=== PATIENT | male | born 1960 | race Caucasian/White ===

== ENCOUNTER → 2020-05-23 14:32 | Outpatient (POV) | payer OTHER, SELFPAY ==
[2020-05-23 14:55] VITALS: BP 132/88; PULSE 74; RESP 18; TEMP 36.8; O2SAT 98; BMI 29.8
--- NOTE | 2020-05-23 16:01 | HMH.PMCON ---
Assessment and Plan (1) Low back pain Status: Chronic Category: Medical Code(s): M54.5 - Low back pain (2) Lumbar radiculopathy Status: Chronic Category: Medical Code(s): M54.16 - Radiculopathy, lumbar region (3) Bilateral shoulder pain Status: Chronic Category: Medical Code(s): M25.511 - Pain in right shoulder; M25.512 - Pain in left shoulder (4) Cervical radiculopathy Status: Chronic Category: Medical Code(s): M54.12 - Radiculopathy, cervical region - Assessment and plan all Dx Assessment and Plan for all problems:: Patient has been the patient's pain is worse to his low back at this time. We will schedule him for an MRI of his lumbar spine. We will also start the patient on gabapentin 100 mg 1 tablet p.o. at bedtime We will see if this gives him any relief to his extremity pain as well as his shoulder pain. We will discuss his MRI at his next visit and determine further plan of care. He is in agreement. He has been instructed to contact clinic if he has any concerns before his next appointment. The patient and I specifically discussed risk factors for COVID19. These risks include, but are not limited to age greater than 60, heart or lung disease, diabetes, immunosuppression, and travel. We also discussed NSAIDs may worsen COVID19 infection or symptoms. Patient should not use NSAIDs to treat COVID19 signs or symptoms. Patient was also informed that any type of corticosteroid of any form (oral or injection) will decrease the patient's immune system response and may increase the likelihood of COVID19 infection [address] symptoms[address]. Wright has reviewed this note and agrees with this plan of care. This note was dictated using voice recognition software and make contain errors or omissions. HPI - Data of Consult Patient: new to practice Consult date: 05/23/20 Requesting Physician: Hillary Vallejo APRN Primary Care Provider: Luis Felipe Virgen MD Family Provider: Patient is a pleasant 59-year-old old white male who presents today for consultation for chronic low back pain. Patient says that he has had this pain for many years. 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 He says that he was in quarantine for 14 days and noticed that his pain improved when he was not doing prolonged standing and walking on concrete. Patient says much of his pain is in his low back and hips worsening on the left side to the left lateral thigh and lower leg area. He also has bilateral shoulder and hand pain. He has had difficulty with gripping in his hands with numbness and tingling as well. He says his pain is worse at night when he is laying down to the point he is unable to tolerate sleeping. Patient does have a history of gastric ulcers and is currently taking diclofenac, along with ibuprofen and Aleve. Patient says that he has noticed some GI upset recently due to his medications. He described his pain a 7 out of 10 today. Patient was referred to a neurosurgeon in the past who did not feel this patient was an appropriate surgical candidate. He has tried physical therapy for greater than 6 weeks. He continues with a home stretching program. He does have a history of GI upset along with gastric ulcers in the past. He has, however, been taking anti-inflammatories. He has tried ice and heat therapies and has not gotten any relief. - Consult Narrative History of present illness: Mr. Miles is a 59 year old male CC: Hillary Vallejo APRN [facility] History I have reviewed the patient's past medical history: Yes Medical History: Reports:: Deep Vein Thrombosis Denies:: Cancer, Diabetes Mellitus Type 1, Diabetes Mellitus Type 2, MRSA *Have you ever received a pneumonia vaccine?: Yes *Have you received a flu vaccine this season?: Yes Other Medical History: Reports: Arthritis Other Surgeries: Yes: Cholecystectomy, Hernia Repair Amputation: No Fractures: No - *Social History Smoking Status: Curr
== END ==
PROVIDERS: PCP Family Medicine; Referring Provider Nurse Practitioner; Visit Provider Clinical Nurse Specialist Family Health
DX: M54.5 Low back pain (principal); M54.16 Radiculopathy, lumbar region; M25.511 Pain in right shoulder; M54.12 Radiculopathy, cervical region
CPT/HCPCS: 99202

== ENCOUNTER → 2020-05-30 13:16 | Outpatient (CLI) | payer OTHER, SELFPAY ==
--- NOTE | 2020-05-30 13:20 | MR_ITS ---
PROCEDURE: MR LUMBAR SPINE WO CON CLINICAL INDICATION: BACK PAIN LBP XYRS. UNABLE TO STAND UP STRAIGHT. LT LEG PAIN ,NUMBNESS, AND TINGLING. RT HIP PAIN TO MID THIGH. NO PRIOR. COMPARISON: No exams were available for comparison TECHNIQUE: Standard multiplanar multiecho sequences are performed without contrast. 3-D MIP and myelographic images are also rendered and reviewed FINDINGS: The spinal cord ends at the L2 level. There is multilevel lumbar spondylosis. T2-11 T12: Degenerative disc disease with endplate irregularity. T12-L1: Mild degenerative disc disease with endplate irregularity. L1-L2: Degenerative disc disease with endplate irregularity and type 2 endplate changes anteriorly. L2-L3: The disc space is well preserved. There is some minimal endplate osteophytes. L3-L4: Minimal concentric bulging disc. Mild facet and ligamentum hypertrophy with mild left foraminal narrowing. L4-5: Degenerative disc disease with mild bulging disc along with mild facet and ligamentum hypertrophy with mild bilateral foraminal narrowing. L5-S1: Degenerative disc disease with mild bulging disc with facet and ligamentum hypertrophy. No extruded herniated disc or canal stenosis. There are bilateral renal cysts IMPRESSION: Multilevel lumbar spondylosis with bulging disc and facet and ligamentum hypertrophy. Please see above for detailed description at each level. No canal stenosis or extruded herniated disc. Dictated by: Gabo Vargas MD 06/01/2020 11:02 Gabo Vargas MD in [place] 06/01/2020 11:02
== END ==
PROVIDERS: PCP Family Medicine; Visit Provider Clinical Nurse Specialist Family Health
DX: M54.5 Low back pain (principal)
CPT/HCPCS: 72148; 76376

== ENCOUNTER → 2020-06-06 11:31 | Outpatient (POV) | payer OTHER, SELFPAY ==
[2020-06-06 11:30] VITALS: BP 129/87; PULSE 100; RESP 20; TEMP 36.4; O2SAT 98; BMI 30.6
--- NOTE | 2020-06-06 12:04 | HMH.PAINSOAP ---
[facility] Pain Management SOAP Note Subjective:: Patient is a 59-year-old white male who presents today for follow-up. Patient has been treated for chronic low back pain with lumbar radiculopathy symptoms as well as bilateral hand pain. At the patient's last visit, he was started on gabapentin for his chronic low back pain and leg pain. He also complained of shoulder and hand pain. Today he is complaining more of low back pain with radiation into his hips and legs with occasional numbness and tingling. He is also having hand pain with stiffness. He does not complain of any shoulder pain today. Patient does rate his pain a 7 out of 10. He does report some reluctance on undergoing injective therapy. He says gabapentin did not give him any relief. 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 Patient says that he does get some relief when he is sitting, however, his pain is worse when he is standing and walking. He has tried physical therapy along with a continued home stretching program. Review of Systems General: No recent weight changes, no fever, no sleep disturbances Respiratory: No cough, no shortness of air, no recurring pulmonary infections Cardiovascular/peripheral vascular: No chest pain, no palpitations, no edema, no shortness of breath Gastrointestinal: No new onset incontinence, normal bowel movements reported Genitourinary: No new onset incontinence Musculoskeletal: Low back pain with radiation into bilateral hips and legs with occasional numbness and tingling, bilateral hand pain with stiffness Psychiatric: Normal mood/affect Neurological: [Denies weakness in extremities], [denies balance issues] Objective:: Physical exam General: Alert and oriented x3, no acute distress, pleasant and cooperative, [on room air] Lungs: Respirations even and unlabored, symmetrical chest expansion Eyes: PERRL Musculoskeletal: Flexion and extension of lumbar spine somewhat guarded secondary to pain, deep tendon reflexes normal, strength in upper and lower extremities [5/5], [abnormal gait noted] Neurological: Speech clear, supervisor fusing room equal, no gross sensory deficit Assessment:: Degenerative disc disease lumbar spine with lumbar radiculopathy symptoms, bilateral hand pain Plan:: We will schedule the patient for a lumbar epidural steroid injection at L4-L5. We did review his MRI today. Patient did not get any relief with gabapentin. We will stop his gabapentin and give him a low-dose of tramadol 50 mg 1 tablet p.o. 2 times daily until he is able to get his injection. This will give him some relief in the meantime so that he is able to work. We will plan to see him back in the clinic after his injection to reassess his symptoms. He is not on any anticoagulation therapy. He is unable to take anti-inflammatories due to history of GI ulcers. Risks and benefits of the procedure have been explained to the patient. Patient would like to proceed with the procedure. Patient has been instructed to contact clinic if he does she has any concerns before the next appointment. The patient and I specifically discussed risk factors for COVID19. These risks include, but are not limited to age greater than 60, heart or lung disease, diabetes, immunosuppression, and travel. We also discussed NSAIDs may worsen COVID19 infection or symptoms. Patient should not use NSAIDs to treat COVID19 signs or symptoms. Patient was also informed that any type of corticosteroid of any form (oral or injection) will decrease the patient's immune system response and may increase the likelihood of COVID19 [address] Wright has reviewed this note and agrees with this plan of care. This note was dictated using voice recognition software and make contain errors or omissions. [facility] History I have reviewed the patient's past medical history: Yes Medical History: Reports:: Deep Vein Thrombosis Denies:: Cancer, Diabetes Mellitus
== END ==
PROVIDERS: PCP Nurse Practitioner; Visit Provider Clinical Nurse Specialist Family Health
DX: M51.16 Intervertebral disc disorders with radiculopathy, lumbar region (principal); M79.642 Pain in left hand; M79.641 Pain in right hand
CPT/HCPCS: 99212

== ENCOUNTER → 2020-06-28 08:50 | Day surgery (SDC) | payer OTHER, SELFPAY ==
[2020-06-28 09:12] VITALS: BP 150/93; PULSE 53; RESP 20; TEMP 36.6; O2SAT 97; BMI 31.1
--- NOTE | 2020-06-28 10:02 | P.CONS_ITS ---
[facility] Pain Management SOAP Note Subjective:: Patient is a pleasant 59-year-old white male who initially presented today for a lumbar epidural steroid injection. He says that most of his pain is multijoint pain primarily in his knees and shoulders. He occasionally has low back pain and leg pain however he does not think he needs an injection today for his low back pain as most of his pain is in his knees and shoulders. Objective:: Alert and oriented x3 no acute distress. Patient does have an antalgic gait. Motor strength of lower extremities is 5/5. There is no gross sensory deficit. Assessment:: Bilateral shoulder pain with degenerative osteoarthritis. Bilateral knee pain with degenerative osteoarthritis. Low back pain with occasional lumbar radicular symptoms. Plan:: Patient's primary complaint is pain in both shoulders and knees. He has been on anti-inflammatories without much relief. Also he has GI distress from these anti-inflammatories. He is also been on tramadol which has not helped. We will make a referral to the [facility] [place] to evaluate and make any recommendations. We will also see him back after this evaluation for possible injections into his knees and shoulders. We will also order him a compounding cream to see if this may help some of his pain symptoms. [facility] History Medical History: Reports:: Deep Vein Thrombosis Denies:: Cancer, Diabetes Mellitus Type 1, Diabetes Mellitus Type 2, MRSA, Seizures *Have you ever received a pneumonia vaccine?: No *Have you received a flu vaccine this season?: No Other Medical History: Reports: Arthritis. Denies: Blood Transfusion Reaction Laterality Cases: Left: Other Other Surgeries: Yes: Cholecystectomy, Hernia Repair Amputation: No Fractures: Yes (left leg fracture) - *Social History Smoking Status: Current every day smoker Tobacco Type: cigarettes # Packs/Day (cigarettes): 1 Alcohol Intake: never *Occupational Status:: disabled Housing: house Household Members: spouse *Travel in the last 8 weeks: None Family Hx:: Unable to obtain
== END ==
PROVIDERS: PCP Nurse Practitioner; Visit Provider Anesthesiology
DX: M19.012 Primary osteoarthritis, left shoulder (principal); M19.011 Primary osteoarthritis, right shoulder; M17.0 Bilateral primary osteoarthritis of knee; M54.16 Radiculopathy, lumbar region
CPT/HCPCS: 99212; G0463

== ENCOUNTER → 2020-07-18 14:37 | Outpatient (POV) | payer OTHER, SELFPAY ==
[2020-07-18 14:57] VITALS: BP 122/88; PULSE 79; RESP 18; TEMP 36.7; O2SAT 99; BMI 31.1
--- NOTE | 2020-07-18 15:10 | HMH.PAINSOAP ---
[facility] Pain Management SOAP Note Subjective:: Patient is a pleasant 59-year-old white male who presents today for follow-up. Patient is being treated for arthritis pain. He also has bilateral knee pain. He has had steroid injections in his knees several years ago and has done well with this. Patient is unable to take normal anti-inflammatories due to a history of bleeding ulcers back in 2003 we discussed Duexis. Patient I also discussed Pennsaid. Patient states that tramadol is beneficial for him. Patient's Thang reviewed and appropriate. He rates his pain today an 8 out of 10. Patient would like to have repeat steroid injections in his knees. Patient is also got an appointment with the arthritis Center in [place]. ROS General: no recent weight change, no fever, no sleep disturbances Respiratory: no cough, no shortness of air, no recurring pulmonary infections Cardiovascular/Peripheral Vascular: No chest pain, No palpitations, no edema, no shortness of breath. Gastrointestinal: no new onset incontinence, normal bowel movements reported Genitourinary: no new onset incontinence Musculoskeletal: Joint pain Psychiatric: normal mood/ affect Neurological: [denies new onset weakness in extremities], [denies new onset balance issues] Objective:: Physical Exam General: Alert and oriented x3, no acute distress, pleasant and cooperative, Lungs: Resps E/U, Symmetrical chest expansion, Eyes: PERRL Musculoskeletal: Flexion and extension of lumbar spine somewhat guarded secondary to pain, deep tendon reflexes normal, strength in upper and lower extremities [5/5], [abnormal gait noted] decreased range of motion bilateral knees Neurological: speech clear, xray tech equal, no gross sensory deficits Assessment:: Degenerative disc disease lumbar spine lumbar radiculopathy, arthritis, osteoarthritis bilateral knees, pain bilateral knees Plan:: We will see the patient back for bilateral intra-articular knee injections. We discussed Pennsaid and the use of an anti-inflammatory gel. We will also increase his tramadol to 2 tabs p.o. 3 times daily Until he is seen by the arthritis Center. He has been instructed to call the office if he has any issues prior to his next appointment. Dr. Wright has reviewed this note and agrees with this plan of care. This note was dictated using voice recognition software and may contain errors or omissions [facility] History I have reviewed the patient's past medical history: Yes Medical History: Reports:: Deep Vein Thrombosis Denies:: Cancer, Diabetes Mellitus Type 1, Diabetes Mellitus Type 2, MRSA, Seizures *Have you ever received a pneumonia vaccine?: Yes *Have you received a flu vaccine this season?: Yes Other Medical History: Reports: Arthritis. Denies: Blood Transfusion Reaction Laterality Cases: Left: Other Other Surgeries: Yes: Cholecystectomy, Hernia Repair Amputation: No Fractures: Yes (left leg fracture) - *Social History Smoking Status: Current every day smoker Tobacco Type: cigarettes # Packs/Day (cigarettes): 1 Alcohol Intake: never *Occupational Status:: other Housing: house Household Members: spouse *Travel in the last 8 weeks: None Family Hx:: Unable to obtain
== END ==
PROVIDERS: PCP Nurse Practitioner; Visit Provider Clinical Nurse Specialist Family Health
DX: M51.16 Intervertebral disc disorders with radiculopathy, lumbar region (principal); M17.0 Bilateral primary osteoarthritis of knee
CPT/HCPCS: 99212; G0463

== ENCOUNTER 2020-07-26 11:40 | Day surgery (SDC) | payer OTHER, SELFPAY ==
[2020-07-26 11:49] VITALS: BP 144/92; PULSE 88; RESP 18; TEMP 36.4; O2SAT 98; BMI 31.1
[2020-07-26 12:22] VITALS: BP 122/74; PULSE 85
[2020-07-26 12:23] VITALS: BP 121/71; PULSE 85; RESP 18; O2SAT 99
[2020-07-26 12:33] VITALS: BP 142/93; PULSE 86; RESP 18; O2SAT 98
--- NOTE | 2020-07-26 12:34 | P.PCN_ITS ---
- Procedure Date: 07/26/20 Time: 12:34 Anesthesiologist:: Ashok Wright MD Complications:: None Pre-procedure Diagnosis:: Bilateral knee pain with degenerative osteoarthritis Post-procedure Diagnosis:: Same Indications for Procedure:: Patient is a pleasant 59-year-old white male who we are treating for bilateral knee pain with degenerative osteoarthritis. He is done well with previous s teroid injections in both knees. He has increasing bilateral knee pain. We will do bilateral intra-articular steroid injections today to help with his pain symptoms. Procedure Details:: Bilateral knee injections Informed consent was obtained risk and benefits of the procedure was explained to the patient. Patient was taken the procedure room. Both knees were prepped using ChloraPrep. A 25-gauge needle was used first laterally then medially to inject 10 mL bupivacaine 0.25% and Depo-Medrol 40 mg into each knees. We did use a total of 80 mg Depo-Medrol for both knees. Patient tolerated the procedure well with no complications. Plan and Disposition:: We will follow-up with this patient 2 weeks. Will reevaluate symptoms at that time.
== END 2020-07-26 12:34 | disposition home or self-care (01) ==
LOC: SC.PAINP 11:47
PROVIDERS: PCP Nurse Practitioner; Visit Provider Anesthesiology
DX: M17.0 Bilateral primary osteoarthritis of knee (principal); K21.9 Gastro-esophageal reflux disease without esophagitis; N40.0 Benign prostatic hyperplasia without lower urinary tract symptoms; Z72.0 Tobacco use; Z82.49 Family history of ischemic heart disease and other diseases of the circulatory system; Z87.442 Personal history of urinary calculi
CPT/HCPCS: 20610; J1030

== ENCOUNTER → 2020-08-22 14:45 | Outpatient (POV) | payer OTHER, SELFPAY ==
[2020-08-22 15:45] VITALS: BP 142/71; PULSE 72; RESP 18; O2SAT 98; BMI 29.4
--- NOTE | 2020-08-22 16:13 | HMH.PAINSOAP ---
[facility] Pain Management SOAP Note Subjective:: Patient is a 59-year-old white male who presents today for follow-up after bilateral knee injections. He has been treated for bilateral knee pain with degenerative osteoarthritis. Patient says he did not get any relief with his injections. He says that he actually had a reaction to the medication. Patient says that he developed a hot flushed sensation with shaking and jitteriness. He says he then blacked out. He reported to his primary care provider who informed he was likely due to reaction to the steroids. He says he will not undergo any further injective therapy. He does rate his pain a 9 out of 10. He is managed with tramadol 50 mg 2 tablets p.o. 3 times daily. He denies any side effects to the medication. He does need a refill on his medications today. His Thang and drug screens have been appropriate. Review of Systems General: No recent weight changes, no fever, no sleep disturbances Respiratory: No cough, no shortness of air, no recurring pulmonary infections Cardiovascular/peripheral vascular: No chest pain, no palpitations, no edema, no shortness of breath Gastrointestinal: No new onset incontinence, normal bowel movements reported Genitourinary: No new onset incontinence Musculoskeletal: Bilateral knee pain and chronic low back pain Psychiatric: Normal mood/affect Neurological: [Denies weakness in extremities], [denies balance issues] Objective:: Physical exam General: Alert and oriented x3, no acute distress, pleasant and cooperative, [on room air] Lungs: Respirations even and unlabored, symmetrical chest expansion Eyes: PERRL Musculoskeletal: Flexion and extension of lumbar spine somewhat guarded secondary to pain, deep tendon reflexes normal, strength in upper and lower extremities [5/5], slightly antalgic gait noted Neurological: Speech clear, ticker installer equal, no gross sensory deficit Assessment:: Degenerative osteoarthritis bilateral knees, low back pain Plan:: Patient feels he had a reaction to the steroids. We we will refill his tramadol 50 mg 2 tablets p.o. 3 times daily. We will give him 3 months of medication. We will plan to see him back in the clinic in 3 months to reevaluate his symptoms. He has been instructed to contact clinic if he has any concerns before his next appointment. Risks and benefits of the medication have been explained in detail to the patient. The patient has been advised to consult with his/her primary care provider and pharmacist regarding drug-drug interaction of medications currently prescribed. The patient and I specifically discussed risk factors for COVID19. These risks include, but are not limited to age greater than 60, heart or lung disease, diabetes, immunosuppression, and travel. We also discussed NSAIDs may worsen COVID19 infection or symptoms. Patient should not use NSAIDs to treat COVID19 signs or symptoms. Patient was also informed that any type of corticosteroid of any form (oral or injection) will decrease the patient's immune system response and may increase the likelihood of COVID19 [address] symptoms[address] Wright has reviewed this note and agrees with this plan of care. This note was dictated using voice recognition software and make contain errors or omissions. [facility] History I have reviewed the patient's past medical history: Yes Medical History: Reports:: Deep Vein Thrombosis Denies:: Cancer, Diabetes Mellitus Type 1, Diabetes Mellitus Type 2, MRSA, Seizures *Have you ever received a pneumonia vaccine?: Yes *Have you received a flu vaccine this season?: Yes Other Medical History: Reports: Arthritis. Denies: Blood Transfusion Reaction Laterality Cases: Left: Other Other Surgeries: Yes: Cholecystectomy, Hernia Repair Amputation: No Fractures: Yes (left leg fracture) - *Social History Smoking Status: Current every day smoker Tobacco Type: cigarettes # Packs/Day (cigarettes): 1 Alcohol Intake: never *Occup
== END ==
PROVIDERS: PCP Nurse Practitioner; Visit Provider Clinical Nurse Specialist Family Health
DX: M17.0 Bilateral primary osteoarthritis of knee (principal); M54.5 Low back pain
CPT/HCPCS: 99212; G0463

== ENCOUNTER → 2020-11-21 13:01 | Outpatient (POV) | payer OTHER, SELFPAY ==
[2020-11-21 13:15] VITALS: BP 138/68; PULSE 72; RESP 18; O2SAT 97; BMI 30.5
--- NOTE | 2020-11-21 15:47 | P.CONS_ITS ---
[facility] Pain Management SOAP Note Subjective:: Patient is a 59-year-old white male who presents today for follow-up and for medication refills. He has been treated for chronic bilateral knee pain. He also has chronic pain in his shoulders and hands. He rates his pain a 5 out of 10 today. He has managed with tramadol 50 mg 2 tablets p.o. 3 times daily. He denies any side effects to the medication. He is having a flareup of pain in his hands and shoulders at this time. Patient says he has had injections in the past which caused him to have a reaction. He would like to try oral steroids for a week to see if this gives him relief of his pain in his knees and hands. Review of Systems General: No recent weight changes, no fever, no sleep disturbances Respiratory: No cough, no shortness of air, no recurring pulmonary infections Cardiovascular/peripheral vascular: No chest pain, no palpitations, no edema, no shortness of breath Gastrointestinal: No new onset incontinence, normal bowel movements reported Genitourinary: No new onset incontinence Musculoskeletal: Bilateral shoulder pain, bilateral knee pain, bilateral hand pain Psychiatric: Normal mood/affect Neurological: Weakness in bilateral hands, [denies balance issues] Objective:: Physical exam General: Alert and oriented x3, no acute distress, pleasant and cooperative, [on room air] Lungs: Respirations even and unlabored, symmetrical chest expansion Eyes: PERRL Musculoskeletal: Met of bilateral hands and lower extremities somewhat guarded secondary to pain, deep tendon reflexes normal, strength in upper and lower extremities [4/5], [abnormal gait noted] Neurological: Speech clear, finish remover equal, no gross sensory deficit Assessment:: Bilateral knee pain, bilateral hand pain, bilateral shoulder pain Plan:: We will refill the patient's tramadol 50 mg 2 tablets p.o. 3 times daily. We will also give him 5 days of prednisone 20 mg 1 tablet p.o. twice daily. We will plan to see the patient back in 3 months to reevaluate his symptoms. Risks and benefits of the medication have been explained in detail to the patient. The patient has been advised to consult with his/her primary care provider and pharmacist regarding drug-drug interaction of medications currently prescribed. Patient has been prescribed a controlled substance after being counseled on the medication, medication safety, and possible side effects. ARIA report has been obtained and reviewed prior to prescription and found to be appropriate. Opioid contract was reviewed and signed by the patient, and that they have agreed to all of the terms set forth by our compliance program. [facility] History I have reviewed the patient's past medical history: Yes Medical History: Reports:: Deep Vein Thrombosis Denies:: Cancer, Diabetes Mellitus Type 1, Diabetes Mellitus Type 2, MRSA, Seizures *Have you ever received a pneumonia vaccine?: No *Have you received a flu vaccine this season?: No Other Medical History: Reports: Arthritis. Denies: Blood Transfusion Reaction Laterality Cases: Left: Other Other Surgeries: Yes: Cholecystectomy, Hernia Repair Amputation: No Fractures: Yes (left leg fracture) - *Social History Smoking Status: Current every day smoker Tobacco Type: cigarettes # Packs/Day (cigarettes): 1 Alcohol Intake: never *Occupational Status:: employed Housing: house Household Members: spouse *Travel in the last 8 weeks: None Family Hx:: Unable to obtain
== END ==
PROVIDERS: Visit Provider Clinical Nurse Specialist Family Health
DX: M25.561 Pain in right knee (principal); M25.562 Pain in left knee; M79.642 Pain in left hand; M79.641 Pain in right hand; M25.512 Pain in left shoulder; M25.511 Pain in right shoulder
CPT/HCPCS: 99212; G0463

== ENCOUNTER → 2021-03-10 10:50 | Outpatient (POV) | payer OTHER, SELFPAY ==
[2021-03-10 11:00] VITALS: BP 129/76; PULSE 83; RESP 18; O2SAT 97; BMI 28.2
--- NOTE | 2021-03-10 11:18 | HMH.PAINSOAP ---
[facility] Pain Management SOAP Note Subjective:: Patient is a 60-year-old white male who presents today for follow-up and for medication refills. He has been treated for progressively worsening pain in his bilateral knees, hands, legs and bilateral shoulders. Patient reports to have severe joint pain. He has been managed with tramadol 50 mg 2 tablets p.o. 3 times daily in the clinic. He did get prednisone at his last visit with no significant relief. He has tried to take anti-inflammatories with minimal relief. He continues to have severe pain. Patient does currently work and has difficulty performing his job due to the pain. His pain is a 4 out of 10 with sitting, however, with any movement his pain does worsen. He is also reporting sexual difficulties with his due to the pain, as well. Review of Systems General: No recent weight changes, no fever, no sleep disturbances Respiratory: No cough, no shortness of air, no recurring pulmonary infections Cardiovascular/peripheral vascular: No chest pain, no palpitations, no edema, no shortness of breath Gastrointestinal: No new onset incontinence, normal bowel movements reported Genitourinary: No new onset incontinence Musculoskeletal: Joint pain, knee pain, hand pain bilaterally, leg pain Psychiatric: [Normal mood/affect] Neurological: [Denies weakness in extremities], [denies balance issues] Objective:: Physical exam General: Alert and oriented x3, no acute distress, pleasant and cooperative, [on room air] Lungs: Respirations even and unlabored, symmetrical chest expansion Eyes: PERRL Musculoskeletal: Palpation of bilateral knees, legs, bilateral shoulders somewhat guarded secondary to pain, strength in upper and lower extremities [5/5], [antalgic gait noted] Neurological: Speech clear, [paid search manager equal], no gross sensory deficit Assessment:: Bilateral knee pain, bilateral hand pain, bilateral leg pain, chronic shoulder pain Plan:: Patient will start [place] 5 mg 1 tablet p.o. 3 times daily. He has been taking tramadol 50 mg 2 tablets p.o. 3 times daily with no significant relief. He has tried prednisone and anti-inflammatories. We will give him a month of the medication to see if this relieves his pain. The patient's Aria #[id number] has been reviewed and is appropriate. Drug screen is appropriate. Morphine equivalent is 0. We will see the patient back in the clinic for reevaluation of symptoms in 1 month. Risks and benefits of the medication have been explained in detail to the patient. The patient has been advised to consult with his/her primary care provider and pharmacist regarding drug-drug interaction of medications currently prescribed. Patient has been prescribed a controlled substance after being counseled on the medication, medication safety, and possible side effects. ARIA report has been obtained and reviewed prior to prescription and found to be appropriate. Opioid contract was reviewed and signed by the patient, and that they have agreed to all of the terms set forth by our compliance program. Patient has been instructed to contact the clinic with any concerns before the next appointment. Dr. Wright has reviewed this note and agrees with this plan of care. This note was dictated using voice recognition software and make contain errors or omissions. [facility] History I have reviewed the patient's past medical history: Yes Medical History: Reports:: Deep Vein Thrombosis Denies:: Cancer, Diabetes Mellitus Type 1, Diabetes Mellitus Type 2, MRSA, Seizures *Have you ever received a pneumonia vaccine?: No *Have you received a flu vaccine this season?: No Other Medical History: Reports: Arthritis. Denies: Blood Transfusion Reaction Laterality Cases: Left: Other Other Surgeries: Yes: Cholecystectomy, Hernia Repair Amputation: No Fractures: Yes (left leg fracture) - *Social History Smoking Status: Current every day smoker Tobacco Type: cigarettes # Packs/Day (cigarette
== END ==
PROVIDERS: Visit Provider Clinical Nurse Specialist Family Health
DX: M25.562 Pain in left knee (principal); M25.561 Pain in right knee; M25.519 Pain in unspecified shoulder; M25.542 Pain in joints of left hand; M25.541 Pain in joints of right hand; M79.605 Pain in left leg; M79.604 Pain in right leg; G89.29 Other chronic pain
CPT/HCPCS: 99212; G0463

== ENCOUNTER → 2021-04-07 11:14 | Outpatient (POV) | payer OTHER, SELFPAY ==
[2021-04-07 11:27] VITALS: BP 145/80; PULSE 92; RESP 18; O2SAT 98; BMI 29.0
--- NOTE | 2021-04-07 11:59 | HMH.PAINSOAP ---
[facility] Pain Management SOAP Note Subjective:: Patient is a 60-year-old white male who presents today for medication refills. Patient is being treated for chronic joint pain of bilateral knees, hands, legs and shoulders. He is managed with Piru 5 mg 1 tablet p.o. twice daily. Medication is working for the patient but seems to be wearing off mid day. He is supplementing in between Piru with ibuprofen. He does rate his pain a 4 out of 10 today. Patient says this is helping with his pain in the morning and at bedtime. Midday is when his pain is at its worst due to working and due to medication wearing off. He denies any side effects to the medication. Patient's Aria #[id number] has been reviewed and is appropriate. Morphine equivalent is 10. Drug screens have been appropriate. Review of Systems General: No recent weight changes, no fever, no sleep disturbances Respiratory: No cough, no shortness of air, no recurring pulmonary infections Cardiovascular/peripheral vascular: No chest pain, no palpitations, no edema, no shortness of breath Gastrointestinal: No new onset incontinence, normal bowel movements reported Genitourinary: No new onset incontinence Musculoskeletal: Bilateral shoulder, knee, hand, leg pain Psychiatric: [Normal mood/affect] Neurological: [Denies weakness in extremities], [denies balance issues] Objective:: Physical exam General: Alert and oriented x3, no acute distress, pleasant and cooperative Lungs: Respirations even and unlabored, symmetrical chest expansion Eyes: PERRL Musculoskeletal: Flexion and extension of joints?bilateral shoulders, arms, legs, knees, hands somewhat guarded secondary to pain, [antalgic gait noted] Neurological: Speech clear, no gross sensory deficit Assessment:: Bilateral knee pain, bilateral hand pain, bilateral leg pain, chronic shoulder pain Plan:: We will continue the patient on Piru and increase to 5 mg 1 tablet p.o. 3 times daily. We will give the patient a month medication and see him back in the clinic in 1 month for reevaluation symptoms. Risks and benefits of the medication have been explained in detail to the patient. The patient does understand the risk of dependence on the medication when given over a prolonged period. Patient has been advised of risks of oversedation with the prescribed medication. Narcan has been offered to the paitent in the event of oversedation. Patient has been advised that a family member should also be educated regarding administration of Narcan. The patient has been advised to consult with his/her primary care provider and pharmacist regarding drug-drug interaction of medications currently prescribed. Patient has been prescribed a controlled substance after being counseled on the medication, medication safety, and possible side effects. ARIA report has been obtained and reviewed prior to prescription and found to be appropriate. Opioid contract was reviewed and signed by the patient, and that they have agreed to all of the terms set forth by our compliance program. Patient has been instructed to contact the clinic with any concerns before the next appointment. Dr. Wright has reviewed this note and agrees with this plan of care. This note was dictated using voice recognition software and make contain errors or omissions. [facility] History I have reviewed the patient's past medical history: Yes Medical History: Reports:: Deep Vein Thrombosis Denies:: Cancer, Diabetes Mellitus Type 1, Diabetes Mellitus Type 2, MRSA, Seizures *Have you ever received a pneumonia vaccine?: No *Have you received a flu vaccine this season?: No Other Medical History: Reports: Arthritis. Denies: Blood Transfusion Reaction Laterality Cases: Left: Other Other Surgeries: Yes: Cholecystectomy, Hernia Repair Amputation: No Fractures: Yes (left leg fracture) - *Social History Smoking Status: Current every day smoker Tobacco Type: cigarettes # Packs
[2021-04-07 13:09] LABS: Amphetamine/Metha Screen,Urine Negative ng/ml (<1000)
[2021-04-07 13:10] LABS: Barbiturates Screen,Urine Negative ng/ml (<200); Benzodiazepines Screen,Urine Negative ng/ml (<200)
[2021-04-07 13:11] LABS: Cannabinoid Screen,Urine Negative ng/ml (<50)
[2021-04-07 13:12] LABS: Cocaine Screen,Urine Negative ng/ml (<300); Methadone Screen,Urine Negative ng/ml (<300)
[2021-04-07 13:13] LABS: Opiate Screen,Urine Negative ng/ml (<300); Phencyclidine Screen,Urine Negative ng/ml (<25)
== END ==
PROVIDERS: Visit Provider Clinical Nurse Specialist Family Health
DX: M25.561 Pain in right knee (principal); M25.562 Pain in left knee; M79.605 Pain in left leg; M79.604 Pain in right leg; M79.642 Pain in left hand; M79.641 Pain in right hand; M25.519 Pain in unspecified shoulder
CPT/HCPCS: 80305; 99212; G0463

== ENCOUNTER → 2021-05-06 10:32 | Outpatient (POV) | payer OTHER, SELFPAY ==
--- NOTE | 2021-05-06 10:57 | HMH.PAINSOAP ---
[facility] Pain Management SOAP Note Subjective:: Patient is a 60-year-old white male who presents today for medication refills. We do manage the patient for chronic pain in his bilateral knees, hands, legs and shoulders. He does continue to work daily. He is on [place] 5 mg 1 tablet p.o. 3 times daily which is giving him significant relief. He is inquiring about CBD oil today but says he will not take the medication if he will compromise his current medication regimen prescribed by us. He is asking for medication to take in between oral opiates. He is asking for ibuprofen for a type of anti-inflammatory that may be beneficial. Patient's Aria #[id number] has been reviewed and is appropriate. Drug screens are appropriate. Morphine equivalent 15. He denies any side effects to the medication. He rates his pain 4 out of 10. Review of Systems General: No recent weight changes, no fever, no sleep disturbances Respiratory: No cough, no shortness of air, no recurring pulmonary infections Cardiovascular/peripheral vascular: No chest pain, no palpitations, no edema, no shortness of breath Gastrointestinal: No new onset incontinence, normal bowel movements reported Genitourinary: No new onset incontinence Musculoskeletal: Bilateral knee pain, bilateral shoulder pain, bilateral hand pain, bilateral leg pain Psychiatric: [Normal mood/affect] Neurological: [Denies weakness in extremities], [denies balance issues] Objective:: Physical exam General: Alert and oriented x3, no acute distress, pleasant and cooperative Lungs: Respirations even and unlabored, symmetrical chest expansion Eyes: PERRL Musculoskeletal: Flexion and extension of lumbar [spine] somewhat guarded secondary to pain, [antalgic gait noted] Neurological: Speech clear, no gross sensory deficit Assessment:: Chronic pain to bilateral shoulders bilateral hands bilateral knees bilateral legs Plan:: We will continue patient on [place] 5 mg 1 tablet p.o. 3 times daily. We will also start the patient on ibuprofen 800 mg 1 tablet p.o. 3 times daily as needed breakthrough pain. We will also order the patient Pepcid 20 mg 1 tablet p.o. 3 times daily as needed with ibuprofen to help with GI upset. We will plan to follow-up with the patient in 1 month for refills on medications and further evaluation of symptoms. Risks and benefits of the medication have been explained in detail to the patient. The patient does understand the risk of dependence on the medication when given over a prolonged period. Patient has been advised of risks of oversedation with the prescribed medication. Narcan has been offered to the paitent in the event of oversedation. Patient has been advised that a family member should also be educated regarding administration of Narcan. The patient has been advised to consult with his/her primary care provider and pharmacist regarding drug-drug interaction of medications currently prescribed. Patient has been prescribed a controlled substance after being counseled on the medication, medication safety, and possible side effects. ARIA report has been obtained and reviewed prior to prescription and found to be appropriate. Opioid contract was reviewed and signed by the patient, and that they have agreed to all of the terms set forth by our compliance program. Patient has been instructed to contact the clinic with any concerns before the next appointment. Dr. Wright has reviewed this note and agrees with this plan of care. This note was dictated using voice recognition software and make contain errors or omissions. [facility] History I have reviewed the patient's past medical history: Yes Medical History: Reports:: Deep Vein Thrombosis Denies:: Cancer, Diabetes Mellitus Type 1, Diabetes Mellitus Type 2, MRSA, Seizures *Have you ever received a pneumonia vaccine?: No *Have you received a flu vaccine this season?: No Other Medical History: Reports: Arthritis. Denies: Blood Tra
[2021-05-06 11:06] VITALS: BP 124/78; PULSE 76; RESP 18; O2SAT 97; BMI 31.8
== END ==
PROVIDERS: Visit Provider Clinical Nurse Specialist Family Health
DX: M25.511 Pain in right shoulder (principal); M25.512 Pain in left shoulder; M25.561 Pain in right knee; M25.562 Pain in left knee; M79.642 Pain in left hand; M79.641 Pain in right hand; M79.605 Pain in left leg; M79.604 Pain in right leg
CPT/HCPCS: 99212; G0463

== ENCOUNTER → 2021-06-05 10:36 | Outpatient (POV) | payer OTHER, SELFPAY ==
[2021-06-05 11:33] VITALS: BP 134/70; PULSE 97; RESP 18; O2SAT 98; BMI 30.5
--- NOTE | 2021-06-05 12:38 | HMH.PAINSOAP ---
[facility] Pain Management SOAP Note Subjective:: Patient is a 60-year-old white male who presents today for follow-up and medication refills. Patient says that his pain has decreased significantly since taking [place] 3 times daily and ibuprofen together. His pain is 4 out of 10 today. He does have pain in his joints as well as his bilateral shoulders and knees/hands. Patient says his life has changed for the better since starting the medication regimen he is currently on. He denies any side effects of the medication. [facility] #[id number] has been reviewed and is appropriate. Morphine equivalent is 15. He also takes Pepcid with his ibuprofen. Review of Systems General: No recent weight changes, no fever, no sleep disturbances Respiratory: No cough, no shortness of air, no recurring pulmonary infections Cardiovascular/peripheral vascular: No chest pain, no palpitations, no edema, no shortness of breath Gastrointestinal: No new onset incontinence, normal bowel movements reported Genitourinary: No new onset incontinence Musculoskeletal: Bilateral shoulder pain, bilateral hand knee pain Psychiatric: [Normal mood/affect] Neurological: [Denies weakness in extremities], [denies balance issues] Objective:: Physical exam General: Alert and oriented x3, no acute distress, pleasant and cooperative Lungs: Respirations even and unlabored, symmetrical chest expansion Eyes: PERRL Musculoskeletal: Flexion and extension of lumbar [spine] somewhat guarded secondary to pain, [antalgic gait noted] Neurological: Speech clear, no gross sensory deficit Assessment:: bilateral knee pain, bilateral shoulder pain, bilateral hand pain, osteoarthritis Plan:: We will continue patient's [place] 5 mg 1 tablet p.o. 3 times daily, ibuprofen 800 mg 1 tablet p.o. 3 times daily and Pepcid 20 mg 1 tablet p.o. 3 times daily to be taken with his ibuprofen. He does feel that the medication is working well for him and enabling him to work with less pain. We will see him back in 1 month for medication refills. Risks and benefits of the medication have been explained in detail to the patient. The patient does understand the risk of dependence on the medication when given over a prolonged period. Patient has been advised of risks of oversedation with the prescribed medication. Narcan has been offered to the paitent in the event of oversedation. Patient has been advised that a family member should also be educated regarding administration of Narcan. The patient has been advised to consult with his/her primary care provider and pharmacist regarding drug-drug interaction of medications currently prescribed. Patient has been prescribed a controlled substance after being counseled on the medication, medication safety, and possible side effects. ARIA report has been obtained and reviewed prior to prescription and found to be appropriate. Opioid contract was reviewed and signed by the patient, and that they have agreed to all of the terms set forth by our compliance program. Patient has been instructed to contact the clinic with any concerns before the next appointment. Dr. Wright has reviewed this note and agrees with this plan of care. This note was dictated using voice recognition software and make contain errors or omissions. [facility] History I have reviewed the patient's past medical history: Yes Medical History: Reports:: Deep Vein Thrombosis Denies:: Cancer, Diabetes Mellitus Type 1, Diabetes Mellitus Type 2, MRSA, Seizures *Have you ever received a pneumonia vaccine?: No *Have you received a flu vaccine this season?: No Other Medical History: Reports: Arthritis. Denies: Blood Transfusion Reaction Laterality Cases: Left: Other Other Surgeries: Yes: Cholecystectomy, Hernia Repair Amputation: No Fractures: Yes (left leg fracture) - *Social History Smoking Status: Current every day smoker Tobacco Type: cigarettes # Packs/Day (cigarettes): 1 Alcohol Intak
== END ==
PROVIDERS: Visit Provider Clinical Nurse Specialist Family Health
DX: M25.561 Pain in right knee (principal); M25.562 Pain in left knee; M25.511 Pain in right shoulder; M25.512 Pain in left shoulder; M79.642 Pain in left hand; M79.641 Pain in right hand; M19.90 Unspecified osteoarthritis, unspecified site
CPT/HCPCS: 99212; G0463

== ENCOUNTER → 2021-07-08 13:18 | Outpatient (POV) | payer OTHER, SELFPAY ==
[2021-07-08 13:56] VITALS: BP 151/86; PULSE 89; RESP 18; O2SAT 95; BMI 30.5
--- NOTE | 2021-07-08 14:35 | HMH.PAINSOAP ---
[facility] Pain Management SOAP Note Subjective:: Patient is a 60-year-old white male who presents today for medication refills. Patient does continue to work and does have joint pain throughout his body. He has bilateral shoulder, knees, and hands pain. He is managed with [place] 5 mg 1 tablet p.o. 3 times daily which does give him significant relief. He is much more functional and able to do his job without flareups. He also takes ibuprofen as needed for pain as well. Today, the patient does rate his pain a 3 out of 10. [facility] #[id number] has been reviewed and is appropriate. Drug screen is appropriate. Morphine equivalent is 15. Review of Systems General: No recent weight changes, no fever, no sleep disturbances Respiratory: No cough, no shortness of air, no recurring pulmonary infections Cardiovascular/peripheral vascular: No chest pain, no palpitations, no edema, no shortness of breath Gastrointestinal: No new onset incontinence, normal bowel movements reported Genitourinary: No new onset incontinence Musculoskeletal: Knee pain, bilateral shoulder pain, bilateral hand pain Psychiatric: [Normal mood/affect] Neurological: [Denies weakness in extremities], [denies balance issues] Objective:: Physical exam General: Alert and oriented x3, no acute distress, pleasant and cooperative Lungs: Respirations even and unlabored, symmetrical chest expansion Eyes: PERRL Musculoskeletal: Flexion and extension of cervical and lumbar [spine] somewhat guarded secondary to pain, [antalgic gait noted] Neurological: Speech clear, no gross sensory deficit Assessment:: Chronic knee, shoulder, hand pain, joint pain Plan:: Patient will continue [place] 5 mg 1 tablet p.o. 3 times daily along with ibuprofen 800 mg 1 tablet p.o. 3 times daily and Pepcid 20 mg 1 tablet p.o. 3 times daily as needed with ibuprofen. Patient will get a month medication will be seen back in the clinic in 1 month. Risks and benefits of the medication have been explained in detail to the patient. The patient does understand the risk of dependence on the medication when given over a prolonged period. Patient has been advised of risks of oversedation with the prescribed medication. Narcan has been offered to the paitent in the event of oversedation. Patient has been advised that a family member should also be educated regarding administration of Narcan. The patient has been advised to consult with his/her primary care provider and pharmacist regarding drug-drug interaction of medications currently prescribed. Patient has been prescribed a controlled substance after being counseled on the medication, medication safety, and possible side effects. ARIA report has been obtained and reviewed prior to prescription and found to be appropriate. Opioid contract was reviewed and signed by the patient, and that they have agreed to all of the terms set forth by our compliance program. Patient has been instructed to contact the clinic with any concerns before the next appointment. Dr. Wright has reviewed this note and agrees with this plan of care. This note was dictated using voice recognition software and make contain errors or omissions. [facility] History I have reviewed the patient's past medical history: Yes Medical History: Reports:: Deep Vein Thrombosis Denies:: Cancer, Diabetes Mellitus Type 1, Diabetes Mellitus Type 2, MRSA, Seizures *Have you ever received a pneumonia vaccine?: No *Have you received a flu vaccine this season?: No Other Medical History: Reports: Arthritis. Denies: Blood Transfusion Reaction Laterality Cases: Left: Other Other Surgeries: Yes: Cholecystectomy, Hernia Repair Amputation: No Fractures: Yes (left leg fracture) - *Social History Smoking Status: Current every day smoker Tobacco Type: cigarettes # Packs/Day (cigarettes): 1 Alcohol Intake: never *Occupational Status:: employed Housing: house Household Members: spouse *Travel in the
[2021-07-08 23:13] LABS: Amphetamine/Metha Screen,Urine Negative ng/ml (<1000)
[2021-07-08 23:14] LABS: Barbiturates Screen,Urine Negative ng/ml (<200)
[2021-07-08 23:15] LABS: Benzodiazepines Screen,Urine Negative ng/ml (<200)
[2021-07-08 23:16] LABS: Cannabinoid Screen,Urine Negative ng/ml (<50); Cocaine Screen,Urine Negative ng/ml (<300)
[2021-07-08 23:17] LABS: Methadone Screen,Urine Negative ng/ml (<300)
[2021-07-08 23:18] LABS: Opiate Screen,Urine Positive ng/ml (<300); Phencyclidine Screen,Urine Negative ng/ml (<25)
[2021-07-22 19:08] LABS: Codeine Negative (Cutoff=100); Hydrocodone Positive (.); Hydromorphone Positive (.); Morphine Negative (Cutoff=100); Opiates Positive (.)
== END ==
PROVIDERS: Visit Provider Clinical Nurse Specialist Family Health
DX: M25.569 Pain in unspecified knee (principal); M25.519 Pain in unspecified shoulder; M79.643 Pain in unspecified hand; M25.50 Pain in unspecified joint; G89.29 Other chronic pain; Z79.891 Long term (current) use of opiate analgesic
CPT/HCPCS: 80305; 80361; 80365; 99212; G0463; G0480

== ENCOUNTER → 2021-08-07 13:20 | Outpatient (POV) | payer OTHER, SELFPAY ==
[2021-08-07 13:32] VITALS: BP 149/84; PULSE 99; RESP 18; O2SAT 96; BMI 30.5
--- NOTE | 2021-08-07 13:47 | P.CONS_ITS ---
[facility] Pain Management SOAP Note Subjective:: This patient is a very pleasant 60-year-old white male who presents today for follow-up and medication refills. He is currently being treated for bilateral knee, shoulder, hand, and joint pain. He is currently prescribed [place] 5 mg 3 times daily for his pain symptoms. States that the [place] in addition to ibuprofen 800 mg 3 times daily and Pepcid 20 mg 3 times daily as needed in conjunction with the ibuprofen is helping manage his overall pain symptoms. He states that last week his pain had worsened but denies any inciting factors. He rates his pain today as a 4 out of 10. He is requesting refills on his medications today. ROS General: No recent weight changes, no fever, no sleep disturbances Respiratory: No cough, no shortness of air, no recurring pulmonary infections Cardiovascular/peripheral vascular: No chest pain, no palpitations, no edema, no shortness of breath Gastrointestinal: No new onset incontinence, normal bowel movements reported Genitourinary: No new onset incontinence Musculoskeletal: Bilateral knee, shoulder, hand pain Psychiatric: [Normal mood/affect] Neurological: [Denies weakness in extremities], [denies balance issues] Objective:: General: Alert and oriented x3, no acute distress, pleasant and cooperative Lungs: Resps E/U, symmetric chest expansion Eyes: PERRL Musculoskeletal: limited flexion and extension of the lumbar spine secondary to pain. Deep tendon reflexes were normal in bilateral lower extremities. Motor exam was grossly intact in the bilateral lower extremities, antalgic gait noted. 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 3 times daily #90 for 1 month supply as well as ibuprofen 800 mg 3 times daily and Pepcid 20 mg 1 tab 3 times daily to take along with ibuprofen. We will follow-up with this patient in 1 month for reassessment of his chronic pain symptoms and medication refills. [facility] #[id number] and prior drug screens were reviewed and appropriate. [facility] History Medical History: Reports:: Deep Vein Thrombosis Denies:: Cancer, Diabetes Mellitus Type 1, Diabetes Mellitus Type 2, MRSA, Seizures *Have you ever received a pneumonia vaccine?: No *Have you received a flu vaccine this season?: No Other Medical History: Reports: Arthritis. Denies: Blood Transfusion Reaction Laterality Cases: Left: Other Other Surgeries: Yes: Cholecystectomy, Hernia Repair Amputation: No Fractures: Yes (left leg fracture) - *Social History Smoking Status: Current every day smoker Tobacco Type: cigarettes # Packs/Day (cigarettes): 1 Alcohol Intake: never *Occupational Status:: employed Housing: house Household Members: spouse *Travel in the last 8 weeks: None Family Hx:: Unable to obtain
== END ==
PROVIDERS: Visit Provider Anesthesiology Pain Medicine
DX: M25.561 Pain in right knee (principal); M25.562 Pain in left knee; M25.119 Fistula, unspecified shoulder; M79.643 Pain in unspecified hand; M25.50 Pain in unspecified joint; G89.29 Other chronic pain
CPT/HCPCS: 99212; G0463

== ENCOUNTER → 2021-09-04 13:05 | Outpatient (POV) | payer OTHER, SELFPAY ==
[2021-09-04 13:54] VITALS: BP 145/79; PULSE 98; RESP 20; TEMP 37; O2SAT 98; BMI 30.5
--- NOTE | 2021-09-04 15:19 | HMH.PAINSOAP ---
[facility] Pain Management SOAP Note Subjective:: Patient is a pleasant 60-year-old male who is here for medication refill and follow-up. Patient is currently being treated for chronic bilateral knee, shoulder, hand pain, joint pain. Patient is being managed with [place] 5 mg 3 times a day, ibuprofen 800 mg 3 times a day, and Pepcid 20 mg 3 times a day. Patient denies any side effects from the medications. Patient denies any changes to the location and type of pain. Patient states that this is adequately helping manage his pain. Rates pain as 2 out of 10. [facility] number [id number] General: No recent weight changes, no fever, no sleep disturbances Respiratory: No cough, no shortness of air, no recurring pulmonary infections Cardiovascular/peripheral vascular: No chest pain, no palpitations, no edema, no shortness of breath Gastrointestinal: No new onset incontinence, normal bowel movements reported Genitourinary: No new onset incontinence Musculoskeletal: Shoulder pain, knee pain, hand and joint pains Psychiatric: [Normal mood/affect] Neurological: [Denies weakness in extremities], [denies balance issues] Objective:: General: Alert and oriented x3, no acute distress, pleasant and cooperative, [on room air] Lungs: Respirations even and unlabored, symmetrical chest expansion Eyes: PERRL Musculoskeletal: Limited range of motion of knee, shoulder, hand secondary to pain Neurological: Speech clear, no gross sensory deficit Assessment:: Chronic bilateral knee, shoulder, hand, joint pain Plan:: We will continue the patient's [place] 5 mg 3 times a day and Pepcid 20 mg 3 times a day. I will also change the patient's ibuprofen 800 mg 3 times a day to diclofenac 75 mg 3 times a day. We will provide the patient with 1 month of refills. We would like to see the patient back in 1 month for follow-up and reevaluation of chronic pain syndrome. Patient has been advised of risks of oversedation with the prescribed medication. Narcan has been offered to the paitent in the event of oversedation. Patient has been advised that a family member should also be educated regarding administration of Narcan. Patient has been instructed to contact the clinic with any concerns before the next appointment. Dr. Wright has reviewed this note and agrees with this plan of care. This note was dictated using voice recognition software and make contain errors or omissions. [facility] History Medical History: Reports:: Deep Vein Thrombosis Denies:: Cancer, Diabetes Mellitus Type 1, Diabetes Mellitus Type 2, MRSA, Seizures *Have you ever received a pneumonia vaccine?: No *Have you received a flu vaccine this season?: No Other Medical History: Reports: Arthritis. Denies: Blood Transfusion Reaction Laterality Cases: Left: Other Other Surgeries: Yes: Cholecystectomy, Hernia Repair Amputation: No Fractures: Yes (left leg fracture) - *Social History Smoking Status: Current every day smoker Tobacco Type: cigarettes # Packs/Day (cigarettes): 1 Alcohol Intake: never *Occupational Status:: employed Housing: house Household Members: spouse *Travel in the last 8 weeks: None Family Hx:: Unable to obtain
== END ==
PROVIDERS: Visit Provider Student in an Organized Health Care Education/Training Program
DX: M25.562 Pain in left knee (principal); M25.561 Pain in right knee; M25.519 Pain in unspecified shoulder; M25.549 Pain in joints of unspecified hand; G89.29 Other chronic pain
CPT/HCPCS: 99212; G0463

== ENCOUNTER → 2021-10-02 12:47 | Outpatient (POV) | payer OTHER, SELFPAY ==
[2021-10-02 13:18] VITALS: BP 120/76; PULSE 104; RESP 18; TEMP 36.5; O2SAT 97; BMI 30.5
--- NOTE | 2021-10-02 14:20 | P.CONS_ITS ---
[facility] Pain Management SOAP Note Subjective:: Patient is a pleasant 60-year-old male who is here for medication refill and follow-up. Patient is currently being treated for chronic bilateral knee, shoulder, hand, joint pain. Patient is being managed with [place] 5 mg 3 times a day, diclofenac 75 mg three times a day, and Pepcid 20 mg 3 times a day. Patient states that the diclofenac is hurting his stomach. Wants to go back to ibuprofen. Patient denies any changes to the location and type of pain. Patient states that this is adequately helping manage their pain. Rates pain as 5 out of 10 on. [facility] number [id number] with an active morphine equivalent 15. Drug screens have been reviewed and appropriate. Review of Systems: General: No recent weight changes, no fever, no sleep disturbances Respiratory: No cough, no shortness of air, no recurring pulmonary infections Cardiovascular/peripheral vascular: No chest pain, no palpitations, no edema, no shortness of breath Gastrointestinal: No new onset incontinence, normal bowel movements reported Genitourinary: No new onset incontinence Musculoskeletal: Shoulder pain, knee pain, hand, and joint pains Psychiatric: [Normal mood/affect] Neurological: [Denies weakness in extremities], [denies balance issues] Objective:: Physical Exam: General: Alert and oriented x3, no acute distress, pleasant and cooperative, [on room air] Lungs: Respirations even and unlabored, symmetrical chest expansion Eyes: PERRL Musculoskeletal: Limited range of motion of knee, shoulder, hand secondary to pain Neurological: Speech clear, no gross sensory deficit Assessment:: Chronic bilateral knee, shoulder, hand, joint pain Plan:: We will continue the patient's [place] 5 mg 3 times a day and Pepcid 20 mg 3 times a day. I will change the patient back to ibuprofen 800 mg 3 times a day. We will provide the patient with 1 month of refills. We would like to see the patient back in 1 month for follow-up and reevaluation of chronic pain syndrome. Patient has been advised of risks of oversedation with the prescribed medication. Narcan has been offered to the patient in the event of oversedation. Patient has been advised that a family member should also be educated regarding administration of Narcan. Patient has been instructed to contact the clinic with any concerns before the next appointment. Dr. Wright has reviewed this note and agrees with this plan of care. This note was dictated using voice recognition software and make contain errors or omissions. [facility] History Medical History: Reports:: Deep Vein Thrombosis Denies:: Cancer, Diabetes Mellitus Type 1, Diabetes Mellitus Type 2, MRSA, Seizures *Have you ever received a pneumonia vaccine?: No *Have you received a flu vaccine this season?: No Other Medical History: Reports: Arthritis. Denies: Blood Transfusion Reaction Laterality Cases: Left: Other Other Surgeries: Yes: Cholecystectomy, Hernia Repair Amputation: No Fractures: Yes (left leg fracture) - *Social History Smoking Status: Current every day smoker Tobacco Type: cigarettes # Packs/Day (cigarettes): 1 Alcohol Intake: never *Occupational Status:: employed Housing: house Household Members: spouse *Travel in the last 8 weeks: None Family Hx:: Unable to obtain
== END ==
PROVIDERS: Visit Provider Student in an Organized Health Care Education/Training Program
DX: M25.561 Pain in right knee (principal); M25.562 Pain in left knee; G89.29 Other chronic pain; M79.643 Pain in unspecified hand; M25.50 Pain in unspecified joint
CPT/HCPCS: 99212; G0463

== ENCOUNTER → 2021-10-02 13:28 | Outpatient (CLI) | payer OTHER, SELFPAY ==
[2021-10-02 17:37] LABS: Amphetamine/Metha Screen,Urine Negative ng/ml (<1000)
[2021-10-02 17:38] LABS: Barbiturates Screen,Urine Negative ng/ml (<200)
[2021-10-02 17:39] LABS: Benzodiazepines Screen,Urine Negative ng/ml (<200); Cannabinoid Screen,Urine Negative ng/ml (<50)
[2021-10-02 17:40] LABS: Cocaine Screen,Urine Negative ng/ml (<300); Methadone Screen,Urine Negative ng/ml (<300)
[2021-10-02 17:41] LABS: Opiate Screen,Urine Positive ng/ml (<300)
[2021-10-02 17:42] LABS: Phencyclidine Screen,Urine Negative ng/ml (<25)
[2021-10-21 10:20] LABS: Codeine Negative (Cutoff=100); Hydrocodone Positive (.); Hydromorphone Positive (.); Morphine Negative (Cutoff=100); Opiates Positive (.)
== END ==
PROVIDERS: Visit Provider Student in an Organized Health Care Education/Training Program
DX: Z79.891 Long term (current) use of opiate analgesic (principal)
CPT/HCPCS: 80305; 80361; 80365; G0480

== ENCOUNTER → 2021-10-30 12:47 | Outpatient (POV) | payer OTHER, SELFPAY ==
[2021-10-30 13:06] VITALS: BP 120/79; PULSE 67; RESP 18; TEMP 36.8; O2SAT 98; BMI 28.5
--- NOTE | 2021-10-30 13:29 | HMH.PAINSOAP ---
[facility] Pain Management SOAP Note Subjective:: Patient is a pleasant 60-year-old male who is here for medication refill and follow-up. Patient is currently being treated for bilateral knee, shoulder, hand, joint pain. Patient is being managed with [place] 5 mg 3 times a day ibuprofen 800 mg 3 times a day and Pepcid 20 mg 3 times a day. Patient states that he was having significant constipation with the ibuprofen. He stopped taking this medication and his symptoms resolved. Additionally, patient has a new onset atrial fibrillation. He is currently on Eliquis and metoprolol. Since he is only now taking just the Douglas. Patient wants to know if we can increase this dose. Rates pain as 5 out of 10. [facility] number [id number] with an active morphine equivalent 15. Drug screens have been reviewed and appropriate. Review of Systems: General: No recent weight changes, no fever, no sleep disturbances Respiratory: No cough, no shortness of air, no recurring pulmonary infections Cardiovascular/peripheral vascular: No chest pain, no palpitations, no edema, no shortness of breath Gastrointestinal: No new onset incontinence, normal bowel movements reported Genitourinary: No new onset incontinence Musculoskeletal: Shoulder pain, knee pain, joint pain Psychiatric: [Normal mood/affect] Neurological: [Denies weakness in extremities], [denies balance issues] Objective:: Physical Exam: General: Alert and oriented x3, no acute distress, pleasant and cooperative Lungs: Respirations even and unlabored, symmetrical chest expansion Eyes: PERRL Musculoskeletal: Limited range of motion of bilateral shoulders, his knee, hand secondary to pain Neurological: Speech clear, no gross sensory deficit Assessment:: Chronic bilateral knee, shoulder, hand, joint pain Plan:: Patient has a new onset of atrial fibrillation. He is on Eliquis and metoprolol. Patient cannot take any anti-inflammatory medications because of the blood thinner. We will increase the patient's Douglas 5 mg to Douglas 5 mg 4 times a day. We will provide the patient with 1 month of refill. We will follow-up with this patient in 1 month. I discussed with the patient that if this increase does not help him, we will consider doing some injective therapy or nerve blocks. Patient has been advised of risks of oversedation with the prescribed medication. Narcan has been offered to the patient in the event of oversedation. Patient has been advised that a family member should also be educated regarding administration of Narcan. Patient has been instructed to contact the clinic with any concerns before the next appointment. Dr. Wright has reviewed this note and agrees with this plan of care. This note was dictated using voice recognition software and make contain errors or omissions. [facility] History Medical History: Reports:: Deep Vein Thrombosis Denies:: Cancer, Diabetes Mellitus Type 1, Diabetes Mellitus Type 2, MRSA, Seizures *Have you ever received a pneumonia vaccine?: No *Have you received a flu vaccine this season?: No Other Medical History: Reports: Arthritis. Denies: Blood Transfusion Reaction Laterality Cases: Left: Other Other Surgeries: Yes: Cholecystectomy, Hernia Repair Amputation: No Fractures: Yes (left leg fracture) - *Social History Smoking Status: Current every day smoker Tobacco Type: cigarettes # Packs/Day (cigarettes): 1 Alcohol Intake: never *Occupational Status:: employed Housing: house Household Members: spouse *Travel in the last 8 weeks: None Family Hx:: Unable to obtain
== END ==
PROVIDERS: Visit Provider Student in an Organized Health Care Education/Training Program
DX: M25.562 Pain in left knee (principal); M25.561 Pain in right knee; M25.519 Pain in unspecified shoulder; M25.549 Pain in joints of unspecified hand; M25.59 Pain in other specified joint
CPT/HCPCS: 99212; G0463

== ENCOUNTER → 2021-11-27 13:00 | Outpatient (POV) | payer OTHER, SELFPAY ==
[2021-11-27 13:17] VITALS: BP 111/75; PULSE 72; RESP 18; TEMP 36.8; O2SAT 98; BMI 29.8
--- NOTE | 2021-11-27 13:20 | HMH.PAINSOAP ---
[facility] Pain Management SOAP Note Subjective:: Patient is a pleasant 61-year-old male who is here for medication refill and follow-up. Patient is currently being treated for bilateral knee, shoulder, hand, joint pain. Patient is being managed with [place] 5 mg 4 times a day. Patient denies any side effects from the medications. Patient denies any changes to the location and type of pain. Patient states that this is adequately helping manage their pain. Rates pain as 4 out of 10. [facility] number [id number] with an active morphine equivalent 20. Drug screens have been reviewed and appropriate. When I last saw this patient, patient said that he had new onset atrial fibrillation and is currently on blood thinners. He had to stop taking his ibuprofen 800 mg 3 times a day. Ibuprofen was significantly helping his pain. Since he could not take this medication anymore, we did increase this patient to [place] 5 mg 4 times a day from 3 times a day. Patient is doing okay with this change. Patient is stable at this dose. Review of Systems: General: No recent weight changes, no fever, no sleep disturbances Respiratory: No cough, no shortness of air, no recurring pulmonary infections Cardiovascular/peripheral vascular: No chest pain, no palpitations, no edema, no shortness of breath Gastrointestinal: No new onset incontinence, normal bowel movements reported Genitourinary: No new onset incontinence Musculoskeletal: Bilateral knee pain, shoulder, hand pain Psychiatric: [Normal mood/affect] Neurological: [Denies weakness in extremities], [denies balance issues] Objective:: Physical Exam: General: Alert and oriented x3, no acute distress, pleasant and cooperative Lungs: Respirations even and unlabored, symmetrical chest expansion Eyes: PERRL Musculoskeletal: Limited range of motion of bilateral shoulders, knees, hand secondary to pain Neurological: Speech clear, no gross sensory deficit Assessment:: Chronic bilateral knee, shoulder, hand, joint pain Plan:: We will continue the patient's [place] 5 mg 4 times a day. We will provide the patient with 1 month of refills. We would like to see the patient back in 1 month for follow-up and reevaluation of chronic pain syndrome. Patient has new onset atrial fibrillation and is currently taking Eliquis and metoprolol. Patient cannot take any anti-inflammatory medications. Patient has been advised of risks of oversedation with the prescribed medication. Narcan has been offered to the patient in the event of oversedation. Patient has been advised that a family member should also be educated regarding administration of Narcan. Patient has been instructed to contact the clinic with any concerns before the next appointment. Dr. Wright has reviewed this note and agrees with this plan of care. This note was dictated using voice recognition software and make contain errors or omissions. [facility] History Medical History: Reports:: Deep Vein Thrombosis Denies:: Cancer, Diabetes Mellitus Type 1, Diabetes Mellitus Type 2, MRSA, Seizures *Have you ever received a pneumonia vaccine?: No *Have you received a flu vaccine this season?: No Other Medical History: Reports: Arthritis. Denies: Blood Transfusion Reaction Laterality Cases: Left: Other Other Surgeries: Yes: Cholecystectomy, Hernia Repair Amputation: No Fractures: Yes (left leg fracture) - *Social History Smoking Status: Current every day smoker Tobacco Type: cigarettes # Packs/Day (cigarettes): 1 Alcohol Intake: never *Occupational Status:: employed Housing: house Household Members: spouse *Travel in the last 8 weeks: None Family Hx:: Unable to obtain
== END ==
PROVIDERS: Visit Provider Student in an Organized Health Care Education/Training Program
DX: M25.562 Pain in left knee (principal); M25.561 Pain in right knee; M25.512 Pain in left shoulder; M25.511 Pain in right shoulder; M79.642 Pain in left hand; M79.641 Pain in right hand; G89.29 Other chronic pain
CPT/HCPCS: 99212; G0463

== ENCOUNTER → 2021-12-29 14:00 | Outpatient (POV) | payer OTHER, SELFPAY ==
[2021-12-29 14:37] VITALS: BP 99/66; PULSE 69; RESP 20; TEMP 36.6; O2SAT 98; BMI 30.5
--- NOTE | 2021-12-29 15:25 | P.CONS_ITS ---
[facility] Pain Management SOAP Note Subjective:: Patient is a pleasant 61-year-old male who is here for medication refill and follow-up. Patient is currently being treated for bilateral knee pain, shoulder, hand, joint pain. He rates his pain a 4 out of 10 today. He states the pain is in his hands, knees, hips. He describes the pain as a ache more at night with occasional sharp shooting pains in his knees with activity. He does describe that his hands and his shoulders do feel stiff. We have tried injective therapy in the past, as well as physical therapy. He states he is also tried topical therapy including the compounding cream, lidocaine and Biofreeze minimal relief. Patient has been managed with [place] 5 mg 4 times a day. Patient denies any side effects from these medications. Patient denies any changes to the location and type of pain. Patient states that this is adequately helping manage his pain. Patient request information regarding his urine drug screens at today's visit. He states he has trouble in the past with the amount charged for the urine drug screens with his insurance. He is [facility] is [id number]. It has been reviewed and is appropriate. Review of Systems: General: No recent weight changes, no fever, no sleep disturbances Respiratory: No cough, no shortness of air, no recurring pulmonary infections Cardiovascular/peripheral vascular: No chest pain, no palpitations, no edema, no shortness of breath Gastrointestinal: No new onset incontinence, normal bowel movements reported Genitourinary: No new onset incontinence Musculoskeletal: Bilateral hand, knee, hip, and shoulder pain Psychiatric: [Normal mood/affect] Neurological: [Denies weakness in extremities], [denies balance issues] Objective:: Physical Exam: General: Alert and oriented x3, no acute distress, pleasant and cooperative Lungs: Respirations even and unlabored, symmetrical chest expansion Eyes: PERRL Musculoskeletal: Flexion and extension of lumbar [spine] somewhat guarded secondary to pain, [antalgic gait noted] Neurological: Speech clear, no gross sensory deficit Assessment:: Bilateral knee, shoulder, hand and joint pain Plan:: We will continue the patient's [place] 5 mg 4 times a day. We will provide the patient with 1 month of refills. We will also refer him to financial services for additional assistance with the cost of the urine drug screens. Patient will return to clinic in 1 month for follow-up and medication refill. Patient has been instructed to contact the clinic with any concerns before the next appointment. Dr. Wright has reviewed this note and agrees with this plan of care. This note was dictated using voice recognition software and make contain errors or omissions. [facility] History I have reviewed the patient's past medical history: Yes Medical History: Reports:: Deep Vein Thrombosis Denies:: Cancer, Diabetes Mellitus Type 1, Diabetes Mellitus Type 2, MRSA, Seizures *Have you ever received a pneumonia vaccine?: No *Have you received a flu vaccine this season?: No Other Medical History: Reports: Arthritis. Denies: Blood Transfusion Reaction Laterality Cases: Left: Other Other Surgeries: Yes: Cholecystectomy, Hernia Repair Amputation: No Fractures: Yes (left leg fracture) - *Social History Smoking Status: Current every day smoker Tobacco Type: cigarettes # Packs/Day (cigarettes): 1 Alcohol Intake: never *Occupational Status:: other Housing: house Household Members: spouse *Travel in the last 8 weeks: Inside the [facility] Family Hx:: Unable to obtain
--- NOTE | 2021-12-29 15:48 | HMH.PAINSOAP ---
[facility] Pain Management SOAP Note Subjective:: Patient is a pleasant 79-year-old male who presents today for intrathecal pain pump follow-up. Patient is being treated for degenerative disc disease of lumbar spine with lumbar radiculopathy symptoms, postlaminectomy syndrome. Today patient rates his pain a 5 out of 10. He states his back is doing okay today with the pain is in his right knee. He describes the pain as an ache, occasional sharp pains. He states this pain interferes with his sleeping. He does state that it helps when he walks on it. He states this pain has been going on for about 2 weeks. He denies any trauma or new injury. He has tried injective therapy, physical therapy, bracing and topical creams in the past. And is currently being treated treated with Dilaudid 20 mg/mL at 6.14 mg/day and bupivacaine 15 mg/mL. He denies any side effects from this medication. Patient states he does get SI injections from an another physician. He is scheduled for a lateral SI injections next week. Patient also has a bone scan for his leg on Wednesday. His [facility] is [id number]. It has been reviewed and is appropriate. Review of Systems: General: No recent weight changes, no fever, no sleep disturbances Respiratory: No cough, no shortness of air, no recurring pulmonary infections Cardiovascular/peripheral vascular: No chest pain, no palpitations, no edema, no shortness of breath Gastrointestinal: No new onset incontinence, normal bowel movements reported Genitourinary: No new onset incontinence Musculoskeletal: Right knee pain Psychiatric: [Normal mood/affect] Neurological: [Denies weakness in extremities], [denies balance issues] Objective:: Physical Exam: General: Alert and oriented x3, no acute distress, pleasant and cooperative Lungs: Respirations even and unlabored, symmetrical chest expansion Eyes: PERRL Musculoskeletal: Flexion and extension of right knee, and lumbar [spine] somewhat guarded secondary to pain, [antalgic gait noted] Neurological: Speech clear, no gross sensory deficit Assessment:: Degenerative disc disease of lumbar spine with lumbar radiculopathy symptoms, postlaminectomy syndrome, knee pain Plan:: Patient has a intrathecal pain pump with Dilaudid. Patient is not having any problems with his pump at this time. He states he is not having back pain at today's visit. I have discussed with the patient regarding his right knee pain. He had a positive point tenderness upon exam. We did discuss in today's visit about a genicular nerve block. Risk and benefits were reviewed. Patient would like to schedule these injections however he has bilateral SI injection scheduled next week, so at this time he like to hold off. Patient will return to clinic in 1 month for follow up. Patient has been instructed to contact the clinic with any concerns before the next appointment. Dr. Wright has reviewed this note and agrees with this plan of care. This note was dictated using voice recognition software and make contain errors or omissions. [facility] History I have reviewed the patient's past medical history: Yes Medical History: Reports:: Deep Vein Thrombosis Denies:: Cancer, Diabetes Mellitus Type 1, Diabetes Mellitus Type 2, MRSA, Seizures *Have you ever received a pneumonia vaccine?: No *Have you received a flu vaccine this season?: No Other Medical History: Reports: Arthritis. Denies: Blood Transfusion Reaction Laterality Cases: Left: Other Other Surgeries: Yes: Cholecystectomy, Hernia Repair Amputation: No Fractures: Yes (left leg fracture) - *Social History Smoking Status: Current every day smoker Tobacco Type: cigarettes # Packs/Day (cigarettes): 1 Alcohol Intake: never *Occupational Status:: other Housing: house Household Members: spouse *Travel in the last 8 weeks: Inside the [facility] Family Hx:: Unable to obtain
[2021-12-29 19:24] LABS: Barbiturates Screen,Urine Negative ng/ml (<200)
[2021-12-29 19:25] LABS: Benzodiazepines Screen,Urine Negative ng/ml (<200)
[2021-12-29 19:26] LABS: Amphetamine/Metha Screen,Urine Negative ng/ml (<1000); Methadone Screen,Urine Negative ng/ml (<300)
[2021-12-29 19:27] LABS: Cannabinoid Screen,Urine Negative ng/ml (<50); Cocaine Screen,Urine Negative ng/ml (<300)
[2021-12-29 19:28] LABS: Opiate Screen,Urine Positive ng/ml (<300)
[2021-12-29 19:29] LABS: Phencyclidine Screen,Urine Negative ng/ml (<25)
[2022-01-04 20:15] LABS: Codeine Negative (Cutoff=100); Hydrocodone Positive (.); Hydromorphone Positive (.); Morphine Negative (Cutoff=100); Opiates Positive (.)
== END ==
PROVIDERS: Visit Provider Student in an Organized Health Care Education/Training Program
DX: M25.562 Pain in left knee (principal); M25.561 Pain in right knee; M25.512 Pain in left shoulder; M25.511 Pain in right shoulder; M79.642 Pain in left hand; M79.641 Pain in right hand; Z79.899 Other long term (current) drug therapy
CPT/HCPCS: 80305; 80361; 80365; 99212; G0463; G0480

== ENCOUNTER → 2022-01-29 13:38 | Outpatient (POV) | payer OTHER, SELFPAY ==
[2022-01-29 13:47] VITALS: BP 120/80; PULSE 69; RESP 20; BMI 29.8
--- NOTE | 2022-01-29 14:09 | HMH.PAINSOAP ---
[facility] Pain Management SOAP Note Subjective:: Patient is a pleasant 69-year-old male who presents today for medication refill and follow-up. Patient is currently being treated for bilateral knee, shoulder, hand, joint pain. Today he rates his pain a 4 out of 10. He states his pain is primarily in his hands today and describes it as a dull ache. We are currently managing him with [place] 5 mg 4 times a day. Patient denies any side effects from these medications. He denies any change to the location and type of pain he experiences. He states this is adequately managing his pain. Patient was newly diagnosed at his last visit with Carolyn estrella and was put on blood thinners. Patient states that he is doing well with his new regimen for this. his Thang is [id number]. It has been reviewed and appropriate. Review of Systems: General: No recent weight changes, no fever, no sleep disturbances Respiratory: No cough, no shortness of air, no recurring pulmonary infections Cardiovascular/peripheral vascular: No chest pain, no palpitations, no edema, no shortness of breath Gastrointestinal: No new onset incontinence, normal bowel movements reported Genitourinary: No new onset incontinence Musculoskeletal: Bilateral knee, shoulder, hand, joint pain Psychiatric: [Normal mood/affect] Neurological: [Denies weakness in extremities], [denies balance issues] Objective:: Physical Exam: General: Alert and oriented x3, no acute distress, pleasant and cooperative Lungs: Respirations even and unlabored, symmetrical chest expansion Eyes: PERRL Musculoskeletal: Flexion and extension of bilateral knee, shoulder, hands somewhat guarded secondary to pain, [antalgic gait noted] Neurological: Speech clear, no gross sensory deficit Assessment:: Bilateral knee, shoulder, hand, joint pain Plan:: Patient is managing his pain well with his current medication regimen. We will continue the patient's [[place] 5 mg 4 times a day]. We will provide the patient with 1 month of refills. We would like to see the patient back in [1 month] for follow-up and reevaluation of chronic pain syndrome. Patient has been advised of risks of oversedation with the prescribed medication. Narcan has been offered to the patient in the event of oversedation. Patient has been advised that a family member should also be educated regarding administration of Narcan. Patient has been instructed to contact the clinic with any concerns before the next appointment. Dr. Wright has reviewed this note and agrees with this plan of care. This note was dictated using voice recognition software and make contain errors or omissions. [facility] History I have reviewed the patient's past medical history: Yes Medical History: Reports:: Deep Vein Thrombosis Denies:: Cancer, Diabetes Mellitus Type 1, Diabetes Mellitus Type 2, MRSA, Seizures *Have you ever received a pneumonia vaccine?: No *Have you received a flu vaccine this season?: No Other Medical History: Reports: Arthritis. Denies: Blood Transfusion Reaction Laterality Cases: Left: Other Other Surgeries: Yes: Cholecystectomy, Hernia Repair Amputation: No Fractures: Yes (left leg fracture) - *Social History Smoking Status: Current every day smoker Tobacco Type: cigarettes # Packs/Day (cigarettes): 1 Alcohol Intake: never *Occupational Status:: employed Housing: house Household Members: spouse *Travel in the last 8 weeks: None Family Hx:: Unable to obtain
== END ==
PROVIDERS: Visit Provider Nurse Practitioner Family
DX: M25.562 Pain in left knee (principal); M25.561 Pain in right knee; M25.512 Pain in left shoulder; M25.511 Pain in right shoulder; M25.50 Pain in unspecified joint; M79.641 Pain in right hand; M79.642 Pain in left hand
CPT/HCPCS: 99212; G0463

== ENCOUNTER → 2022-02-26 13:24 | Outpatient (POV) | payer OTHER, SELFPAY ==
[2022-02-26 13:37] VITALS: BP 106/73; PULSE 64; RESP 20; BMI 30.5
--- NOTE | 2022-02-26 14:03 | EXP.PAIN.SOA ---
[facility] Pain Management SOAP Note Subjective:: Patient is a pleasant 61-year-old male who presents today for medication refill and follow-up. We are currently treating the patient for bilateral knee, shoulder, hand and joint pain. Today he rates his pain a 7 out of 10. He states that pain is primarily in his joints and describes it as an aching, throbbing sensation that is worse with increased activity. 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 Patient denies any new trauma or injury to the site. He denies any change to the location or type of pain he experiences. We are currently managing the patient on [place] 5 mg 4 times a day. He denies any side effects from this medication. He states these medications are adequately helping manage his pain. His Thang is [id number]. It is been reviewed and appropriate. Review of Systems: General: No recent weight changes, no fever, no sleep disturbances Respiratory: No cough, no shortness of air, no recurring pulmonary infections Cardiovascular/peripheral vascular: No chest pain, no palpitations, no edema, no shortness of breath Gastrointestinal: No new onset incontinence, normal bowel movements reported Genitourinary: No new onset incontinence Musculoskeletal: Generalized joint pain Psychiatric: [Normal mood/affect] Neurological: [Denies weakness in extremities], [denies balance issues] Objective:: Physical Exam: General: Alert and oriented x3, no acute distress, pleasant and cooperative Lungs: Respirations even and unlabored, symmetrical chest expansion Eyes: PERRL Musculoskeletal: Flexion and extension of lumbar [spine], bilateral knees somewhat guarded secondary to pain, [antalgic gait noted] Neurological: Speech clear, no gross sensory deficit Assessment:: Bilateral knee, shoulder, hand and joint pain Plan:: Patient continues to have significant pain in his joints. Patient did have limited range of motion of his lumbar spine and bilateral knees during today's exam. I will order the patient a compounding cream at today's visit. I will also order the patient a 5-day steroid dose of prednisone 20 mg twice daily and tizanidine 4 mg 3 times daily with a 30-day supply. I have also discussed with the patient regarding possible injective therapy for his joint pain in the future. Patient will return to clinic in 1 month for follow-up, medication refill and reevaluation of symptoms. Patient has been instructed to contact the clinic with any concerns before the next appointment. Dr. Wright has reviewed this note and agrees with this plan of care. This note was dictated using voice recognition software and make contain errors or omissions. [facility] Social History (Updated 02/26/22 @ 13:40 by Alissa Mensah RN) Smoking Status: Current every day smoker tobacco type: cigarettes packs per day: 1 alcohol intake: never current occupational status: employed Travel in the last 8 weeks: None household members: spouse housing: house current occupational exposures/hazards: No caffeine: Yes
== END | disposition home or self-care (01) ==
PROVIDERS: PCP Nurse Practitioner Family; Visit Provider Nurse Practitioner Family
DX: M25.561 Pain in right knee (principal); M25.562 Pain in left knee; M25.511 Pain in right shoulder; M25.512 Pain in left shoulder; M25.541 Pain in joints of right hand; M25.542 Pain in joints of left hand
CPT/HCPCS: 99212; G0463

== ENCOUNTER → 2022-03-26 11:11 | Outpatient (POV) | payer OTHER, SELFPAY ==
[2022-03-26 11:34] VITALS: BP 141/85; PULSE 65; RESP 18; TEMP 36.6; O2SAT 98; BMI 30.5
--- NOTE | 2022-03-26 11:39 | EXP.PAIN.SOA ---
[facility] Pain Management SOAP Note Subjective:: Patient is a pleasant 61-year-old male who presents today for medication refill and follow-up. We are currently treating the patient for bilateral knee, shoulder, hand and joint pain. Today he rates his pain a 7 out of 10. Patient describes this as a aching, throbbing sensation that is worse with increased activity. 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 Patient denies any new trauma or injury. He denies any change in location or type of pain he experiences. We are currently managing the patient on [place] 5 mg 4 times a day and Flexeril 10 mg 3 times a day. Patient denies any side effects from these medications. He states these medications do adequately help manage his pain symptoms he is requesting a refill at today's visit. Patient states that the compounding cream he has prescribed does help some however it is only short-term relief with this medication. His Thang is [id number]. It has been reviewed and appropriate. Review of Systems: General: No recent weight changes, no fever, no sleep disturbances Respiratory: No cough, no shortness of air, no recurring pulmonary infections Cardiovascular/peripheral vascular: No chest pain, no palpitations, no edema, no shortness of breath Gastrointestinal: No new onset incontinence, normal bowel movements reported Genitourinary: No new onset incontinence Musculoskeletal: Generalized joint pain Psychiatric: [Normal mood/affect] Neurological: [Denies weakness in extremities], [denies balance issues] Objective:: Physical Exam: General: Alert and oriented x3, no acute distress, pleasant and cooperative Lungs: Respirations even and unlabored, symmetrical chest expansion Eyes: PERRL Musculoskeletal: Flexion and extension of bilateral knees, shoulders somewhat guarded secondary to pain, [antalgic gait noted] Neurological: Speech clear, no gross sensory deficit Assessment:: Osteoarthritis bilateral knees, shoulders, hands and joint pain Plan:: Patient continues to have significant pain in his joints due to arthritis. I will send in a refill on the Flexeril 10 mg 3 times a day as well as the [place] 5 mg 4 times a day and provide a 1 month supply of this medication. I have discussed with the patient regarding possible genicular nerve blocks in the future. Risk and benefits have been discussed with the patient. At this time the patient would like to wait. We will follow-up with the patient in 1 month. Patient will return to clinic in 1 month for reevaluation of symptoms, medication refill and follow-up. Patient has been advised of risks of oversedation with the prescribed medication. Narcan has been offered to the patient in the event of oversedation. Patient has been advised that a family member should also be educated regarding administration of Narcan. Patient has been instructed to contact the clinic with any concerns before the next appointment. Dr. Wright has reviewed this note and agrees with this plan of care. This note was dictated using voice recognition software and make contain errors or omissions. [facility] Social History (Updated 02/26/22 @ 13:40 by Alissa Mensah RN) Smoking Status: Current every day smoker tobacco type: cigarettes packs per day: 1 alcohol intake: never current occupational status: employed Travel in the last 8 weeks: None household members: spouse housing: house current occupational exposures/hazards: No caffeine: Yes
== END | disposition home or self-care (01) ==
PROVIDERS: Visit Provider Nurse Practitioner Family
DX: M17.0 Bilateral primary osteoarthritis of knee (principal); M19.011 Primary osteoarthritis, right shoulder; M19.012 Primary osteoarthritis, left shoulder; M19.041 Primary osteoarthritis, right hand; M19.042 Primary osteoarthritis, left hand
CPT/HCPCS: 99212; G0463

== ENCOUNTER → 2022-04-27 10:45 | Outpatient (POV) | payer OTHER, SELFPAY ==
[2022-04-27 11:45] VITALS: BP 112/77; PULSE 71; RESP 18; O2SAT 96; BMI 30.5
[2022-04-27 12:28] LABS: Amphetamine/Metha Screen,Urine Negative ng/ml (<1000)
[2022-04-27 12:30] LABS: Barbiturates Screen,Urine Negative ng/ml (<200); Benzodiazepines Screen,Urine Negative ng/ml (<200)
--- NOTE | 2022-04-27 12:30 | EXP.PAIN.SOA ---
[facility] Pain Management SOAP Note Subjective:: Patient is a pleasant 61-year-old male who presents today for medication refill and follow-up. We are currently treating the patient for bilateral knee, shoulder, hand and joint pain. Today patient rates his pain a 7 out of 10. Patient denies any new trauma or injury. Patient denies any changes type or location of pain he experiences. Patient does state this is an aching, throbbing sensation that is worse with increased activity. 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 Patient states he was scheduled to retire earlier this year however his company did ask him to continue for another 6 months. Patient is currently managed with [place] 5 mg 4 times a day and Flexeril 10 mg 3 times a day. Patient denies any side effects from these medications. He states these medications do help manage his pain symptoms however he would like to see about having an increase in his pain medication at today's visit. He is prescribed compounding cream that he states does provide some additional improvement however short-term. Patient states he does have a history of A. fib and cannot tolerate NSAIDs as well as the patient states he has stage III liver disease and is unable to tolerate acetaminophen products as well. His Thang is [id number]. It is been reviewed and appropriate. Review of Systems: General: No recent weight changes, no fever, no sleep disturbances Respiratory: No cough, no shortness of air, no recurring pulmonary infections Cardiovascular/peripheral vascular: No chest pain, no palpitations, no edema, no shortness of breath Gastrointestinal: No new onset incontinence, normal bowel movements reported Genitourinary: No new onset incontinence Musculoskeletal: Joint pain, knee pain, shoulder pain, hand pain Psychiatric: [Normal mood/affect] Neurological: [Denies weakness in extremities], [denies balance issues] Objective:: Physical Exam: General: Alert and oriented x3, no acute distress, pleasant and cooperative Lungs: Respirations even and unlabored, symmetrical chest expansion Eyes: PERRL Musculoskeletal: Flexion and extension of knees and shoulders somewhat guarded secondary to pain, [antalgic gait noted] Neurological: Speech clear, no gross sensory deficit Assessment:: Bilateral knee, shoulder, hand, joint pain Plan:: Patient continues to be experiencing significant pain in his joints. I have discussed with the patient that he may benefit from genicular nerve blocks of his bilateral knees. Risk and benefits of the procedure were explained to the patient. He would like to proceed forward with this plan of care. I will also refill the patient's [place] 5 mg 4 times a day and Flexeril 10 mg 3 times a day and provide a 1 month supply of this medication. We will schedule the patient for a right genicular nerve block. Patient has been advised of risks of oversedation with the prescribed medication. Narcan has been offered to the patient in the event of oversedation. Patient has been advised that a family member should also be educated regarding administration of Narcan. Patient has been instructed to contact the clinic with any concerns before the next appointment. Dr. Wright has reviewed this note and agrees with this plan of care. This note was dictated using voice recognition software and make contain errors or omissions. [facility] Social History (Updated 02/26/22 @ 13:40 by Alissa Mensah RN) Smoking Status: Current every day smoker tobacco type: cigarettes packs per day: 1 alcohol intake: never current occupational status: employed Travel in the last 8 weeks: None household members: spouse housing: house current occupational exposures/hazards: No caffeine: Yes
[2022-04-27 12:31] LABS: Cannabinoid Screen,Urine Negative ng/ml (<50)
[2022-04-27 12:32] LABS: Cocaine Screen,Urine Negative ng/ml (<300); Methadone Screen,Urine Negative ng/ml (<300)
[2022-04-27 12:33] LABS: Opiate Screen,Urine Positive ng/ml (<300)
[2022-04-27 12:34] LABS: Phencyclidine Screen,Urine Negative ng/ml (<25)
[2022-05-04 14:21] LABS: Codeine Negative (Cutoff=100); Hydrocodone Positive (.); Hydromorphone Positive (.); Morphine Negative (Cutoff=100); Opiates Positive (.)
== END | disposition home or self-care (01) ==
PROVIDERS: PCP Nurse Practitioner Family; Visit Provider Nurse Practitioner Family
DX: M25.561 Pain in right knee (principal); M25.562 Pain in left knee; M25.511 Pain in right shoulder; M25.512 Pain in left shoulder; M25.541 Pain in joints of right hand; M25.542 Pain in joints of left hand; Z72.0 Tobacco use; Z79.899 Other long term (current) drug therapy
CPT/HCPCS: 80305; 80361; 80365; 99212; G0463; G0480

== ENCOUNTER 2022-05-08 09:51 | Day surgery (SDC) | payer OTHER, SELFPAY ==
[2022-05-08 10:09] VITALS: BP 116/78; PULSE 69; RESP 18; TEMP 36.6; O2SAT 97; BMI 30.5
[2022-05-08 10:19] VITALS: BP 127/81; PULSE 71; RESP 18; O2SAT 98
[2022-05-08 10:20] VITALS: BP 127/81; PULSE 71; RESP 18; O2SAT 98
--- NOTE | 2022-05-08 10:31 | EXP.PAIN.PRO ---
Procedure Date: 05/08/22 Time: 10:15 Anesthesiologist:: Krishna Jacob CRNA Complications:: None Pre-procedure Diagnosis:: Osteoarthritis right knee Post-procedure Diagnosis:: Same Indications for Procedure:: Very pleasant 61-year-old male that comes our clinic today for right genicular nerve block. Patient has had several intra-articular injections into the right knee with some degree of relief. Today presents for right genicular nerve block. He describes his knee pain as constant, dull, aching. Ambulating increases pain. He is having difficulty sleeping due to chronic right knee pain. Procedure Details:: Right knee genicular block Informed consent was obtained and the risk and benefits of the procedure was explained to the patient. The patient was taken to the procedure room. The left knee was prepped using ChloraPrep. I placed 22-gauge needles into the area of the right superior medial genicular nerve, right superior lateral genicular nerve and right inferior medial genicular nerve. Needle placement was confirmed in AP and lateral views with dye. We then injected bupivacaine 0.25% 3 mL's and Depo-Medrol 25 mg into each area of the right superior medial genicular nerve, right superior lateral genicular nerve and right inferior medial genicular nerve. Patient tolerated the procedure well with no complications. Plan and Disposition:: We will follow-up with her in 2 weeks. Will reevaluate symptoms at that time. Plan and Disposition:: Patient was discharged without knee pain.
[2022-05-08 10:34] VITALS: BP 133/79; PULSE 66; RESP 20
== END 2022-05-08 10:35 | disposition home or self-care (01) ==
PROVIDERS: PCP Nurse Practitioner Family; Visit Provider Nurse Anesthetist, Certified Registered
DX: M17.11 Unilateral primary osteoarthritis, right knee (principal)
CPT/HCPCS: 64454; J1040

== ENCOUNTER → 2022-05-25 09:07 | Outpatient (POV) | payer OTHER, SELFPAY ==
[2022-05-25 09:26] VITALS: BP 128/83; PULSE 74; RESP 18; O2SAT 96; BMI 29.8
--- NOTE | 2022-05-25 09:44 | EXP.PAIN.SOA ---
[facility] Pain Management SOAP Note Subjective:: Patient is a pleasant 61-year-old male who presents today for follow-up of right knee genicular nerve block on 05/08/2022. We are currently treating the patient for bilateral knee pain, shoulder pain, hand pain and joint pain. Today the patient states that he had significant relief following this injection however it lasted less than 24 hours. Patient states that he did not notice a significant difference in his pain symptoms when he was leaving the facility from this injection. Today the patient rates his pain a 7 out of 10. Patient states that his hips have been bothering him for the last month and describes this as a aching sensation that is worse at night. Patient also states he continues to have pain in his knees. Patient is currently managed with [place] 5 mg 4 times a day. Patient denies any side effects from this medication. He states this medication does help his symptoms. Patient was previously on ibuprofen however he states this did cause increased constipation and patient does have a history of cardiac related issues. Patient has since discontinued any NSAIDs. Patient does use his compounding cream specifically on his hands to help with his arthritis. Patient is also prescribed a muscle relaxer cyclobenzaprine 10 mg 3 times daily. Patient states this medication does help improve his symptoms. He is requesting a refill of this at today's visit. 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 Patient states they did also find lung nodules and a cyst on his kidney. Patient states his dad had a family history of lung cancer and kidney cancer. His Thang is [id number]. It has been reviewed and appropriate Review of Systems: General: No recent weight changes, no fever, no sleep disturbances Respiratory: No cough, no shortness of air, no recurring pulmonary infections Cardiovascular/peripheral vascular: No chest pain, no palpitations, no edema, no shortness of breath Gastrointestinal: No new onset incontinence, normal bowel movements reported Genitourinary: No new onset incontinence Musculoskeletal: Hip pain, knee pain Psychiatric: [Normal mood/affect] Neurological: [Denies weakness in extremities], [denies balance issues] Objective:: Physical Exam: General: Alert and oriented x3, no acute distress, pleasant and cooperative Lungs: Respirations even and unlabored, symmetrical chest expansion Eyes: PERRL Musculoskeletal: Flexion and extension of lumbar [spine] somewhat guarded secondary to pain, [antalgic gait noted] Neurological: Speech clear, no gross sensory deficit Assessment:: Bilateral knee pain, shoulder pain, hand pain, joint pain Plan:: Patient continues to experience significant pain in his generalized joints. Patient did have limited range of motion of his lumbar spine during today's visit. I have discussed with the patient that he may benefit from a repeat genicular nerve block however at this time the patient would like to wait. I will refill the patient's [place] 5 mg 4 times a day and cyclobenzaprine 10 mg 3 times daily and provide a 1 month supply of these medications. We will follow-up with the patient in 1 month for reevaluation of symptoms, medication refill and follow-up. Patient has been instructed to contact the clinic with any concerns before the next appointment. Dr. Wright has reviewed this note and agrees with this plan of care. This note was dictated using voice recognition software and make contain errors or omissions. [facility] Disclaimer: The information contained in this section may have been updated after the patient was seen, as this information can be updated by other users. Medical History (Updated 05/08/22 @ 10:[address] RN) Atrial fibrillation Diabetes mellitus, type 2 Hyperlipidemia Surgical History (Updated 05/08/22 @ 10:[address] RN)
== END | disposition home or self-care (01) ==
PROVIDERS: PCP Nurse Practitioner Family; Visit Provider Nurse Practitioner Family
DX: M25.561 Pain in right knee (principal); M25.562 Pain in left knee; M25.511 Pain in right shoulder; M25.512 Pain in left shoulder; M79.641 Pain in right hand; M79.642 Pain in left hand; M25.50 Pain in unspecified joint; Z72.0 Tobacco use
CPT/HCPCS: 99212; G0463

== ENCOUNTER → 2022-06-25 09:56 | Outpatient (POV) | payer OTHER, SELFPAY ==
--- NOTE | 2022-06-25 10:14 | EXP.PAIN.SOA ---
[facility] Pain Management SOAP Note Subjective:: Patient is a pleasant 61-year-old male who presents today for medication refill and follow-up. We are currently treating the patient for bilateral knee pain, shoulder pain, hand pain and joint pain. Today the patient rates his pain a 4 out of 10. Patient does state that he has recently had some cancer cut out of the posterior aspect on his left leg as well as having a tooth pulled with stitches placed. Patient does state overall he is still doing well. Patient is currently managed with methocarbamol 500 mg 3 times a day and [place] 5 mg 4 times a day. Patient denies any side effects from this medication. Patient states this medication does help his pain symptoms. Patient also had found lung nodules and a cyst on his kidney. Patient does state that his dad had a family history of lung cancer and kidney cancer. His Thang is [id number]. Its been reviewed and appropriate. Review of Systems: General: No recent weight changes, no fever, no sleep disturbances Respiratory: No cough, no shortness of air, no recurring pulmonary infections Cardiovascular/peripheral vascular: No chest pain, no palpitations, no edema, no shortness of breath Gastrointestinal: No new onset incontinence, normal bowel movements reported Genitourinary: No new onset incontinence Musculoskeletal: Joint pain, left leg pain Psychiatric: [Normal mood/affect] Neurological: [Denies weakness in extremities], [denies balance issues] Objective:: Physical Exam: General: Alert and oriented x3, no acute distress, pleasant and cooperative Lungs: Respirations even and unlabored, symmetrical chest expansion Eyes: PERRL Musculoskeletal: Flexion and extension of lumbar [spine] somewhat guarded secondary to pain, [antalgic gait noted] Neurological: Speech clear, no gross sensory deficit ORT updated with low risk Assessment:: Bilateral knee pain, shoulder pain, hand pain, joint pain Plan:: Patient continues to experience significant pain throughout his joints however he is doing well with his current medication regimen. I will refill his [place] 5 mg 4 times a day and provide a 1 month supply of this medication. I will change his methocarbamol 500 mg to 750 mg 3 times daily and provide a 3-month supply of this medication. Patient will return to clinic in 1 month for reevaluation of symptoms, medication refill and follow-up. Patient has been advised of risks of oversedation with the prescribed medication. Narcan has been offered to the patient in the event of oversedation. Patient has been advised that a family member should also be educated regarding administration of Narcan. Patient has been instructed to contact the clinic with any concerns before the next appointment. Dr. Wright has reviewed this note and agrees with this plan of care. This note was dictated using voice recognition software and make contain errors or omissions. [facility] Disclaimer: The information contained in this section may have been updated after the patient was seen, as this information can be updated by other users. Medical History (Updated 05/08/22 @ 10:[address] RN) Atrial fibrillation Diabetes mellitus, type 2 Hyperlipidemia Surgical History (Updated 05/08/22 @ 10:[address] RN) H/O abdominal surgery History of cholecystectomy Family History (Updated 05/08/22 @ 10:[address] RN) Other Cancer of kidney Family history of COPD (chronic obstructive pulmonary disease) Lung cancer Social History (Updated 05/08/22 @ 10:[address] RN) Smoking Status: Current every day smoker tobacco type: cigarettes packs per day: 1 alcohol intake: never current occupational status: employed Travel in the last 8 weeks: None household members: spouse housing: house current occupational exposures/hazards: No caffeine: Yes
[2022-06-25 10:17] VITALS: BP 116/74; PULSE 70; RESP 18; O2SAT 98; BMI 30.5
== END | disposition home or self-care (01) ==
PROVIDERS: PCP Nurse Practitioner Family; Visit Provider Nurse Practitioner Family
DX: M25.561 Pain in right knee (principal); M25.562 Pain in left knee; M25.519 Pain in unspecified shoulder; M25.549 Pain in joints of unspecified hand
CPT/HCPCS: 99212; G0463

== ENCOUNTER → 2022-06-25 10:16 | Outpatient (CLI) | payer OTHER, SELFPAY ==
[2022-06-25 13:23] LABS: Barbiturates Screen,Urine Negative ng/ml (<200); Benzodiazepines Screen,Urine Negative ng/ml (<200)
[2022-06-25 13:24] LABS: Amphetamine/Metha Screen,Urine Negative ng/ml (<1000)
[2022-06-25 13:25] LABS: Cocaine Screen,Urine Negative ng/ml (<300); Methadone Screen,Urine Negative ng/ml (<300)
[2022-06-25 13:26] LABS: Cannabinoid Screen,Urine Negative ng/ml (<50); Phencyclidine Screen,Urine Negative ng/ml (<25)
[2022-06-25 13:27] LABS: Opiate Screen,Urine Positive ng/ml (<300)
[2022-06-29 08:10] LABS: Codeine Negative (Cutoff=100); Hydrocodone Positive (.); Hydromorphone Positive (.); Morphine Negative (Cutoff=100); Opiates Positive (.)
== END ==
LOC: LAB 10:17
PROVIDERS: PCP Nurse Practitioner Family; Visit Provider Nurse Practitioner Family
DX: Z79.891 Long term (current) use of opiate analgesic (principal)
CPT/HCPCS: 80305; 80361; 80365; G0480

== ENCOUNTER → 2022-07-27 10:40 | Outpatient (POV) | payer OTHER, SELFPAY ==
--- NOTE | 2022-07-27 10:45 | EXP.PAIN.SOA ---
[facility] Pain Management SOAP Note Subjective:: Patient is a pleasant 61-year-old male who presents today for medication refill and follow-up. We are currently treating the patient for bilateral knee pain, shoulder pain, hand pain and joint pain.? Today the patient rates his pain a 4 out of 10.? Patient denies any new trauma or injury. Patient denies any change in location or type of pain that he is experiencing. At our last visit we did increase his muscle relaxer to 750 mg and he does state this has provided additional improvement of his symptoms. 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 Patient states they did remove the stitches however he did have a gapping in 1 area of the incision that he was concerned about however they gave him a salve to put on it. Patient states it is still healing and does have some itching currently but denies any other issues. Patient is currently managed with methocarbamol 500 mg 3 times a day and [place] 5 mg 4 times a day.? Patient denies any side effects from this medication.? Patient states this medication does help his pain symptoms.? Patient did also find lung nodules and a cyst on his kidneys in the past and he states he is scheduled for a follow-up visit coming soon. Patient has a family history of lung and kidney cancer. His Thang is [id number].? Its been reviewed and appropriate. Review of Systems: General: No recent weight changes, no fever, no sleep disturbances Respiratory: No cough, no shortness of air, no recurring pulmonary infections Cardiovascular/peripheral vascular: No chest pain, no palpitations, no edema, no shortness of breath Gastrointestinal: No new onset incontinence, normal bowel movements reported Genitourinary: No new onset incontinence Musculoskeletal: Low back pain Psychiatric: [Normal mood/affect] Neurological: [Denies weakness in extremities], [denies balance issues] Objective:: Physical Exam: General: Alert and oriented x3, no acute distress, pleasant and cooperative Lungs: Respirations even and unlabored, symmetrical chest expansion Eyes: PERRL Musculoskeletal: Flexion and extension of lumbar [spine] somewhat guarded secondary to pain, [antalgic gait noted] Neurological: Speech clear, no gross sensory deficit Assessment:: Bilateral knee pain, shoulder pain, hand pain, joint pain Plan:: Patient continues to experience significant pain in his low back however he is doing well with his current medication regimen. I will refill his [place] 5 mg 4 times a day and provide a 1 month supply of this medication. Patient does not need any refills on his methocarbamol at this time. Patient will return to clinic in 1 month for reevaluation of symptoms, medication refill and follow-up. Patient has been advised of risks of oversedation with the prescribed medication. Narcan has been offered to the patient in the event of oversedation. Patient has been advised that a family member should also be educated regarding administration of Narcan. Patient has been instructed to contact the clinic with any concerns before the next appointment. Dr. Wright has reviewed this note and agrees with this plan of care. This note was dictated using voice recognition software and make contain errors or omissions. [facility] Disclaimer: The information contained in this section may have been updated after the patient was seen, as this information can be updated by other users. Medical History (Updated 05/08/22 @ 10:[address] RN) Atrial fibrillation Diabetes mellitus, type 2 Hyperlipidemia Surgical History (Updated 05/08/22 @ 10:[address] RN) H/O abdominal surgery History of cholecystectomy Family History (Updated 05/08/22 @ 10:[address] RN) Other Cancer of kidney Family history of COPD (chronic obstructive pulmonary disease) Lung cancer Social History (Updated
[2022-07-27 10:55] VITALS: BP 124/85; PULSE 75; RESP 18; O2SAT 97; BMI 30.5
== END | disposition home or self-care (01) ==
PROVIDERS: PCP Nurse Practitioner Family; Visit Provider Nurse Practitioner Family
DX: M25.561 Pain in right knee (principal); M25.562 Pain in left knee; M25.519 Pain in unspecified shoulder; M79.643 Pain in unspecified hand; M25.50 Pain in unspecified joint
CPT/HCPCS: 99212; G0463

== ENCOUNTER → 2022-08-24 10:19 | Outpatient (POV) | payer OTHER, SELFPAY ==
--- NOTE | 2022-08-24 10:35 | EXP.PAIN.SOA ---
[facility] Pain Management SOAP Note Subjective:: Patient is a pleasant 61-year-old male who presents today for medication refill and follow-up.? We are currently treating the patient for bilateral knee pain, shoulder pain, hand pain and joint pain.? Today the patient rates his pain a 7 out of 10.? Patient denies any new trauma or injury.? Patient denies any change in location or type of pain that he is experiencing.? He does state that he has had more pain this month. He has been experiencing less sleep due to waking up with knee pain as well as shoulder pain. Patient does state that he has used more of his pain medication through the day to where he has not had as much at night which could be causing additional pain symptoms. Patient has recently had a follow-up with his cancer doctor who removed the lesion behind his leg and that they have stated that he he had clear margins and doing well. Patient states he is still scheduled to have additional scans on his lung and kidney related to lung nodules and a cyst on his kidney that was found. Patient is currently managed with methocarbamol 750 mg 3 times a day and [place] 5 mg 4 times a day.? Patient denies any side effects from this medication. Patient has a family history of lung and kidney cancer.? His Thang is [id number].? Its been reviewed and appropriate. Review of Systems: General: No recent weight changes, no fever, no sleep disturbances Respiratory: No cough, no shortness of air, no recurring pulmonary infections Cardiovascular/peripheral vascular: No chest pain, no palpitations, no edema, no shortness of breath Gastrointestinal: No new onset incontinence, normal bowel movements reported Genitourinary: No new onset incontinence Musculoskeletal: Bilateral knee pain Psychiatric: [Normal mood/affect] Neurological: [Denies weakness in extremities], [denies balance issues] Objective:: Physical Exam: General: Alert and oriented x3, no acute distress, pleasant and cooperative Lungs: Respirations even and unlabored, symmetrical chest expansion Eyes: PERRL Musculoskeletal: Flexion and extension of bilateral knees somewhat guarded secondary to pain, [antalgic gait noted] Neurological: Speech clear, no gross sensory deficit Assessment:: Bilateral knee pain, shoulder pain, hand pain, joint pain Plan:: Patient continues to have significant pain in multiple joints however is doing well with his current medication regimen. I will refill his [place] 5 mg for times a day and methocarbamol 750 mg 3 times a day. I have counseled to take the muscle relaxer on a more regular basis to help provide better pain coverage and to take his [place] medication as prescribed. Patient will return to clinic in 1 month for reevaluation of symptoms, medication refill and plan of care. Patient has been advised of risks of oversedation with the prescribed medication. Narcan has been offered to the patient in the event of oversedation. Patient has been advised that a family member should also be educated regarding administration of Narcan. Patient has been instructed to contact the clinic with any concerns before the next appointment. Dr. Wright has reviewed this note and agrees with this plan of care. This note was dictated using voice recognition software and make contain errors or omissions. [facility] Disclaimer: The information contained in this section may have been updated after the patient was seen, as this information can be updated by other users. Medical History (Updated 05/08/22 @ 10:[address] RN) Atrial fibrillation Diabetes mellitus, type 2 Hyperlipidemia Surgical History (Updated 05/08/22 @ 10:[address] RN) H/O abdominal surgery History of cholecystectomy Family History (Updated 05/08/22 @ 10:[address] RN) Other Cancer of kidney Family history of COPD (chronic obstructive pulmonary disease) Lung cancer Social History (Updated 05/08/22 @ 10:[address] RN) Smoking S
[2022-08-24 12:10] VITALS: BP 142/80; PULSE 69; RESP 18; O2SAT 97; BMI 30.5
== END | disposition home or self-care (01) ==
PROVIDERS: PCP Nurse Practitioner Family; Visit Provider Nurse Practitioner Family
DX: M25.561 Pain in right knee (principal); M25.562 Pain in left knee; M25.519 Pain in unspecified shoulder; M79.643 Pain in unspecified hand; M25.50 Pain in unspecified joint
CPT/HCPCS: 99212; G0463

== ENCOUNTER → 2022-09-21 09:59 | Outpatient (POV) | payer OTHER, SELFPAY ==
--- NOTE | 2022-09-21 10:11 | EXP.PAIN.SOA ---
[facility] Pain Management SOAP Note Subjective:: Patient is a pleasant 61-year-old male who presents today for 1 month follow-up and medication refill. We are currently treating the patient for bilateral knee pain, shoulder pain, hand pain, joint pain. Today he rates his pain a 4 out of 10. Patient denies any new trauma or injury. Patient denies any change to location or type of pain he experiences. Patient is currently managed with methocarbamol 750 mg 3 times a day and [place] 5 mg 4 times a day. Patient denies any side effects from these medications. He is requesting refills at today's visit. Patient states he has not been back to his cancer doctor for any updated findings related to his leg cancer that was removed. Patient also had lung and kidney issues related to lung nodules and a cyst on his kidney however he states he does not have any updates on these as well. His Thang is [id number]. Its been reviewed and appropriate. Review of Systems: General: No recent weight changes, no fever, no sleep disturbances Respiratory: No cough, no shortness of air, no recurring pulmonary infections Cardiovascular/peripheral vascular: No chest pain, no palpitations, no edema, no shortness of breath Gastrointestinal: No new onset incontinence, normal bowel movements reported Genitourinary: No new onset incontinence Musculoskeletal: Generalized joint pain Psychiatric: [Normal mood/affect] Neurological: [Denies weakness in extremities], [denies balance issues] Objective:: Physical Exam: General: Alert and oriented x3, no acute distress, pleasant and cooperative Lungs: Respirations even and unlabored, symmetrical chest expansion Eyes: PERRL Musculoskeletal: Flexion and extension of bilateral knees, shoulders somewhat guarded secondary to pain, [antalgic gait noted] Neurological: Speech clear, no gross sensory deficit Assessment:: Bilateral knee pain, shoulder pain, hand pain, generalized joint pain Plan:: Patient is doing well with his current medication regimen. I will refill his [place] 5 mg 4 times a day and methocarbamol 750 mg 3 times a day and provide a 1 month supply of these medications. Patient will return to clinic in 1 month for reevaluation of symptoms, medication refill and follow-up. Patient has been advised of risks of oversedation with the prescribed medication. Narcan has been offered to the patient in the event of oversedation. Patient has been advised that a family member should also be educated regarding administration of Narcan. Patient has been instructed to contact the clinic with any concerns before the next appointment. Dr. Wright has reviewed this note and agrees with this plan of care. This note was dictated using voice recognition software and make contain errors or omissions. [facility] Disclaimer: The information contained in this section may have been updated after the patient was seen, as this information can be updated by other users. Medical History (Updated 05/08/22 @ 10:[address] RN) Atrial fibrillation Diabetes mellitus, type 2 Hyperlipidemia Surgical History (Updated 05/08/22 @ 10:[address] RN) H/O abdominal surgery History of cholecystectomy Family History (Updated 05/08/22 @ 10:[address] RN) Other Cancer of kidney Family history of COPD (chronic obstructive pulmonary disease) Lung cancer Social History (Updated 05/08/22 @ 10:[address] RN) Smoking Status: Current every day smoker tobacco type: cigarettes packs per day: 1 alcohol intake: never current occupational status: employed Travel in the last 8 weeks: None household members: spouse housing: house current occupational exposures/hazards: No caffeine: Yes
[2022-09-21 10:22] VITALS: BP 130/84; PULSE 68; RESP 18; O2SAT 97; BMI 30.5
== END | disposition home or self-care (01) ==
PROVIDERS: PCP Nurse Practitioner Family; Visit Provider Nurse Practitioner Family
DX: M25.561 Pain in right knee (principal); M25.562 Pain in left knee; M25.519 Pain in unspecified shoulder; M25.549 Pain in joints of unspecified hand; M25.50 Pain in unspecified joint
CPT/HCPCS: 99212; G0463

== ENCOUNTER → 2022-10-19 09:29 | Outpatient (POV) | payer OTHER, SELFPAY ==
--- NOTE | 2022-10-19 10:19 | EXP.PAIN.SOA ---
[facility] Pain Management SOAP Note Subjective:: Patient is a pleasant 61-year-old male who presents today for medication refill and follow-up. We are currently treating the patient for bilateral knee pain, bilateral shoulder pain, hand pain, joint pain. Today he rates his pain a 7 out of 10. Patient states that he is experiencing more pain in his right hip and right ankle. Patient denies any new trauma or injury. He does describe these as a throbbing, jabbing sensation that is worse with increased activity or worse at night. Patient states he did previously have an injury to his ankle however he cannot remember whether or not it was his left or his right. He does think that his hip is just worn down with arthritis. Patient is currently managed with methocarbamol 750 mg 3 times a day and [place] 5 mg 4 times a day. He does state that he will occasionally have constipation however he takes MiraLAX as needed and does well. Patient does have a history of A-fib and is also had cancer in his leg that was removed. Patient has also had lung and kidney issues including lung nodules and a cyst on his kidney. He has been prescribed compounded cream in the past and he states does help somewhat as well as Biofreeze. His Thang is [id number]. Its been reviewed and appropriate. Review of Systems: General: No recent weight changes, no fever, no sleep disturbances Respiratory: No cough, no shortness of air, no recurring pulmonary infections Cardiovascular/peripheral vascular: No chest pain, no palpitations, no edema, no shortness of breath Gastrointestinal: No new onset incontinence, normal bowel movements reported Genitourinary: No new onset incontinence Musculoskeletal: Right hip pain, right ankle pain Psychiatric: [Normal mood/affect] Neurological: [Denies weakness in extremities], [denies balance issues] Objective:: Physical Exam: General: Alert and oriented x3, no acute distress, pleasant and cooperative Lungs: Respirations even and unlabored, symmetrical chest expansion Eyes: PERRL Musculoskeletal: Flexion and extension of lumbar [spine] somewhat guarded secondary to pain, [antalgic gait noted] Neurological: Speech clear, no gross sensory deficit Assessment:: Bilateral knee pain, bilateral shoulder pain, joint pain, right hip pain, right ankle pain, right hand pain Plan:: Patient is experiencing worsening pain in his right hip and right ankle with limited range of motion of his lumbar spine. I have discussed with patient that in the future he may benefit from a right hip intra-articular injection or a right sympathetic nerve block. Risk and benefits of these injection were discussed with the patient however at this time he states it is still tolerable. I will refill his [place] 5 mg 4 times a day as well as his methocarbamol 750 mg and change it to twice daily. I will send in a prescription for methocarbamol at 1000 mg at bedtime. Patient will return to clinic in 1 month for reevaluation of symptoms and medication refill. Patient has been advised of risks of oversedation with the prescribed medication. Narcan has been offered to the patient in the event of oversedation. Patient has been advised that a family member should also be educated regarding administration of Narcan. Patient has been instructed to contact the clinic with any concerns before the next appointment. Dr. Wright has reviewed this note and agrees with this plan of care. This note was dictated using voice recognition software and make contain errors or omissions. [facility] Disclaimer: The information contained in this section may have been updated after the patient was seen, as this information can be updated by other users. Medical History (Updated 05/08/22 @ 10:[address] RN) Atrial fibrillation Diabetes mellitus, type 2 Hyperlipidemia Surgical History (Updated 05/08/22 @ 10:[address] RN) H/O abdominal surgery History of cholecystectomy Family History ([place]
[2022-10-19 11:23] LABS: Opiate Screen,Urine Positive ng/ml (<300); Phencyclidine Screen,Urine Negative ng/ml (<25)
[2022-10-19 11:30] LABS: Amphetamine/Metha Screen,Urine Negative ng/ml (<1000)
[2022-10-19 11:31] LABS: Barbiturates Screen,Urine Negative ng/ml (<200); Benzodiazepines Screen,Urine Negative ng/ml (<200)
[2022-10-19 11:32] LABS: Cannabinoid Screen,Urine Negative ng/ml (<50)
[2022-10-19 11:33] LABS: Methadone Screen,Urine Negative ng/ml (<300)
[2022-10-19 12:01] VITALS: BP 128/86; PULSE 64; RESP 18; O2SAT 97; BMI 30.5
[2022-10-19 12:38] LABS: Cocaine Screen,Urine Negative ng/ml (<300)
[2022-10-25 15:07] LABS: Codeine Negative (Cutoff=100); Hydrocodone Positive (.); Hydromorphone Positive (.); Morphine Negative (Cutoff=100); Opiates Positive (.)
== END | disposition home or self-care (01) ==
PROVIDERS: Visit Provider Nurse Practitioner Family
DX: M25.511 Pain in right shoulder (principal); M25.512 Pain in left shoulder; M25.561 Pain in right knee; M25.562 Pain in left knee; M25.552 Pain in left hip; M25.551 Pain in right hip; M25.571 Pain in right ankle and joints of right foot; M79.641 Pain in right hand; M25.50 Pain in unspecified joint
CPT/HCPCS: 80305; 80361; 80365; 99212; G0463; G0480

== ENCOUNTER → 2022-11-13 10:42 | Outpatient (POV) | payer OTHER, SELFPAY ==
[2022-11-13 11:01] VITALS: BP 152/94; PULSE 67; RESP 18; O2SAT 97; BMI 32.2
--- NOTE | 2022-11-13 11:17 | EXP.PAIN.SOA ---
[facility] Pain Management SOAP Note Subjective:: This patient is a pleasant 61-year-old male who comes our clinic today for medication refills. We currently manage the patient with [place] 5 mg 1 p.o. 4 times daily. Robaxin-750 milligrams 1 p.o. 3 times daily. Patient does not complain of any side effects or report complications with the current medication regime. The patient's Thang #[id number] has been reviewed and appropriate. Overall, patient has chronic pain secondary to diffuse arthritis. Bilateral knee arthritis. Bilateral shoulder pain secondary to arthritis. Hand pain. Joint pain. Objective:: Patient is awake alert [place] x3. In no acute distress. Flexion-extension cervical lumbar spine very guarded secondary to pain. Deep tendon reflexes upper and lower extremities normal. Motor strength upper and lower extremities normal. There is no gross sensory deficit. Gait is normal Assessment:: Degenerative disc lumbar spine multilevels. Lumbar radiculopathy. Osteoarthritis bilateral knees. Chronic knee pain. Osteoarthritis right shoulder. Chronic shoulder pain. Bilateral hand pain. Osteoarthritis right hip. Osteoarthritis right ankle. Plan:: We will send in medication refills. Refills are due 11/22/2022. Patient will return in 1 month. [facility] Disclaimer: The information contained in this section may have been updated after the patient was seen, as this information can be updated by other users. Medical History (Updated 05/08/22 @ 10:[address] RN) Atrial fibrillation Diabetes mellitus, type 2 Hyperlipidemia Surgical History (Updated 05/08/22 @ 10:[address] RN) H/O abdominal surgery History of cholecystectomy Family History (Updated 05/08/22 @ 10:[address] RN) Other Cancer of kidney Family history of COPD (chronic obstructive pulmonary disease) Lung cancer Social History (Updated 05/08/22 @ 10:[address] RN) Smoking Status: Current every day smoker tobacco type: cigarettes packs per day: 1 alcohol intake: never substance use type: denies use current occupational status: employed Travel in the last 8 weeks: None household members: spouse housing: house current occupational exposures/hazards: No caffeine: Yes
== END | disposition home or self-care (01) ==
PROVIDERS: PCP Nurse Practitioner Family; Visit Provider Nurse Anesthetist, Certified Registered
DX: M51.16 Intervertebral disc disorders with radiculopathy, lumbar region (principal); M17.0 Bilateral primary osteoarthritis of knee; M19.011 Primary osteoarthritis, right shoulder; M16.11 Unilateral primary osteoarthritis, right hip; M19.071 Primary osteoarthritis, right ankle and foot
CPT/HCPCS: 99212; G0463

== ENCOUNTER → 2022-12-10 11:13 | Outpatient (POV) | payer OTHER, SELFPAY ==
--- NOTE | 2022-12-10 11:55 | EXP.PAIN.SOA ---
[facility] Pain Management SOAP Note Subjective:: Patient is a pleasant 62-year-old male who presents today for medication refill and follow-up. We are currently treating the patient for bilateral knee pain, bilateral shoulder pain, hand pain, joint pain, right hip pain.? Today he rates his pain a 6 out of 10.? He does continue to state he has more pain in his bilateral hips unrelated to any new trauma or injury. He does describe this as an achy sensation that is worse with increased activity. He is currently managed with methocarbamol 750 mg 3 times a day and [place] 5 mg 4 times a day.? He does state that he does well with these medications and will occasionally have constipation but does take MiraLAX as needed. His Thang is [id number].? Its been reviewed and appropriate. Review of Systems: General: No recent weight changes, no fever, no sleep disturbances Respiratory: No cough, no shortness of air, no recurring pulmonary infections Cardiovascular/peripheral vascular: No chest pain, no palpitations,? no edema, no shortness of breath Gastrointestinal: No new onset incontinence, normal bowel movements reported Genitourinary: No new onset incontinence Musculoskeletal: Bilateral hip pain Psychiatric: [Normal mood/affect] Neurological: [Denies weakness in extremities], [denies balance issues] Objective:: Physical Exam: General: Alert and oriented x3, no acute distress, pleasant and cooperative Lungs: Respirations even and unlabored, symmetrical chest expansion Eyes: PERRL Musculoskeletal: Flexion and extension of lumbar [spine] somewhat guarded secondary to pain, [antalgic gait noted] Neurological: Speech clear, no gross sensory deficit Assessment:: Bilateral knee pain, bilateral shoulder pain, hand pain, generalized joint pain, bilateral hip pain Plan:: Patient is experiencing worsening pain in his bilateral hips. I have counseled the patient that he may benefit from bilateral hip intra-articular injection however at this time he would like to wait. I will refill his [place] 5 mg 4 times a day and methocarbamol 750 mg 3 times a day and provide a 1 month supply of these medications. Patient will return to clinic in 1 month for reevaluation of symptoms and medication refill. Patient has been advised of risks of oversedation with the prescribed medication. Narcan has been offered to the patient in the event of oversedation. Patient has been advised that a family member should also be educated regarding administration of Narcan. Patient has been instructed to contact the clinic with any concerns before the next appointment. Dr. Wright has reviewed this note and agrees with this plan of care. This note was dictated using voice recognition software and make contain errors or omissions. [facility] Disclaimer: The information contained in this section may have been updated after the patient was seen, as this information can be updated by other users. Medical History (Updated 05/08/22 @ 10:[address] RN) Atrial fibrillation Diabetes mellitus, type 2 Hyperlipidemia Surgical History (Updated 05/08/22 @ 10:[address] RN) H/O abdominal surgery History of cholecystectomy Family History (Updated 05/08/22 @ 10:[address] RN) Other Cancer of kidney Family history of COPD (chronic obstructive pulmonary disease) Lung cancer Social History (Updated 11/13/22 @ 11:21 by Krishna Jacob CRNA) Smoking Status: Current every day smoker tobacco type: cigarettes packs per day: 1 alcohol intake: never substance use type: denies use current occupational status: employed Travel in the last 8 weeks: None household members: spouse housing: house current occupational exposures/hazards: No caffeine: Yes
[2022-12-10 12:15] VITALS: BP 126/72; PULSE 73; RESP 18; O2SAT 97; BMI 30.5
== END | disposition home or self-care (01) ==
PROVIDERS: PCP Nurse Practitioner Family; Visit Provider Nurse Practitioner Family
DX: M25.561 Pain in right knee (principal); M25.562 Pain in left knee; M25.511 Pain in right shoulder; M25.512 Pain in left shoulder; M79.643 Pain in unspecified hand; M25.551 Pain in right hip; M25.552 Pain in left hip
CPT/HCPCS: 99212; G0463

== ENCOUNTER → 2023-01-06 10:39 | Outpatient (POV) | payer OTHER, SELFPAY ==
--- NOTE | 2023-01-06 11:00 | EXP.PAIN.SOA ---
[facility] Pain Management SOAP Note Subjective:: Patient is a pleasant 62-year-old male who presents today for 1 month follow-up and medication refill. We are currently treating the patient for bilateral knee pain, bilateral shoulder pain, hand pain, generalized joint pain, right hip pain. Today he rates his pain a 4 out of 10. Patient denies any new trauma or injury. Patient denies any change to location or type of pain he experiences. He does state that he continues to have pain on a daily basis that does interfere with his ability perform activities of daily living such as cooking and cleaning. He is currently managed with methocarbamol 750 mg 3 times a day and [place] 5 mg 4 times a day. Patient does state that he has been taking the muscle relaxer approximately 2 times a day and will occasionally take an extra tablet of the [place] due to worsening pain symptoms. He states that he has talked to Dr. Wright about the CBD products and that he was recommended to go to the [place] location if he wanted a vape product of this. 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 Patient does use MiraLAX as needed. His Thang is [id number]. Its been reviewed and appropriate. Review of Systems: General: No recent weight changes, no fever, no sleep disturbances Respiratory: No cough, no shortness of air, no recurring pulmonary infections Cardiovascular/peripheral vascular: No chest pain, no palpitations, no edema, no shortness of breath Gastrointestinal: No new onset incontinence, normal bowel movements reported Genitourinary: No new onset incontinence Musculoskeletal: Generalized joint pain Psychiatric: [Normal mood/affect] Neurological: [Denies weakness in extremities], [denies balance issues] Objective:: Physical Exam: General: Alert and oriented x3, no acute distress, pleasant and cooperative Lungs: Respirations even and unlabored, symmetrical chest expansion Eyes: PERRL Musculoskeletal: Flexion and extension of bilateral knees somewhat guarded secondary to pain, [antalgic gait noted] Neurological: Speech clear, no gross sensory deficit Assessment:: Generalized joint pain, bilateral knee pain, bilateral shoulder pain, hand pain, right hip pain Plan:: I will refill the patient's methocarbamol 750 mg 3 times daily and send in a prescription of [place] 5 mg 5 times a day and provide a one month supply of this medication. Patient will return to clinic in 1 month for reevaluation of symptoms and plan of care. Patient has been advised of risks of oversedation with the prescribed medication. Narcan has been offered to the patient in the event of oversedation. Patient has been advised that a family member should also be educated regarding administration of Narcan. Patient has been instructed to contact the clinic with any concerns before the next appointment. Dr. Wright has reviewed this note and agrees with this plan of care. This note was dictated using voice recognition software and make contain errors or omissions. [facility] Disclaimer: The information contained in this section may have been updated after the patient was seen, as this information can be updated by other users. Medical History (Updated 05/08/22 @ 10:[address] RN) Atrial fibrillation Diabetes mellitus, type 2 Hyperlipidemia Surgical History (Updated 05/08/22 @ 10:15 by Sarika Srteet RN) H/O abdominal surgery History of cholecystectomy Family History (Updated 05/08/22 @ 10:[address] RN) Other Cancer of kidney Family history of COPD (chronic obstructive pulmonary disease) Lung cancer Social History (Updated 11/13/22 @ 11:21 by Krishna Jacob CRNA) Smoking Status: Current every day smoker tobacco type: cigarettes packs per day: 1 alcohol intake: never substance use type: denies use current occupational status: employed Travel in the last 8 weeks: None household me
[2023-01-06 14:46] VITALS: BP 119/77; PULSE 84; RESP 18; O2SAT 98; BMI 30.5
== END | disposition home or self-care (01) ==
PROVIDERS: PCP Nurse Practitioner Family; Visit Provider Nurse Practitioner Family
DX: M25.561 Pain in right knee (principal); M25.562 Pain in left knee; M25.511 Pain in right shoulder; M25.512 Pain in left shoulder; M79.643 Pain in unspecified hand; M25.551 Pain in right hip
CPT/HCPCS: 99212; G0463

== ENCOUNTER → 2023-02-04 11:10 | Outpatient (POV) | payer OTHER, SELFPAY ==
[2023-02-04 11:41] VITALS: BP 131/74; PULSE 79; RESP 18; O2SAT 95; BMI 30.5
--- NOTE | 2023-02-04 11:45 | EXP.PAIN.SOA ---
[facility] Pain Management SOAP Note Subjective:: Patient is a pleasant 62-year-old male who presents today for medication refill and follow-up. We are currently treating the patient for bilateral knee pain, bilateral shoulder pain, hand pain, generalized joint pain, hip pain, chronic pain. Today he rates his pain an 8 out of 10. Patient denies any new trauma or injury. He denies any change location or type of pain he experiences. He states he has been having some additional swelling into his knuckles however it is starting to go down. He states he continues to have pain in his other joints. Patient is currently managed with methocarbamol 750 mg 3 times a day and [place] 5 mg 4 times a day. Patient denies any side effects from this medication. He states he has been using a CBD product at home that has helped with some of his pain at night. Patient had previously talked to Dr. Wright about additional CBD products at the [place] location. He states he has not been up to see this shop at this time. His Thang is [id number]. Its been reviewed and appropriate. Review of Systems: General: No recent weight changes, no fever, no sleep disturbances Respiratory: No cough, no shortness of air, no recurring pulmonary infections Cardiovascular/peripheral vascular: No chest pain, no palpitations, no edema, no shortness of breath Gastrointestinal: No new onset incontinence, normal bowel movements reported Genitourinary: No new onset incontinence Musculoskeletal: Generalized joint pain Psychiatric: [Normal mood/affect] Neurological: [Denies weakness in extremities], [denies balance issues] Objective:: Physical Exam: General: Alert and oriented x3, no acute distress, pleasant and cooperative Lungs: Respirations even and unlabored, symmetrical chest expansion Eyes: PERRL Musculoskeletal: Flexion and extension of lumbar [spine] somewhat guarded secondary to pain, [antalgic gait noted] Neurological: Speech clear, no gross sensory deficit Assessment:: Bilateral knee pain, bilateral shoulder pain, hand pain, generalized joint pain, hip pain, chronic pain syndrome Plan:: Patient is doing well with his current medication regimen. I will refill his methocarbamol 750 mg 3 times daily and [place] 5 mg 4 times a day and provide a 1 month supply of this medication. Patient will return to clinic in 1 month for reevaluation of symptoms, medication refill and follow-up. Patient has been advised of risks of oversedation with the prescribed medication. Narcan has been offered to the patient in the event of oversedation. Patient has been advised that a family member should also be educated regarding administration of Narcan. Patient has been instructed to contact the clinic with any concerns before the next appointment. Dr. Wright has reviewed this note and agrees with this plan of care. This note was dictated using voice recognition software and make contain errors or omissions. [facility] Disclaimer: The information contained in this section may have been updated after the patient was seen, as this information can be updated by other users. Medical History (Updated 05/08/22 @ 10:[address] RN) Atrial fibrillation Diabetes mellitus, type 2 Hyperlipidemia Surgical History (Updated 05/08/22 @ 10:[address] RN) H/O abdominal surgery History of cholecystectomy Family History (Updated 05/08/22 @ 10:[address] RN) Other Cancer of kidney Family history of COPD (chronic obstructive pulmonary disease) Lung cancer Social History (Updated 11/13/22 @ 11:21 by Krishna Jacob CRNA) Smoking Status: Current every day smoker tobacco type: cigarettes packs per day: 1 alcohol intake: never substance use type: denies use current occupational status: employed Travel in the last 8 weeks: None household members: spouse housing: house current occupational exposures/hazards: No caffeine: Yes
== END | disposition home or self-care (01) ==
PROVIDERS: PCP Nurse Practitioner Family; Visit Provider Nurse Practitioner Family
DX: M25.561 Pain in right knee (principal); M25.562 Pain in left knee; M25.511 Pain in right shoulder; M25.512 Pain in left shoulder; M79.641 Pain in right hand; M79.642 Pain in left hand; M25.50 Pain in unspecified joint; M25.559 Pain in unspecified hip; G89.4 Chronic pain syndrome
CPT/HCPCS: 99212; G0463

== ENCOUNTER → 2023-03-04 12:55 | Outpatient (POV) | payer OTHER, SELFPAY ==
--- NOTE | 2023-03-04 13:19 | EXP.PAIN.SOA ---
[facility] Pain Management SOAP Note Subjective:: Patient is a pleasant 62-year-old male who presents today for medication refill. We are currently treating the patient for bilateral knee pain, bilateral shoulder pain, hand pain, generalized joint pain, hip pain, chronic pain. Today he rates his pain a 4 out of 10. Patient denies any new trauma or injury. He states he has been having more pain in his TMJ area. He states that this has been a chronic issue and experiences frequent ear popping and jaw soreness. Patient does state that he knows he also grinds his teeth. Patient states he has been to his primary care doctor recently and was put on steroids which helped some. Patient is currently managed with methocarbamol 750 mg 3 times a day and [place] 5 mg 5 times a day. Patient denies any side effects from these medications. His Thang is [id number]. Its been reviewed and appropriate. Review of Systems: General: No recent weight changes, no fever, no sleep disturbances Respiratory: No cough, no shortness of air, no recurring pulmonary infections Cardiovascular/peripheral vascular: No chest pain, no palpitations, no edema, no shortness of breath Gastrointestinal: No new onset incontinence, normal bowel movements reported Genitourinary: No new onset incontinence Musculoskeletal: Low back pain, TMJ pain Psychiatric: [Normal mood/affect] Neurological: [Denies weakness in extremities], [denies balance issues] Objective:: Physical Exam: General: Alert and oriented x3, no acute distress, pleasant and cooperative Lungs: Respirations even and unlabored, symmetrical chest expansion Eyes: PERRL Musculoskeletal: Flexion and extension of lumbar [spine] somewhat guarded secondary to pain, [antalgic gait noted] Neurological: Speech clear, no gross sensory deficit Assessment:: Bilateral shoulder pain, bilateral knee pain, generalized joint pain, hand pain, hip pain, chronic pain, TMJ dysfunction Plan:: Patient is experiencing worsening symptoms related to TMJ dysfunction. I have discussed with the patient that he may benefit from a TMJ joint injection. Risk and benefits were discussed with the patient and at this time he would like to wait. We will discuss this at future visits. I will refill the patient's methocarbamol 750 mg 3 times a day and [place] 5 mg 5 times a day and provide a 1 month supply of this medication. Patient will return to clinic in 1 month for reevaluation of symptoms and medication refill. Patient has been advised of risks of oversedation with the prescribed medication. Narcan has been offered to the patient in the event of oversedation. Patient has been advised that a family member should also be educated regarding administration of Narcan. Patient has been instructed to contact the clinic with any concerns before the next appointment. Dr. Wright has reviewed this note and agrees with this plan of care. This note was dictated using voice recognition software and make contain errors or omissions. [facility] Disclaimer: The information contained in this section may have been updated after the patient was seen, as this information can be updated by other users. Medical History (Updated 05/08/22 @ 10:[address] RN) Atrial fibrillation Diabetes mellitus, type 2 Hyperlipidemia Surgical History (Updated 05/08/22 @ 10:[address] RN) H/O abdominal surgery History of cholecystectomy Family History (Updated 05/08/22 @ 10:[address] RN) Other Cancer of kidney Family history of COPD (chronic obstructive pulmonary disease) Lung cancer Social History (Updated 11/13/22 @ 11:21 by Krishna Jacob CRNA) Smoking Status: Current every day smoker tobacco type: cigarettes packs per day: 1 alcohol intake: never substance use type: denies use current occupational status: employed Travel in the last 8 weeks: None household members: spouse housing: house current occupational exposures/hazards: No caff
[2023-03-04 13:44] VITALS: BP 130/75; PULSE 70; RESP 20; O2SAT 98; BMI 30.5
== END | disposition home or self-care (01) ==
PROVIDERS: Visit Provider Nurse Practitioner Family
DX: M25.511 Pain in right shoulder (principal); M25.512 Pain in left shoulder; M25.561 Pain in right knee; M25.562 Pain in left knee; M25.50 Pain in unspecified joint; M79.643 Pain in unspecified hand; M25.559 Pain in unspecified hip; G89.29 Other chronic pain; M26.609 Unspecified temporomandibular joint disorder, unspecified side
CPT/HCPCS: 99212; G0463

== ENCOUNTER → 2023-04-02 09:45 | Outpatient (POV) | payer OTHER, SELFPAY ==
[2023-04-02 09:50] VITALS: BP 123/79; PULSE 81; RESP 20; BMI 30.5
--- NOTE | 2023-04-02 10:48 | A.OFFVIS_ITS ---
[facility] Pain Management SOAP Note Subjective:: This patient is a very pleasant 62-year-old male that comes our clinic today for medication refills. We currently treat the patient for chronic bilateral knee pain. Bilateral shoulder pain. Bilateral hand pain. Generalized joint pain. Patient also complains of low back pain as well as bilateral hip and leg radicular symptoms at times. He rates his pain today 5/10. Patient currently being managed with Robaxin 750 mg 1 p.o. 3 times daily also [place] 5 mg 1 p.o. 5 times daily. Patient a recent accident with a chainsaw resulting in a wood chip getting into his right knee joint. This caused a severe hematoma that required evacuation and washout. He is doing much better now. He continues to complain of bilateral knee pain he describes as constant, dull, sharp, stabbing. We talked about repeating genicular nerve blocks and/or ablation. He will let us know if in fact he wants to proceed. Patient's Thang #[id number] have been reviewed and appropriate. Objective:: Patient is awake alert [place] x3. No acute distress. Flexion-extension lumbar spine somewhat guarded secondary to pain. Deep tendon reflexes upper lower extremities normal. Motor strength upper lower extremity normal. There is no gross sensory deficit. Gait is normal Assessment:: Degenerative disc disease lumbar spine multilevels. Lumbar radiculopathy. Generalized multijoint pain. Knees, shoulders, hands, hips. Plan:: We refilled the patient's pain medication. Robaxin-750 milligrams 1 p.o. 3 times daily as well as [place] 5 mg 1 p.o. 5 times daily. Patient rates does not report any side effects from the medications. [facility] Disclaimer: The information contained in this section may have been updated after the patient was seen, as this information can be updated by other users. Medical History (Updated 05/08/22 @ 10:[address] RN) Atrial fibrillation Diabetes mellitus, type 2 Hyperlipidemia Surgical History (Updated 05/08/22 @ 10:[address] RN) H/O abdominal surgery History of cholecystectomy Family History (Updated 05/08/22 @ 10:[address] RN) Other Cancer of kidney Family history of COPD (chronic obstructive pulmonary disease) Lung cancer Social History (Updated 11/13/22 @ 11:21 by Krishna Jacob CRNA) Smoking Status: Current every day smoker tobacco type: cigarettes packs per day: 1 alcohol intake: never substance use type: denies use current occupational status: other Travel in the last 8 weeks: None household members: spouse housing: house current occupational exposures/hazards: No caffeine: Yes
[2023-04-02 10:59] LABS: Amphetamine/Metha Screen,Urine Negative ng/ml (<1000); Barbiturates Screen,Urine Negative ng/ml (<200)
[2023-04-02 11:00] LABS: Benzodiazepines Screen,Urine Negative ng/ml (<200); Cannabinoid Screen,Urine Negative ng/ml (<50)
[2023-04-02 11:01] LABS: Methadone Screen,Urine Negative ng/ml (<300)
[2023-04-02 11:02] LABS: Cocaine Screen,Urine Negative ng/ml (<300); Phencyclidine Screen,Urine Negative ng/ml (<25)
[2023-04-02 11:03] LABS: Opiate Screen,Urine Positive ng/ml (<300)
[2023-04-07 15:33] LABS: Codeine Negative (Cutoff=100); Hydrocodone Positive (.); Hydromorphone Positive (.); Morphine Negative (Cutoff=100); Opiates Positive (.)
== END | disposition home or self-care (01) ==
PROVIDERS: PCP Nurse Practitioner Family; Visit Provider Nurse Practitioner Family
DX: M51.16 Intervertebral disc disorders with radiculopathy, lumbar region (principal); M25.561 Pain in right knee; M25.562 Pain in left knee; M25.511 Pain in right shoulder; M25.512 Pain in left shoulder; M25.541 Pain in joints of right hand; M25.542 Pain in joints of left hand; M25.551 Pain in right hip; M25.552 Pain in left hip
CPT/HCPCS: 80305; 80361; 80365; 99212; G0463; G0480

== ENCOUNTER → 2023-05-03 08:55 | Outpatient (POV) | payer OTHER, SELFPAY ==
[2023-05-03 09:10] VITALS: BP 130/75; PULSE 84; RESP 18; O2SAT 98; BMI 30.5
--- NOTE | 2023-05-03 09:18 | A.OFFVIS_ITS ---
[facility] Pain Management SOAP Note Subjective:: Patient is a pleasant 62-year-old male who presents today for medication refill and follow-up. We are currently treating the patient for degenerative disc disease of lumbar spine with lumbar radiculopathy symptoms, generalized joint pain, hand pain, bilateral knee pain. Today he rates his pain a 4 out of 10. Patient denies any new trauma or injury. He is currently managed with Robaxin 750 mg 3 times a day and [place] 5 mg 5 times a day. Patient denies any side effects to these medications. His Thang has been reviewed and is appropriate. Review of Systems: General: No recent weight changes, no fever, no sleep disturbances Respiratory: No cough, no shortness of air, no recurring pulmonary infections Cardiovascular/peripheral vascular: No chest pain, no palpitations, no edema, no shortness of breath Gastrointestinal: No new onset incontinence, normal bowel movements reported Genitourinary: No new onset incontinence Musculoskeletal: Low back pain Psychiatric: [Normal mood/affect] Neurological: [Denies weakness in extremities], [denies balance issues] Objective:: Physical Exam: General: Alert and oriented x3, no acute distress, pleasant and cooperative Lungs: Respirations even and unlabored, symmetrical chest expansion Eyes: PERRL Musculoskeletal: Flexion and extension of lumbar [spine] somewhat guarded secondary to pain, [antalgic gait noted] Neurological: Speech clear, no gross sensory deficit Assessment:: Degenerative disc disease of lumbar spine with lumbar radiculopathy symptoms, generalized joint pain, knee pain, hand pain Plan:: Patient is doing well with his current medication regimen. I will refill his Robaxin 750 mg 3 times a day and [place] 5 mg 5 times a day and send in a 1 month supply of these medications. Patient will return to clinic in 1 month for reevaluation of symptoms and plan of care. Patient has been advised of risks of oversedation with the prescribed medication. Narcan has been offered to the patient in the event of oversedation. Patient has been advised that a family member should also be educated regarding administration of Narcan. Patient has been instructed to contact the clinic with any concerns before the next appointment. Dr. Wright has reviewed this note and agrees with this plan of care. This note was dictated using voice recognition software and make contain errors or omissions. [facility] Disclaimer: The information contained in this section may have been updated after the patient was seen, as this information can be updated by other users. Medical History (Updated 05/08/22 @ 10:[address] RN) Atrial fibrillation Diabetes mellitus, type 2 Hyperlipidemia Surgical History (Updated 05/08/22 @ 10:[address] RN) H/O abdominal surgery History of cholecystectomy Family History (Updated 05/08/22 @ 10:[address] RN) Other Cancer of kidney Family history of COPD (chronic obstructive pulmonary disease) Lung cancer Social History (Updated 11/13/22 @ 11:21 by Krishna Jacob CRNA) Smoking Status: Current every day smoker tobacco type: cigarettes packs per day: 1 alcohol intake: never substance use type: denies use current occupational status: employed Travel in the last 8 weeks: None household members: spouse housing: house current occupational exposures/hazards: No caffeine: Yes
== END | disposition home or self-care (01) ==
PROVIDERS: PCP Nurse Practitioner Family; Visit Provider Nurse Practitioner Family
DX: M51.16 Intervertebral disc disorders with radiculopathy, lumbar region (principal); M25.59 Pain in other specified joint; M25.561 Pain in right knee; M25.562 Pain in left knee; M79.643 Pain in unspecified hand
CPT/HCPCS: 99212; G0463

== ENCOUNTER → 2023-05-31 08:25 | Outpatient (POV) | payer OTHER, SELFPAY ==
--- NOTE | 2023-05-31 08:47 | EXP.PAIN.SOA ---
[facility] Pain Management SOAP Note Subjective:: Patient is a pleasant 62-year-old male who presents today for medication refill and follow-up. We are currently treating the patient for degenerative disc disease lumbar spine with lumbar radiculopathy symptoms: Generalized joint pain, hand pain, bilateral knee pain. Today he rates his pain a 6 out of 10. Patient denies any new trauma or injury. He does state that from our last visit he did have surgery on his mouth where he did have a bone graft and implant put in. He states that he does still have some soreness however is overall doing well with it. He states he does go back June 22 for a follow-up and to have his sutures removed. Patient is currently managed with Robaxin 750 mg 3 times a day and [place] 5 mg 5 times a day. He denies any side effects from this medication. His Thang has been reviewed and is appropriate. Review of Systems: General: No recent weight changes, no fever, no sleep disturbances Respiratory: No cough, no shortness of air, no recurring pulmonary infections Cardiovascular/peripheral vascular: No chest pain, no palpitations, no edema, no shortness of breath Gastrointestinal: No new onset incontinence, normal bowel movements reported Genitourinary: No new onset incontinence Musculoskeletal: Low back pain Psychiatric: [Normal mood/affect] Neurological: [Denies weakness in extremities], [denies balance issues] Objective:: Physical Exam: General: Alert and oriented x3, no acute distress, pleasant and cooperative Lungs: Respirations even and unlabored, symmetrical chest expansion Eyes: PERRL Musculoskeletal: Flexion and extension of lumbar [spine] somewhat guarded secondary to pain, [antalgic gait noted] Neurological: Speech clear, no gross sensory deficit Assessment:: Degenerative disc disease of lumbar spine with lumbar radiculopathy symptoms, generalized joint pain, hand pain, bilateral knee pain Plan:: I will refill his [place] 5 mg 5 times a day and Robaxin-750 milligrams 3 times a day and provide a 1 month supply of these medications. Patient will return to clinic in 1 month for reevaluation of symptoms and plan of care. Patient has been advised of risks of oversedation with the prescribed medication. Narcan has been offered to the patient in the event of oversedation. Patient has been advised that a family member should also be educated regarding administration of Narcan. Patient has been instructed to contact the clinic with any concerns before the next appointment. Dr. Wright has reviewed this note and agrees with this plan of care. This note was dictated using voice recognition software and make contain errors or omissions. [facility] Disclaimer: The information contained in this section may have been updated after the patient was seen, as this information can be updated by other users. Medical History (Updated 05/08/22 @ 10:[address] RN) Atrial fibrillation Diabetes mellitus, type 2 Hyperlipidemia Surgical History (Updated 05/08/22 @ 10:[address] RN) H/O abdominal surgery History of cholecystectomy Family History (Updated 05/08/22 @ 10:[address] RN) Other Cancer of kidney Family history of COPD (chronic obstructive pulmonary disease) Lung cancer Social History (Updated 11/13/22 @ 11:21 by Krishna Jacob CRNA) Smoking Status: Current every day smoker tobacco type: cigarettes packs per day: 1 alcohol intake: never substance use type: denies use current occupational status: employed Travel in the last 8 weeks: None household members: spouse housing: house current occupational exposures/hazards: No caffeine: Yes
[2023-05-31 09:05] VITALS: BP 121/74; PULSE 70; RESP 18; O2SAT 98; BMI 30.5
== END | disposition home or self-care (01) ==
PROVIDERS: PCP Nurse Practitioner Family; Visit Provider Nurse Practitioner Family
DX: M51.16 Intervertebral disc disorders with radiculopathy, lumbar region (principal); M25.50 Pain in unspecified joint; M79.643 Pain in unspecified hand; M25.561 Pain in right knee; M25.562 Pain in left knee
CPT/HCPCS: 99212; G0463

== ENCOUNTER → 2023-06-28 14:08 | Outpatient (POV) | payer BC, SELFPAY ==
[2023-06-28 14:34] VITALS: BP 131/87; PULSE 87; RESP 18; O2SAT 96; BMI 30.5
--- NOTE | 2023-06-28 14:47 | A.OFFVIS_ITS ---
[facility] Pain Management SOAP Note Subjective:: Patient is a pleasant 62-year-old male who presents today for medication refill and follow-up. We are currently treating the patient for degenerative disc disease of lumbar spine with lumbar radiculopathy symptoms, generalized joint pain, hand pain, bilateral knee pain, left hip pain, TMJ dysfunction. Today he rates his pain a 7 out of 10. Patient denies any new trauma or injury. He states he continues to have chronic low back pain however states he is left hip pain and TMJ symptoms seem to be worsening over time. Patient does describe his TMJ dysfunction as a chronic aching sensation with popping with increased activity or eating food. Patient does state that he did talk to his primary care provider regarding the TMJ joint injections that we discussed at his last visit and they were thinking that this would be a good option for his pain. Patient does state hip hip pain is an aching, throbbing sensation with some numbness. He does state his pain interferes with his ability perform activities of daily living such as cooking and cleaning. Patient is currently managed with Robaxin 750 mg 3 times a day and Dawson 5 mg 5 times a day. He denies any side effects from this medication. He does state the medication does help however only really takes the edge off. His Thang has been reviewed and is appropriate. Review of Systems: General: No recent weight changes, no fever, no sleep disturbances Respiratory: No cough, no shortness of air, no recurring pulmonary infections Cardiovascular/peripheral vascular: No chest pain, no palpitations, no edema, no shortness of breath Gastrointestinal: No new onset incontinence, normal bowel movements reported Genitourinary: No new onset incontinence Musculoskeletal: TMJ dysfunction, left hip pain Psychiatric: [Normal mood/affect] Neurological: [Denies weakness in extremities], [denies balance issues] Objective:: Physical Exam: General: Alert and oriented x3, no acute distress, pleasant and cooperative Lungs: Respirations even and unlabored, symmetrical chest expansion Eyes: PERRL Musculoskeletal: Flexion and extension of left hip somewhat guarded secondary to pain, [antalgic gait noted] Neurological: Speech clear, no gross sensory deficit Assessment:: Degenerative disc disease of lumbar spine with lumbar radiculopathy symptoms, generalized joint pain, hand pain, bilateral knee pain, left hip pain, TMJ dysfunction Plan:: I will refill the patient's Robaxin 750 mg 3 times a day and change his Dawson to 10 mg 3 times a day and provide a 1 month supply of these medications. I have reviewed over the risk and benefits of the TMJ joint injections as well as the left hip intra-articular injection. Patient would like to speak to his spouse before proceeding forward with these injections. I have counseled the patient that he can call and schedule these over the phone between now and his next visit. Patient will return to clinic in 1 month for reevaluation of symptoms and plan of care. Patient has been advised of risks of oversedation with the prescribed medication. Narcan has been offered to the patient in the event of oversedation. Patient has been advised that a family member should also be educated regarding administration of Narcan. Patient has been instructed to contact the clinic with any concerns before the next appointment. Dr. Wright has reviewed this note and agrees with this plan of care. This note was dictated using voice recognition software and make contain errors or omissions. [facility] Disclaimer: The information contained in this section may have been updated after the patient was seen, as this information can be updated by other users. Medical History (Updated 05/08/22 @ 10:[address] RN) Atrial fibrillation Diabetes mellitus, type 2 Hyperlipidemia Surgical History (Updated 05/08/22 @ 10:[address] RN) H/O abdominal surgery History of cholecystectomy Family History (Updated 05/08/22 @ 10:[address] RN) Other Cancer of kidney Family history of COPD (chronic obstructive pulmonary disease) Lung cancer Social History (Updated 11/13/22 @ 11:21 by Krishna Jacob CRNA) Smoking Status: Current every day smoker tobacco type: cigarettes packs per day: 1 alcohol intake: never substance use type: denies use current occupational status: employed Travel in the last 8 weeks: None household members: spouse housing: house current occupational exposures/hazards: No caffeine: Yes
== END | disposition home or self-care (01) ==
PROVIDERS: PCP Nurse Practitioner Family; Visit Provider Nurse Practitioner Family
DX: M51.16 Intervertebral disc disorders with radiculopathy, lumbar region (principal); M25.50 Pain in unspecified joint; M79.643 Pain in unspecified hand; M25.561 Pain in right knee; M25.562 Pain in left knee; M25.552 Pain in left hip; M26.69 Other specified disorders of temporomandibular joint
CPT/HCPCS: 99212; G0463

== ENCOUNTER → 2023-07-29 13:59 | Outpatient (POV) | payer BC, SELFPAY ==
[2023-07-29 14:14] VITALS: BP 127/86; PULSE 67; RESP 18; O2SAT 97; BMI 30.4
--- NOTE | 2023-07-29 14:27 | A.OFFVIS_ITS ---
[facility] Pain Management SOAP Note Subjective:: Patient is a pleasant 62-year-old male who presents today for medication refill. We are currently treating the patient for degenerative disc disease of lumbar spine with lumbar radiculopathy symptoms, generalized joint pain, hand pain, bilateral knee pain, left hip pain, TMJ dysfunction. Today he rates his pain a 5 out of 10. Patient denies any new trauma or injury. Patient does state that he will be retiring from [employer] a next week. He is currently managed with Robaxin 750 mg 3 times a day and [place] 10 mg 3 times a day. Patient denies any side effects from this medication. His Thang has been reviewed and is appropriate. Review of Systems: General: No recent weight changes, no fever, no sleep disturbances Respiratory: No cough, no shortness of air, no recurring pulmonary infections Cardiovascular/peripheral vascular: No chest pain, no palpitations, no edema, no shortness of breath Gastrointestinal: No new onset incontinence, normal bowel movements reported Genitourinary: No new onset incontinence Musculoskeletal: Low back pain Psychiatric: [Normal mood/affect] Neurological: [Denies weakness in extremities], [denies balance issues] Objective:: Physical Exam: General: Alert and oriented x3, no acute distress, pleasant and cooperative Lungs: Respirations even and unlabored, symmetrical chest expansion Eyes: PERRL Musculoskeletal: Flexion and extension of lumbar [spine] somewhat guarded secondary to pain, [antalgic gait noted] Neurological: Speech clear, no gross sensory deficit Assessment:: degenerative disc disease of lumbar spine with lumbar radiculopathy symptoms, generalized joint pain, hand pain, bilateral knee pain, left hip pain, TMJ dysfunction Plan:: I will refill the patient's [place] 10 mg 3 times a day and Robaxin-750 milligrams 3 times a day and provide a 1 month supply of this medication. Patient will return to clinic in 1 month for reevaluation of symptoms and plan of care. Risks and benefits of the medication have been explained in detail to the patient. The patient does understand the risk of dependence on the medication when given over a prolonged period. Patient has been advised of risks of oversedation with the prescribed medication. Narcan has been offered to the paitent in the event of oversedation. Patient has been advised that a family member should also be educated regarding administration of Narcan. The patient has been advised to consult with his/her primary care provider and pharmacist regarding drug-drug interaction of medications currently prescribed. Patient has been prescribed a controlled substance after being counseled on the medication, medication safety, and possible side effects. Opioid contract was reviewed and signed by the patient, and that they have agreed to all of the terms set forth by our compliance program. Patient has been instructed to contact the clinic with any concerns before the next appointment. Dr. Wright has reviewed this note and agrees with this plan of care. This note was dictated using voice recognition software and make contain errors or omissions. [facility] Disclaimer: The information contained in this section may have been updated after the patient was seen, as this information can be updated by other users. Medical History (Updated 05/08/22 @ 10:[address] RN) Atrial fibrillation Diabetes mellitus, type 2 Hyperlipidemia Surgical History (Updated 05/08/22 @ 10:[address] RN) H/O abdominal surgery History of cholecystectomy Family History (Updated 05/08/22 @ 10:[address] RN) Other Cancer of kidney Family history of COPD (chronic obstructive pulmonary disease) Lung cancer Social History (Updated 11/13/22 @ 11:21 by Krishna Jacob CRNA) Smoking Status: Current every day smoker tobacco type: cigarettes packs per day: 1 alcohol intake: never substance use type: denies use current occupational status: employed Travel in the last 8 weeks: None household members: spouse housing: house current occupational exposures/hazards: No caffeine: Yes
[2023-07-29 16:54] LABS: Amphetamine/Metha Screen,Urine Negative ng/ml (<1000)
[2023-07-29 16:55] LABS: Benzodiazepines Screen,Urine Negative ng/ml (<200)
[2023-07-29 16:56] LABS: Cocaine Screen,Urine Negative ng/ml (<300)
[2023-07-29 16:57] LABS: Methadone Screen,Urine Negative ng/ml (<300)
[2023-07-29 16:58] LABS: Phencyclidine Screen,Urine Negative ng/ml (<25)
[2023-07-29 17:25] LABS: Barbiturates Screen,Urine Negative ng/ml (<200)
[2023-07-29 17:27] LABS: Opiate Screen,Urine Positive ng/ml (<300)
[2023-07-29 18:24] LABS: Cannabinoid Screen,Urine Negative ng/ml (<50)
[2023-08-03 16:13] LABS: Codeine Negative (Cutoff=100); Hydrocodone Positive (.); Hydromorphone Positive (.); Morphine Negative (Cutoff=100); Opiates Positive (.)
== END | disposition home or self-care (01) ==
PROVIDERS: PCP Nurse Practitioner Family; Visit Provider Nurse Practitioner Family
DX: M51.16 Intervertebral disc disorders with radiculopathy, lumbar region (principal); M25.50 Pain in unspecified joint; M79.643 Pain in unspecified hand; M25.561 Pain in right knee; M25.562 Pain in left knee; M25.552 Pain in left hip; M26.609 Unspecified temporomandibular joint disorder, unspecified side
CPT/HCPCS: 80307; 80361; 80365; 99212; G0463; G0480

== ENCOUNTER 2023-08-26 13:06 | Outpatient (POV) | payer BC, SELFPAY ==
[2023-08-26 13:09] VITALS: BP 117/79; PULSE 78; RESP 20; BMI 30.5
--- NOTE | 2023-08-26 13:16 | EXP.PAIN.SOA ---
[facility] Pain Management SOAP Note Subjective:: Patient is a pleasant 62-year-old male who presents today for medication refill. He rates his pain today a 5 out of 10. Patient denies any new trauma or injury. Patient does state he has officially retired from [employer]. He is currently managed with [place] 10 mg 3 times a day and methocarbamol 750 mg 3 times a day. He denies any side effects from this medication. His Thang has been reviewed and is appropriate. Review of Systems: General: No recent weight changes, no fever, no sleep disturbances Respiratory: No cough, no shortness of air, no recurring pulmonary infections Cardiovascular/peripheral vascular: No chest pain, no palpitations, no edema, no shortness of breath Gastrointestinal: No new onset incontinence, normal bowel movements reported Genitourinary: No new onset incontinence Musculoskeletal: Low back pain Psychiatric: [Normal mood/affect] Neurological: [Denies weakness in extremities], [denies balance issues] Objective:: Physical Exam: General: Alert and oriented x3, no acute distress, pleasant and cooperative Lungs: Respirations even and unlabored, symmetrical chest expansion Eyes: PERRL Musculoskeletal: Flexion and extension of lumbar [spine] somewhat guarded secondary to pain, [antalgic gait noted] Neurological: Speech clear, no gross sensory deficit Assessment:: Degenerative disc disease of lumbar spine with lumbar radiculopathy symptoms, bilateral knee pain, left hip pain, generalized joint pain, hand pain Plan:: I will refill the patient's [place]ubon 10 mg 3 times a day and methocarbamol 750 mg 3 times a day and provide a 1 month supply of these medications. Patient will return to clinic in 1 month for reevaluation of symptoms and plan of care. Risks and benefits of the medication have been explained in detail to the patient. The patient does understand the risk of dependence on the medication when given over a prolonged period. Patient has been advised of risks of oversedation with the prescribed medication. Narcan has been offered to the paitent in the event of oversedation. Patient has been advised that a family member should also be educated regarding administration of Narcan. The patient has been advised to consult with his/her primary care provider and pharmacist regarding drug-drug interaction of medications currently prescribed. Patient has been prescribed a controlled substance after being counseled on the medication, medication safety, and possible side effects. Opioid contract was reviewed and signed by the patient, and that they have agreed to all of the terms set forth by our compliance program. Patient has been instructed to contact the clinic with any concerns before the next appointment. Dr. Wright has reviewed this note and agrees with this plan of care. This note was dictated using voice recognition software and make contain errors or omissions. [facility] Disclaimer: The information contained in this section may have been updated after the patient was seen, as this information can be updated by other users. Medical History (Updated 05/08/22 @ 10:[address] RN) Diabetes mellitus, type 2 Hyperlipidemia Atrial fibrillation Surgical History (Updated 05/08/22 @ 10:[address] RN) H/O abdominal surgery History of cholecystectomy Family History (Updated 05/08/22 @ 10:[address] RN) Other Cancer of kidney Family history of COPD (chronic obstructive pulmonary disease) Lung cancer Social History (Updated 11/13/22 @ 11:21 by Krishna Jacob CRNA) Smoking Status: Current every day smoker tobacco type: cigarettes packs per day: 1 alcohol intake: never substance use type: denies use current occupational status: retired Travel in the last 8 weeks: None household members: spouse housing: house current occupational exposures/hazards: No caffeine: Yes
== END 2023-08-26 23:59 | disposition home or self-care (01) ==
PROVIDERS: PCP Nurse Practitioner Family; Visit Provider Nurse Practitioner Family
DX: M51.16 Intervertebral disc disorders with radiculopathy, lumbar region (principal); M25.561 Pain in right knee; M25.562 Pain in left knee; M25.552 Pain in left hip; M79.641 Pain in right hand; M79.642 Pain in left hand
CPT/HCPCS: 99212; G0463

== ENCOUNTER 2023-09-27 13:01 | Outpatient (POV) | payer BC, SELFPAY ==
[2023-09-27 13:06] VITALS: BP 132/78; PULSE 76; RESP 18; O2SAT 98; BMI 30.5
--- NOTE | 2023-09-27 13:06 | EXP.PAIN.SOA ---
[facility] Pain Management SOAP Note Subjective:: Patient is a pleasant 62-year-old male who presents today for medication refill. He rates his pain today a 3 out of 10. Patient denies any new trauma or injury from our last visit. He does state that he is enjoying his fpc from [facility]. 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 He is currently managed with [place] 10 mg 3 times a day and methocarbamol 750 mg 3 times a day. He denies any side effects from this medication. He states this medicine does still help manage his symptoms. His Thang has been reviewed and is appropriate. Review of Systems: General: No recent weight changes, no fever, no sleep disturbances Respiratory: No cough, no shortness of air, no recurring pulmonary infections Cardiovascular/peripheral vascular: No chest pain, no palpitations, no edema, no shortness of breath Gastrointestinal: No new onset incontinence, normal bowel movements reported Genitourinary: No new onset incontinence Musculoskeletal: Low back pain Psychiatric: [Normal mood/affect] Neurological: [Denies weakness in extremities], [denies balance issues] Objective:: Physical Exam: General: Alert and oriented x3, no acute distress, pleasant and cooperative Lungs: Respirations even and unlabored, symmetrical chest expansion Eyes: PERRL Musculoskeletal: Flexion and extension of lumbar [spine] somewhat guarded secondary to pain, [antalgic gait noted] Neurological: Speech clear, no gross sensory deficit Assessment:: Degenerative disc disease of lumbar spine with lumbar radiculopathy symptoms, bilateral knee pain, left hip pain, generalized joint pain, hand pain Plan:: I will refill the patient's [place] 10 mg 3 times a day and methocarbamol 750 mg 3 times a day and provide a limited supply of this medication. Patient will return to clinic in 1 month for reevaluation of symptoms and plan of care. Risks and benefits of the medication have been explained in detail to the patient. The patient does understand the risk of dependence on the medication when given over a prolonged period. Patient has been advised of risks of oversedation with the prescribed medication. Narcan has been offered to the paitent in the event of oversedation. Patient has been advised that a family member should also be educated regarding administration of Narcan. The patient has been advised to consult with his/her primary care provider and pharmacist regarding drug-drug interaction of medications currently prescribed. Patient has been prescribed a controlled substance after being counseled on the medication, medication safety, and possible side effects. Opioid contract was reviewed and signed by the patient, and that they have agreed to all of the terms set forth by our compliance program. Patient has been instructed to contact the clinic with any concerns before the next appointment. Dr. Wright has reviewed this note and agrees with this plan of care. This note was dictated using voice recognition software and make contain errors or omissions. [facility] Disclaimer: The information contained in this section may have been updated after the patient was seen, as this information can be updated by other users. Medical History (Updated 05/08/22 @ 10:[address] RN) Diabetes mellitus, type 2 Hyperlipidemia Atrial fibrillation Surgical History (Updated 05/08/22 @ 10:[address] RN) H/O abdominal surgery History of cholecystectomy Family History (Updated 05/08/22 @ 10:[address] RN) Other Cancer of kidney Family history of COPD (chronic obstructive pulmonary disease) Lung cancer Social History (Updated 11/13/22 @ 11:21 by Krishna Jacob CRNA) Smoking Status: Current every day smoker tobacco type: cigarettes packs per day: 1 alcohol intake: never substance use type: denies use current occupational status: retired Travel in the last 8 weeks: None household members: spouse housing: house current occupational exposures/hazards: No caffeine: Yes
== END 2023-09-27 23:59 | disposition home or self-care (01) ==
PROVIDERS: PCP Nurse Practitioner Family; Visit Provider Nurse Practitioner Family
DX: M51.16 Intervertebral disc disorders with radiculopathy, lumbar region (principal); M25.561 Pain in right knee; M25.562 Pain in left knee; M25.552 Pain in left hip; M79.643 Pain in unspecified hand
CPT/HCPCS: 99212; G0463

== ENCOUNTER 2023-10-27 09:12 | Outpatient (POV) | payer BC, SELFPAY ==
[2023-10-27 09:26] VITALS: BP 120/74; PULSE 74; RESP 16; O2SAT 97; BMI 30.5
--- NOTE | 2023-10-27 09:42 | A.OFFVIS_ITS ---
[facility] Pain Management SOAP Note Subjective:: Patient is a pleasant 52-year-old male who presents today for medication refill and 1 month follow-up. Today he rates his pain a 6 out of 10. Patient denies any new trauma or injury. He does state that he has been having a lot more pain in his hands, hips and knees. Patient does state that he believes a lot of that is related to arthritis. Patient denies any previous hip or knee replacements. Patient states he is trying to avoid this. 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 He states that he does like dance and has a whole lot easier overall but gives him something still to do. He is currently managed with [place] 10 mg 3 times a day and methocarbamol 750 mg 3 times a day. He denies any side effects from this medication. His Thang has been reviewed and is appropriate. Review of Systems: General: No recent weight changes, no fever, no sleep disturbances Respiratory: No cough, no shortness of air, no recurring pulmonary infections Cardiovascular/peripheral vascular: No chest pain, no palpitations, no edema, no shortness of breath Gastrointestinal: No new onset incontinence, normal bowel movements reported Genitourinary: No new onset incontinence Musculoskeletal: Hand pain, knee pain, low back pain Psychiatric: [Normal mood/affect] Neurological: [Denies weakness in extremities], [denies balance issues] Objective:: Physical Exam: General: Alert and oriented x3, no acute distress, pleasant and cooperative Lungs: Respirations even and unlabored, symmetrical chest expansion Eyes: PERRL Musculoskeletal: Flexion and extension of lumbar [spine] somewhat guarded secondary to pain, [antalgic gait noted] Neurological: Speech clear, no gross sensory deficit Assessment:: Degenerative disc disease of lumbar spine with lumbar radiculopathy symptoms, hand pain, knee pain, generalized joint pain Plan:: I will refill the patient's Ros[place] and methocarbamol and provide a 1 month supply of these medications. Patient will return to clinic in 1 month for reevaluation of symptoms and plan of care. Risks and benefits of the medication have been explained in detail to the patient. The patient does understand the risk of dependence on the medication when given over a prolonged period. Patient has been advised of risks of oversedation with the prescribed medication. Narcan has been offered to the paitent in the event of oversedation. Patient has been advised that a family member should also be educated regarding administration of Narcan. The patient has been advised to consult with his/her primary care provider and pharmacist regarding drug-drug interaction of medications currently prescribed. Patient has been prescribed a controlled substance after being counseled on the medication, medication safety, and possible side effects. Opioid contract was reviewed and signed by the patient, and that they have agreed to all of the te honorio set forth by our compliance program. Patient has been instructed to contact the clinic with any concerns before the next appointment. Dr. Wright has reviewed this note and agrees with this plan of care. This note was dictated using voice recognition software and make contain errors or omissions. [facility] Disclaimer: The information contained in this section may have been updated after the patient was seen, as this information can be updated by other users. Medical History (Updated 05/08/22 @ 10:[address] RN) Diabetes mellitus, type 2 Hyperlipidemia Atrial fibrillation Surgical History (Updated 05/08/22 @ 10:[address] RN) H/O abdominal surgery History of cholecystectomy Family History (Updated 05/08/22 @ 10:[address] RN) Other Cancer of kidney Family history of COPD (chronic obstructive pulmonary disease) Lung cancer Social History (Updated 11/13/22 @ 11:21 by Krishna Jacob CRNA) Smoking Status: Current every day smoker tobacco type: cigarettes packs per day: 1 alcohol intake: never substance use type: denies use current occupational status: employed Travel in the last 8 weeks: None household members: spouse housing: house current occupational exposures/hazards: No caffeine: Yes
== END 2023-10-27 23:59 | disposition home or self-care (01) ==
PROVIDERS: PCP Nurse Practitioner Family; Visit Provider Nurse Practitioner Family
DX: M51.16 Intervertebral disc disorders with radiculopathy, lumbar region (principal); M25.561 Pain in right knee; M25.562 Pain in left knee; M79.641 Pain in right hand; M79.642 Pain in left hand
CPT/HCPCS: 99212; G0463

== ENCOUNTER 2023-11-25 13:07 | Outpatient (POV) | payer BC, SELFPAY ==
[2023-11-25 13:47] VITALS: BP 126/78; PULSE 66; RESP 16; O2SAT 96; BMI 30.5
--- NOTE | 2023-11-25 14:09 | A.OFFVIS_ITS ---
[facility] Pain Management SOAP Note Subjective:: Patient is a pleasant 63-year-old male who presents today for medication refill and follow-up. Today he rates his pain a 4 out of 10. Patient denies any new trauma or injury. He does state that he is still working at the [employer] and that it is going well and he is enjoying his time there. Patient is currently managed with [place] 10 mg 3 times a day and methocarbamol 750 mg 3 times a day. He denies any side effects from this medication. His Thang has been reviewed and is appropriate. Review of Systems: General: No recent weight changes, no fever, no sleep disturbances Respiratory: No cough, no shortness of air, no recurring pulmonary infections Cardiovascular/peripheral vascular: No chest pain, no palpitations, no edema, no shortness of breath Gastrointestinal: No new onset incontinence, normal bowel movements reported Genitourinary: No new onset incontinence Musculoskeletal: Low back pain Psychiatric: [Normal mood/affect] Neurological: [Denies weakness in extremities], [denies balance issues] Objective:: Physical Exam: General: Alert and oriented x3, no acute distress, pleasant and cooperative Lungs: Respirations even and unlabored, symmetrical chest expansion Eyes: PERRL Musculoskeletal: Flexion and extension of lumbar [spine] somewhat guarded secondary to pain, [antalgic gait noted] Neurological: Speech clear, no gross sensory deficit Assessment:: Degenerative disc disease of lumbar spine with lumbar radiculopathy symptoms, hand pain, knee pain, generalized joint pain Plan:: I will refill the patient's [place] and methocarbamol and provide a 1 month supply of these medications. Patient will return to clinic in 1 month for reevaluation of symptoms and plan of care. Risks and benefits of the medication have been explained in detail to the patient. The patient does understand the risk of dependence on the medication when given over a prolonged period. Patient has been advised of risks of oversedation with the prescribed medication. Narcan has been offered to the paitent in the event of oversedation. Patient has been advised that a family member should also be educated regarding administration of Narcan. The patient has been advised to consult with his/her primary care provider and pharmacist regarding drug-drug interaction of medications currently prescribed. Patient has been prescribed a controlled substance after being counseled on the medication, medication safety, and possible side effects. Opioid contract was reviewed and signed by the patient, and that they have agreed to all of the terms set forth by our compliance program. Patient has been instructed to contact the clinic with any concerns before the next appointment. Dr. Wright has reviewed this note and agrees with this plan of care. This note was dictated using voice recognition software and make contain errors or omissions. [facility] Disclaimer: The information contained in this section may have been updated after the patient was seen, as this information can be updated by other users. Medical History (Updated 05/08/22 @ 10:[address] RN) Diabetes mellitus, type 2 Hyperlipidemia Atrial fibrillation Surgical History (Updated 05/08/22 @ 10:[address] RN) H/O abdominal surgery History of cholecystectomy Family History (Updated 05/08/22 @ 10:[address] RN) Other Cancer of kidney Family history of COPD (chronic obstructive pulmonary disease) Lung cancer Social History (Updated 11/13/22 @ 11:21 by Krishna Jacob CRNA) Smoking Status: Current every day smoker tobacco type: cigarettes packs per day: 1 alcohol intake: never substance use type: denies use current occupational status: retired Travel in the last 8 weeks: None household members: spouse housing: house current occupational exposures/hazards: No caffeine: Yes
== END 2023-11-25 23:59 | disposition home or self-care (01) ==
PROVIDERS: PCP Nurse Practitioner Family; Visit Provider Nurse Practitioner Family
DX: M51.16 Intervertebral disc disorders with radiculopathy, lumbar region (principal); M79.643 Pain in unspecified hand; M25.569 Pain in unspecified knee; M25.50 Pain in unspecified joint
CPT/HCPCS: 99212; G0463

== ENCOUNTER 2023-12-27 13:39 | Outpatient (POV) | payer BC, SELFPAY ==
[2023-12-27 13:52] VITALS: BP 129/82; PULSE 80; RESP 16; O2SAT 100; BMI 30.5
--- NOTE | 2023-12-27 14:32 | EXP.PAIN.SOA ---
[facility] Disclaimer: The information contained in this section may have been updated after the patient was seen, as this information can be updated by other users. Medical History (Updated 12/27/23 @ 14:34 by Jacquelin Jacobson APRN) Diabetes mellitus, type 2 Hyperlipidemia Atrial fibrillation Surgical History (Updated 05/08/22 @ 10:[address] RN) H/O abdominal surgery History of cholecystectomy Family History (Updated 05/08/22 @ 10:[address] RN) Other Cancer of kidney Family history of COPD (chronic obstructive pulmonary disease) Lung cancer Social History (Updated 11/13/22 @ 11:21 by Krishna Jacob CRNA) Smoking Status: Current every day smoker tobacco type: cigarettes packs per day: 1 alcohol intake: never substance use type: denies use current occupational status: employed Travel in the last 8 weeks: None household members: spouse housing: house current occupational exposures/hazards: No caffeine: Yes PM Subjective & Objective Subjective Subjective:: Patient is a pleasant 63-year-old male who presents today for medication refill and follow-up. Today he rates his pain a 5 out of 10. Patient denies any new trauma or injury. He does state over the last month he feels like his pain is just been worse in general. Patient states this is primarily at night that he notices it. Patient is currently managed with [place] 10 mg 3 times a day and methocarbamol 750 mg 3 times a day. He denies any side effects from this medication. His Thang has been reviewed and is appropriate. Review of Systems: General: No recent weight changes, no fever, no sleep disturbances Respiratory: No cough, no shortness of air, no recurring pulmonary infections Cardiovascular/peripheral vascular: No chest pain, no palpitations, no edema, no shortness of breath Gastrointestinal: No new onset incontinence, normal bowel movements reported Genitourinary: No new onset incontinence Musculoskeletal: Low back pain Psychiatric: [Normal mood/affect] Neurological: [Denies weakness in extremities], [denies balance issues] Pain at rest (0-10 scale): 5 Objective Objective:: Physical Exam: General: Alert and oriented x3, no acute distress, pleasant and cooperative Lungs: Respirations even and unlabored, symmetrical chest expansion Eyes: PERRL Musculoskeletal: Flexion and extension of lumbar [spine] somewhat guarded secondary to pain, [antalgic gait noted] Neurological: Speech clear, no gross sensory deficit Has patient had previous pain injection?: No Conservative treatment options previously tried: Prescription medications Length of treatment: Longer than 6 weeks Meds Home Medications and Allergies Home Medications Medication Instructions Recorded Confirmed Type aspirin 81 mg tablet,delayed 81 mg PO DAILY heart health 06/06/20 12/27/23 History release celecoxib 200 mg capsule 200 mg PO DAILY Pain 06/06/20 12/27/23 History gabapentin 100 mg capsule 100 mg PO DAILY nerve pain 06/06/20 12/27/23 History ranitidine HCl 150 mg tablet 150 mg PO DAILY GERD 06/06/20 12/27/23 History sildenafil (pulm.hypertension) 20 20 mg PO DAILY erectile dysfunction 06/06/20 12/27/23 History mg tablet diclofenac sodium 75 mg 75 mg PO TID Pain 10/02/21 12/27/23 History tablet,delayed release famotidine 20 mg tablet 20 mg PO TID . #90 tabs 10/02/21 12/27/23 Rx ibuprofen 800 mg tablet 800 mg PO TID Pain #90 tabs 10/02/21 12/27/23 Rx apixaban 5 mg tablet 5 mg PO DAILY Blood thinner 01/29/22 12/27/23 History metoprolol tartrate 100 mg tablet 100 mg PO BID BLOOD PRESSURE 01/29/22 12/27/23 History rosuvastatin 5 mg tablet 5 mg PO HS Cholesterol 01/29/22 12/27/23 History cyclobenzaprine 10 mg tablet 10 mg PO TID . #90 tabs 03/26/22 12/27/23 Rx hydrocodone 5 mg-acetaminophen 325 1 tab PO 5XDAY Pain #150 tabs 05/31/23 12/27/23 Rx mg tablet hydrocodone 10 mg-acetaminophen 1 tab PO TID #90 tabs 11/25/23 12/27/23 Rx 325 mg tablet methocarbamol 750 mg tablet 750 mg PO TID Pain #90 tabs 11/25/23 12/27/23 Rx New Prescriptions to Start Prescriptions: Allergies Allergy/AdvReac Type Severity Reaction Status Date / Time No Known Drug Allergies Allergy Verified 05/08/22 10:10 Assessment and Plan *Assessment and plan (1) Cervical radiculopathy: Status: Chronic Category: Medical Code(s): M54.12 - Radiculopathy, cervical region (2) Bilateral shoulder pain: Status: Chronic Qualifiers: Chronicity: chronic Qualified Code(s): M25.511 - Pain in right shoulder; M25.512 - Pain in left shoulder; G89.29 - Other chronic pain Category: Medical Code(s): M25.511 - Pain in right shoulder; M25.512 - Pain in left shoulder (3) Lumbar radiculopathy: Status: Chronic Category: Medical Code(s): M54.16 - Radiculopathy, lumbar region (4) Low back pain: Status: Chronic Qualifiers: Chronicity: chronic Back pain laterality: bilateral Sciatica presence: unspecified whether sciatica present Qualified Code(s): M54.50 - Low back pain, unspecified; G89.29 - Other chronic pain Category: Medical Code(s): M54.5 - Low back pain Plan Will refill the patient's [place] and provide a 1 month supply of this medication. Patient stated that he was not taking his muscle relaxer as frequently and does not need refills. I did discuss with the patient that if he would want to try 2 tablets of his methocarbamol at night on the days that is more severe and see if that does provide better coverage. Patient was counseled to make sure to pick a day that he is not having to go immediately to work the next morning in case it does cause increased drowsiness. Patient is agreeable to this. Patient will return to clinic in 1 month for reevaluation of symptoms and plan of care. Risks and benefits of the medication have been explained in detail to the patient. The patient does understand the risk of dependence on the medication when given over a prolonged period. Patient has been advised of risks of oversedation with the prescribed medication. Narcan has been offered to the paitent in the event of oversedation. Patient has been advised that a family member should also be educated regarding administration of Narcan. The patient has been advised to consult with his/her primary care provider and pharmacist regarding drug-drug interaction of medications currently prescribed. Patient has been prescribed a controlled substance after being counseled on the medication, medication safety, and possible side effects. Opioid contract was reviewed and signed by the patient, and that they have agreed to all of the terms set forth by our compliance program. Patient has been instructed to contact the clinic with any concerns before the next appointment. Dr. Wright has reviewed this note and agrees with this plan of care. This note was dictated using voice recognition software and make contain errors or omissions.
== END 2023-12-27 23:59 | disposition home or self-care (01) ==
PROVIDERS: PCP Nurse Practitioner Family; Visit Provider Nurse Practitioner Family
DX: M54.12 Radiculopathy, cervical region (principal); G89.29 Other chronic pain
CPT/HCPCS: 99212; G0463

== ENCOUNTER 2024-01-27 14:01 | Outpatient (POV) | payer BC, SELFPAY ==
--- NOTE | 2024-01-27 14:16 | EXP.PAIN.SOA ---
[facility] Disclaimer: The information contained in this section may have been updated after the patient was seen, as this information can be updated by other users. Medical History (Updated 12/27/23 @ 14:34 by Jacquelin Jacobson APRN) Diabetes mellitus, type 2 Hyperlipidemia Atrial fibrillation Surgical History (Updated 05/08/22 @ 10:[address] RN) H/O abdominal surgery History of cholecystectomy Family History (Updated 05/08/22 @ 10:[address] RN) Other Cancer of kidney Family history of COPD (chronic obstructive pulmonary disease) Lung cancer Social History (Updated 11/13/22 @ 11:21 by Krishna Jacob CRNA) Smoking Status: Current every day smoker tobacco type: cigarettes packs per day: 1 alcohol intake: never substance use type: denies use current occupational status: employed Travel in the last 8 weeks: None household members: spouse housing: house current occupational exposures/hazards: No caffeine: Yes PM Subjective & Objective Subjective Subjective:: Patient is a pleasant 63-year-old male who presents today for 1 month follow-up and medication refill. Today he rates his pain a 5 out of 10. He denies any new trauma or injury. He does state that overall he is doing well. He states that today he is having a little bit more stiffness but it is only from the ride over to our office. He does state from our last visit he ended up having a lump that was felt along his left upper chest area. He does state that he has got scans on the . Patient is currently managed with [place] 10 mg 3 times a day, methocarbamol 750 mg 3 times a day and compounded cream. He denies any side effects from this medication. His Thang has been reviewed and is appropriate. Review of Systems: General: No recent weight changes, no fever, no sleep disturbances Respiratory: No cough, no shortness of air, no recurring pulmonary infections Cardiovascular/peripheral vascular: No chest pain, no palpitations, no edema, no shortness of breath Gastrointestinal: No new onset incontinence, normal bowel movements reported Genitourinary: No new onset incontinence Musculoskeletal: Low back pain Psychiatric: [Normal mood/affect] Neurological: [Denies weakness in extremities], [denies balance issues] Pain at rest (0-10 scale): 5 Objective Objective:: Physical Exam: General: Alert and oriented x3, no acute distress, pleasant and cooperative Lungs: Respirations even and unlabored, symmetrical chest expansion Eyes: PERRL Musculoskeletal: Flexion and extension of lumbar [spine] somewhat guarded secondary to pain, [antalgic gait noted] Neurological: Speech clear, no gross sensory deficit Has patient had previous pain injection?: No Conservative treatment options previously tried: Home exercise plan Length of treatment: Longer than 6 weeks Meds Home Medications and Allergies Home Medications ?Medication ?Instructions ?Recorded ?Confirmed ?Type aspirin 81 mg tablet,delayed 81 mg PO DAILY heart health 06/06/20 12/27/23 History release celecoxib 200 mg capsule 200 mg PO DAILY Pain 06/06/20 12/27/23 History gabapentin 100 mg capsule 100 mg PO DAILY nerve pain 06/06/20 12/27/23 History ranitidine HCl 150 mg tablet 150 mg PO DAILY GERD 06/06/20 12/27/23 History sildenafil (pulm.hypertension) 20 20 mg PO DAILY erectile dysfunction 06/06/20 12/27/23 History mg tablet diclofenac sodium 75 mg 75 mg PO TID Pain 10/02/21 12/27/23 History tablet,delayed release famotidine 20 mg tablet 20 mg PO TID . #90 tabs 10/02/21 12/27/23 Rx ibuprofen 800 mg tablet 800 mg PO TID Pain #90 tabs 10/02/21 12/27/23 Rx apixaban 5 mg tablet 5 mg PO DAILY Blood thinner 01/29/22 12/27/23 History metoprolol tartrate 100 mg tablet 100 mg PO BID BLOOD PRESSURE 01/29/22 12/27/23 History rosuvastatin 5 mg tablet 5 mg PO HS Cholesterol 01/29/22 12/27/23 History cyclobenzaprine 10 mg tablet 10 mg PO TID . #90 tabs 03/26/22 12/27/23 Rx hydrocodone 5 mg-acetaminophen 325 1 tab PO 5XDAY Pain #150 tabs 05/31/23 12/27/23 Rx mg tablet methocarbamol 750 mg tablet 750 mg PO TID Pain #90 tabs 11/25/23 12/27/23 Rx hydrocodone 10 mg-acetaminophen 1 tab PO TID #90 tabs 12/27/23 Rx 325 mg tablet New Prescriptions to Start Prescriptions: Allergies Allergy/AdvReac Type Severity Reaction Status Date / Time No Known Drug Allergies Allergy Verified 05/08/22 10:10 Assessment and Plan *Assessment and plan (1) Cervical radiculopathy: Status: Chronic Category: Medical Code(s): M54.12 - Radiculopathy, cervical region (2) Bilateral shoulder pain: Status: Chronic Qualifiers: Chronicity: chronic Qualified Code(s): M25.511 - Pain in right shoulder; M25.512 - Pain in left shoulder; G89.29 - Other chronic pain Category: Medical Code(s): M25.511 - Pain in right shoulder; M25.512 - Pain in left shoulder (3) Lumbar radiculopathy: Status: Chronic Category: Medical Code(s): M54.16 - Radiculopathy, lumbar region (4) Low back pain: Status: Chronic Qualifiers: Chronicity: chronic Back pain laterality: bilateral Sciatica presence: unspecified whether sciatica present Qualified Code(s): M54.50 - Low back pain, unspecified; G89.29 - Other chronic pain Category: Medical Code(s): M54.5 - Low back pain Plan I will refill the patient's [place] and methocarbamol and provide a 1 month supply of his medications. Patient will return to clinic in 1 month for reevaluation of symptoms and plan of care Risks and benefits of the medication have been explained in detail to the patient. The patient does understand the risk of dependence on the medication when given over a prolonged period. Patient has been advised of risks of oversedation with the prescribed medication. Narcan has been offered to the paitent in the event of oversedation. Patient has been advised that a family member should also be educated regarding administration of Narcan. The patient has been advised to consult with his/her primary care provider and pharmacist regarding drug-drug interaction of medications currently prescribed. Patient has been prescribed a controlled substance after being counseled on the medication, medication safety, and possible side effects. Opioid contract was reviewed and signed by the patient, and that they have agreed to all of the terms set forth by our compliance program. Patient has been instructed to contact the clinic with any concerns before the next appointment. Dr. Wright has reviewed this note and agrees with this plan of care. This note was dictated using voice recognition software and make contain errors or omissions.
[2024-01-27 14:29] VITALS: BP 126/90; PULSE 75; RESP 16; O2SAT 97; BMI 29.0
== END 2024-01-27 23:59 | disposition home or self-care (01) ==
PROVIDERS: PCP Nurse Practitioner Family; Visit Provider Nurse Practitioner Family
DX: M54.12 Radiculopathy, cervical region (principal); M25.511 Pain in right shoulder; M25.512 Pain in left shoulder; G89.29 Other chronic pain; M54.16 Radiculopathy, lumbar region; M54.50 Low back pain, unspecified; F17.210 Nicotine dependence, cigarettes, uncomplicated; Z79.899 Other long term (current) drug therapy
CPT/HCPCS: 99212; G0463

== ENCOUNTER 2024-04-03 09:08 | Outpatient (POV) | payer BC, SELFPAY ==
[2024-04-03 09:36] VITALS: BP 133/88; PULSE 64; RESP 18; O2SAT 99; BMI 30.5
--- NOTE | 2024-04-03 09:59 | A.OFFVIS_ITS ---
[facility] Disclaimer: The information contained in this section may have been updated after the patient was seen, as this information can be updated by other users. Medical History (Updated 04/03/24 @ 10:01 by Jacquelin Jacobson APRN) Diabetes mellitus, type 2 Hyperlipidemia Atrial fibrillation Surgical History H/O abdominal surgery History of cholecystectomy Family History Other Cancer of kidney Family history of COPD (chronic obstructive pulmonary disease) Lung cancer Social History Smoking Status: Current every day smoker tobacco type: cigarettes packs per day: 1 alcohol intake: never substance use type: denies use current occupational status: retired Travel in the last 8 weeks: None household members: spouse housing: house current occupational exposures/hazards: No caffeine: Yes PM Subjective & Objective Subjective Subjective:: Patient is a pleasant 63-year-old male who presents today for medication refill and follow-up. Today he rates his pain a 6 out of 10. Patient does state that he has been having a lot more pain in his bilateral hands related to arthritis. He states overall he just feels a lot of tightness and stiffness that makes it hard to work. Patient does have a history of heart related issues and cannot take any NSAIDs. Patient is currently managed with [place] 10 mg 3 times a day, methocarbamol 750 mg 3 times a day and compounded cream. He denies any side effects from this medication. His Thang has been reviewed and is appropriate. Review of Systems: General: No recent weight changes, no fever, no sleep disturbances Respiratory: No cough, no shortness of air, no recurring pulmonary infections Cardiovascular/peripheral vascular: No chest pain, no palpitations, no edema, no shortness of breath Gastrointestinal: No new onset incontinence, normal bowel movements reported Genitourinary: No new onset incontinence Musculoskeletal: Low back pain Psychiatric: [Normal mood/affect] Neurological: [Denies weakness in extremities], [denies balance issues] Pain at rest (0-10 scale): 6 Objective Objective:: Physical Exam: General: Alert and oriented x3, no acute distress, pleasant and cooperative Lungs: Respirations even and unlabored, symmetrical chest expansion Eyes: PERRL Musculoskeletal: Flexion and extension of lumbar [spine] somewhat guarded secondary to pain, [antalgic gait noted] Neurological: Speech clear, no gross sensory deficit Has patient had previous pain injection?: No Conservative treatment options previously tried: Home exercise plan Length of treatment: Longer than 6 weeks Meds Home Medications and Allergies Home Medications ?Medication ?Instructions ?Recorded ?Confirmed ?Type aspirin 81 mg tablet,delayed 81 mg PO DAILY heart health 06/06/20 04/03/24 History release celecoxib 200 mg capsule 200 mg PO DAILY Pain 06/06/20 04/03/24 History gabapentin 100 mg capsule 100 mg PO DAILY nerve pain 06/06/20 04/03/24 History ranitidine HCl 150 mg tablet 150 mg PO DAILY GERD 06/06/20 04/03/24 History sildenafil (pulm.hypertension) 20 20 mg PO DAILY erectile dysfunction 06/06/20 04/03/24 History mg tablet diclofenac sodium 75 mg 75 mg PO TID Pain 10/02/21 04/03/24 History tablet,delayed release famotidine 20 mg tablet 20 mg PO TID . #90 tabs 10/02/21 04/03/24 Rx ibuprofen 800 mg tablet 800 mg PO TID Pain #90 tabs 10/02/21 04/03/24 Rx apixaban 5 mg tablet 5 mg PO DAILY Blood thinner 01/29/22 04/03/24 History metoprolol tartrate 100 mg tablet 100 mg PO BID BLOOD PRESSURE 01/29/22 04/03/24 History rosuvastatin 5 mg tablet 5 mg PO HS Cholesterol 01/29/22 04/03/24 History cyclobenzaprine 10 mg tablet 10 mg PO TID . #90 tabs 03/26/22 04/03/24 Rx methocarbamol 750 mg tablet 750 mg PO TID Pain #90 tabs 03/01/24 04/03/24 Rx hydrocodone 10 mg-acetaminophen 1 tab PO TID #12 tabs 03/20/24 04/03/24 Rx 325 mg tablet New Prescriptions to Start Prescriptions: Allergies Allergy/AdvReac Type Severity Reaction Status Date / Time No Known Drug Allergies Allergy Verified 05/08/22 10:10 Assessment and Plan *Assessment and plan (1) Lumbar radiculopathy: Status: Chronic Category: Medical Code(s): M54.16 - Radiculopathy, lumbar region (2) Low back pain: Status: Chronic Qualifiers: Chronicity: chronic Back pain laterality: bilateral Sciatica presence: unspecified whether sciatica present Qualified Code(s): M54.50 - Low back pain, unspecified; G89.29 - Other chronic pain Category: Medical Code(s): M54.5 - Low back pain (3) Generalized joint pain: Status: Acute Category: Medical Code(s): M25.50 - Pain in unspecified joint Plan I will refill the patient's [place] and methocarbamol and provide a 1 month supply of this medication. Patient will return to clinic in 1 month for reevaluation of symptoms and plan of care. Risks and benefits of the medication have been explained in detail to the patient. The patient does understand the risk of dependence on the medication when given over a prolonged period. Patient has been advised of risks of oversedation with the prescribed medi cation. Narcan has been offered to the paitent in the event of oversedation. Patient has been advised that a family member should also be educated regarding administration of Narcan. The patient has been advised to consult with his/her primary care provider and pharmacist regarding drug-drug interaction of medications currently prescribed. Patient has been prescribed a controlled substance after being counseled on the medication, medication safety, and possible side effects. Opioid contract was reviewed and signed by the patient, and that they have agreed to all of the terms set forth by our compliance program. Patient has been instructed to contact the clinic with any concerns before the next appointment. Dr. Wright has reviewed this note and agrees with this plan of care. This note was dictated using voice recognition software and make contain errors or omissions.
== END 2024-04-03 23:59 | disposition home or self-care (01) ==
PROVIDERS: PCP Nurse Practitioner Family; Visit Provider Nurse Practitioner Family
DX: M54.16 Radiculopathy, lumbar region (principal); M54.50 Low back pain, unspecified; G89.29 Other chronic pain; M25.50 Pain in unspecified joint; F17.210 Nicotine dependence, cigarettes, uncomplicated
CPT/HCPCS: 99212; G0463

== ENCOUNTER 2024-05-04 08:45 | Outpatient (POV) | payer BC, SELFPAY ==
[2024-05-04 09:05] VITALS: BP 109/69; PULSE 64; RESP 14; O2SAT 97; BMI 30.5
--- NOTE | 2024-05-04 09:07 | A.OFFVIS_ITS ---
[facility] Disclaimer: The information contained in this section may have been updated after the patient was seen, as this information can be updated by other users. Medical History (Updated 04/03/24 @ 10:01 by Jacquelin Jacobson APRN) Diabetes mellitus, type 2 Hyperlipidemia Atrial fibrillation Surgical History H/O abdominal surgery History of cholecystectomy Family History Other Cancer of kidney Family history of COPD (chronic obstructive pulmonary disease) Lung cancer Social History Smoking Status: Current every day smoker tobacco type: cigarettes packs per day: 1 alcohol intake: never substance use type: denies use current occupational status: retired Travel in the last 8 weeks: None household members: spouse housing: house current occupational exposures/hazards: No caffeine: Yes PM Subjective & Objective Subjective Subjective:: Patient is a pleasant 63-year-old male who presents today for medication refill. He rates his pain today a 6 out of 10. Patient denies any new trauma or injury. He does state that some days his pain is a little worse and then other days not as much. He states that the medication is still working well overall for him. He is currently managed with [place] 10 mg 3 times a day, methocarbamol 750 mg 3 times a day. He denies any side effects from this medication. His Thang has been reviewed and is appropriate. He is also managed with compounded cream. Review of Systems: General: No recent weight changes, no fever, no sleep disturbances Respiratory: No cough, no shortness of air, no recurring pulmonary infections Cardiovascular/peripheral vascular: No chest pain, no palpitations, no edema, no shortness of breath Gastrointestinal: No new onset incontinence, normal bowel movements reported Genitourinary: No new onset incontinence Musculoskeletal: Low back pain Psychiatric: [Normal mood/affect] Neurological: [Denies weakness in extremities], [denies balance issues] Pain at rest (0-10 scale): 6 Objective Objective:: Physical Exam: General: Alert and oriented x3, no acute distress, pleasant and cooperative Lungs: Respirations even and unlabored, symmetrical chest expansion Eyes: PERRL Musculoskeletal: Flexion and extension of lumbar [spine] somewhat guarded secondary to pain, [antalgic gait noted] Neurological: Speech clear, no gross sensory deficit Has patient had previous pain injection?: No Conservative treatment options previously tried: Home exercise plan Length of treatment: Longer than 12 weeks Meds Home Medications and Allergies Home Medications ?Medication ?Instructions ?Recorded ?Confirmed ?Type aspirin 81 mg tablet,delayed 81 mg PO DAILY heart health 06/06/20 04/03/24 History release celecoxib 200 mg capsule 200 mg PO DAILY Pain 06/06/20 04/03/24 History gabapentin 100 mg capsule 100 mg PO DAILY nerve pain 06/06/20 04/03/24 History ranitidine HCl 150 mg tablet 150 mg PO DAILY GERD 06/06/20 04/03/24 History sildenafil (pulm.hypertension) 20 20 mg PO DAILY erectile dysfunction 06/06/20 04/03/24 History mg tablet diclofenac sodium 75 mg 75 mg PO TID Pain 10/02/21 04/03/24 History tablet,delayed release famotidine 20 mg tablet 20 mg PO TID . #90 tabs 10/02/21 04/03/24 Rx ibuprofen 800 mg tablet 800 mg PO TID Pain #90 tabs 10/02/21 04/03/24 Rx apixaban 5 mg tablet 5 mg PO DAILY Blood thinner 01/29/22 04/03/24 History metoprolol tartrate 100 mg tablet 100 mg PO BID BLOOD PRESSURE 01/29/22 04/03/24 History rosuvastatin 5 mg tablet 5 mg PO HS Cholesterol 01/29/22 04/03/24 History cyclobenzaprine 10 mg tablet 10 mg PO TID . #90 tabs 03/26/22 04/03/24 Rx hydrocodone 10 mg-acetaminophen 1 tab PO TID #90 tabs 04/03/24 Rx 325 mg tablet methocarbamol 750 mg tablet 750 mg PO TID Pain #90 tabs 04/03/24 Rx New Prescriptions to Start Prescriptions: Allergies Allergy/AdvReac Type Severity Reaction Status Date / Time No Known Drug Allergies Allergy Verified 05/08/22 10:10 Assessment and Plan *Assessment and plan (1) Lumbar radiculopathy: Status: Chronic Category: Medical Code(s): M54.16 - Radiculopathy, lumbar region (2) Low back pain: Status: Chronic Qualifiers: Chronicity: chronic Back pain laterality: bilateral Sciatica presence: unspecified whether sciatica present Qualified Code(s): M54.50 - Low back pain, unspecified; G89.29 - Other chronic pain Category: Medical Code(s): M54.5 - Low back pain (3) Bilateral shoulder pain: Status: Chronic Qualifiers: Chronicity: chronic Qualified Code(s): M25.511 - Pain in right shoulder; M25.512 - Pain in left shoulder; G89.29 - Other chronic pain Category: Medical Code(s): M25.511 - Pain in right shoulder; M25.512 - Pain in left shoulder (4) Cervical radiculopathy: Status: Chronic Category: Medical Code(s): M54.12 - Radiculopathy, cervical region (5) Generalized joint pain: Status: Acute Category: Medical Code(s): M25.50 - Pain in unspecified joint Plan We will continue the patient's medication regimen. Patient will get refills on his [place] and methocarbamol and provide a 1 month supply of these medications. Patient will return to clinic in 1 month for reevaluation of symptoms and plan of care. Risks and benefits of the medication have been explained in detail to the patient. The patient does understand the risk of dependence on the medication when given over a prolonged period. Patient has been advised of risks of oversedation with the prescribed medication. Narcan has been offered to the paitent in the event of overse dation. Patient has been advised that a family member should also be educated regarding administration of Narcan. The patient has been advised to consult with his/her primary care provider and p evan regarding drug-drug interaction of medications currently prescribed. Patient has been prescribed a controlled substance after being counseled on the medication, medication safety, and possible side effects. Opioid contract was reviewed and signed by the patient, and that they have agreed to all of the terms set forth by our compliance program. Patient has been instructed to contact the clinic with any concerns before the next appointment. Dr. Wright has reviewed this note and agrees with this plan of care. This note was dictated using voice recognition software and make contain errors or omissions.
== END 2024-05-04 23:59 | disposition home or self-care (01) ==
PROVIDERS: PCP Nurse Practitioner Family; Visit Provider Nurse Practitioner Family
DX: M54.16 Radiculopathy, lumbar region (principal); M54.50 Low back pain, unspecified; G89.29 Other chronic pain; M25.511 Pain in right shoulder; M25.512 Pain in left shoulder; M54.12 Radiculopathy, cervical region; M25.50 Pain in unspecified joint; F17.210 Nicotine dependence, cigarettes, uncomplicated
CPT/HCPCS: 99212; G0463

== ENCOUNTER 2024-06-01 09:18 | Outpatient (POV) | payer BC, SELFPAY ==
--- NOTE | 2024-06-01 09:31 | EXP.PAIN.SOA ---
[facility] Disclaimer: The information contained in this section may have been updated after the patient was seen, as this information can be updated by other users. Medical History (Updated 04/03/24 @ 10:01 by Jacquelin Jacobson APRN) Diabetes mellitus, type 2 Hyperlipidemia Atrial fibrillation Surgical History H/O abdominal surgery History of cholecystectomy Family History Other Cancer of kidney Family history of COPD (chronic obstructive pulmonary disease) Lung cancer Social History Smoking Status: Current every day smoker tobacco type: cigarettes packs per day: 1 alcohol intake: never substance use type: denies use current occupational status: other Travel in the last 8 weeks: None household members: spouse housing: house current occupational exposures/hazards: No caffeine: Yes PM Subjective & Objective Subjective Subjective:: Patient is a pleasant 63-year-old male who presents today for medication refill and follow-up. He rates his pain a 4 out of 10. He states he has been doing well over the last month. He states he is enjoying his long term and only works part-time still at the [employer] there in [place]. Patient is currently managed with [place] 10 mg 3 times a day and methocarbamol 750 mg 3 times daily. He denies any side effects from this medication. His Thang has been reviewed and is appropriate. Review of Systems: General: No recent weight changes, no fever, no sleep disturbances Respiratory: No cough, no shortness of air, no recurring pulmonary infections Cardiovascular/peripheral vascular: No chest pain, no palpitations, no edema, no shortness of breath Gastrointestinal: No new onset incontinence, normal bowel movements reported Genitourinary: No new onset incontinence Musculoskeletal: Low back pain Psychiatric: [Normal mood/affect] Neurological: [Denies weakness in extremities], [denies balance issues] Pain at rest (0-10 scale): 4 Objective Objective:: Physical Exam: General: Alert and oriented x3, no acute distress, pleasant and cooperative Lungs: Respirations even and unlabored, symmetrical chest expansion Eyes: PERRL Musculoskeletal: Flexion and extension of lumbar [spine] somewhat guarded secondary to pain, [antalgic gait noted] Neurological: Speech clear, no gross sensory deficit Has patient had previous pain injection?: No Conservative treatment options previously tried: Prescription medications Length of treatment: Longer than 12 weeks Meds Home Medications and Allergies Home Medications ?Medication ?Instructions ?Recorded ?Confirmed ?Type aspirin 81 mg tablet,delayed 81 mg PO DAILY heart health 06/06/20 06/01/24 History release celecoxib 200 mg capsule 200 mg PO DAILY Pain 06/06/20 06/01/24 History gabapentin 100 mg capsule 100 mg PO DAILY nerve pain 06/06/20 06/01/24 History ranitidine HCl 150 mg tablet 150 mg PO DAILY GERD 06/06/20 06/01/24 History sildenafil (pulm.hypertension) 20 20 mg PO DAILY erectile dysfunction 06/06/20 06/01/24 History mg tablet diclofenac sodium 75 mg 75 mg PO TID Pain 10/02/21 06/01/24 History tablet,delayed release famotidine 20 mg tablet 20 mg PO TID . #90 tabs 10/02/21 06/01/24 Rx ibuprofen 800 mg tablet 800 mg PO TID Pain #90 tabs 10/02/21 06/01/24 Rx apixaban 5 mg tablet 5 mg PO DAILY Blood thinner 01/29/22 06/01/24 History metoprolol tartrate 100 mg tablet 100 mg PO BID BLOOD PRESSURE 01/29/22 06/01/24 History rosuvastatin 5 mg tablet 5 mg PO HS Cholesterol 01/29/22 06/01/24 History cyclobenzaprine 10 mg tablet 10 mg PO TID . #90 tabs 03/26/22 06/01/24 Rx methocarbamol 750 mg tablet 750 mg PO TID Pain #90 tabs 04/03/24 06/01/24 Rx hydrocodone 10 mg-acetaminophen 1 tab PO TID #90 tabs 06/01/24 Rx 325 mg tablet New Prescriptions to Start Prescriptions: hydrocodone-acetaminophen Jacquelin Jacobson Allergies Allergy/AdvReac Type Severity Reaction Status Date / Time No Known Drug Allergies Allergy Verified 05/08/22 10:10 Assessment and Plan *Assessment and plan (1) Cervical radiculopathy: Status: Chronic Category: Medical Code(s): M54.12 - Radiculopathy, cervical region (2) Bilateral shoulder pain: Status: Chronic Qualifiers: Chronicity: chronic Qualified Code(s): M25.511 - Pain in right shoulder; M25.512 - Pain in left shoulder; G89.29 - Other chronic pain Category: Medical Code(s): M25.511 - Pain in right shoulder; M25.512 - Pain in left shoulder (3) Lumbar radiculopathy: Status: Chronic Category: Medical Code(s): M54.16 - Radiculopathy, lumbar region (4) Low back pain: Status: Chronic Qualifiers: Back pain laterality: bilateral Chronicity: chronic Sciatica presence: unspecified whether sciatica present Qualified Code(s): M54.50 - Low back pain, unspecified; G89.29 - Other chronic pain Category: Medical Code(s): M54.50 - Low back pain, unspecified (5) Generalized joint pain: Status: Acute Category: Medical Code(s): M25.50 - Pain in unspecified joint Plan I will refill his [place] pain medication and provide a 1 month supply of this medication as well as making sure that he does have still refills on his methocarbamol. Patient will return to clinic in 1 month for reevaluation of symptoms and plan of care. Risks and benefits of the medication have been explained in detail to the patient. The patient does understand the risk of dependence on the medication when given over a prolonged period. Patient has been advised of risks of oversedation with the prescribed medication. Narcan has been offered to the paitent in the event of oversedation. Patient has been advised that a family member should also be educated regarding administration of Narcan. The patient has been advised to consult with his/her primary care provider and pharmacist regarding drug-drug interaction of medications currently prescribed. Patient has been prescribed a controlled substance after being counseled on the medication, medication safety, and possible side effects. Opioid contract was reviewed and signed by the patient, and that they have agreed to all of the terms set forth by our compliance program. Patient has been instructed to contact the clinic with any concerns before the next appointment. Dr. Wright has reviewed this note and agrees with this plan of care. This note was dictated using voice recognition software and make contain errors or omissions.
[2024-06-01 09:44] VITALS: BP 122/77; PULSE 72; RESP 16; O2SAT 96; BMI 30.5
== END 2024-06-01 23:59 | disposition home or self-care (01) ==
PROVIDERS: PCP Nurse Practitioner Family; Visit Provider Nurse Practitioner Family
DX: M54.12 Radiculopathy, cervical region (principal); M25.511 Pain in right shoulder; M25.512 Pain in left shoulder; G89.29 Other chronic pain; M54.16 Radiculopathy, lumbar region; M54.50 Low back pain, unspecified; M25.50 Pain in unspecified joint; F17.210 Nicotine dependence, cigarettes, uncomplicated
CPT/HCPCS: 99212; G0463

== ENCOUNTER 2024-07-03 13:12 | Outpatient (POV) | payer BC, SELFPAY ==
--- NOTE | 2024-07-03 13:15 | EXP.PAIN.SOA ---
[facility] Disclaimer: The information contained in this section may have been updated after the patient was seen, as this information can be updated by other users. Medical History (Updated 04/03/24 @ 10:01 by Jacquelin Jacobson APRN) Diabetes mellitus, type 2 Hyperlipidemia Atrial fibrillation Surgical History H/O abdominal surgery History of cholecystectomy Family History Other Cancer of kidney Family history of COPD (chronic obstructive pulmonary disease) Lung cancer Social History Smoking Status: Current every day smoker tobacco type: cigarettes packs per day: 1 alcohol intake: never substance use type: denies use current occupational status: retired Travel in the last 8 weeks: None household members: spouse housing: house current occupational exposures/hazards: No caffeine: Yes Have you lived/traveled outside [place] in past 30 days?: No Contact w/someone who lives/traveled outside [place] past 30 days?: No Exposure to someone with infectious disease in past 14 days?: No Do you have a fever (greater than 100.4 F or 38 C)?: No Have you tested positive for COVID-19: No Exposed to someone with COVID-19 in past 14 days?: No Do you have a sore throat?: No Do you have a cough?: No Do you have any weakness?: No Do you have any diarrhea?: No Are you experiencing any unusual bleeding?: No Do you have any muscle aches/pain?: No Do you have any abdominal pain?: No Are you experiencing loss of taste or smell?: No PM Subjective & Objective Subjective Subjective:: Patient is a pleasant 63-year-old male who presents today for medication refill and follow-up. He rates his pain today a 4 out of 10. He denies any new changes. He does state that he did start on a new medication to help with depression however he is unsure what the name of this medication was. He is currently managed with [place] 10 mg 3 times daily and methocarbamol 750 mg 3 times a day from our office. He denies any side effects from this medication. His Thang has been reviewed and is appropriate. Review of Systems: General: No recent weight changes, no fever, no sleep disturbances Respiratory: No cough, no shortness of air, no recurring pulmonary infections Cardiovascular/peripheral vascular: No chest pain, no palpitations, no edema, no shortness of breath Gastrointestinal: No new onset incontinence, normal bowel movements reported Genitourinary: No new onset incontinence Musculoskeletal: Low back pain Psychiatric: [Normal mood/affect] Neurological: [Denies weakness in extremities], [denies balance issues] Pain at rest (0-10 scale): 4 Objective Objective:: Physical Exam: General: Alert and oriented x3, no acute distress, pleasant and cooperative Lungs: Respirations even and unlabored, symmetrical chest expansion Eyes: PERRL Musculoskeletal: Flexion and extension of lumbar [spine] somewhat guarded secondary to pain, [antalgic gait noted] Neurological: Speech clear, no gross sensory deficit Has patient had previous pain injection?: No Conservative treatment options previously tried: Home exercise plan Length of treatment: Longer than 12 weeks Meds Home Medications and Allergies Home Medications ?Medication ?Instructions ?Recorded ?Confirmed ?Type aspirin 81 mg tablet,delayed 81 mg PO DAILY heart health 06/06/20 07/03/24 History release celecoxib 200 mg capsule 200 mg PO DAILY Pain 06/06/20 07/03/24 History gabapentin 100 mg capsule 100 mg PO DAILY nerve pain 06/06/20 07/03/24 History ranitidine HCl 150 mg tablet 150 mg PO DAILY GERD 06/06/20 07/03/24 History sildenafil (pulm.hypertension) 20 20 mg PO DAILY erectile dysfunction 06/06/20 07/03/24 History mg tablet diclofenac sodium 75 mg 75 mg PO TID Pain 10/02/21 07/03/24 History tablet,delayed release famotidine 20 mg tablet 20 mg PO TID . #90 tabs 10/02/21 07/03/24 Rx ibuprofen 800 mg tablet 800 mg PO TID Pain #90 tabs 10/02/21 07/03/24 Rx apixaban 5 mg tablet 5 mg PO DAILY Blood thinner 01/29/22 07/03/24 History metoprolol tartrate 100 mg tablet 100 mg PO BID BLOOD PRESSURE 01/29/22 07/03/24 History rosuvastatin 5 mg tablet 5 mg PO HS Cholesterol 01/29/22 07/03/24 History cyclobenzaprine 10 mg tablet 10 mg PO TID . #90 tabs 03/26/22 07/03/24 Rx bupropion HCl 150 mg 24 hr tablet, 150 mg PO DAILY 07/03/24 07/03/24 History extended release hydrocodone 10 mg-acetaminophen 1 tab PO TID #90 tabs 07/03/24 Rx 325 mg tablet methocarbamol 750 mg tablet 750 mg PO TID Pain #90 tabs 07/03/24 Rx New Prescriptions to Start Prescriptions: hydrocodone-acetaminophen Jacobson,Jacquelin A methocarbamol Jacobson,Jacquelin A Allergies Allergy/AdvReac Type Severity Reaction Status Date / Time No Known Drug Allergies Allergy Verified 05/08/22 10:10 Assessment and Plan *Assessment and plan (1) Lumbar radiculopathy: Status: Chronic Category: Medical Code(s): M54.16 - Radiculopathy, lumbar region (2) Bilateral shoulder pain: Status: Chronic Qualifiers: Chronicity: chronic Qualified Code(s): M25.511 - Pain in right shoulder; M25.512 - Pain in left shoulder; G89.29 - Other chronic pain Category: Medical Code(s): M25.511 - Pain in right shoulder; M25.512 - Pain in left shoulder (3) Cervical radiculopathy: Status: Chronic Category: Medical Code(s): M54.12 - Radiculopathy, cervical region Plan I will refill his [place] and provide a 1 month supply of this medication and send in a 3-month supply of the methocarbamol. Patient will return to clinic in 1 month for reevaluation of symptoms and plan of care. Risks and benefits of the medication have been explained in detail to the patient. The patient does understand the risk of dependence on the medication when given over a prolonged period. Patient has been advised of risks of oversedation with the prescribed medication. Narcan has been offered to the paitent in the event of oversedation. Patient has been advised that a family member should also be educated regarding administration of Narcan. The patient has been advised to consult with his/her primary care provider and pharmacist regarding drug-drug interaction of medications currently prescribed. Patient has been prescribed a controlled substance after being counseled on the medication, medication safety, and possible side effects. Opioid contract was reviewed and signed by the patient, and that they have agreed to all of the terms set forth by our compliance program. A UDS is needed to verify patient's compliance with our office pain contract. This is ordered based off specific treatments related to chronic pain with the potential to abuse certain medications. Patient has been instructed to contact the clinic with any concerns before the next appointment. Dr. Wright has reviewed this note and agrees with this plan of care. This note was dictated using voice recognition software and make contain errors or omissions.
[2024-07-03 13:28] VITALS: BP 154/85; PULSE 69; RESP 16; O2SAT 97; BMI 29.1
== END 2024-07-03 23:59 | disposition home or self-care (01) ==
PROVIDERS: PCP Nurse Practitioner Family; Visit Provider Nurse Practitioner Family
DX: M54.16 Radiculopathy, lumbar region (principal); M25.511 Pain in right shoulder; M25.512 Pain in left shoulder; G89.29 Other chronic pain; M54.12 Radiculopathy, cervical region; F17.210 Nicotine dependence, cigarettes, uncomplicated; Z79.899 Other long term (current) drug therapy
CPT/HCPCS: 99212; G0463

== ENCOUNTER 2024-08-03 13:33 | Outpatient (POV) | payer BC, SELFPAY ==
--- NOTE | 2024-08-03 13:46 | EXP.PAIN.SOA ---
[facility] Disclaimer: The information contained in this section may have been updated after the patient was seen, as this information can be updated by other users. Medical History (Updated 04/03/24 @ 10:01 by Jacquelin Jacobson APRN) Diabetes mellitus, type 2 Hyperlipidemia Atrial fibrillation Surgical History H/O abdominal surgery History of cholecystectomy Family History Other Cancer of kidney Family history of COPD (chronic obstructive pulmonary disease) Lung cancer Social History Smoking Status: Current every day smoker tobacco type: cigarettes packs per day: 1 alcohol intake: never substance use type: denies use current occupational status: retired Travel in the last 8 weeks: None household members: spouse housing: house current occupational exposures/hazards: No caffeine: Yes PM Subjective & Objective Subjective Subjective:: Patient is a pleasant 63-year-old male who presents today for medication refill and follow-up. Today he rates his pain a 5 out of 10. He denies any new trauma or injury. He does state that he feels like a lot of his pains today is more arthritis related and whether associated. He states that his hands and fingers are very stiff. Patient is currently managed with [place] 10 mg 3 times a day and methocarbamol 750 mg 3 times a day from our office. He denies any side effects from this medication. His Thang has been reviewed and is appropriate. Review of Systems: General: No recent weight changes, no fever, no sleep disturbances Respiratory: No cough, no shortness of air, no recurring pulmonary infections Cardiovascular/peripheral vascular: No chest pain, no palpitations, no edema, no shortness of breath Gastrointestinal: No new onset incontinence, normal bowel movements reported Genitourinary: No new onset incontinence Musculoskeletal: Low back pain, generalized joint pain Psychiatric: [Normal mood/affect] Neurological: [Denies weakness in extremities], [denies balance issues] Pain at rest (0-10 scale): 5 Objective Objective:: Physical Exam: General: Alert and oriented x3, no acute distress, pleasant and cooperative Lungs: Respirations even and unlabored, symmetrical chest expansion Eyes: PERRL Musculoskeletal: Flexion and extension of lumbar [spine] somewhat guarded secondary to pain, [antalgic gait noted] Neurological: Speech clear, no gross sensory deficit Has patient had previous pain injection?: No Conservative treatment options previously tried: Prescription medications Length of treatment: Longer than 12 weeks Meds Home Medications and Allergies Home Medications ?Medication ?Instructions ?Recorded ?Confirmed ?Type aspirin 81 mg tablet,delayed 81 mg PO DAILY heart health 06/06/20 07/03/24 History release celecoxib 200 mg capsule 200 mg PO DAILY Pain 06/06/20 07/03/24 History gabapentin 100 mg capsule 100 mg PO DAILY nerve pain 06/06/20 07/03/24 History ranitidine HCl 150 mg tablet 150 mg PO DAILY GERD 06/06/20 07/03/24 History sildenafil (pulm.hypertension) 20 20 mg PO DAILY erectile dysfunction 06/06/20 07/03/24 History mg tablet diclofenac sodium 75 mg 75 mg PO TID Pain 10/02/21 07/03/24 History tablet,delayed release famotidine 20 mg tablet 20 mg PO TID . #90 tabs 10/02/21 07/03/24 Rx ibuprofen 800 mg tablet 800 mg PO TID Pain #90 tabs 10/02/21 07/03/24 Rx apixaban 5 mg tablet 5 mg PO DAILY Blood thinner 01/29/22 07/03/24 History metoprolol tartrate 100 mg tablet 100 mg PO BID BLOOD PRESSURE 01/29/22 07/03/24 History rosuvastatin 5 mg tablet 5 mg PO HS Cholesterol 01/29/22 07/03/24 History cyclobenzaprine 10 mg tablet 10 mg PO TID . #90 tabs 03/26/22 07/03/24 Rx bupropion HCl 150 mg 24 hr tablet, 150 mg PO DAILY 07/03/24 07/03/24 History extended release hydrocodone 10 mg-acetaminophen 1 tab PO TID #90 tabs 07/03/24 Rx 325 mg tablet methocarbamol 750 mg tablet 750 mg PO TID Pain #90 tabs 07/03/24 Rx New Prescriptions to Start Prescriptions: Allergies Allergy/AdvReac Type Severity Reaction Status Date / Time No Known Drug Allergies Allergy Verified 05/08/22 10:10 Assessment and Plan *Assessment and plan (1) Lumbar radiculopathy: Status: Chronic Category: Medical Code(s): M54.16 - Radiculopathy, lumbar region (2) Low back pain: Status: Chronic Qualifiers: Back pain laterality: bilateral Chronicity: chronic Sciatica presence: unspecified whether sciatica present Qualified Code(s): M54.50 - Low back pain, unspecified; G89.29 - Other chronic pain Category: Medical Code(s): M54.50 - Low back pain, unspecified (3) Generalized joint pain: Status: Acute Category: Medical Code(s): M25.50 - Pain in unspecified joint Plan I will refill his [place] and methocarbamol and provide a 1 month supply of these medications. I will also refill the patient's compounded cream order. Patient will return to clinic in 1 month for reevaluation of symptoms and plan of care. Risks and benefits of the medication have been explained in detail to the patient. The patient does understand the risk of dependence on the medication when given over a prolonged period. Patient has been advised of risks of oversedation with the prescribed medication. Narcan has been offered to the paitent in the event of oversedation. Patient has been advised that a family member should also be educated regarding administration of Narcan. The patient has been advised to consult with his/her primary care provider and pharmacist regarding drug-drug interaction of medications currently prescribed. Patient has been prescribed a controlled substance after being counseled on the medication, medication safety, and possible side effects. Opioid contract was reviewed and signed by the patient, and that they have agreed to all of the terms set forth by our compliance program. A UDS is needed to verify patient's compliance with our office pain contract. This is ordered based off specific treatments related to chronic pain with the potential to abuse certain medications. Patient has been instructed to contact the clinic with any concerns before the next appointment. Dr. Wright has reviewed this note and agrees with this plan of care. This note was dictated using voice recognition software and make contain errors or omissions.
[2024-08-03 13:50] VITALS: BP 124/76; PULSE 64; RESP 16; O2SAT 97; BMI 29.1
== END 2024-08-03 23:59 | disposition home or self-care (01) ==
PROVIDERS: Visit Provider Nurse Practitioner Family
DX: M54.16 Radiculopathy, lumbar region (principal); M54.50 Low back pain, unspecified; G89.29 Other chronic pain; M25.50 Pain in unspecified joint; F17.210 Nicotine dependence, cigarettes, uncomplicated
CPT/HCPCS: 99212; G0463

== ENCOUNTER 2024-08-31 13:55 | Outpatient (POV) | payer BC, SELFPAY ==
[2024-08-31 14:15] VITALS: BP 134/77; PULSE 62; RESP 14; O2SAT 97; BMI 29.1
--- NOTE | 2024-08-31 14:18 | A.OFFVIS_ITS ---
[facility] Disclaimer: The information contained in this section may have been updated after the patient was seen, as this information can be updated by other users. Medical History Diabetes mellitus, type 2 Hyperlipidemia Atrial fibrillation Surgical History H/O abdominal surgery History of cholecystectomy Family History Other Cancer of kidney Family history of COPD (chronic obstructive pulmonary disease) Lung cancer Social History Smoking Status: Current every day smoker tobacco type: cigarettes packs per day: 1 alcohol intake: never substance use type: denies use current occupational status: other Travel in the last 8 weeks: None household members: spouse housing: house current occupational exposures/hazards: No caffeine: Yes Have you lived/traveled outside [place] in past 30 days?: No Contact w/someone who lives/traveled outside [place] past 30 days?: No Exposure to someone with infectious disease in past 14 days?: No Do you have a fever (greater than 100.4 F or 38 C)?: No Have you tested positive for COVID-19: No Exposed to someone with COVID-19 in past 14 days?: No Do you have a sore throat?: No Do you have a cough?: No Do you have any weakness?: No Do you have any diarrhea?: No Are you experiencing any unusual bleeding?: No Do you have any muscle aches/pain?: No Do you have any abdominal pain?: No Are you experiencing loss of taste or smell?: No PM Subjective & Objective Subjective Subjective:: Patient is a pleasant 63-year-old male who presents today for medication refill. Today he rates his pain a 6 out of 10. He denies any new trauma or injury. He does still have the same aches and pains but does state that he feels like he is having more pulling sensations on his left hand. He states that when he stretches it out there is just a lot more pressure and that it does typically go back to a flexed position all on its own. Patient describes it as an chronic achy sensation. He states he does use the compounded cream on this. Patient is currently managed with [place] 10 mg 3 times a day and methocarbamol 750 mg 3 times a day. He denies any side effects. His Thang has been reviewed and is appropriate. Review of Systems: General: No recent weight changes, no fever, no sleep disturbances Respiratory: No cough, no shortness of air, no recurring pulmonary infections Cardiovascular/peripheral vascular: No chest pain, no palpitations, no edema, no shortness of breath Gastrointestinal: No new onset incontinence, normal bowel movements reported Genitourinary: No new onset incontinence Musculoskeletal: Low back pain, left hand pain Psychiatric: [Normal mood/affect] Neurological: [Denies weakness in extremities], [denies balance issues] Pain at rest (0-10 scale): 6 Objective Objective:: Physical Exam: General: Alert and oriented x3, no acute distress, pleasant and cooperative Lungs: Respirations even and unlabored, symmetrical chest expansion Eyes: PERRL Musculoskeletal: Flexion and extension of lumbar [spine] somewhat guarded secondary to pain, [antalgic gait noted] Neurological: Speech clear, no gross sensory deficit Has patient had previous pain injection?: No Conservative treatment options previously tried: Prescription medications Length of treatment: Longer than 12 weeks Meds Home Medications and Allergies Home Medications ?Medication ?Instructions ?Recorded ?Confirmed ?Type aspirin 81 mg tablet,delayed 81 mg PO DAILY heart health 06/06/20 08/03/24 History release celecoxib 200 mg capsule 200 mg PO DAILY Pain 06/06/20 08/03/24 History gabapentin 100 mg capsule 100 mg PO DAILY nerve pain 06/06/20 08/03/24 History ranitidine HCl 150 mg tablet 150 mg PO DAILY GERD 06/06/20 08/03/24 History sildenafil (pulm.hypertension) 20 20 mg PO DAILY erectile dysfunction 06/06/20 08/03/24 History mg tablet diclofenac sodium 75 mg 75 mg PO TID Pain 10/02/21 08/03/24 History tablet,delayed release famotidine 20 mg tablet 20 mg PO TID . #90 tabs 10/02/21 08/03/24 Rx ibuprofen 800 mg tablet 800 mg PO TID Pain #90 tabs 10/02/21 08/03/24 Rx apixaban 5 mg tablet 5 mg PO DAILY Blood thinner 01/29/22 08/03/24 History metoprolol tartrate 100 mg tablet 100 mg PO BID BLOOD PRESSURE 01/29/22 08/03/24 History rosuvastatin 5 mg tablet 5 mg PO HS Cholesterol 01/29/22 08/03/24 History cyclobenzaprine 10 mg tablet 10 mg PO TID . #90 tabs 03/26/22 08/03/24 Rx bupropion HCl 150 mg 24 hr tablet, 150 mg PO DAILY 07/03/24 08/03/24 History extended release methocarbamol 750 mg tablet 750 mg PO TID Pain #90 tabs 07/03/24 08/03/24 Rx hydrocodone 10 mg-acetaminophen 1 tab PO TID #90 tabs 08/03/24 Rx 325 mg tablet New Prescriptions to Start Prescriptions: Allergies Allergy/AdvReac Type Severity Reaction Status Date / Time No Known Drug Allergies Allergy Verified 05/08/22 10:10 Assessment and Plan *Assessment and plan (1) Generalized joint pain: Status: Acute Category: Medical Code(s): M25.50 - Pain in unspecified joint (2) Cervical radiculopathy: Status: Chronic Category: Medical Code(s): M54.12 - Radiculopathy, cervical region (3) Bilateral shoulder pain: Status: Chronic Qualifiers: Chronicity: chronic Qualified Code(s): M25.511 - Pain in right shoulder; M25.512 - Pain in left shoulder; G89.29 - Other chronic pain Category: Medical Code(s): M25.511 - Pain in right shoulder; M25.512 - Pain in left shoulder (4) Lumbar radiculopathy: Status: Chronic Category: Medical Code(s): M54.16 - Radiculopathy, lumbar region Plan I will refill the patient's [place] and methocarbamol provide a 1 month supply of this medication. I did discuss with patient in future that it may be something that we could do an EMG testing to see if he has worsening cervical radiculopathy versus possible nerve impingement or other related findings to explain the worsening left hand symptoms. We will follow-up with this at future visits. Patient will return to clinic in 1 month. Risks and benefits of the medication have been explained in detail to the patient. The patient does understand the risk of dependence on the medication when given over a prolonged period. Patient has been advised of risks of oversedation with the prescribed medication. Narcan has been offered to the paitent in the event of oversedation. Patient has been advised that a family member should also be educated regarding administration of Narcan. The patient has been advised to consult with his/her primary care provider and pharmacist regarding drug-drug interaction of medications currently prescribed. Patient has been prescribed a controlled substance after being counseled on the medication, medication safety, and possible side effects. Opioid contract was reviewed and signed by the patient, and that they have agreed to all of the terms set forth by our compliance program. A UDS is needed to verify patient's compliance with our office pain contract. This is ordered based off specific treatments related to chronic pain with the potential to abuse certain medications. Patient has been instructed to contact the clinic with any concerns before the next appointment. Dr. Wright has reviewed this note and agrees with this plan of care. This note was dictated using voice recognition software and make contain errors or omissions.
== END 2024-08-31 23:59 | disposition home or self-care (01) ==
PROVIDERS: PCP Nurse Practitioner Family; Visit Provider Nurse Practitioner Family
DX: M25.50 Pain in unspecified joint (principal); M54.12 Radiculopathy, cervical region; M25.511 Pain in right shoulder; M25.512 Pain in left shoulder; G89.29 Other chronic pain; M54.16 Radiculopathy, lumbar region; F17.210 Nicotine dependence, cigarettes, uncomplicated
CPT/HCPCS: 99212; G0463

== ENCOUNTER 2024-09-28 15:14 | Outpatient (POV) | payer BC, SELFPAY ==
--- NOTE | 2024-09-28 15:26 | EXP.PAIN.SOA ---
[facility] Disclaimer: The information contained in this section may have been updated after the patient was seen, as this information can be updated by other users. Medical History (Updated 09/28/24 @ 15:45 by Jacquelin Jacobson APRN) Diabetes mellitus, type 2 Hyperlipidemia Atrial fibrillation Surgical History H/O abdominal surgery History of cholecystectomy Family History Other Cancer of kidney Family history of COPD (chronic obstructive pulmonary disease) Lung cancer Social History Smoking Status: Current every day smoker tobacco type: cigarettes packs per day: 1 alcohol intake: never substance use type: denies use current occupational status: other Travel in the last 8 weeks: None household members: spouse housing: house current occupational exposures/hazards: No caffeine: Yes PM Subjective & Objective Subjective Subjective:: Patient is a pleasant 53-year-old male who presents today for medication refill and follow-up. He rates his pain a 6 out of 10. He denies any new changes from our last appointment. He is still using his compounded cream along with his [place] 10 mg 3 times a day and methocarbamol 750 mg 3 times a day. He denies any side effects. He does state that he is having more increased pain in and around his jaws in the ears. He does state that he is constantly having the tired sensation and ringing in his ears. Patient states that he does grind his teeth at night. He has talked to his primary care in the past and they had discussed TMJ joint injections. We have also discussed here in our office and he does state today that it is getting more and more bothersome and interfering with his ability perform activities of daily living that he would like to try these injections. Patient denies any recent follow-up with ENT. Patient does state that he feels like he is constantly rubbing around his jaws to help ease down some of that irritation. Patient denies having any prior injections for this pain his Thang has been reviewed and is appropriate. Review of Systems: General: No recent weight changes, no fever, no sleep disturbances Respiratory: No cough, no shortness of air, no recurring pulmonary infections Cardiovascular/peripheral vascular: No chest pain, no palpitations, no edema, no shortness of breath Gastrointestinal: No new onset incontinence, normal bowel movements reported Genitourinary: No new onset incontinence Musculoskeletal: Low back pain, generalized joint pain, bilateral jaw pain, ear pain Psychiatric: [Normal mood/affect] Neurological: [Denies weakness in extremities], [denies balance issues] Pain at rest (0-10 scale): 6 Objective Objective:: Physical Exam: General: Alert and oriented x3, no acute distress, pleasant and cooperative Lungs: Respirations even and unlabored, symmetrical chest expansion Eyes: PERRL Musculoskeletal: Flexion and extension of lumbar [spine] somewhat guarded secondary to pain, [antalgic gait noted] Neurological: Speech clear, no gross sensory deficit Has patient had previous pain injection?: No Conservative treatment options previously tried: Prescription medications Length of treatment: Longer than 12 weeks Meds Home Medications and Allergies Home Medications ?Medication ?Instructions ?Recorded ?Confirmed ?Type aspirin 81 mg tablet,delayed 81 mg PO DAILY heart health 06/06/20 08/31/24 History release celecoxib 200 mg capsule 200 mg PO DAILY Pain 06/06/20 08/31/24 History gabapentin 100 mg capsule 100 mg PO DAILY nerve pain 06/06/20 08/31/24 History ranitidine HCl 150 mg tablet 150 mg PO DAILY GERD 06/06/20 08/31/24 History sildenafil (pulm.hypertension) 20 20 mg PO DAILY erectile dysfunction 06/06/20 08/31/24 History mg tablet diclofenac sodium 75 mg 75 mg PO TID Pain 10/02/21 08/31/24 History tablet,delayed release famotidine 20 mg tablet 20 mg PO TID . #90 tabs 10/02/21 08/31/24 Rx ibuprofen 800 mg tablet 800 mg PO TID Pain #90 tabs 10/02/21 08/31/24 Rx apixaban 5 mg tablet 5 mg PO DAILY Blood thinner 01/29/22 08/31/24 History metoprolol tartrate 100 mg tablet 100 mg PO BID BLOOD PRESSURE 01/29/22 08/31/24 History rosuvastatin 5 mg tablet 5 mg PO HS Cholesterol 01/29/22 08/31/24 History cyclobenzaprine 10 mg tablet 10 mg PO TID . #90 tabs 03/26/22 08/31/24 Rx bupropion HCl 150 mg 24 hr tablet, 150 mg PO DAILY 07/03/24 08/31/24 History extended release methocarbamol 750 mg tablet 750 mg PO TID Pain #90 tabs 07/03/24 08/31/24 Rx hydrocodone 10 mg-acetaminophen 1 tab PO TID #90 tabs 08/31/24 Rx 325 mg tablet New Prescriptions to Start Prescriptions: Allergies Allergy/AdvReac Type Severity Reaction Status Date / Time No Known Drug Allergies Allergy Verified 05/08/22 10:10 Assessment and Plan *Assessment and plan (1) Lumbar radiculopathy: Status: Chronic Category: Medical Code(s): M54.16 - Radiculopathy, lumbar region (2) Generalized joint pain: Status: Acute Category: Medical Code(s): M25.50 - Pain in unspecified joint (3) Low back pain: Status: Chronic Qualifiers: Chronicity: chronic Back pain laterality: bilateral Sciatica presence: unspecified whether sciatica present Qualified Code(s): M54.50 - Low back pain, unspecified; G89.29 - Other chronic pain Category: Medical Code(s): M54.50 - Low back pain, unspecified (4) Bilateral shoulder pain: Status: Chronic Qualifiers: Chronicity: chronic Qualified Code(s): M25.511 - Pain in right shoulder; M25.512 - Pain in left shoulder; G89.29 - Other chronic pain Category: Medical Code(s): M25.511 - Pain in right shoulder; M25.512 - Pain in left shoulder (5) Cervical radiculopathy: Status: Chronic Category: Medical Code(s): M54.12 - Radiculopathy, cervical region (6) TMJPDS (temporomandibular joint pain dysfunction syndrome): Status: Acute Category: Medical Code(s): M26.629 - Arthralgia of temporomandibular joint, unspecified side Plan I will refill the patient's [place] and methocarbamol provide 1 month supply of this medication. I did discuss with the patient that he very well may benefit from bilateral TMJ joint injections. Patient has had this pain for longer than 6 months and we have discussed on multiple visits regarding this pain and the possibility of the TMJ joint injections. Patient was reviewed over the risk and benefits of these injections and he would like to proceed forward with this plan of care. Patient will be scheduled with Dr. Wright for the bilateral TMJ joint injections without fluoroscopic or ultrasound guidance on October 27. I did also discuss with the patient that I will send him for referral for Dr. Magali bucio for the bilateral TMJ dysfunction, jaw pain and ear ringing. We will plan on sending in his medication refill at the October 27 appointment. Patient agrees with this plan of care. Risks and benefits of the medication have been explained in detail to the patient. The patient does understand the risk of dependence on the medication when given over a prolonged period. Patient has been advised of risks of oversedation with the prescribed medication. Narcan has been offered to the paitent in the event of oversedation. Patient has been advised that a family member should also be educated regarding administration of Narcan. The patient has been advised to consult with his/her primary care provider and pharmacist regarding drug-drug interaction of medications currently prescribed. Patient has been prescribed a controlled substance after being counseled on the medication, medication safety, and possible side effects. Opioid contract was reviewed and signed by the patient, and that they have agreed to all of the terms set forth by our compliance program. A UDS is needed to verify patient's compliance with our office pain contract. This is ordered based off specific treatments related to chronic pain with the potential to abuse certain medications. Patient has been instructed to contact the clinic with any concerns before the next appointment. Dr. Wright has reviewed this note and agrees with this plan of care. This note was dictated using voice recognition software and make contain errors or omissions.
[2024-09-28 16:06] VITALS: BP 144/89; PULSE 70; RESP 18; O2SAT 99; BMI 30.5
--- OUTSIDE RECORDS SUMMARY | 2024-09-28 23:38 | XMS_ITS | Data Portability ---
Author Organization [place] - [facility] [place] Address [address] [place] [address] Care Team Providers Care [employer] Professor Name Role Phone CORNELL HANSEN Primary Care Provider [phone] Assessment No assessment recorded. Plan of Treatment Reminders Order Date Submit Date Provider Last Modified By Organization Details Last Modified Time Details Appointments None recorded. Lab lipid panel, serum 2022 023 [email or web address] [facility], [address], [address], [place], [address], 3 15:01:06 CBC w/ diff 2022 023 [email or web address] [facility], [address], [address], [place], [address], 3 15:01:05 CMP, serum or plasma 2022 023 [email or web address] [facility], [address], [address], [place], [address], 3 15:01:06 TSH + free T4, serum 2022 023 [email or web address] [facility], [address], [address], [place], [address], 3 15:01:06 HbA1c (hemoglobin A1c), blood 2022 023 [email or web address] [facility], [address], [address], [place], [address], 3 15:01:06 testosteron e, free + total, serum 2022 023 [email or web address] [facility], [address], [address], [place], [address], 3 15:01:06 shbg (sex hormone-bin ding globulin), serum 2022 023 [email or web address] [facility], [address], [address], [place], [address], 3 15:01:06 progesteron e, serum 2022 023 [email or web address] [facility], [address], [address], [place], [address], 3 15:01:07 vitamin D, 25-hydroxy, total, serum 2022 023 [email or web address] [facility], [address], [address], [place], [address], 3 15:01:07 estrogen, total, serum 2022 023 [email or web address] 0 [facility], [address], [place], [address], 3 15:01:07 vitamin B12 + folate, serum or blood 2022 023 [email or web address] [facility], [address], [place], [address], 3 15:01:07 iron + TIBC + ferritin, serum 2022 023 [email or web address] [facility], [address], [place], [address], 3 15:01:07 lipid panel, serum 2021 022 [place] [facility], [address], [place], [address], 20:08:17 CBC w/ diff 2021 022 GR[place] [facility], [address], [place], [address], 20:08:15 CMP, serum or plasma 2021 022 GR[place] [facility], [address], [place], [address], 20:08:16 TSH + free T4, serum 2021 022 [place] [facility], [address], [place], [address], 20:08:16 PSA, total, serum or plasma 2021 022 [place] [facility], [address], [place], [address], 20:08:18 HbA1c (hemoglobin A1c), blood 2021 022 [place] [facility], [address], [place], [address], 20:08:[address] referral 2021 022 [email or web address] [facility], [address], [place], [address], 16:54:38 Procedures None recorded. Surgeries None recorded. Imaging LDCT, chest, for lung cancer screening 2021 [facility], [address], [place], [address], 11/15/202 2 18:26:53 Medication Orders rosuvastati n 5 mg tablet 2022 023 [id number], [address], [address], 3 10:47:01 Ciprodex 0.3 %-0.1 % ear drops,suspe nsion 2022 023 [id number], [address] [place] [place], [address], 3 10:46:23 prednisone 10 mg tablets in a dose pack 2022 023 [facility] [address] [place] [place], [address], 3 10:46:23 albuterol sulfate HFA 90 mcg/actuati on aerosol inhaler 2022 023 [facility] [address] [place] [place], [address], 3 10:47:01 cyclobenzap rine 10 mg tablet 2021 022 [email or web address] [facility] [address] [place] [place], [address], 3 09:45:29 polymyxin B sulfate 10,000 unit-trimet hoprim 1 mg/mL eye drops 2021 022 [email or web address] [facility] [address] [place] [place], [address], 2 09:02:30 albuterol sulfate HFA 90 mcg/actuati on aerosol inhaler 2021 022 [facility] [address] [place] [place], [address], 2 12:31:47 Patient TargetsNo targets recorded. 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) [address] [place], [address], 04/29/2022 20:08:15 04/28/20 22 04/29/2022 CBC/D /PLT RBC 5.35 x10e6 /uL 4.14-5 .80 Not Available [facility] ([facility]) [address] [place], [address], 04/29/2022 20:08:15 04/28/20 22 04/29/2022 CBC/D /PLT hemoglobin 15.6 g/dL 13.0-1 7.7 Not Available [facility] ([facility]) [address] [place], [address], 04/29/2022 20:08:15 04/28/20 22 04/29/2022 CBC/D /PLT hematocrit 48.4 % 37.5-5 1.0 Not Available [facility] ([facility]) [address] [place], [address], 04/29/2022 20:08:15 04/28/20 22 04/29/2022 CBC/D /PLT MCV 91 fL 79-97 Not Available [facility] ([facility]) [address] [place], [address], 04/29/2022 20:08:15 04/28/20 22 04/29/2022 CBC/D /PLT MCH 29.2 pg 26.6-3 3.0 Not Available [facility] ([facility]) [address] [facility] [place], [place], [address], 04/29/2022 20:08:15 04/28/20 22 04/29/2022 CBC/D /PLT MCHC 32.2 g/dL 31.5-3 5.7 Not Available [facility] ([facility]) [address] [facility] [place], [place], [address], 04/29/2022 20:08:15 04/28/20 22 04/29/2022 CBC/D /PLT RDW 12.6 % 11.6-1 5.4 Not Available [facility] ([facility]) [address] [facility] [place], [place], [address], 04/29/2022 20:08:15 04/28/20 22 04/29/2022 CBC/D /PLT platelets 229 x10e3 /uL 150-45 0 Not Available [facility] ([facility]) [address] [facility] [place], [place], [address], 04/29/2022 20:08:15 04/28/20 22 04/29/2022 CBC/D /PLT neutrophils 53 % not estab. Not Available [facility] ([facility]) [address] [facility] [place], [place], [address], 04/29/2022 20:08:15 04/28/20 22 04/29/2022 CBC/D /PLT lymphs 29 % not estab. Not Available [facility] ([facility]) [address] [facility] [place], [place], [address], 04/29/2022 20:08:15 04/28/20 22 04/29/2022 CBC/D /PLT monocytes 11 % not estab. Not Available [facility] ([facility]) [address] [facility] [place], [place], [address], 04/29/2022 20:08:15 04/28/20 22 04/29/2022 CBC/D /PLT eos 6 % not estab. Not Available [facility] ([facility]) [address] [facility] [place], [address], 04/29/2022 20:08:15 04/28/20 22 04/29/2022 CBC/D /PLT basos 1 % not estab. Not Available [facility] ([facility]) [address] [facility] [place], [address], 04/29/2022 20:08:15 04/28/20 22 04/29/2022 CBC/D /PLT immature cells ELECTRONIC EQUIPMENT SET UP OPERATOR Not Available [facility]) [address] [place], [address], 04/29/2022 20:08:15 04/28/20 22 04/29/2022 CBC/D /PLT neutrophils (absolute) 3.2 x10e3 /uL 1.4-7. 0 Not Available [facility] ([facility]) [address] [place], [address], 04/29/2022 20:08:15 04/28/20 22 04/29/2022 CBC/D /PLT lymphs (absolute) 1.7 x10e3 /uL 0.7-3. 1 Not Available [facility] ([facility]) [address] [place], [address], 04/29/2022 20:08:15 04/28/20 22 04/29/2022 CBC/D /PLT monocytes(ab solute) 0.7 x10e3 /uL 0.1-0. 9 Not Available [facility] ([facility]) [address] [place], [address], 04/29/2022 20:08:15 04/28/20 22 04/29/2022 CBC/D /PLT eos (absolute) 0.3 x10e3 /uL 0.0-0. 4 Not Available [facility] ([facility]) [address] [place], [address], 04/29/2022 20:08:15 04/28/20 22 04/29/2022 CBC/D /PLT baso (absolute) 0.0 x10e3 /uL 0.0-0. 2 Not Available [facility] ([facility]) [address] [facility] [place], [place], [address], 04/29/2022 20:08:15 04/28/20 22 04/29/2022 CBC/D /PLT immature granulocytes 0 % not estab. Not Available [facility] ([facility]) [address] [facility] [place], [place], [address], 04/29/2022 20:08:15 04/28/20 22 04/29/2022 CBC/D /PLT immature grans (abs) 0.0 x10e3 /uL 0.0-0. 1 Not Available [facility] ([facility]) [address] [place], [address], 04/29/2022 20:08:15 04/28/20 22 04/29/2022 CBC/D /PLT NRBC ELECTRONIC EQUIPMENT SET UP OPERATOR Not Available [facility] ([facility]) [address] [place], [address], 04/29/2022 20:08:15 04/28/20 22 04/29/2022 CBC/D /PLT hematology comments: ELECTRONIC EQUIPMENT SET UP OPERATOR Not Available [facility]) [address] [place], [address], 04/29/2022 20:08:15 04/28/20 22 04/29/2022 TSH+F REE T4 TSH 0.650 uIU/m L 0.450- 4.500 Not Available [facility] ([facility]) [address] [place], [address], 04/29/2022 20:08:16 04/28/20 22 04/29/2022 TSH+F REE T4 T4,free(dire ct) 1.25 NG/dL 0.82-1 .77 Not Available [facility] ([facility]) [address] [facility] [place], [address], 04/29/2022 20:08:16 04/28/20 22 04/29/2022 COMP. METAB OLIC PANEL (14) glucose 97 mg/dL 70-99 Not Available [facility] ([facility]) [address] [facility] [place], [address], 04/29/2022 20:08:16 04/28/20 22 04/29/2022 COMP. METAB OLIC PANEL (14) BUN 15 mg/dL 8-27 Not Available [facility] ([facility]) [address] [facility] [place], [place], [address], 04/29/2022 20:08:16 04/28/20 22 04/29/2022 COMP. METAB OLIC PANEL (14) creatinine 1.07 mg/dL 0.76-1 .27 Not Available [facility] ([facility]) [address] [facility] [place], [place], [address], 04/29/2022 20:08:16 04/28/20 22 04/29/2022 COMP. METAB OLIC PANEL (14) eGFR 79 mL/mi n/1.7 3 >59 Not Available [facility] ([facility]) [address] [facility] [place], [place], [address], 04/29/2022 20:08:16 04/28/20 22 04/29/2022 COMP. METAB OLIC PANEL (14) BUN/creatini ne ratio 14 10-24 Not Available [facility]) [address] [facility] [place], [place], [address], 04/29/2022 20:08:16 04/28/20 22 04/29/2022 COMP. METAB OLIC PANEL (14) sodium 141 mmol/ L 134-14 4 Not Available [facility] ([facility]) [address] [facility] [place], [address], 04/29/2022 20:08:16 04/28/20 22 04/29/2022 COMP. METAB OLIC PANEL (14) potassium 5.0 mmol/ L 3.5-5. 2 Not Available [facility] ([facility]) [address] [facility] [place], [address], 04/29/2022 20:08:16 04/28/20 22 04/29/2022 COMP. METAB OLIC PANEL (14) chloride 104 mmol/ L 96-106 Not Available [facility] ([facility]) [address] [facility] [place], [address], 04/29/2022 20:08:16 04/28/20 22 04/29/2022 COMP. METAB OLIC PANEL (14) carbon dioxide, total 27 mmol/ L 20-29 Not Available [facility] ([facility]) [address] [facility] [place], [address], 04/29/2022 20:08:16 04/28/20 22 04/29/2022 COMP. METAB OLIC PANEL (14) calcium 9.4 mg/dL 8.6-10 .2 Not Available [facility] ([facility]) [address] [place], [address], 04/29/2022 20:08:16 04/28/20 22 04/29/2022 COMP. METAB OLIC PANEL (14) protein, total 6.5 g/dL 6.0-8. 5 Not Available [facility] ([facility]) [address] [facility] [place], [address], 04/29/2022 20:08:16 04/28/20 22 04/29/2022 COMP. METAB OLIC PANEL (14) albumin 4.2 g/dL 3.8-4. 9 Not Available [facility] ([facility]) [address] [facility] [place], [address], 04/29/2022 20:08:16 04/28/20 22 04/29/2022 COMP. METAB OLIC PANEL (14) globulin, total 2.3 g/dL 1.5-4. 5 Not Available [facility] ([facility]) [address] [facility] [place], [address], 04/29/2022 20:08:16 04/28/20 22 04/29/2022 COMP. METAB OLIC PANEL (14) A/G ratio 1.8 1.2-2. 2 Not Available [facility] ([facility]) [address] [facility] [place], [place], [address], 04/29/2022 20:08:16 04/28/20 22 04/29/2022 COMP. METAB OLIC PANEL (14) bilirubin, total 0.6 mg/dL 0.0-1. 2 Not Available [facility] ([facility]) [address] [facility] [place], [address], 04/29/2022 20:08:16 04/28/20 22 04/29/2022 COMP. METAB OLIC PANEL (14) alkaline phosphatase 54 IU/L 44-121 Not Available [facility] [address] [facility] [place], [place], [address], 04/29/2022 20:08:16 04/28/20 22 04/29/2022 COMP. METAB OLIC PANEL (14) AST (SGOT) 19 IU/L 0-40 Not Available [facility] ([facility]) [address] [facility] [place], [address], 04/29/2022 20:08:16 04/28/20 22 04/29/2022 COMP. METAB OLIC PANEL (14) ALT (SGPT) 29 IU/L 0-44 Not Available [facility] ([facility]) [address] [facility] [place], [place], [address], 04/29/2022 20:08:16 04/28/20 22 04/29/2022 LIPID PANEL WITH LDL/H DL RATIO cholesterol, total 174 mg/dL 100-19 9 Not Available [facility] ([facility]) [address] [facility] [place], [place], [address], 04/29/2022 20:08:17 04/28/20 22 04/29/2022 LIPID PANEL WITH LDL/H DL RATIO triglyceride s 111 mg/dL 0-149 Not Available [facility] [address] [facility] [place], [place], [address], 04/29/2022 20:08:17 04/28/20 22 04/29/2022 LIPID PANEL WITH LDL/H DL RATIO HDL cholesterol 74 mg/dL >39 Not Available [facility] [address] [facility] [place], [place], [address], 04/29/2022 20:08:17 04/28/20 22 04/29/2022 LIPID PANEL WITH LDL/H DL RATIO VLDL cholesterol daisy 19 mg/dL 5-40 Not Available [facility] [address] [facility] [place], [place], [address], 04/29/2022 20:08:17 04/28/20 22 04/29/2022 LIPID PANEL WITH LDL/H DL RATIO LDL chol calc ([facility]) 81 mg/dL 0-99 Not Available [facility] [address] [facility] [place], [place], [address], 04/29/2022 20:08:17 04/28/20 22 04/29/2022 LIPID PANEL WITH LDL/H DL RATIO comment: ELECTRONIC EQUIPMENT SET UP OPERATOR Not Available [facility] ([facility]) [address] [facility] [place], [place], [address], 04/29/2022 20:08:17 04/28/20 22 04/29/2022 LIPID PANEL WITH LDL/H DL RATIO LDL/HDL ratio 1.1 ratio 0.0-3. 6 LDL/H DL Ratio Men Women 1/2 Avg.R isk 1.0 1.5 Avg.R isk 3.6 3.2 2X Avg.R isk 6.2 5.0 3X Avg.R isk 8.0 6.1 Not Available [facility] ([facility]) [address] [facility] [place], [place], [address], 04/29/2022 20:08:17 04/28/20 22 04/29/2022 HEMOG LOBIN A1C hemoglobin A1C 5.9 % 4.8-5. 6 above high normal Predi abete s: 5.7 - 6.4 Diabe kiana: >6.4 Glyce mónica contr ol for adult s with diabe kiana: <7.0 Not Available [facility] ([facility]) [address] [facility] [place], [place], [address], 04/29/2022 20:08:18 04/28/20 22 04/29/2022 PROST ATE SPECI FIC AG, SERUM prostate specific Ag 1.3 NG/mL 0.0-4. 0 Андрей ECLIA metho dolog y. Accor ding to the Ameri can [employer] g[employer] iatio n, Serum PSA shoul d decre ase and remai n at undet ectab le level s after radic al prost atect jerrica. The AUA defin es bioch emica l recur rence as an initi al PSA value 0.2 ng/mL or great er follo wed by a subse quent confi rmato ry PSA value 0.2 ng/mL or great er. Value s obtai eric with diffe rent assay metho ds or kits canno t be used inter begum eably . Resul ts canno t be inter prete d as absol tyonek evide nce of the prese nce or absen ce of sheng see se. Not Available [facility] ([facility]) [address] [facility] [place], [place], [address], 04/29/2022 20:08:18 02/25/20 23 02/25/2023 CBC/D /PLT WBC 5.7 x10e3 /uL 3.4-10 .8 Not Available [facility] ([facility]) [address] [facility] [place], [place], [address], 03/04/2023 03:08:05 02/25/20 23 02/25/2023 CBC/D /PLT RBC 4.92 x10e6 /uL 4.14-5 .80 Not Available [facility] ([facility]) [address] [facility] [place], [place], [address], 03/04/2023 03:08:05 02/25/20 23 02/25/2023 CBC/D /PLT hemoglobin 14.6 g/dL 13.0-1 7.7 Not Available [facility] ([facility]) [address] [facility] [place], [place], [address], 03/04/2023 03:08:05 02/25/20 23 02/25/2023 CBC/D /PLT hematocrit 43.9 % 37.5-5 1.0 Not Available [facility] ([facility]) [address] [place], [address], 03/04/2023 03:08:05 02/25/20 23 02/25/2023 CBC/D /PLT MCV 89 fL 79-97 Not Available [facility] ([facility]) [address] [place], [address], 03/04/2023 03:08:05 02/25/20 23 02/25/2023 CBC/D /PLT MCH 29.7 pg 26.6-3 3.0 Not Available [facility] ([facility]) [address] [place], [address], 03/04/2023 03:08:05 02/25/20 23 02/25/2023 CBC/D /PLT MCHC 33.3 g/dL 31.5-3 5.7 Not Available [facility] ([facility]) [address] [facility] [place], [place], [address], 03/04/2023 03:08:05 02/25/20 23 02/25/2023 CBC/D /PLT RDW 12.7 % 11.6-1 5.4 Not Available [facility] ([facility]) [address] [facility] [place], [place], [address], 03/04/2023 03:08:05 02/25/20 23 02/25/2023 CBC/D /PLT platelets 226 x10e3 /uL 150-45 0 Not Available [facility] ([facility]) [address] [facility] [place], [place], [address], 03/04/2023 03:08:05 02/25/20 23 02/25/2023 CBC/D /PLT neutrophils 55 % not estab. Not Available [facility] ([facility]) [address] [facility] [place], [place], [address], 03/04/2023 03:08:05 02/25/20 23 02/25/2023 CBC/D /PLT lymphs 25 % not estab. Not Available [facility] ([facility]) [address] [facility] [place], [place], [address], 03/04/2023 03:08:05 02/25/20 23 02/25/2023 CBC/D /PLT monocytes 12 % not estab. Not Available [facility] ([facility]) [address] [facility] [place], [place], [address], 03/04/2023 03:08:05 02/25/20 23 02/25/2023 CBC/D /PLT eos 6 % not estab. Not Available [facility]) [address] [facility] [place], [place], [address], 03/04/2023 03:08:05 02/25/20 23 02/25/2023 CBC/D /PLT basos 1 % not estab. Not Available [facility]) [address] [facility] [place], [address], 03/04/2023 03:08:05 02/25/20 23 02/25/2023 CBC/D /PLT immature cells ELECTRONIC EQUIPMENT SET UP OPERATOR Not Available [facility] [address] [facility] [place], [address], 03/04/2023 03:08:05 02/25/20 23 02/25/2023 CBC/D /PLT neutrophils (absolute) 3.2 x10e3 /uL 1.4-7. 0 Not Available [facility] ([facility]) [address] [facility] [place], [address], 03/04/2023 03:08:05 02/25/20 23 02/25/2023 CBC/D /PLT lymphs (absolute) 1.4 x10e3 /uL 0.7-3. 1 Not Available [facility] ([facility]) [address] [facility] [place], [place], [address], 03/04/2023 03:08:05 02/25/20 23 02/25/2023 CBC/D /PLT monocytes(ab solute) 0.7 x10e3 /uL 0.1-0. 9 Not Available [facility] ([facility]) [address] [place], [address], 03/04/2023 03:08:05 02/25/20 23 02/25/2023 CBC/D /PLT eos (absolute) 0.3 x10e3 /uL 0.0-0. 4 Not Available [facility] ([facility]) [address] [place], [address], 03/04/2023 03:08:05 02/25/20 23 02/25/2023 CBC/D /PLT baso (absolute) 0.0 x10e3 /uL 0.0-0. 2 Not Available [facility] ([facility]) [address] [place], [address], 03/04/2023 03:08:05 02/25/20 23 02/25/2023 CBC/D /PLT immature granulocytes 1 % not estab. Not Available [facility] ([facility]) [address] [facility] [place], [address], 03/04/2023 03:08:05 02/25/20 23 02/25/2023 CBC/D /PLT immature grans (abs) 0.0 x10e3 /uL 0.0-0. 1 Not Available [facility] ([facility]) [address] [facility] [place], [address], 03/04/2023 03:08:05 02/25/20 23 02/25/2023 CBC/D /PLT NRBC ELECTRONIC EQUIPMENT SET UP OPERATOR Not Available [facility]) [address] [facility] [place], [address], 03/04/2023 03:08:05 02/25/20 23 02/25/2023 CBC/D /PLT hematology comments: ELECTRONIC EQUIPMENT SET UP OPERATOR Not Available [facility] [address] [facility] [place], [address], 03/04/2023 03:08:05 02/25/20 23 02/25/2023 CMP14 +EGFR glucose 91 mg/dL 70-99 Not Available [facility] ([facility]) [address] [facility] [place], [address], 03/04/2023 03:08:06 02/25/20 23 02/25/2023 CMP14 +EGFR BUN 16 mg/dL 8-27 Not Available [facility] ([facility]) [address] [facility] [place], [address], 03/04/2023 03:08:06 02/25/20 23 02/25/2023 CMP14 +EGFR creatinine 1.05 mg/dL 0.76-1 .27 Not Available [facility] ([facility]) [address] [facility] [place], [place], [address], 03/04/2023 03:08:06 02/25/20 23 02/25/2023 CMP14 +EGFR eGFR 81 mL/mi n/1.7 3 >59 Not Available [facility] ([facility]) [address] [facility] [place], [place], [address], 03/04/2023 03:08:06 02/25/20 23 02/25/2023 CMP14 +EGFR BUN/creatini ne ratio 15 10-24 Not Available [facility] [address] [facility] [place], [address], 03/04/2023 03:08:06 02/25/20 23 02/25/2023 CMP14 +EGFR sodium 138 mmol/ L 134-14 4 Not Available [facility] ([facility]) [address] [facility] [place], [address], 03/04/2023 03:08:06 02/25/2002/25/2023 CMP14 +EGFR potassium 5.0 mmol/ L 3.5-5. 2 Not Available [facility] ([facility]) [address] [facility] [place], [address], 03/04/2023 03:08:06 02/25/20 23 02/25/2023 CMP14 +EGFR chloride 102 mmol/ L 96-106 Not Available [facility] ([facility]) [address] [facility] [place], [place], [address], 03/04/2023 03:08:06 02/25/20 23 02/25/2023 CMP14 +EGFR carbon dioxide, total 24 mmol/ L 20-29 Not Available [facility] ([facility]) [address] [facility] [place], [address], 03/04/2023 03:08:06 02/25/20 23 02/25/2023 CMP14 +EGFR calcium 9.4 mg/dL 8.6-10 .2 Not Available [facility] ([facility]) [address] [place], [address], 03/04/2023 03:08:06 02/25/2002/25/2023 CMP14 +EGFR protein, total 6.4 g/dL 6.0-8. 5 Not Available [facility] ([facility]) [address] [facility] [place], [address], 03/04/2023 03:08:06 02/25/20 23 02/25/2023 CMP14 +EGFR albumin 4.3 g/dL 3.9-4. 9 Not Available [facility] ([facility]) [address] [place], [address], 03/04/2023 03:08:06 02/25/2002/25/2023 CMP14 +EGFR globulin, total 2.1 g/dL 1.5-4. 5 Not Available [facility] ([facility]) [address] [facility] [place], [address], 03/04/2023 03:08:06 02/25/2002/25/2023 CMP14 +EGFR A/G ratio 2.0 1.2-2. 2 Not Available [facility] ([facility]) [address] [facility] [place], [address], 03/04/2023 03:08:06 02/25/2002/25/2023 CMP14 +EGFR bilirubin, total 0.2 mg/dL 0.0-1. 2 Not Available [facility] ([facility]) [address] [facility] [place], [address], 03/04/2023 03:08:06 02/25/2002/25/2023 CMP14 +EGFR alkaline phosphatase 60 IU/L 44-121 Not Available [facility] ([facility]) [address] [facility] [place], [address], 03/04/2023 03:08:06 02/25/20 23 02/25/2023 CMP14 +EGFR AST (SGOT) 15 IU/L 0-40 Not Available [facility] ([facility]) [address] [place], [address], 03/04/2023 03:08:06 02/25/20 23 02/25/2023 CMP14 +EGFR ALT (SGPT) 19 IU/L 0-44 Not Available [facility] ([facility]) [address] [place], [address], 03/04/2023 03:08:06 02/25/20 23 02/25/2023 FE+TI BC+FE R iron bind.cap.(TI BC) 245 ug/dL 250-45 0 below low normal Not Available [facility] ([facility]) [address] [place], [address], 03/04/2023 03:08:07 02/25/20 23 02/25/2023 FE+TI BC+FE R UIBC 156 ug/dL 111-34 3 Not Available [facility] ([facility]) [address] [place], [place], [id number], 03/04/2023 03:08:07 02/25/20 23 02/25/2023 FE+TI BC+FE R iron 89 ug/dL 38-169 Not Available [facility] ([facility]) [address] [place], [address], 03/04/2023 03:08:07 02/25/20 23 02/25/2023 FE+TI BC+FE R iron saturation 36 % 15-55 Not Available [facility] ([facility]) [address] [place], [address], 03/04/2023 03:08:07 02/25/20 23 02/25/2023 FE+TI BC+FE R ferritin 400 NG/mL 30-400 Not Available [facility] ([facility]) [address] [place], [address], 03/04/2023 03:08:07 02/25/20 23 02/25/2023 TSH+F REE T4 TSH 0.697 uIU/m L 0.450- 4.500 Not Available [facility] ([facility]) [address] [facility] [place], [place], [address], 03/04/2023 03:08:08 02/25/20 23 02/25/2023 TSH+F REE T4 T4,free(dire ct) 1.29 NG/dL 0.82-1 .77 Not Available [facility] ([facility]) [address] [place], [address], 03/04/2023 03:08:08 02/25/20 23 02/25/2023 LIPID PANEL cholesterol, total 183 mg/dL 100-19 9 Not Available [facility] ([facility]) [address] [place], [address], 03/04/2023 03:08:09 02/25/20 23 02/25/2023 LIPID PANEL triglyceride s 103 mg/dL 0-149 Not Available [facility] ([facility]) [address] [place], [address], 03/04/2023 03:08:09 02/25/20 23 02/25/2023 LIPID PANEL HDL cholesterol 82 mg/dL >39 Not Available [facility] ([facility]) [address] [place], [address], 03/04/2023 03:08:09 02/25/20 23 02/25/2023 LIPID PANEL VLDL cholesterol daisy 18 mg/dL 5-40 Not Available [facility] ([facility]) [address] [place], [address], 03/04/2023 03:08:09 02/25/20 23 02/25/2023 LIPID PANEL LDL chol calc ([facility]) 83 mg/dL 0-99 Not Available [facility] (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) [address] [place], [address], 03/04/2023 03:08:09 02/25/2002/25/2023 VITAM IN B12 AND FOLAT E vitamin B12 277 pg/mL 232-12 45 Not Available [facility] ([facility]) [address] [place], [address], 03/04/2023 03:08:10 02/25/2002/25/2023 VITAM IN B12 AND FOLAT E folate (folic acid), serum 14.4 NG/mL >3.0 A serum folat e leanne ntrat ion of less than 3.1 ng/mL is consi dered to repre sent clini daisy defic iency . Not Available [facility] ([facility]) [address] [place], [address], 03/04/2023 03:08:10 02/25/2002/25/2023 TESTO STERO NE,FR EE AND TOTAL testosterone 397 NG/dL 264-91 6 Adult male refer ence inter kai is based on a popul ation of healt hy nonob nadine males (BMI <30) betwe en 19 and 39 years old. Nano storey et.al . JCEM 2017, 102;1 161-1 173. PMID: 44323 103. Not Available [facility] ([facility]) [address] [place], [address], 03/04/2023 03:08:10 02/25/2003/04/2023 TESTO STERO NE,FR EE AND TOTAL free testosterone (direct) 4.7 pg/mL 6.6-18 .1 below low normal Not Available [facility] ([facility]) [address] [place], [address], 03/04/2023 03:08:10 02/25/20 23 02/25/2023 HEMOG LOBIN A1C hemoglobin A1C 5.8 % 4.8-5. 6 above high normal Predi abete s: 5.7 - 6.4 Diabe kiana: >6.4 Glyce mónica contr ol for adult s with diabe kiana: <7.0 Not Available [facility] ([facility]) [address] [facility] [place], [place], [address], 03/04/2023 03:08:11 02/25/20 23 02/26/2023 VITAM IN D, 25-HY DROXY vitamin D, 25-hydroxy 29.4 NG/mL 30.0-1 00.0 below low normal Vitam in D defic iency has been defin ed by the Insti tute of Medic ine and an Endoc rine Socie ty pract ice guide line as a level of serum 25-OH vitam in D less than 20 ng/mL (1,2) . The Endoc rine Socie ty went on to furth er defin e vitam in D insuf ficie ncy as a level betwe en 21 and 29 ng/mL (2). 1. IOM (Inst itute of Medic ine). 2009. Dieta ry refer ence intak es for calci um and D. Mary jain [place]: The [facility] . 2. Barrie subramanian MF, Jian martel NC, Britta off-F errar i JUARES, et al. Evalu ation , treat ment, and preve ntion of vitam in D defic iency : an Endoc rine Socie ty clini daisy pract ice guide line. JCEM. 2010; 96(7) :1911 -30. Not Available [facility] ([facility]) [address] [facility] [place], [place], [address], 03/04/2023 03:08:12 02/25/20 23 02/25/2023 PROGE STERO NE progesterone 0.2 NG/mL 0.0-0. 5 Not Available [facility] ([facility]) [address] [facility] [place], [place], [address], 03/04/2023 03:08:13 02/25/20 23 02/27/2023 ESTRO GENS, TOTAL estrogens, total 86 pg/mL 56-213 Prepu cristian l <40 Not Available [facility] ([facility]) [address] [facility] [place], [place], [address], 03/04/2023 03:08:14 02/25/20 23 02/25/2023 SEX HORM ISAURO NG GLOB, SERUM sex horm binding glob, serum 51.2 nmol/ L 19.3-7 6.4 Not Available [facility] ([facility]) [address] [facility] [place], [place], [address], 03/04/2023 03:08:15 05/05/20 22 05/04/2022 LDCT, chest , [facility] [address] [place] [address] Phone: Fax: Name: LAVELL MONTES Exam Date: 2021 : [birth year] Age 61 Gender : M Access ion: [id number] Physic haleigh: CORNELL HANSEN [facility] Fac[facility] ty HSV: Outpat ient Exam: CT CHEST LOW DOSE CT CHEST LOW DOSE SCREEN ING HISTOR Y: Curren t smoker . 40 pack year histor y. COMPAR REDDY: None. TECHNI QUE: Axial images were obtain ed from the lung apices throug h the midabd omen by comput ed tomogr aphy withou t the admini strati on of contra st. This was perfor med as a low dose chest CT for lung cancer screen ing. This study was perfor med with techni ques to keep radiat ion doses as low as reason snowy achiev able, (EMILY ). Indivi dualiz ed dose reduct ion techni ques using automa champ exposu re contro l or adjust ment of mA and/or kV accord ing to the patien t's size were employ ed. CTDI: 1.18 mGy DLP: 40.43 mGy*cm FINDIN GS: There is no axilla ry adenop athy. There is no medias tinal or hilar adenop athy. Heart size is normal . There is no perica rdial or pleura l effusi on. The lungs demons trate scatte red calcif ied residu a of old granul omatou s diseas e. A 2 mm nodule is identi fied in the right upper lobe. This is best seen on image 26. There is left upper lobe scarri ng. Limite d images of the upper abdome n demons trate the gallbl adder to be absent . There is a 4.5 cm left renal cyst. No acute osseou s change s are identi fied. IMPRES KIMBER: 2 mm nodule in the right upper lobe. LUNG RADS Catego ry 2 . Recomm end contin ued annual screen ing with low dose chest CT in one year. The films were review ed, interp reted, and dictat ed by Dr. Tracy Transc ribed by Fco Jimenez PA-C Dictat ed By: ANDRÉS TRACY Transc ribed By: ANDRÉS TRACY Transc ribed On: 2021 4:10 PM Electr onical ly signed by: ANDRÉS TRACY 2021 Thank you for referr ing LAVELL MONTES to [facility]. Legall y authen ticate d by POPE ANDRÉS Zhu DO 2021-06 16:10: 11 CC'ed Logic: Orderi ng Provid er: JOSESITO SARABIA CC Provid er: JOSESITO SARABIA Attend ing Provid er: JOSESITO SARABIA Referr ing Provid er: JOSESITO SARABIA Admitt ing Provid er: JOSESITO SARABIA [id number] [facility] (Radiology) [address], [place], [address], 05/12/2022 12:22:00 Result Notes None recorded. Procedures Surgical History Date Name Laterality Status Provider Name and Address Organization Details Recorded Time Cholecystectomy completed Millie REID 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 Medical Equipment None Reported. Allergies No known drug allergies Medications Name Sig Start Date Stop Date Status Note LastModified by Organization Details LastModified Time cyclobenzap rine 10 mg tablet TAKE 1 TABLET BY MOUTH THREE TIMES A DAY FOR 30 DAYS 02/24 completed Not Available Not Available Not Available methocarbam ol 500 mg tablet TAKE 1 TABLET BY MOUTH THREE TIMES A DAY 02/24 completed Not Available Not Available Not Available ibuprofen 800 mg tablet TAKE 1 TABLET BY MOUTH THREE TIMES A DAY 04/15 completed Not Available Not Available Not Available metoprolol tartrate 100 mg tablet TAKE 1 TABLET BY MOUTH EVERY 12 HOURS active Not Available Not Available No t Available hydrocodone 5 mg-acetamin ophen 325 mg tablet TAKE 1 TABLET BY MOUTH 5 TIMES A DAY FOR PAIN active Not Available Not Available No t Available prednisone 20 mg tablet TAKE 1 TABLET BY MOUTH TWICE A DAY 04/23 completed Not Available Not Available Not Available amoxicillin 500 mg tablet TAKE 1 TABLET BY MOUTH THREE TIMES A DAY FOR 10 DAYS 02/24 completed Not Available Not Available Not Available prednisone 10 mg tablets in a dose pack TAKE 6 TABLETS ON DAY 1 DIRECTED ON PACKAGE AND DECREASE BY 1 TAB EACH DAY FOR A TOTAL OF 6 DAYS active Not Available Not Available No t Available famotidine 20 mg tablet TAKE 1 TABLET BY MOUTH THREE TIMES A DAY 04/15 completed Not Available Not Available Not Available methocarbam ol 750 mg tablet TAKE 1 TABLET BY MOUTH THREE TIMES A DAY FOR PAIN active Not Available Not Available No t Available polymyxin B sulfate 10,000 unit-trimet hoprim 1 mg/mL eye drops 04/28 completed Not Available Not Available Not Available metoprolol tartrate 50 mg tablet TAKE 1 TABLET BY MOUTH TWICE A DAY 04/06 completed Not Available Not Available Not Available nicotine 21 mg/24 hr daily transdermal patch APPLY ONE PATCH ONCE DAILY DIRECTED 04/28 completed Not Available Not Available Not Available diclofenac sodium 75 mg tablet,mikayla yed release TAKE 1 TABLET BY MOUTH 3 TIMES A DAY 04/15 completed Not Available Not Available Not Available mupirocin 2 % topical ointment APPLY TO SITE 2 OR 3 TIMES DAILY 02/24 completed Not Available Not Available Not Available albuterol sulfate HFA 90 mcg/actuati on aerosol inhaler INHALE 2 PUFFS INTO THE LUNGS EVERY 4 HOURS FOR 30 DAYS active Not Available Not Available No t Available ciprofloxac in 0.3 %-dexametha sone 0.1 % ear drops,suspe nsion INSTILL 4 DROPS INTO AFFECTED EAR(S) TWICE A DAY FOR 7 DAYS active Not Available Not Available No t Available rosuvastati n 5 mg tablet TAKE 1 TABLET BY MOUTH EVERY DAY active Not Available Not Available No t Available chlorhexidi ne gluconate 0.12 % mouthwash SWISH 1 TABLESPOO NFUL IN MOUTH GENTLY FOR 30 SECONDS AND SPIT OUT 2 TIMES DAILY 02/24 completed Not Available Not Available Not Available Eliquis 5 mg tablet TAKE 1 TABLET BY MOUTH TWICE A DAY active Not Available Not Available No t Available Vitals Date Recorded Body height Body mass index (BMI) Body weight Body temperature Oxygen saturation Oxygen saturation in Arterial blood by Pulse oximetry Heart rate Respiratory rate Systolic blood pressure Diastolic blood pressure Provider Name and Address Organization Details Last Updated DateTime 3 182.88 cm 30.5 kg/m2 674143. 28 g 98.2 [degF] 98 % 98 % 75 /min 16 /min 124 mm[Hg] 74 mm[Hg] Kolton Parminderorlando n [place] - [facility] & [place] 3 09:44:45 Date Recorded Body weight Body mass index (BMI) Body height Body temperature Oxygen saturation Oxygen saturation in Arterial blood by Pulse oximetry Heart rate Systolic blood pressure Diastolic blood pressure Provider Name and Address Organization Details Last Updated DateTime 2 26401.3 3 g 29 kg/m2 182.88 cm 97.8 [degF] 97 % 97 % 90 /min 133 mm[Hg] 81 mm[Hg] Cammie Restrepo [place] - [facility] & [place] 2 12:09:40 Date Recorded Body height Body mass index (BMI) Body weight Body temperature Oxygen saturation Oxygen saturation in Arterial blood by Pulse oximetry Heart rate Systolic blood pressure Diastolic blood pressure Provider Name and Address Organization Details Last Updated DateTime 2 182.88 cm 29.6 kg/m2 86052.2 9 g 97 [degF] 95 % 95 % 67 /min 120 mm[Hg] 76 mm[Hg] Cammie [place] [facility] & [place] 2 08:19:23 Social History Question Answer Notes LastModified by Organizat ion Details LastModified Time Tobacco Smoking Status Current Every Day Smoker Cammie pham, [place] [facility] & [place] 04/06/2022 12:09:59 Do You Have An Advance Directive? No Information not available 04/06/2022 What Is Your Level Of Alcohol Consumption? Moderate Information not available 04/06/2022 Are You Blind Or Do You Have Difficulty Seeing? No Information not available 04/06/2022 Which Illicit Or Recreational Drugs Have You Used? JUANITA [email or web address] Information not available 02/24/2023 What Was The Date Of Your Most Recent Tobacco Screening? 02/04/2022 [email or web address] Information not available 02/17/2023 Are You Passively Exposed To Smoke? Yes Information no t available 04/06/2022 How Much Tobacco Do You Smoke? 1 PPD Information not available 04/06/2022 Do You Feel Stressed (tense, Restless, Nervous, Or Anxious, Or Unable To Sleep At Night)? [id number] Information not available 04/06/2022 Do You Use Any Illicit Or Recreational Drugs? Yes [email or web address] Information not available 02/24/2023 How Many Years Have You Smoked Tobacco? 40 Information not available 04/06/2022 Sex: Unknown Functional Status Question Answer Note LastModified by Organization D etails LastModified Time What is your exercise level? None Information not available 04/06/2022 Mental Status None recorded. Family History Relationship Description Onset Age of this Age Resolved Age Notes LastModified by Organization Details LastModified Time Father Renal cell carcinoma deceas ed [email or web address] Not available 04/23/2022 15:08:59 Mother Insertion of arterial stent [email or web address] Not available 2021 15:09:13 Medical History Condition Response Other Y Arthritis Y Ear or Hearing Problems Y Immunizations Vaccine Type Date Status Note Provider Nam e and Address Organization Details Recorded Time Influenza, split virus, trivalent, PF 04/14/2017 completed Millie pham[place] [facility] [place] 04/23/2022 15:07:51 Influenza, split virus, trivalent, PF 04/12/2016 completed Millie pham, [place] - [facility] [place] & [place] 04/23/2022 15:07:51 Past Encounters Encounter ID Performer Location Encounter Start Date Encounter Closed Date Diagnosis/Indication Diagnosis SNOMED-CT Code Diagnosis ICD10 Code Diagnosis Note [id number] Cornell Hansen APRN zzChgRDIAMOND [address] [address] 04/06/2022 11:58:22 04/06/2022 16:44:41 Abrasion of left cornea 3514174004 6592778 S05.02XA take prophylact ic abx dropswarm compresses wear safety glassesinc rease water intake Reactive a irway disease 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 Screening for malignant neoplasm of prostate 250305908 Z12.5 Change in skin lesion 39 4019551 L98.9 Spasm of back muscles 20 6490667 M62.830 Screening for malignant neoplasm of respiratory tract 640603165 Z12.2 15 cigs a day, for the past 40 yearsencou raged smoking cessation Mixed hyperlipidemia 267 142767 E78.2 Body mass index 25-29 - overweight 059804145 Z68.29 [id number] Cornell Hansen APRN [facility] [address] [place] [address] 02/24/2023 09:38:26 02/24/2023 12:52:16 Acute otitis externa 53994181 H60.502 use antibiotic s as prescribed monitor for worsening symptoms. Reactive a irway disease 5672236826 06 J45.909 take medication as prescribed monitor for worsening symptomsal buterol PRN [id number] Mixed hyperlipidemia 267 314368 E78.2 Patient advised to exercise, eat a prudent diet and lose weight as appropriat e. Fatigue 61183541 R53.83 Patient with fatigue and malaise . Advised patient to eat properly, get adequate sleep and attempt to exercise. I recommend {{no further testing te sting as per orders below to evaluate for:*}} . Patient to follow up as directed. Essential hypertension 78796160 I10 educated on goal of less than 130/90advi sed low sodium diet, healthy lifestyle including exercise as ablecontin ue current medication regimenER if any symptoms such as chest pain, shortness of breath Health Concerns Section Related Observation LastModified by Organization Detai ls LastModified Time None Recorded Concern Status LastModified by Organization Details LastModified Time None Recorded Advance Directives Directive N: Payers Encounter Date Sequence Insurance Name Policy Number Policy Galicia Covered Member ID Galicia Member ID Guarantor Name 04/06/2022 1 [employer] - OPEN ACCESS - NATIONAL (POS) [id number] Lavell Miles [id number] Lavell Miles 04/28/2022 1 [employer] - OPEN ACCESS - NATIONAL (POS) [id number] Lavell Justina Ginger [id number] Lavell R Ginger 02/24/2023 1 [employer] - OPEN ACCESS - NATIONAL (POS) [id number] Lavell Miles [id number] Lavell Miles Notes Date Note Type Note Provider Name and Address Organization Details Recorded Time 04/06/2022 text/html Eye PainReported bypatient.Location:lef t; right Quality:aching;foreign body sensation(was chipping wood and came back and hit him in the left eye) Severity:moderate Duration:constant Onset/Timing:first episode Associated Symptoms:no sensitivity to light; pain is not worse with eye movement; no diplopia; no photophobia; no headache; no blurred vision; no mucous discharge; no itching; not seeing halos; no swelling around eyes; no drooping eyelid(s);redness;wate ry discharge(matted shut this morning) Alleviating Factors:artificial tears; looking down; looking up Aggravating Factors:bright light 61 y/o male also having increased coughing and worsening shortness of breath with allergy flare up. Smoke 1ppd. not on any PRN or maintenance inhalers. Cornell Hansen APRN [address] [facility], [place], [address], [facility] 04/07/2022 08:08:56 04/28/2022 text/html Annual WellnessReported bypatient.Diet and Nutrition:healthy diet Fracture Risk:no history of fractures; no recent explained fracture; no sudden unexplained fractures; no previous musculoskeletal injuries Physical Activity:exercises on a regular basis; recent increase in physical activity; good physical condition Additional Lifestyle Factors:no tobacco use; no alcohol intake; stopped drinking alcohol Depression Risk:never feels sad, empty, or tearful; no loss of interest in activities; no significant changes in weight; no sleep disturbances or insomnia; no agitation; no loss of energy; no feelings of worthlessness or guilt; no thoughts of suicide; no history of depression; no history of mood disorders Hearing:no loss of hearing Vision:no vision problemsNotes:colonosc opy [place] [address] 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, [place], [address], [facility] 04/30/2022 08:10:15 02/24/2023 text/html 62 y/o male that presents to the clinic for chronic care follow up1. patient is due for UTD blood work. He is having a lot of fatigue. He is not sleeping well at night. Very restless. Had a sleep study in the past but unable to tolerate cpap. He has not every taken any sleep aid to help him go to sleep.2. left ear has been draining at night time. Pt has not been swimming. Fullness feeling of the left ear.3. Pt reports clenching of teeth and jaw pain. He grinds his teeth at night4. needing a refill on albuterol inhaler and rosuvastatin. Cornell Hansen, RD MECHANICAL ENGINEER [address] [facility], [place], [address], [facility] [place] 02/24/2023 16:43:09
== END 2024-09-28 23:59 | disposition home or self-care (01) ==
PROVIDERS: PCP Nurse Practitioner Family; Visit Provider Nurse Practitioner Family
DX: M54.16 Radiculopathy, lumbar region (principal); M25.50 Pain in unspecified joint; M54.50 Low back pain, unspecified; G89.29 Other chronic pain; M25.511 Pain in right shoulder; M25.512 Pain in left shoulder; M54.12 Radiculopathy, cervical region; M26.629 Arthralgia of temporomandibular joint, unspecified side; F17.210 Nicotine dependence, cigarettes, uncomplicated; Z73.89 Other problems related to life management difficulty
CPT/HCPCS: 99212; G0463

== ENCOUNTER 2024-11-01 08:36 | Outpatient (POV) | payer BC, SELFPAY ==
--- OUTSIDE RECORDS SUMMARY | 2024-11-01 08:39 | XMS_ITS | Data Portability ---
Author Organization [place] - [facility] [place] Address [address] [place] [address] Care Team Providers Care Arc Trimmer Name Role Phone CORNELL HANSEN Primary Care Provider Assessment No assessment recorded. Plan of Treatment Reminders Order Date Submit Date Provider Last Modified By Organization Details Last Modified Time Details Appointments None recorded. Lab lipid panel, serum 2022 023 [email or web address] [facility], [address], [address], [place], [address], 3 15:01:06 CBC w/ diff 2022 023 [email or web address] 0 [facility], [address], [address], [place], [address], 3 15:01:05 CMP, serum or plasma 2022 023 [email or web address] 0 [facility], [address], [address], [place], [address], 3 15:01:06 TSH + free T4, serum 2022 023 [email or web address] 0 [facility], [address], [address], [place], [address], 3 15:01:06 HbA1c (hemoglobin A1c), blood 2022 023 [email or web address] 0 [facility], [address], [address], [place], [address], 3 15:01:06 testosteron e, free + total, serum 2022 023 [email or web address] 0 [facility], [address], [address], [place], [address], 3 15:01:06 shbg (sex hormone-bin ding globulin), serum 2022 023 [email or web address] 0 [facility], [address], [address], [place], [address], 3 15:01:06 progesteron e, serum 2022 023 [email or web address] 0 [facility], [address], [place], [address], 3 15:01:07 vitamin D, 25-hydroxy, total, serum 2022 023 [email or web address] 0 [facility], [address], [address], [place], [address], 3 15:01:07 estrogen, total, serum 2022 023 [email or web address] 0 [facility], [address], [place], [address], 3 15:01:07 vitamin B12 + folate, serum or blood 2022 023 [email or web address] 0 [facility], [address], [place], [address], 3 15:01:07 iron + TIBC + ferritin, serum 2022 023 [email or web address] 0 [facility], [address], [place], [address], 3 15:01:07 lipid panel, serum 2021 022 [place] [facility], [address], [place], [address], 20:08:17 CBC w/ diff 2021 022 GR[place]EL[place] [facility], [address], [place], [address], 20:08:15 CMP, serum or plasma 2021 022 GR[place]EL[place] [facility], [address], [place], [address], 20:08:16 TSH + free T4, serum 2021 022 GR[place] [facility], [address], [place], [address], 20:08:16 PSA, total, serum or plasma 2021 022 [place] [facility], [address], [place], [address], 20:08:18 HbA1c (hemoglobin A1c), blood 2021 022 [place] [facility], [address], [place], [address], 20:08:[address] referral 2021 022 [email or web address] [facility], [address], [address], [place], [address], 16:54:38 Procedures None recorded. Surgeries None recorded. Imaging LDCT, chest, for lung cancer screening 2021 [facility] Central[facility] Scheduling, [address], [place], [address], 11/15/202 2 18:26:53 Medication Orders rosuvastati n 5 mg tablet 2022 023 [facility], [address] [place], [address], 3 10:47:01 Ciprodex 0.3 %-0.1 % ear drops,suspe nsion 2022 023 [facility], [address] [place], [address], 3 10:46:23 prednisone 10 mg tablets in a dose pack 2022 023 [facility], [address] [place], [address], 3 10:46:23 albuterol sulfate HFA 90 mcg/actuati on aerosol inhaler 2022 023 [facility], [address] [place], [address], 3 10:47:01 cyclobenzap rine 10 mg tablet [email or web address] [facility] [address] [place], [address], 3 09:45:29 polymyxin B sulfate 10,000 unit-trimet hoprim 1 mg/mL eye drops [email or web address] [facility] [address] [place], [address], 2 09:02:30 albuterol sulfate HFA 90 mcg/actuati on aerosol inhaler 2021 022 [facility], [address] [place], [address], 2 12:31:47 Patient TargetsNo targets recorded. 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) [address] [place], [address], 04/29/2022 20:08:15 04/28/20 22 04/29/2022 CBC/D /PLT RBC 5.35 x10e6 /uL 4.14-5 .80 Not Available [facility] ([facility]) [address] [place], [address], 04/29/2022 20:08:15 04/28/20 22 04/29/2022 CBC/D /PLT hemoglobin 15.6 g/dL 13.0-1 7.7 Not Available [facility] ([facility]) [address] [place], [address], 04/29/2022 20:08:15 04/28/20 22 04/29/2022 CBC/D /PLT hematocrit 48.4 % 37.5-5 1.0 Not Available [facility] ([facility]) [address] [place], [address], 04/29/2022 20:08:15 04/28/20 22 04/29/2022 CBC/D /PLT MCV 91 fL 79-97 Not Available [facility] ([facility]) [address] [place], [address], 04/29/2022 20:08:15 04/28/20 22 04/29/2022 CBC/D /PLT MCH 29.2 pg 26.6-3 3.0 Not Available [facility] ([facility]) [address] [facility], [place], [address], 04/29/2022 20:08:15 04/28/20 22 04/29/2022 CBC/D /PLT MCHC 32.2 g/dL 31.5-3 5.7 Not Available [facility] ([facility]) [address] [facility], [place], [address], 04/29/2022 20:08:15 04/28/20 22 04/29/2022 CBC/D /PLT RDW 12.6 % 11.6-1 5.4 Not Available [facility] ([facility]) [address] [facility], [place], [address], 04/29/2022 20:08:15 04/28/20 22 04/29/2022 CBC/D /PLT platelets 229 x10e3 /uL 150-45 0 Not Available [facility] ([facility]) [address] [facility], [place], [address], 04/29/2022 20:08:15 04/28/20 22 04/29/2022 CBC/D /PLT neutrophils 53 % not estab. Not Available [facility] ([facility]) [address] [facility], [place], [address], 04/29/2022 20:08:15 04/28/20 22 04/29/2022 CBC/D /PLT lymphs 29 % not estab. Not Available [facility] ([facility]) [address] [facility], [place], [address], 04/29/2022 20:08:15 04/28/20 22 04/29/2022 CBC/D /PLT monocytes 11 % not estab. Not Available [facility] ([facility]) [address] [facility], [place], [address], 04/29/2022 20:08:15 04/28/20 22 04/29/2022 CBC/D /PLT eos 6 % not estab. Not Available [facility] ([facility]) [address] [facility] [place], [address], 04/29/2022 20:08:15 04/28/20 22 04/29/2022 CBC/D /PLT basos 1 % not estab. Not Available [facility] ([facility]) [address] [facility] [place], [address], 04/29/2022 20:08:15 04/28/20 22 04/29/2022 CBC/D /PLT immature cells HOME AND FAMILY LIVING PROFESSOR Not Available [facility] ([facility]) [address] [place], [address], 04/29/2022 20:08:15 04/28/20 22 04/29/2022 CBC/D /PLT neutrophils (absolute) 3.2 x10e3 /uL 1.4-7. 0 Not Available [facility] ([facility]) [address] [place], [address], 04/29/2022 20:08:15 04/28/20 22 04/29/2022 CBC/D /PLT lymphs (absolute) 1.7 x10e3 /uL 0.7-3. 1 Not Available [facility] ([facility]) [address] [place], [address], 04/29/2022 20:08:15 04/28/20 22 04/29/2022 CBC/D /PLT monocytes(ab solute) 0.7 x10e3 /uL 0.1-0. 9 Not Available [facility] ([facility]) [address] [place], [address], 04/29/2022 20:08:15 04/28/20 22 04/29/2022 CBC/D /PLT eos (absolute) 0.3 x10e3 /uL 0.0-0. 4 Not Available [facility] ([facility]) [address] [place], [address], 04/29/2022 20:08:15 04/28/20 22 04/29/2022 CBC/D /PLT baso (absolute) 0.0 x10e3 /uL 0.0-0. 2 Not Available [facility] ([facility]) [address] [facility], [place], [address], 04/29/2022 20:08:15 04/28/20 22 04/29/2022 CBC/D /PLT immature granulocytes 0 % not estab. Not Available [facility] ([facility]) [address] [facility], [place], [address], 04/29/2022 20:08:15 04/28/20 22 04/29/2022 CBC/D /PLT immature grans (abs) 0.0 x10e3 /uL 0.0-0. 1 Not Available [facility] ([facility]) [address] [place], [address], 04/29/2022 20:08:15 04/28/20 22 04/29/2022 CBC/D /PLT NRBC HOME AND FAMILY LIVING PROFESSOR Not Available [facility] ([facility]) [address] [place], [address], 04/29/2022 20:08:15 04/28/20 22 04/29/2022 CBC/D /PLT hematology comments: HOME AND FAMILY LIVING PROFESSOR Not Available [facility] ([facility]) [address] [place], [address], 04/29/2022 20:08:15 04/28/20 22 04/29/2022 TSH+F REE T4 TSH 0.650 uIU/m L 0.450- 4.500 Not Available [facility] ([facility]) [address] [place], [address], 04/29/2022 20:08:16 04/28/20 22 04/29/2022 TSH+F REE T4 T4,free(dire ct) 1.25 NG/dL 0.82-1 .77 Not Available [facility] ([facility]) [address] [facility], [address], 04/29/2022 20:08:16 04/28/20 22 04/29/2022 COMP. METAB OLIC PANEL (14) glucose 97 mg/dL 70-99 Not Available [facility] ([facility]) [address] [facility], [address], 04/29/2022 20:08:16 04/28/20 22 04/29/2022 COMP. METAB OLIC PANEL (14) BUN 15 mg/dL 8-27 Not Available [facility] ([facility]) [address] [facility], [place], [address], 04/29/2022 20:08:16 04/28/20 22 04/29/2022 COMP. METAB OLIC PANEL (14) creatinine 1.07 mg/dL 0.76-1 .27 Not Available [facility] ([facility]) [address] [facility], [place], [address], 04/29/2022 20:08:16 04/28/20 22 04/29/2022 COMP. METAB OLIC PANEL (14) eGFR 79 mL/mi n/1.7 3 >59 Not Available [facility] ([facility]) [address] [facility], [place], [address], 04/29/2022 20:08:16 04/28/20 22 04/29/2022 COMP. METAB OLIC PANEL (14) BUN/creatini ne ratio 14 10-24 Not Available [facility] ([facility]) [address] [facility], [place], [address], 04/29/2022 20:08:16 04/28/20 22 04/29/2022 COMP. METAB OLIC PANEL (14) sodium 141 mmol/ L 134-14 4 Not Available [facility] ([facility]) [address] [facility], [address], 04/29/2022 20:08:16 04/28/20 22 04/29/2022 COMP. METAB OLIC PANEL (14) potassium 5.0 mmol/ L 3.5-5. 2 Not Available [facility] ([facility]) [address] [facility], [address], 04/29/2022 20:08:16 04/28/20 22 04/29/2022 COMP. METAB OLIC PANEL (14) chloride 104 mmol/ L 96-106 Not Available [facility] ([facility]) [address] [facility], [address], 04/29/2022 20:08:16 04/28/20 22 04/29/2022 COMP. METAB OLIC PANEL (14) carbon dioxide, total 27 mmol/ L 20-29 Not Available [facility] ([facility]) [address] [facility], [address], 04/29/2022 20:08:16 04/28/20 22 04/29/2022 COMP. METAB OLIC PANEL (14) calcium 9.4 mg/dL 8.6-10 .2 Not Available [facility] ([facility]) [address] [place], [address], 04/29/2022 20:08:16 04/28/20 22 04/29/2022 COMP. METAB OLIC PANEL (14) protein, total 6.5 g/dL 6.0-8. 5 Not Available [facility] ([facility]) [address] [facility], [address], 04/29/2022 20:08:16 04/28/20 22 04/29/2022 COMP. METAB OLIC PANEL (14) albumin 4.2 g/dL 3.8-4. 9 Not Available [facility] ([facility]) [address] [facility] [place], [address], 04/29/2022 20:08:16 04/28/20 22 04/29/2022 COMP. METAB OLIC PANEL (14) globulin, total 2.3 g/dL 1.5-4. 5 Not Available [facility] ([facility]) [address] [facility] [place], [address], 04/29/2022 20:08:16 04/28/20 22 04/29/2022 COMP. METAB OLIC PANEL (14) A/G ratio 1.8 1.2-2. 2 Not Available [facility] ([facility]) [address] [facility], [place], [address], 04/29/2022 20:08:16 04/28/20 22 04/29/2022 COMP. METAB OLIC PANEL (14) bilirubin, total 0.6 mg/dL 0.0-1. 2 Not Available [facility] ([facility]) [address] [facility] [place], [address], 04/29/2022 20:08:16 04/28/20 22 04/29/2022 COMP. METAB OLIC PANEL (14) alkaline phosphatase 54 IU/L 44-121 Not Available [facility]) [address] [facility], [place], [address], 04/29/2022 20:08:16 04/28/20 22 04/29/2022 COMP. METAB OLIC PANEL (14) AST (SGOT) 19 IU/L 0-40 Not Available [facility] ([facility]) [address] [facility] [place], [address], 04/29/2022 20:08:16 04/28/20 22 04/29/2022 COMP. METAB OLIC PANEL (14) ALT (SGPT) 29 IU/L 0-44 Not Available [facility] ([facility]) [address] [facility], [place], [address], 04/29/2022 20:08:16 04/28/20 22 04/29/2022 LIPID PANEL WITH LDL/H DL RATIO cholesterol, total 174 mg/dL 100-19 9 Not Available [facility] ([facility]) [address] [facility], [place], [address], 04/29/2022 20:08:17 04/28/20 22 04/29/2022 LIPID PANEL WITH LDL/H DL RATIO triglyceride s 111 mg/dL 0-149 Not Available [facility] ([facility]) [address] [facility], [place], [address], 04/29/2022 20:08:17 04/28/20 22 04/29/2022 LIPID PANEL WITH LDL/H DL RATIO HDL cholesterol 74 mg/dL >39 Not Available [facility]) [address] [facility], [place], [address], 04/29/2022 20:08:17 04/28/20 22 04/29/2022 LIPID PANEL WITH LDL/H DL RATIO VLDL cholesterol daisy 19 mg/dL 5-40 Not Available [facility] ([facility]) [address] [facility], [place], [address], 04/29/2022 20:08:17 04/28/20 22 04/29/2022 LIPID PANEL WITH LDL/H DL RATIO LDL chol calc ([facility]) 81 mg/dL 0-99 Not Available [facility]) [address] [facility], [place], [address], 04/29/2022 20:08:17 04/28/20 22 04/29/2022 LIPID PANEL WITH LDL/H DL RATIO comment: HOME AND FAMILY LIVING PROFESSOR Not Available [facility] ([facility]) [address] [facility], [place], [address], 04/29/2022 20:08:17 04/28/20 22 04/29/2022 LIPID PANEL WITH LDL/H DL RATIO LDL/HDL ratio 1.1 ratio 0.0-3. 6 LDL/H DL Ratio Men Women 1/2 Avg.R isk 1.0 1.5 Avg.R isk 3.6 3.2 2X Avg.R isk 6.2 5.0 3X Avg.R isk 8.0 6.1 Not Available [facility] ([facility]) [address] [facility], [place], [address], 04/29/2022 20:08:17 04/28/20 22 04/29/2022 HEMOG LOBIN A1C hemoglobin A1C 5.9 % 4.8-5. 6 above high normal Predi abete s: 5.7 - 6.4 Diabe kiana: >6.4 Glyce mónica contr ol for adult s with diabe kiana: <7.0 Not Available [facility] ([facility]) [address] [facility], [place], [address], 04/29/2022 20:08:18 04/28/20 22 04/29/2022 PROST ATE [...] t be inter prete d as absol little traverse evide nce of the prese nce or absen ce of sheng see se. Not Available [facility] ([facility]) [address] [facility], [place], [address], 04/29/2022 20:08:18 02/25/20 23 02/25/2023 CBC/D /PLT WBC 5.7 x10e3 /uL 3.4-10 .8 Not Available [facility] ([facility]) [address] [facility], [place], [address], 03/04/2023 03:08:05 02/25/20 23 02/25/2023 CBC/D /PLT RBC 4.92 x10e6 /uL 4.14-5 .80 Not Available [facility] ([facility]) [address] [facility], [place], [address], 03/04/2023 03:08:05 02/25/20 23 02/25/2023 CBC/D /PLT hemoglobin 14.6 g/dL 13.0-1 7.7 Not Available [facility] ([facility]) [address] [facility], [place], [address], 03/04/2023 03:08:05 02/25/20 23 02/25/2023 CBC/D /PLT hematocrit 43.9 % 37.5-5 1.0 Not Available [facility] ([facility]) [address] [place], [address], 03/04/2023 03:08:05 02/25/20 23 02/25/2023 CBC/D /PLT MCV 89 fL 79-97 Not Available [facility] ([facility]) [address] [place], [address], 03/04/2023 03:08:05 02/25/20 23 02/25/2023 CBC/D /PLT MCH 29.7 pg 26.6-3 3.0 Not Available [facility] ([facility]) [address] [place], [address], 03/04/2023 03:08:05 02/25/20 23 02/25/2023 CBC/D /PLT MCHC 33.3 g/dL 31.5-3 5.7 Not Available [facility] ([facility]) [address] [facility], [place], [address], 03/04/2023 03:08:05 02/25/20 23 02/25/2023 CBC/D /PLT RDW 12.7 % 11.6-1 5.4 Not Available [facility] ([facility]) [address] [facility], [place], [address], 03/04/2023 03:08:05 02/25/20 23 02/25/2023 CBC/D /PLT platelets 226 x10e3 /uL 150-45 0 Not Available [facility] ([facility]) [address] [facility], [place], [address], 03/04/2023 03:08:05 02/25/20 23 02/25/2023 CBC/D /PLT neutrophils 55 % not estab. Not Available [facility] ([facility]) [address] [facility], [place], [address], 03/04/2023 03:08:05 02/25/20 23 02/25/2023 CBC/D /PLT lymphs 25 % not estab. Not Available [facility] ([facility]) [address] [facility], [place], [address], 03/04/2023 03:08:05 02/25/20 23 02/25/2023 CBC/D /PLT monocytes 12 % not estab. Not Available [facility] ([facility]) [address] [facility], [place], [address], 03/04/2023 03:08:05 02/25/20 23 02/25/2023 CBC/D /PLT eos 6 % not estab. Not Available [facility] ([facility]) [address] [facility], [place], [address], 03/04/2023 03:08:05 02/25/20 23 02/25/2023 CBC/D /PLT basos 1 % not estab. Not Available [facility] ([facility]) [address] [facility] [place], [address], 03/04/2023 03:08:05 02/25/20 23 02/25/2023 CBC/D /PLT immature cells HOME AND FAMILY LIVING PROFESSOR Not Available [facility] ([facility]) [address] [facility], [address], 03/04/2023 03:08:05 02/25/20 23 02/25/2023 CBC/D /PLT neutrophils (absolute) 3.2 x10e3 /uL 1.4-7. 0 Not Available [facility] ([facility]) [address] [facility], [address], 03/04/2023 03:08:05 02/25/20 23 02/25/2023 CBC/D /PLT lymphs (absolute) 1.4 x10e3 /uL 0.7-3. 1 Not Available [facility] ([facility]) [address] [facility], [place], [address], 03/04/2023 03:08:05 02/25/20 23 02/25/2023 CBC/D /PLT monocytes(ab solute) 0.7 x10e3 /uL 0.1-0. 9 Not Available [facility] ([facility]) [address] [place], [address], 03/04/2023 03:08:05 02/25/20 23 02/25/2023 CBC/D /PLT eos (absolute) 0.3 x10e3 /uL 0.0-0. 4 Not Available [facility] ([facility]) [address] [place], [address], 03/04/2023 03:08:05 02/25/20 23 02/25/2023 CBC/D /PLT baso (absolute) 0.0 x10e3 /uL 0.0-0. 2 Not Available [facility] ([facility]) [address] [place], [address], 03/04/2023 03:08:05 02/25/20 23 02/25/2023 CBC/D /PLT immature granulocytes 1 % not estab. Not Available [facility] ([facility]) [address] [facility], [address], 03/04/2023 03:08:05 02/25/20 23 02/25/2023 CBC/D /PLT immature grans (abs) 0.0 x10e3 /uL 0.0-0. 1 Not Available [facility] ([facility]) [address] [facility] [place], [address], 03/04/2023 03:08:05 02/25/20 23 02/25/2023 CBC/D /PLT NRBC HOME AND FAMILY LIVING PROFESSOR Not Available [facility] ([facility]) [address] [facility], [address], 03/04/2023 03:08:05 02/25/20 23 02/25/2023 CBC/D /PLT hematology comments: HOME AND FAMILY LIVING PROFESSOR Not Available [facility] ([facility]) [address] [facility], [address], 03/04/2023 03:08:05 02/25/20 23 02/25/2023 CMP14 +EGFR glucose 91 mg/dL 70-99 Not Available [facility] ([facility]) [address] [facility] [place], [address], 03/04/2023 03:08:06 02/25/20 23 02/25/2023 CMP14 +EGFR BUN 16 mg/dL 8-27 Not Available [facility] ([facility]) [address] [facility] [place], [address], 03/04/2023 03:08:06 02/25/20 23 02/25/2023 CMP14 +EGFR creatinine 1.05 mg/dL 0.76-1 .27 Not Available [facility] ([facility]) [address] [facility], [place], [address], 03/04/2023 03:08:06 02/25/20 23 02/25/2023 CMP14 +EGFR eGFR 81 mL/mi n/1.7 3 >59 Not Available [facility] ([facility]) [address] [facility], [place], [address], 03/04/2023 03:08:06 02/25/20 23 02/25/2023 CMP14 +EGFR BUN/creatini ne ratio 15 10-24 Not Available [facility] ([facility]) [address] [facility], [address], 03/04/2023 03:08:06 02/25/20 23 02/25/2023 CMP14 +EGFR sodium 138 mmol/ L 134-14 4 Not Available [facility] ([facility]) [address] [facility], [address], 03/04/2023 03:08:06 02/25/2002/25/2023 CMP14 +EGFR potassium 5.0 mmol/ L 3.5-5. 2 Not Available [facility] ([facility]) [address] [facility] [place], [address], 03/04/2023 03:08:06 02/25/20 23 02/25/2023 CMP14 +EGFR chloride 102 mmol/ L 96-106 Not Available [facility] ([facility]) [address] [facility], [place], [address], 03/04/2023 03:08:06 02/25/20 23 02/25/2023 CMP14 +EGFR carbon dioxide, total 24 mmol/ L 20-29 Not Available [facility] ([facility]) [address] [facility] [place], [address], 03/04/2023 03:08:06 02/25/20 23 02/25/2023 CMP14 +EGFR calcium 9.4 mg/dL 8.6-10 .2 Not Available [facility] ([facility]) [address] [place], [address], 03/04/2023 03:08:06 02/25/2002/25/2023 CMP14 +EGFR protein, total 6.4 g/dL 6.0-8. 5 Not Available [facility] ([facility]) [address] [facility], [address], 03/04/2023 03:08:06 02/25/20 23 02/25/2023 CMP14 +EGFR albumin 4.3 g/dL 3.9-4. 9 Not Available [facility] ([facility]) [address] [place], [address], 03/04/2023 03:08:06 02/25/2002/25/2023 CMP14 +EGFR globulin, total 2.1 g/dL 1.5-4. 5 Not Available [facility] ([facility]) [address] [facility] [place], [address], 03/04/2023 03:08:06 02/25/2002/25/2023 CMP14 +EGFR A/G ratio 2.0 1.2-2. 2 Not Available [facility] ([facility]) [address] [place], [address], 03/04/2023 03:08:06 02/25/2002/25/2023 CMP14 +EGFR bilirubin, total 0.2 mg/dL 0.0-1. 2 Not Available [facility] ([facility]) [address] [facility] [place], [address], 03/04/2023 03:08:06 02/25/2002/25/2023 CMP14 +EGFR alkaline phosphatase 60 IU/L 44-121 Not Available [facility] ([facility]) [address] [facility] [place], [address], 03/04/2023 03:08:06 02/25/20 23 02/25/2023 CMP14 +EGFR AST (SGOT) 15 IU/L 0-40 Not Available [facility] ([facility]) [address] [place], [address], 03/04/2023 03:08:06 02/25/20 23 02/25/2023 CMP14 +EGFR ALT (SGPT) 19 IU/L 0-44 Not Available [facility] ([facility]) [address] [place], [address], 03/04/2023 03:08:06 02/25/20 23 02/25/2023 FE+TI BC+FE R iron bind.cap.(TI BC) 245 ug/dL 250-45 0 below low normal Not Available [facility] ([facility]) [address] [place], [address], 03/04/2023 03:08:07 02/25/20 23 02/25/2023 FE+TI BC+FE R UIBC 156 ug/dL 111-34 3 Not Available [facility] ([facility]) [address] [place], [address], 03/04/2023 03:08:07 02/25/20 23 02/25/2023 FE+TI BC+FE R iron 89 ug/dL 38-169 Not Available [facility] ([facility]) [address] [place], [address], 03/04/2023 03:08:07 02/25/20 23 02/25/2023 FE+TI BC+FE R iron saturation 36 % 15-55 Not Available [facility] ([facility]) [address] [place], [address], 03/04/2023 03:08:07 02/25/20 23 02/25/2023 FE+TI BC+FE R ferritin 400 NG/mL 30-400 Not Available [facility] ([facility]) [address] [place], [address], 03/04/2023 03:08:07 02/25/20 23 02/25/2023 TSH+F REE T4 TSH 0.697 uIU/m L 0.450- 4.500 Not Available [facility] ([facility]) [address] [facility], [place], [address], 03/04/2023 03:08:08 02/25/20 23 02/25/2023 TSH+F REE T4 T4,free(dire ct) 1.29 NG/dL 0.82-1 .77 Not Available [facility] ([facility]) [address] [place], [address], 03/04/2023 03:08:08 02/25/20 23 02/25/2023 LIPID PANEL cholesterol, total 183 mg/dL 100-19 9 Not Available [facility] ([facility]) [address] [place], [address], 03/04/2023 03:08:09 02/25/20 23 02/25/2023 LIPID PANEL triglyceride s 103 mg/dL 0-149 Not Available [facility] ([facility]) [address] [place], [address], 03/04/2023 03:08:09 02/25/20 23 02/25/2023 LIPID PANEL HDL cholesterol 82 mg/dL >39 Not Available [facility] ([facility]) [address] [place], [address], 03/04/2023 03:08:09 02/25/20 23 02/25/2023 LIPID PANEL VLDL cholesterol daisy 18 mg/dL 5-40 Not Available [facility] ([facility]) [address] [place], [address], 03/04/2023 03:08:09 02/25/20 23 02/25/2023 LIPID PANEL LDL chol calc ([facility]) 83 mg/dL 0-99 Not Available [facility] (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) [address] [place], [address], 03/04/2023 03:08:09 02/25/2002/25/2023 VITAM IN B12 AND FOLAT E vitamin B12 277 pg/mL 232-12 45 Not Available [facility] ([facility]) [address] [place], [address], 03/04/2023 03:08:10 02/25/2002/25/2023 VITAM IN B12 AND FOLAT E folate (folic acid), serum 14.4 NG/mL >3.0 A serum folat e leanne ntrat ion of less than 3.1 ng/mL is consi dered to repre sent clini daisy defic iency . Not Available [facility] ([facility]) [address] [place], [address], 03/04/2023 03:08:10 02/25/2002/25/2023 TESTO STERO NE,FR EE AND TOTAL testosterone 397 NG/dL 264-91 6 Adult male refer ence inter kai is based on a popul ation of healt hy nonob nadine males (BMI <30) betwe en 19 and 39 years old. Nano storey et.al . JCEM 2017, 102;1 161-1 173. PMID: 58869 103. Not Available [facility] ([facility]) [address] [place], [address], 03/04/2023 03:08:10 02/25/2003/04/2023 TESTO STERO NE,FR EE AND TOTAL free testosterone (direct) 4.7 pg/mL 6.6-18 .1 below low normal Not Available [facility] ([facility]) [address] [place], [address], 03/04/2023 03:08:10 02/25/20 23 02/25/2023 HEMOG LOBIN A1C hemoglobin A1C 5.8 % 4.8-5. 6 above high normal Predi abete s: 5.7 - 6.4 Diabe kiana: >6.4 Glyce mónica contr ol for adult s with diabe kiana: <7.0 Not Available [facility] ([facility]) [address] [facility], [place], [address], 03/04/2023 03:08:11 02/25/20 23 02/26/2023 VITAM IN [...] and D. Mary jain [place]: [facility] . 2. Barrie subramanian MF, Jian martel [place], Britta off-F errar i JUARES, et al. Evalu ation , treat ment, and preve ntion of vitam in D defic iency : an Endoc rine Socie ty clini daisy pract ice guide line. JCEM. 2010; 96(7) :1911 -30. Not Available [facility] ([facility]) [address] [facility], [place], [address], 03/04/2023 03:08:12 02/25/20 23 02/25/2023 PROGE STERO NE progesterone 0.2 NG/mL 0.0-0. 5 Not Available [facility] ([facility]) [address] [facility], [place], [address], 03/04/2023 03:08:13 02/25/20 23 02/27/2023 ESTRO GENS, TOTAL estrogens, total 86 pg/mL 56-213 Prepu cristian l <40 Not Available [facility] ([facility]) [address] [facility], [place], [address], 03/04/2023 03:08:14 02/25/20 23 02/25/2023 SEX HORM ISAURO NG GLOB, SERUM sex horm binding glob, serum 51.2 nmol/ L 19.3-7 6.4 Not Available [facility] ([facility]) [address] [facility], [place], [address], 03/04/2023 03:08:15 05/05/20 22 05/04/2022 LDCT, chest , for lung cance r [facility] [address] [place] [address] Phone: Fax: Name: LAVELL MONTES Exam Date: 2021 : [birth year] 63 Age 61 Gender : M Access ion: [id number] Physic haleigh: CORNELL HANSEN [facility] Facili ty HSV: Outpat ient Exam: CT [...] you for referr ing LAVELL MONTES to [facility]. Legall y authen ticate d by POPE ANDRÉS Zhu DO 2021-06 16:10: 11 CC'ed Logic: Orderi ng Provid er: JOSESITO SARABIA CC Provid er: JOSESITO SARABIA Attend ing Provid er: JOSESITO SARABIA Referr ing Provid er: JOSESITO SARABIA Admitt ing Provid er: JOSESITO SARABIA [email or web address] [facility] (Radiology) [address], [place], [address], 05/12/2022 12:22:00 Result Notes None recorded. 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 Medical [...] Updated DateTime 3 182.88 cm 30.5 kg/m2 488381. 28 g 98.2 [degF] 98 % 98 % 75 /min 16 /min 124 mm[Hg] 74 mm[Hg] Kolton Parminderorlando n [place] - [facility] & [place] 3 09:44:45 Date Recorded Body weight Body mass index (BMI) Body height Body temperature Oxygen saturation Oxygen saturation in Arterial blood by Pulse oximetry Heart rate Systolic blood pressure Diastolic blood pressure Provider Name and Address Organization Details Last Updated DateTime 2 22830.3 3 g 29 kg/m2 182.88 cm 97.8 [degF] 97 % 97 % 90 /min 133 mm[Hg] 81 mm[Hg] Cammie Restrepo [place] - [facility] & [place] 2 12:09:40 Date Recorded Body height Body mass index (BMI) Body weight Body temperature Oxygen saturation Oxygen saturation in Arterial blood by Pulse oximetry Heart rate Systolic blood pressure Diastolic blood pressure Provider Name and Address Organization Details Last Updated DateTime 2 182.88 cm 29.6 kg/m2 54086.2 9 g 97 [degF] 95 % 95 % 67 /min 120 mm[Hg] 76 mm[Hg] Cammie HI [facility] & [place] 2 08:19:23 Social History Question Answer Notes LastModified by [email or web address] Details LastModified Time Tobacco Smoking Status Current Every Day Smoker Cammie pham, [place] [facility] & [place] 04/06/2022 12:09:59 Do You Have An Advance Directive? No Information not available 04/06/2022 Are You Blind Or Do You Have Difficulty Seeing? No Information not available 04/06/2022 Which Illicit Or Recreational Drugs Have You Used? JUANITA [email or web address] Information not available 02/24/2023 What Was The Date Of Your Most Recent Tobacco Screening? 02/04/2022 [email or web address] Information not available 02/17/2023 Are You Passively Exposed To Smoke? Yes Information no t available 04/06/2022 How Much Tobacco Do You Smoke? 1 PPD Information not available 04/06/2022 How Many Years Have You Smoked Tobacco? 40 Information not available 04/06/2022 Sex: Unknown Functional Status Question Answer Note LastModified by [employer] Details LastModified Time Do you use any illicit or recreational drugs? Yes [email or web address] Information not available 02/24/2023 What is your level of alcohol consumption? Moderate Information not available 04/06/2022 What is your exercise level? None Information not available 04/06/2022 Mental Status Question Answer Note LastModified by Organization D etails LastModified Time Do you feel stressed (tense, restless, nervous, or anxious, or unable to sleep at night)? [id number] Information not available 04/06/2022 Family History Relationship Description Onset Age of this Age Resolved Age Notes LastModified by Organization Details LastModified Time Father Renal cell carcinoma deceas ed [email or web address] Not available 04/23/2022 15:08:59 Mother Insertion of arterial stent [email or web address] Not available 2021 15:09:13 Medical History Condition Response Other Y Ear or Hearing Problems Y Arthritis Y Immunizations Vaccine Type Date Status Note Provider Nam e and Address Organization Details Recorded Time Influenza, split virus, trivalent, PF 04/14/2017 completed Millie pham, [place] - [facility] & [place] 04/23/2022 15:07:51 Influenza, split virus, trivalent, PF 04/12/2016 completed Millie pham, [place] - [facility] - [place] & [place] 04/23/2022 15:07:51 Past Encounters Encounter ID Performer Location Encounter Start Date Encounter Closed Date Diagnosis/Indication Diagnosis SNOMED-CT Code Diagnosis ICD10 Code Diagnosis Note [id number] [address] 04/06/2022 11:58:22 04/06/2022 16:44:41 Abrasion of left cornea 7949379634 5274197 S05.02XA take prophylact ic abx dropswarm compresses wear safety glassesinc rease water intake Reactive a irway disease 7239130612 06 J45.909 take medication as prescribed monitor for worsening symptomsal buterol PRN [id number] ELIU Campuz[address] [address] 04/28/2022 07:58:05 04/28/2022 09:14:10 Adult health examination 463102574 Z00.00 educated on preventati ve care measuresne eds tetanuscol onoscopy UTDdue for LDCTtriple AAA screening at age 66due for Updated bloodworkb lood drawn from the right AC by Cammie Restrepo CMA, patient tolerated well. Screening for malignant neoplasm of prostate 957460666 Z12.5 Change in skin lesion 39 2160256 L98.9 Spasm of back muscles 20 4719343 M62.830 Screening for malignant neoplasm of respiratory tract 567118195 Z12.2 15 cigs a day, for the past 40 yearsencou raged smoking cessation Mixed hyperlipidemia 267 687978 E78.2 Body mass index 25-29 - overweight 945406106 Z68.29 [id number] Cornell Hansen APRN [facility] [address] [place], [place] [address] 02/24/2023 09:38:26 02/24/2023 12:52:16 Acute otitis externa 24626933 H60.502 use antibiotic s as prescribed monitor for worsening symptoms. Reactive a irway disease 9367634538 06 J45.909 take medication as prescribed monitor for worsening symptomsal buterol PRN [id number] Mixed hyperlipidemia 267 659298 E78.2 Patient advised to exercise, eat a prudent diet and lose weight as appropriat e. Fatigue 86273428 R53.83 Patient with fatigue and malaise . Advised patient to eat properly, get adequate sleep and attempt to exercise. I recommend {{no further testing te sting as per orders below to evaluate for:*}} . Patient to follow up as directed. Essential hypertension 61119887 I10 educated on goal of less than 130/90advi sed low sodium diet, healthy lifestyle including exercise as ablecontin ue current medication regimenER if any symptoms such as chest pain, shortness of breath Health Concerns Section Related Observation LastModified by Organization Detai ls LastModified Time None Recorded Concern Status LastModified by Organization Details LastModified Time None Recorded Advance Directives Directive N: Payers Insurance Date Sequence Insurance Name Policy Number Policy Galicia Covered Member ID Galicia Member ID Guarantor Name 01/08/2024 1 [employer] - OPEN ACCESS - NATIONAL (POS) [id number] Lavell Miles [id number] Lavell Miles Notes Date Note Type Note [...] or maintenance inhalers. Cornell Hansen APRN [address], [place], [address], [facility] 04/07/2022 08:08:56 04/28/2022 text/html Annual WellnessReported bypatient.Diet [...] disorders Hearing:no loss of hearing Vision:no vision problemsNotes:[place] [address], 10 year follow up recommendeddue for Tetanus shot today, unable to give through [facility] encouraged to go to [facility] due, smokes 15 cigarettes a day for the past 40 yearsHas a lesion on posterior thigh that will occasionally hurt and bled, has been present for 1 years and will not heal.Has TMJ discomfort, grinds teeth at night, does not see a dentist regularly and no road crossing guard.Up once a night to urinate Cornell Hansen APRN [address], [place], [address], [facility] & [place] 04/30/2022 08:10:15 02/24/2023 text/html 62 y/o male [...] on albuterol inhaler and rosuvastatin. Cornell Hansen, COMMERCIAL LEASE ADMINISTRATOR [address] [facility], [place], [address], [facility] & [place] 02/24/2023 16:43:09
--- NOTE | 2024-11-01 08:42 | A.OFFVIS_ITS ---
[facility] Disclaimer: The information contained in this section may have been updated after the patient was seen, as this information can be updated by other users. Medical History Diabetes mellitus, type 2 Hyperlipidemia Atrial fibrillation Surgical History H/O abdominal surgery History of cholecystectomy Family History Other Cancer of kidney Family history of COPD (chronic obstructive pulmonary disease) Lung cancer Social History Smoking Status: Current every day smoker tobacco type: cigarettes packs per day: 1 alcohol intake: never substance use type: denies use current occupational status: other Travel in the last 8 weeks?: None household members: spouse housing: house current occupational exposures/hazards: No caffeine: Yes PM Subjective & Objective Subjective Subjective:: Patient is a pleasant 63-year-old male who presents today for his 1 month medication refill. Today he rates his pain a 6 out of 10. He denies any new falls or changes from our last appointment. He states that he still continues to have the chronic back pain, joint pain and bilateral jaw pain. At our last visit we did schedule him for TMJ joint injections bilaterally however her insurance did recently denied this wanting additional documentation. Patient does state that he is still interested in proceeding forward with these injections. Patient does continue to have significant pain in and around his jaw and bilateral ears. Patient describes a lot of pressure and aching sensation. He states he still continues to have ringing in his ears and overall tired sensation into his jaws. Patient has been seen ear nose and throat providers for longer than 6 months with no additional changes. Patient sees Angie david in [place]. Patient was recommended by this provider for possible Botox injections for TMJ dysfunction or TMJ joint injections. Patient is currently managed with [place] 10 mg 3 times a day methocarbamol 750 mg 3 times a day with compounded cream. He denies any side effects. His Thang has been reviewed and is appropriate. Review of Systems: General: No recent weight changes, no fever, no sleep disturbances Respiratory: No cough, no shortness of air, no recurring pulmonary infections Cardiovascular/peripheral vascular: No chest pain, no palpitations, no edema, no shortness of breath Gastrointestinal: No new onset incontinence, normal bowel movements reported Genitourinary: No new onset incontinence Musculoskeletal: Chronic back pain, jaw pain, ear pain Psychiatric: [Normal mood/affect] Neurological: [Denies weakness in extremities], [denies balance issues] Pain at rest (0-10 scale): 6 Objective Objective:: Physical Exam: General: Alert and oriented x3, no acute distress, pleasant and cooperative Lungs: Respirations even and unlabored, symmetrical chest expansion Eyes: PERRL Musculoskeletal: Flexion and extension of lumbar [spine] somewhat guarded secondary to pain, [antalgic gait noted] Neurological: Speech clear, no gross sensory deficit Has patient had previous pain injection?: No Conservative treatment options previously tried: NSAIDS (Longer than 12 weeks) Length of treatment: Longer than 6 months, Home exercise plan Length of treatment: Longer than 12 weeks, Massage (Longer than 12 weeks) and Other (Please Describe) (Weight loss) Meds Home Medications and Allergies Home Medications ?Medication ?Instructions ?Recorded ?Confirmed ?Type aspirin 81 mg tablet,delayed 81 mg PO DAILY heart health 06/06/20 11/01/24 History release celecoxib 200 mg capsule 200 mg PO DAILY Pain 06/06/20 11/01/24 History gabapentin 100 mg capsule 100 mg PO DAILY nerve pain 06/06/20 11/01/24 History ranitidine HCl 150 mg tablet 150 mg PO DAILY GERD 06/06/20 11/01/24 History sildenafil (pulm.hypertension) 20 20 mg PO DAILY erectile dysfunction 06/06/20 11/01/24 History mg tablet diclofenac sodium 75 mg 75 mg PO TID Pain 10/02/21 11/01/24 History tablet,delayed release famotidine 20 mg tablet 20 mg PO TID . #90 tabs 10/02/21 11/01/24 Rx ibuprofen 800 mg tablet 800 mg PO TID Pain #90 tabs 10/02/21 11/01/24 Rx apixaban 5 mg tablet 5 mg PO DAILY Blood thinner 01/29/22 11/01/24 History metoprolol tartrate 100 mg tablet 100 mg PO BID BLOOD PRESSURE 01/29/22 11/01/24 History rosuvastatin 5 mg tablet 5 mg PO HS Cholesterol 01/29/22 11/01/24 History cyclobenzaprine 10 mg tablet 10 mg PO TID . #90 tabs 03/26/22 11/01/24 Rx bupropion HCl 150 mg 24 hr tablet, 150 mg PO DAILY 07/03/24 11/01/24 History extended release methocarbamol 750 mg tablet 750 mg PO TID Pain #90 tabs 09/28/24 11/01/24 Rx hydrocodone 10 mg-acetaminophen 1 tab PO TID #90 tabs 11/01/24 Rx 325 mg tablet New Prescriptions to Start Prescriptions: hydrocodone-acetaminophen KavonJacquelin Allergies Allergy/AdvReac Type Severity Reaction Status Date / Time No Known Drug Allergies Allergy Verified 05/08/22 10:10 Assessment and Plan *Assessment and plan (1) Lumbar radiculopathy: Status: Chronic Category: Medical Code(s): M54.16 - Radiculopathy, lumbar region (2) TMJPDS (temporomandibular joint pain dysfunction syndrome): Status: Acute Category: Medical Code(s): M26.629 - Arthralgia of temporomandibular joint, unspecified side Plan I will refill his Georgetown and provid 1 month supply of this medication. Patient was given a 3-month supply of his methocarbamol and does not need refills at this time. I did review over with the patient regarding the insurance denial. Patient has seen ear nose and throat specialty for longer than 6 months related to the jaw and ear pain. Patient had no acute/significant findings to explain the ongoing issues and was recommended by the specialist for possible Botox injections for TMJ dysfunction or TMJ joint injections. I did review over again the risk and benefits of these procedures and he would like to proceed forward with this plan of care. Patient has tried oral medications, heat and ice, topicals, mouth guards and other conservative treatment with no additional changes. Patient has been given physician guided exercises from the ear nose and throat provider to try to relieve the jaw pain and pressure with no additional changes. He has had this pain for longer than 6 months and we have been discussing the possibility of TMJ joint injections at our office for longer than a year. Patient will be submitted for bilateral TMJ joint injections. These will be done by Dr. Wright without fluoroscopic or ultrasound guidance. Patient will return to clinic in 1 month for reevaluation of symptoms and plan of care.\ Risks and benefits of the medication have been explained in detail to the patient. The patient does understand the risk of dependence on the medication when given over a prolonged period. Patient has been advised of risks of oversedation with the prescribed medication. Narcan has been offered to the paitent in the event of oversedation. Patient has been advised that a family member should also be educated regarding administration of Narcan. The patient has been advised to consult with his/her primary care provider and pharmacist regarding drug-drug interaction of medications currently prescribed. Patient has been prescribed a controlled substance after being counseled on the medication, medication safety, and possible side effects. Opioid contract was reviewed and signed by the patient, and that they have agreed to all of the terms set forth by our compliance program. A UDS is needed to verify patient's compliance with our office pain contract. This is ordered based off specific treatments related to chronic pain with the potential to abuse certain medications. Patient has been instructed to contact the clinic with any concerns before the next appointment. Dr. Wright has reviewed this note and agrees with this plan of care. This note was dictated using voice recognition software and make contain errors or omissions. Injection Volume to be Injected: 1 Is Injection Diagnostic or Therapeutic: Diagnostic Have you had this Injection before?: No Conservative treatment options previously tried: NSAIDS (Longer than 12 weeks), Home exercise plan, Massage (Longer than 12 weeks) and Other (Please Describe) (Weight loss) How Many Days, Months, Years Did You Do Therapy- Be Specific: Longer than 1 year Do You Have To Modify Any Activities Related to Pain: Yes How Many Days, Months, Years Have You Had This Pain?: Longer than 1 year
[2024-11-01 08:51] VITALS: BP 129/90; PULSE 63; RESP 14; O2SAT 99; BMI 30.5
== END 2024-11-01 23:59 | disposition home or self-care (01) ==
PROVIDERS: PCP Nurse Practitioner Family; Visit Provider Nurse Practitioner Family
DX: M54.16 Radiculopathy, lumbar region (principal); M26.629 Arthralgia of temporomandibular joint, unspecified side; F17.210 Nicotine dependence, cigarettes, uncomplicated
CPT/HCPCS: 99212; G0463

== ENCOUNTER 2024-11-30 09:14 | Outpatient (POV) | payer BC, SELFPAY ==
--- OUTSIDE RECORDS SUMMARY | 2024-11-30 09:23 | XMS_ITS | Data Portability ---
Author Organization [place] - [facility] Address [address] [place] [address] Care Team Providers Care Director Of Resource Development Name Role Phone CORNELL HANSEN Primary Care Provider Assessment No assessment recorded. Plan of Treatment Reminders Order Date Submit Date Provider Last Modified By Organization Details Last Modified Time Details Appointments None recorded. Lab lipid panel, serum 2022 023 [email or web address] [facility], [address], [address], [place], [address], 3 15:01:06 CBC w/ diff 2022 023 [email or web address] 0 [facility], [address], [address], [place], [address], 3 15:01:05 CMP, serum or plasma 2022 023 [email or web address] 0 [facility], [address], [address], [place], [address], 3 15:01:06 TSH + free T4, serum 2022 023 [email or web address] 0 [facility], [address], [address], [place], [address], 3 15:01:06 HbA1c (hemoglobin A1c), blood 2022 023 [email or web address] 0 [facility], [address], [address], [place], [address], 3 15:01:06 testosteron e, free + total, serum 2022 023 [email or web address] 0 [facility], [address], [address], [place], [address], 3 15:01:06 shbg (sex hormone-bin ding globulin), serum 2022 023 [email or web address] 0 [facility], [address], [address], [place], [address], 3 15:01:06 progesteron e, serum 2022 023 [email or web address] 0 [facility], [address], [address], [place], [address], 3 15:01:07 vitamin D, 25-hydroxy, total, serum 2022 023 [email or web address] 0 [facility], [address], [address], [place], [address], 3 15:01:07 estrogen, total, serum 2022 023 [email or web address] 0 [facility], [address], [address], [place], [address], 3 15:01:07 vitamin B12 + folate, serum or blood 2022 023 [email or web address] 0 [facility], [address], [place], [address], 3 15:01:07 iron + TIBC + ferritin, serum 2022 023 [email or web address] 0 [facility], [address], [place], [address], 3 15:01:07 lipid panel, serum 2021 022 [place] [facility], [address], [place], [address], 20:08:17 CBC w/ diff 2021 022 GR[place] [facility], [address], [place], [address], 20:08:15 CMP, serum or plasma 2021 022 GR[place] [facility], [address], [place], [address], 20:08:16 TSH + free T4, serum 2021 022 [place] [facility], [address], [place], [address], 20:08:16 PSA, total, serum or plasma 2021 022 [place] [facility], [address], [place], [address], 20:08:18 HbA1c (hemoglobin A1c), blood 2021 022 [place] [facility], [address], [place], [address], 20:08:[address] referral 2021 022 [email or web address] [facility], [address], [place], [address], 16:54:38 Procedures None recorded. Surgeries None recorded. Imaging LDCT, chest, for lung cancer screening 2021 [facility], [address], [place], [address], 11/15/202 2 18:26:53 Medication Orders rosuvastati n 5 mg tablet 2022 023 [facility], [address] [place], [address], 3 10:47:01 Ciprodex 0.3 %-0.1 % ear drops,suspe nsion 2022 023 [facility], [address] [place], [address], 3 10:46:23 prednisone 10 mg tablets in a dose pack 2022 023 [facility], [address] [place], [address], 3 10:46:23 albuterol sulfate HFA 90 mcg/actuati on aerosol inhaler 2022 023 [facility], [address] [place], [address], 3 10:47:01 cyclobenzap rine 10 mg tablet 2021 022 [email or web address] [facility], [address] [place], [address], 3 09:45:29 polymyxin B sulfate 10,000 unit-trimet hoprim 1 mg/mL eye drops 2021 022 [email or web address] [facility], [address] [place], [address], 2 09:02:30 albuterol sulfate HFA 90 mcg/actuati on aerosol inhaler 2021 022 [facility], [address] [place], [address], 2 12:31:47 Patient TargetsNo targets recorded. 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 Referral for C hange in skin lesion Referring Physician: Cornell Hansen, Family Medicine, Encounter Date: 04/28/2022 Results Created Date Observation Date Name Description Value Unit Range Abnormal Flag Note LastModifiedBy Organization Detail LastModifiedTime 04/28/2004/29/2022 CBC/D /PLT WBC 5.9 x10e3 /uL 3.4-10 .8 Not Available [facility] ([facility]) [address] [place], [address], 04/29/2022 20:08:15 04/28/20 22 04/29/2022 CBC/D /PLT RBC 5.35 x10e6 /uL 4.14-5 .80 Not Available [facility] ([facility]) [address] [place], [address], 04/29/2022 20:08:15 04/28/20 22 04/29/2022 CBC/D /PLT hemoglobin 15.6 g/dL 13.0-1 7.7 Not Available [facility] ([facility]) [address] [place], [address], 04/29/2022 20:08:15 04/28/20 22 04/29/2022 CBC/D /PLT hematocrit 48.4 % 37.5-5 1.0 Not Available [facility] ([facility]) [address] [place], [address], 04/29/2022 20:08:15 04/28/20 22 04/29/2022 CBC/D /PLT MCV 91 fL 79-97 Not Available [facility] ([facility]) [address] [place], [address], 04/29/2022 20:08:15 04/28/20 22 04/29/2022 CBC/D /PLT MCH 29.2 pg 26.6-3 3.0 Not Available [facility] ([facility]) [address] [facility], [place], [address], 04/29/2022 20:08:15 04/28/20 22 04/29/2022 CBC/D /PLT MCHC 32.2 g/dL 31.5-3 5.7 Not Available [facility] ([facility]) [address] [facility], [place], [address], 04/29/2022 20:08:15 04/28/20 22 04/29/2022 CBC/D /PLT RDW 12.6 % 11.6-1 5.4 Not Available [facility] ([facility]) [address] [facility], [place], [address], 04/29/2022 20:08:15 04/28/20 22 04/29/2022 CBC/D /PLT platelets 229 x10e3 /uL 150-45 0 Not Available [facility] ([facility]) [address] [facility], [place], [address], 04/29/2022 20:08:15 04/28/20 22 04/29/2022 CBC/D /PLT neutrophils 53 % not estab. Not Available [facility] ([facility]) [address] [facility], [place], [address], 04/29/2022 20:08:15 04/28/20 22 04/29/2022 CBC/D /PLT lymphs 29 % not estab. Not Available [facility] ([facility]) [address] [facility], [place], [address], 04/29/2022 20:08:15 04/28/20 22 04/29/2022 CBC/D /PLT monocytes 11 % not estab. Not Available [facility] ([facility]) [address] [facility], [place], [address], 04/29/2022 20:08:15 04/28/20 22 04/29/2022 CBC/D /PLT eos 6 % not estab. Not Available [facility] ([facility]) [address] [place], [address], 04/29/2022 20:08:15 04/28/20 22 04/29/2022 CBC/D /PLT basos 1 % not estab. Not Available [facility] ([facility]) [address] [place], [address], 04/29/2022 20:08:15 04/28/20 22 04/29/2022 CBC/D /PLT immature cells [employer]ER Not Available [facility] [address] [place], [address], 04/29/2022 20:08:15 04/28/20 22 04/29/2022 CBC/D /PLT neutrophils (absolute) 3.2 x10e3 /uL 1.4-7. 0 Not Available [facility] ([facility]) [address] [place], [address], 04/29/2022 20:08:15 04/28/20 22 04/29/2022 CBC/D /PLT lymphs (absolute) 1.7 x10e3 /uL 0.7-3. 1 Not Available [facility] ([facility]) [address] [place], [address], 04/29/2022 20:08:15 04/28/20 22 04/29/2022 CBC/D /PLT monocytes(ab solute) 0.7 x10e3 /uL 0.1-0. 9 Not Available [facility] ([facility]) [address] [place], [address], 04/29/2022 20:08:15 04/28/20 22 04/29/2022 CBC/D /PLT eos (absolute) 0.3 x10e3 /uL 0.0-0. 4 Not Available [facility] ([facility]) [address] [place], [address], 04/29/2022 20:08:15 04/28/20 22 04/29/2022 CBC/D /PLT baso (absolute) 0.0 x10e3 /uL 0.0-0. 2 Not Available [facility] ([facility]) [address] [facility], [place], [address], 04/29/2022 20:08:15 04/28/20 22 04/29/2022 CBC/D /PLT immature granulocytes 0 % not estab. Not Available [facility] ([facility]) [address] [facility], [place], [address], 04/29/2022 20:08:15 04/28/20 22 04/29/2022 CBC/D /PLT immature grans (abs) 0.0 x10e3 /uL 0.0-0. 1 Not Available [facility] ([facility]) [address] [place], [address], 04/29/2022 20:08:15 04/28/20 22 04/29/2022 CBC/D /PLT NRBC [employer]ER Not Available [facility] ([facility]) [address] [place], [address], 04/29/2022 20:08:15 04/28/20 22 04/29/2022 CBC/D /PLT hematology comments: [employer]ER Not Available [facility]) [address] [place], [address], 04/29/2022 20:08:15 04/28/20 22 04/29/2022 TSH+F REE T4 TSH 0.650 uIU/m L 0.450- 4.500 Not Available [facility] ([facility]) [address] [place], [address], 04/29/2022 20:08:16 04/28/20 22 04/29/2022 TSH+F REE T4 T4,free(dire ct) 1.25 NG/dL 0.82-1 .77 Not Available [facility] ([facility]) [address] [place], [address], 04/29/2022 20:08:16 04/28/20 22 04/29/2022 COMP. METAB OLIC PANEL (14) glucose 97 mg/dL 70-99 Not Available [facility] ([facility]) [address] [place], [address], 04/29/2022 20:08:16 04/28/20 22 04/29/2022 COMP. METAB OLIC PANEL (14) BUN 15 mg/dL 8-27 Not Available [facility] ([facility]) [address] [facility], [place], [address], 04/29/2022 20:08:16 04/28/20 22 04/29/2022 COMP. METAB OLIC PANEL (14) creatinine 1.07 mg/dL 0.76-1 .27 Not Available [facility] ([facility]) [address] [facility], [place], [address], 04/29/2022 20:08:16 04/28/20 22 04/29/2022 COMP. METAB OLIC PANEL (14) eGFR 79 mL/mi n/1.7 3 >59 Not Available [facility] ([facility]) [address] [facility], [place], [address], 04/29/2022 20:08:16 04/28/20 22 04/29/2022 COMP. METAB OLIC PANEL (14) BUN/creatini ne ratio 14 10-24 Not Available [facility]) [address] [facility], [place], [address], 04/29/2022 20:08:16 04/28/20 22 04/29/2022 COMP. METAB OLIC PANEL (14) sodium 141 mmol/ L 134-14 4 Not Available [facility] ([facility]) [address] [place], [address], 04/29/2022 20:08:16 04/28/20 22 04/29/2022 COMP. METAB OLIC PANEL (14) potassium 5.0 mmol/ L 3.5-5. 2 Not Available [facility] ([facility]) [address] [place], [address], 04/29/2022 20:08:16 04/28/20 22 04/29/2022 COMP. METAB OLIC PANEL (14) chloride 104 mmol/ L 96-106 Not Available [facility] ([facility]) [address] [place], [address], 04/29/2022 20:08:16 04/28/20 22 04/29/2022 COMP. METAB OLIC PANEL (14) carbon dioxide, total 27 mmol/ L 20-29 Not Available [facility] ([facility]) [address] [place], [address], 04/29/2022 20:08:16 04/28/20 22 04/29/2022 COMP. METAB OLIC PANEL (14) calcium 9.4 mg/dL 8.6-10 .2 Not Available [facility] ([facility]) [address] [place], [address], 04/29/2022 20:08:16 04/28/20 22 04/29/2022 COMP. METAB OLIC PANEL (14) protein, total 6.5 g/dL 6.0-8. 5 Not Available [facility] ([facility]) [address] [place], [address], 04/29/2022 20:08:16 04/28/20 22 04/29/2022 COMP. METAB OLIC PANEL (14) albumin 4.2 g/dL 3.8-4. 9 Not Available [facility] ([facility]) [address] [place], [address], 04/29/2022 20:08:16 04/28/20 22 04/29/2022 COMP. METAB OLIC PANEL (14) globulin, total 2.3 g/dL 1.5-4. 5 Not Available [facility] ([facility]) [address] [place], [address], 04/29/2022 20:08:16 04/28/20 22 04/29/2022 COMP. METAB OLIC PANEL (14) A/G ratio 1.8 1.2-2. 2 Not Available [facility] ([facility]) [address] [facility], [place], [address], 04/29/2022 20:08:16 04/28/20 22 04/29/2022 COMP. METAB OLIC PANEL (14) bilirubin, total 0.6 mg/dL 0.0-1. 2 Not Available [facility] ([facility]) [address] [place], [address], 04/29/2022 20:08:16 04/28/20 22 04/29/2022 COMP. METAB OLIC PANEL (14) alkaline phosphatase 54 IU/L 44-121 Not Available [facility] [address] [facility], [place], [address], 04/29/2022 20:08:16 04/28/20 22 04/29/2022 COMP. METAB OLIC PANEL (14) AST (SGOT) 19 IU/L 0-40 Not Available [facility] ([facility]) [address] [place], [address], 04/29/2022 20:08:16 04/28/20 22 04/29/2022 COMP. METAB OLIC PANEL (14) ALT (SGPT) 29 IU/L 0-44 Not Available [facility] ([facility]) [address] [facility], [place], [address], 04/29/2022 20:08:16 04/28/20 22 04/29/2022 LIPID PANEL WITH LDL/H DL RATIO cholesterol, total 174 mg/dL 100-19 9 Not Available [facility] ([facility]) [address] [facility], [place], [address], 04/29/2022 20:08:17 04/28/20 22 04/29/2022 LIPID PANEL WITH LDL/H DL RATIO triglyceride s 111 mg/dL 0-149 Not Available [facility]) [address] [facility], [place], [address], 04/29/2022 20:08:17 04/28/20 22 04/29/2022 LIPID PANEL WITH LDL/H DL RATIO HDL cholesterol 74 mg/dL >39 Not Available [facility]) [address] [facility], [place], [address], 04/29/2022 20:08:17 04/28/20 22 04/29/2022 LIPID PANEL WITH LDL/H DL RATIO VLDL cholesterol daisy 19 mg/dL 5-40 Not Available [facility]) [address] [facility], [place], [address], 04/29/2022 20:08:17 04/28/20 22 04/29/2022 LIPID PANEL WITH LDL/H DL RATIO LDL chol calc ([facility]) 81 mg/dL 0-99 Not Available [facility]) [address] [facility], [place], [address], 04/29/2022 20:08:17 04/28/20 22 04/29/2022 LIPID PANEL WITH LDL/H DL RATIO comment: [employer] Not Available [facility] ([facility]) [address] [facility], [place], [address], 04/29/2022 20:08:17 04/28/20 22 04/29/2022 LIPID PANEL WITH LDL/H DL RATIO LDL/HDL ratio 1.1 ratio 0.0-3. 6 LDL/H DL Ratio Men Women 1/2 Avg.R isk 1.0 1.5 Avg.R isk 3.6 3.2 2X Avg.R isk 6.2 5.0 3X Avg.R isk 8.0 6.1 Not Available [facility] ([facility]) [address] [facility], [place], [address], 04/29/2022 20:08:17 04/28/20 22 04/29/2022 HEMOG LOBIN A1C hemoglobin A1C 5.9 % 4.8-5. 6 above high normal Predi abete s: 5.7 - 6.4 Diabe kiana: >6.4 Glyce mónica contr ol for adult s with diabe kiana: <7.0 Not Available [facility] ([facility]) [address] [facility], [place], [address], 04/29/2022 20:08:18 04/28/20 22 04/29/2022 PROST ATE [...] t be inter prete d as absol winter evide nce of the prese nce or absen ce of sheng see se. Not Available [facility] ([facility]) [address] [facility], [place], [address], 04/29/2022 20:08:18 02/25/20 23 02/25/2023 CBC/D /PLT WBC 5.7 x10e3 /uL 3.4-10 .8 Not Available [facility] ([facility]) [address] [facility], [place], [address], 03/04/2023 03:08:05 02/25/20 23 02/25/2023 CBC/D /PLT RBC 4.92 x10e6 /uL 4.14-5 .80 Not Available [facility] ([facility]) [address] [facility], [place], [address], 03/04/2023 03:08:05 02/25/20 23 02/25/2023 CBC/D /PLT hemoglobin 14.6 g/dL 13.0-1 7.7 Not Available [facility] ([facility]) [address] [facility], [place], [address], 03/04/2023 03:08:05 02/25/20 23 02/25/2023 CBC/D /PLT hematocrit 43.9 % 37.5-5 1.0 Not Available [facility] ([facility]) [address] [place], [address], 03/04/2023 03:08:05 02/25/20 23 02/25/2023 CBC/D /PLT MCV 89 fL 79-97 Not Available [facility] ([facility]) [address] [place], [address], 03/04/2023 03:08:05 02/25/20 23 02/25/2023 CBC/D /PLT MCH 29.7 pg 26.6-3 3.0 Not Available [facility] ([facility]) [address] [place], [address], 03/04/2023 03:08:05 02/25/20 23 02/25/2023 CBC/D /PLT MCHC 33.3 g/dL 31.5-3 5.7 Not Available [facility] ([facility]) [address] [facility], [place], [address], 03/04/2023 03:08:05 02/25/20 23 02/25/2023 CBC/D /PLT RDW 12.7 % 11.6-1 5.4 Not Available [facility] ([facility]) [address] [facility], [place], [address], 03/04/2023 03:08:05 02/25/20 23 02/25/2023 CBC/D /PLT platelets 226 x10e3 /uL 150-45 0 Not Available [facility] ([facility]) [address] [facility], [place], [address], 03/04/2023 03:08:05 02/25/20 23 02/25/2023 CBC/D /PLT neutrophils 55 % not estab. Not Available [facility] ([facility]) [address] [facility], [place], [address], 03/04/2023 03:08:05 02/25/20 23 02/25/2023 CBC/D /PLT lymphs 25 % not estab. Not Available [facility] ([facility]) [address] [facility], [place], [address], 03/04/2023 03:08:05 02/25/20 23 02/25/2023 CBC/D /PLT monocytes 12 % not estab. Not Available [facility] ([facility]) [address] [facility], [place], [address], 03/04/2023 03:08:05 02/25/20 23 02/25/2023 CBC/D /PLT eos 6 % not estab. Not Available [facility] ([facility]) [address] [facility], [place], [address], 03/04/2023 03:08:05 02/25/20 23 02/25/2023 CBC/D /PLT basos 1 % not estab. Not Available [facility] ([facility]) [address] [place], [address], 03/04/2023 03:08:05 02/25/20 23 02/25/2023 CBC/D /PLT immature cells [employer] Not Available [facility]) [address] [place], [address], 03/04/2023 03:08:05 02/25/20 23 02/25/2023 CBC/D /PLT neutrophils (absolute) 3.2 x10e3 /uL 1.4-7. 0 Not Available [facility] ([facility]) [address] [place], [address], 03/04/2023 03:08:05 02/25/20 23 02/25/2023 CBC/D /PLT lymphs (absolute) 1.4 x10e3 /uL 0.7-3. 1 Not Available [facility] ([facility]) [address] [facility], [place], [address], 03/04/2023 03:08:05 02/25/20 23 02/25/2023 CBC/D /PLT monocytes(ab solute) 0.7 x10e3 /uL 0.1-0. 9 Not Available [facility] ([facility]) [address] [place], [address], 03/04/2023 03:08:05 02/25/20 23 02/25/2023 CBC/D /PLT eos (absolute) 0.3 x10e3 /uL 0.0-0. 4 Not Available [facility] ([facility]) [address] [place], [address], 03/04/2023 03:08:05 02/25/20 23 02/25/2023 CBC/D /PLT baso (absolute) 0.0 x10e3 /uL 0.0-0. 2 Not Available [facility] ([facility]) [address] [place], [address], 03/04/2023 03:08:05 02/25/20 23 02/25/2023 CBC/D /PLT immature granulocytes 1 % not estab. Not Available [facility] ([facility]) [address] [place], [address], 03/04/2023 03:08:05 02/25/20 23 02/25/2023 CBC/D /PLT immature grans (abs) 0.0 x10e3 /uL 0.0-0. 1 Not Available [facility] ([facility]) [address] [place], [address], 03/04/2023 03:08:05 02/25/20 23 02/25/2023 CBC/D /PLT NRBC [employer]ER Not Available [facility] ([facility]) [address] [place], [address], 03/04/2023 03:08:05 02/25/20 23 02/25/2023 CBC/D /PLT hematology comments: [employer]ER Not Available [facility]) [address] [place], [address], 03/04/2023 03:08:05 02/25/20 23 02/25/2023 CMP14 +EGFR glucose 91 mg/dL 70-99 Not Available [facility] ([facility]) [address] [place], [address], 03/04/2023 03:08:06 02/25/20 23 02/25/2023 CMP14 +EGFR BUN 16 mg/dL 8-27 Not Available [facility] ([facility]) [address] [place], [address], 03/04/2023 03:08:06 02/25/20 23 02/25/2023 CMP14 +EGFR creatinine 1.05 mg/dL 0.76-1 .27 Not Available [facility] ([facility]) [address] [facility], [place], [address], 03/04/2023 03:08:06 02/25/20 23 02/25/2023 CMP14 +EGFR eGFR 81 mL/mi n/1.7 3 >59 Not Available [facility] ([facility]) [address] [facility], [place], [address], 03/04/2023 03:08:06 02/25/20 23 02/25/2023 CMP14 +EGFR BUN/creatini ne ratio 15 10-24 Not Available [facility]) [address] [place], [address], 03/04/2023 03:08:06 02/25/20 23 02/25/2023 CMP14 +EGFR sodium 138 mmol/ L 134-14 4 Not Available [facility] ([facility]) [address] [place], [address], 03/04/2023 03:08:06 02/25/2002/25/2023 CMP14 +EGFR potassium 5.0 mmol/ L 3.5-5. 2 Not Available [facility] ([facility]) [address] [place], [address], 03/04/2023 03:08:06 02/25/20 23 02/25/2023 CMP14 +EGFR chloride 102 mmol/ L 96-106 Not Available [facility] ([facility]) [address] [facility], [place], [address], 03/04/2023 03:08:06 02/25/20 23 02/25/2023 CMP14 +EGFR carbon dioxide, total 24 mmol/ L 20-29 Not Available [facility] ([facility]) [address] [place], [address], 03/04/2023 03:08:06 02/25/20 23 02/25/2023 CMP14 +EGFR calcium 9.4 mg/dL 8.6-10 .2 Not Available [facility] ([facility]) [address] [place], [address], 03/04/2023 03:08:06 02/25/2002/25/2023 CMP14 +EGFR protein, total 6.4 g/dL 6.0-8. 5 Not Available [facility] ([facility]) [address] [place], [address], 03/04/2023 03:08:06 02/25/20 23 02/25/2023 CMP14 +EGFR albumin 4.3 g/dL 3.9-4. 9 Not Available [facility] ([facility]) [address] [place], [address], 03/04/2023 03:08:06 02/25/2002/25/2023 CMP14 +EGFR globulin, total 2.1 g/dL 1.5-4. 5 Not Available [facility] ([facility]) [address] [place], [address], 03/04/2023 03:08:06 02/25/2002/25/2023 CMP14 +EGFR A/G ratio 2.0 1.2-2. 2 Not Available [facility] ([facility]) [address] [place], [address], 03/04/2023 03:08:06 02/25/2002/25/2023 CMP14 +EGFR bilirubin, total 0.2 mg/dL 0.0-1. 2 Not Available [facility] ([facility]) [address] [place], [address], 03/04/2023 03:08:06 02/25/2002/25/2023 CMP14 +EGFR alkaline phosphatase 60 IU/L 44-121 Not Available [facility] ([facility]) [address] [place], [id number], 03/04/2023 03:08:06 02/25/20 23 02/25/2023 CMP14 +EGFR AST (SGOT) 15 IU/L 0-40 Not Available [facility] ([facility]) [address] [place], [address], 03/04/2023 03:08:06 02/25/20 23 02/25/2023 CMP14 +EGFR ALT (SGPT) 19 IU/L 0-44 Not Available [facility] ([facility]) [address] [place], [address], 03/04/2023 03:08:06 02/25/20 23 02/25/2023 FE+TI BC+FE R iron bind.cap.(TI BC) 245 ug/dL 250-45 0 below low normal Not Available [facility] ([facility]) [address] [place], [address], 03/04/2023 03:08:07 02/25/20 23 02/25/2023 FE+TI BC+FE R UIBC 156 ug/dL 111-34 3 Not Available [facility] ([facility]) [address] [place], [address], 03/04/2023 03:08:07 02/25/20 23 02/25/2023 FE+TI BC+FE R iron 89 ug/dL 38-169 Not Available [facility] ([facility]) [address] [place], [place], [address], 03/04/2023 03:08:07 02/25/20 23 02/25/2023 FE+TI BC+FE R iron saturation 36 % 15-55 Not Available [facility] ([facility]) [address] [place], [address], 03/04/2023 03:08:07 02/25/20 23 02/25/2023 FE+TI BC+FE R ferritin 400 NG/mL 30-400 Not Available [facility] ([facility]) [address] [place], [address], 03/04/2023 03:08:07 02/25/20 23 02/25/2023 TSH+F REE T4 TSH 0.697 uIU/m L 0.450- 4.500 Not Available [facility] ([facility]) [address] [facility], [place], [address], 03/04/2023 03:08:08 02/25/20 23 02/25/2023 TSH+F REE T4 T4,free(dire ct) 1.29 NG/dL 0.82-1 .77 Not Available [facility] ([facility]) [address] [place], [address], 03/04/2023 03:08:08 02/25/20 23 02/25/2023 LIPID PANEL cholesterol, total 183 mg/dL 100-19 9 Not Available [facility] ([facility]) [address] [place], [address], 03/04/2023 03:08:09 02/25/20 23 02/25/2023 LIPID PANEL triglyceride s 103 mg/dL 0-149 Not Available [facility] ([facility]) [address] [place], [address], 03/04/2023 03:08:09 02/25/20 23 02/25/2023 LIPID PANEL HDL cholesterol 82 mg/dL >39 Not Available [facility] ([facility]) [address] [place], [address], 03/04/2023 03:08:09 02/25/20 23 02/25/2023 LIPID PANEL VLDL cholesterol daisy 18 mg/dL 5-40 Not Available [facility] ([facility]) [address] [place], [address], 03/04/2023 03:08:09 02/25/20 23 02/25/2023 LIPID PANEL LDL chol calc ([facility]) 83 mg/dL 0-99 Not Available [facility] ([facility]) [address] [place], [address], 03/04/2023 03:08:09 02/25/2002/25/2023 LIPID PANEL comment: [employer]SEM[employer]ER Not Available [facility] ([facility]) [address] [place], [address], 03/04/2023 03:08:09 02/25/2002/25/2023 VITAM IN B12 AND FOLAT E vitamin B12 277 pg/mL 232-12 45 Not Available [facility] ([facility]) [address] [place], [address], 03/04/2023 03:08:10 02/25/2002/25/2023 VITAM IN B12 AND FOLAT E folate (folic acid), serum 14.4 NG/mL >3.0 A serum folat e leanne ntrat ion of less than 3.1 ng/mL is consi dered to repre sent clini daisy defic iency . Not Available [facility] ([facility]) [address] [place], [address], 03/04/2023 03:08:10 02/25/2002/25/2023 TESTO STERO NE,FR EE AND TOTAL testosterone 397 NG/dL 264-91 6 Adult male refer ence inter kai is based on a popul ation of healt hy nonob nadine males (BMI <30) betwe en 19 and 39 years old. Nano storey et.al . JCEM 2017, 102;1 161-1 173. PMID: 35756 103. Not Available [facility] ([facility]) [address] [place], [address], 03/04/2023 03:08:10 02/25/2003/04/2023 TESTO STERO NE,FR EE AND TOTAL free testosterone (direct) 4.7 pg/mL 6.6-18 .1 below low normal Not Available [facility] ([facility]) [address] [place], [address], 03/04/2023 03:08:10 02/25/20 23 02/25/2023 HEMOG LOBIN A1C hemoglobin A1C 5.8 % 4.8-5. 6 above high normal Predi abete s: 5.7 - 6.4 Diabe kiana: >6.4 Glyce mónica contr ol for adult s with diabe kiana: <7.0 Not Available [facility] ([facility]) [address] [facility], [place], [address], 03/04/2023 03:08:11 02/25/20 23 02/26/2023 VITAM IN [...] um and D. Mary jain [place]: [facility] . 2. Barrie subramanian MF, Jian martel [place], Britta off-F errar i JUARES, et al. Evalu ation , treat ment, and preve ntion of vitam in D defic iency : an Endoc rine Socie ty clini daisy pract ice guide line. JCEM. 2010; 96(7) :1911 -30. Not Available [facility] ([facility]) [address] [facility], [place], [address], 03/04/2023 03:08:12 02/25/20 23 02/25/2023 PROGE STERO NE progesterone 0.2 NG/mL 0.0-0. 5 Not Available [facility] ([facility]) [address] [facility], [place], [address], 03/04/2023 03:08:13 02/25/20 23 02/27/2023 ESTRO GENS, TOTAL estrogens, total 86 pg/mL 56-213 Prepu cristian l <40 Not Available [facility] ([facility]) [address] [facility], [place], [address], 03/04/2023 03:08:14 02/25/20 23 02/25/2023 SEX HORM ISAURO NG GLOB, SERUM sex horm binding glob, serum 51.2 nmol/ L 19.3-7 6.4 Not Available [facility] ([facility]) [address] [facility], [place], [address], 03/04/2023 03:08:15 05/05/20 22 05/04/2022 LDCT, chest , [facility]ce r [facility] [address] [place] [address] Phone: Fax: Name: LAVELL MONTES Exam Date: 2021 : [birth year] 63 Age 61 Gender : M Access ion: [id number] Physic haleigh: CORNELL HANSEN Facili ty: [facility] Facili ty HSV: Outpat ient Exam: CT [...] you for referr ing LAVELL MONTES to [facility]. Legall y authen ticate d by POPE ANDRÉS Zhu DO 2021-06 16:10: 11 CC'ed Logic: Orderi ng Provid er: JOSESITO SARABIA CC Provid er: JOSESITO SARABIA Attend ing Provid er: JOSESITO SARABIA Referr ing Provid er: JOSESITO SARABIA Admitt ing Provid er: JOSESITO SARABIA [id number] [facility] (Radiology) [address], [place], [address], 05/12/2022 12:22:00 Result Notes None recorded. Procedures Surgical History Date Name Laterality Status Provider Name and Address Organization Details Recorded Time Cholecystectomy completed Millie REID 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 Procedure Notes None recorded. Medical Equipment None [...] Updated DateTime 3 182.88 cm 30.5 kg/m2 022962. 28 g 98.2 [degF] 98 % 98 % 75 /min 16 /min 124 mm[Hg] 74 mm[Hg] Kolton Mancia maricel [facility] - [facility] & [place] 3 09:44:45 Date Recorded Body weight Body mass index (BMI) Body height Body temperature Oxygen saturation Oxygen saturation in Arterial blood by Pulse oximetry Heart rate Systolic blood pressure Diastolic blood pressure Provider Name and Address Organization Details Last Updated DateTime 2 45411.3 3 g 29 kg/m2 182.88 cm 97.8 [degF] 97 % 97 % 90 /min 133 mm[Hg] 81 mm[Hg] Cammie Kaye [facility] & [place] 2 12:09:40 Date Recorded Body height Body mass index (BMI) Body weight Body temperature Oxygen saturation Oxygen saturation in Arterial blood by Pulse oximetry Heart rate Systolic blood pressure Diastolic blood pressure Provider Name and Address Organization Details Last Updated DateTime 2 182.88 cm 29.6 kg/m2 05448.2 9 g 97 [degF] 95 % 95 % 67 /min 120 mm[Hg] 76 mm[Hg] Cammie HI [facility] & [place] 08:19:23 Social History Question Answer Notes LastModified by Organizat ion Details LastModified Time Tobacco Smoking Status Current Every Day Smoker Cammie pham, [place] - KOLTON [facility] & [place] 04/06/2022 12:09:59 Do You Have An Advance Directive? No Information not available 04/06/2022 Are You Blind Or Do You Have Difficulty Seeing? No Information not available 04/06/2022 Which Illicit Or Recreational Drugs Have You Used? WOODYROLDANIVY [email or web address] Information not available 02/24/2023 What Was The Date Of Your Most Recent Tobacco Screening? 02/04/2022 [email or web address] Information not available 02/17/2023 Are You Passively Exposed To Smoke? Yes Information no t available 04/06/2022 How Much Tobacco Do You Smoke? 1 PPD Information not available 04/06/2022 How Many Years Have You Smoked Tobacco? 40 Information not available 04/06/2022 Sex: Unknown Functional Status Question Answer Note LastModified by Organizat ion Details LastModified Time Do you use any illicit or recreational drugs? Yes [email or web address] Information not available 02/24/2023 What is your level of alcohol consumption? Moderate Information not available 04/06/2022 What is your exercise level? None Information not available 04/06/2022 Mental Status Question Answer Note LastModified by Organization D etails LastModified Time Do you feel stressed (tense, restless, nervous, or anxious, or unable to sleep at night)? [id number] Information not available 04/06/2022 Family History Relationship [...] split virus, trivalent, PF 04/14/2017 completed Millie Martinez JEANETTE pham [facility] & [place] 04/23/2022 15:07:51 Influenza, split virus, trivalent, PF 04/12/2016 completed Millie Martinez [place]ETTE pham [facility] - [place] & [place] 04/23/2022 15:07:51 Past Encounters Encounter ID Performer Location Encounter Start Date Encounter Closed Date Diagnosis/Indication Diagnosis SNOMED-CT Code Diagnosis ICD10 Code Diagnosis Note [id number] Cornell Hansen APRN [id number] [address] [address] 04/06/2022 11:58:22 04/06/2022 16:44:41 Abrasion of left cornea 2910640259 7048428 S05.02XA take prophylact ic abx dropswarm compresses wear safety glassesinc rease water intake Reactive a irway disease 6190616802 06 J45.909 take medication as prescribed monitor for worsening symptomsal buterol PRN [id number] Cornell Hansen APRN [id number] [address] 04/28/2022 07:58:05 04/28/2022 09:14:10 Adult health examination 161269872 Z00.00 educated on preventati ve care measuresne eds tetanuscol onoscopy UTDdue for LDCTtriple AAA screening at age 66due for Updated bloodworkb lood drawn from the right AC by Cammie Restrepo CMA, patient tolerated well. Screening for malignant neoplasm of prostate 860826888 Z12.5 Change in skin lesion 39 2955377 L98.9 Spasm of back muscles 20 3011026 M62.830 Screening for malignant neoplasm of respiratory tract 397231798 Z12.2 15 cigs a day, for the past 40 yearsencou raged smoking cessation Mixed hyperlipidemia 267 923065 E78.2 Body mass index 25-29 - overweight 180843683 Z68.29 [id number] Cornell Hansen APRN [address] [place] [address] 02/24/2023 09:38:26 02/24/2023 12:52:16 Acute otitis externa 67310206 H60.502 use antibiotic s as prescribed monitor for worsening symptoms. Reactive a irway disease 0497922066 06 J45.909 take medication as prescribed monitor for worsening symptomsal buterol PRN [id number] Mixed hyperlipidemia 267 847225 E78.2 Patient advised to exercise, eat a prudent diet and lose weight as appropriat e. Fatigue 05127130 R53.83 Patient with fatigue and malaise . Advised patient to eat properly, get adequate sleep and attempt to exercise. I recommend testing as per orders below to evaluate for: . Patient to follow up as directed. Essential hypertension 55354148 I10 educated on goal of less than [...] Member ID Guarantor Name 01/08/2024 1 [employer] (POS) [id number] Lavell Miles [id number] Lavell Miles Notes Date Note Type Note [...] on any PRN or maintenance inhalers. Cornell Hansen, ELIU [address] [place], [address], [facility] 04/07/2022 08:08:56 04/28/2022 text/html Annual WellnessReported bypatient.Diet [...] through [facility] encouraged to go to [facility] due, smokes 15 cigarettes a day for the past 40 yearsHas a lesion on posterior thigh that will occasionally hurt and bled, has been present for 1 years and will not heal.Has TMJ discomfort, grinds teeth at night, does not see a dentist regularly and no guard manager.Up once a night to urinate Cornell Hansen APRN [address] [place], [address], [facility] - [facility]NT [facility] 04/30/2022 08:10:15 02/24/2023 text/html 62 y/o male that presents to the clinic for chronic care follow up1. patient is due for [facility] blood work. He is having a lot [...] refill on albuterol inhaler and rosuvastatin. Cornell Hansen APRN [address] [place] [address], [place], [address], [place] - [facility] - [place] & [place] 02/24/2023 16:43:09
[2024-11-30 09:36] VITALS: BP 133/77; PULSE 62; RESP 14; O2SAT 98; BMI 30.5
--- NOTE | 2024-11-30 10:11 | EXP.PAIN.SOA ---
[facility] Disclaimer: The information contained in this section may have been updated after the patient was seen, as this information can be updated by other users. Medical History Diabetes mellitus, type 2 Hyperlipidemia Atrial fibrillation Surgical History H/O abdominal surgery History of cholecystectomy Family History Other Cancer of kidney Family history of COPD (chronic obstructive pulmonary disease) Lung cancer Social History Smoking Status: Current every day smoker tobacco type: cigarettes packs per day: 1 alcohol intake: never substance use type: denies use current occupational status: other Travel in the last 8 weeks?: None household members: spouse housing: house current occupational exposures/hazards: No caffeine: Yes PM Subjective & Objective Subjective Subjective:: Patient is a pleasant 64-year-old male who presents today for medication refill and follow-up. Today he rates his pain a 5 out of 10. He denies any new injury or trauma. He does state today that his TMJ has been much better over the last month and he has decided he would like to hold off before doing these injections. Patient is currently managed with Bradley 10 mg 3 times a day and methocarbamol 750 mg 3 times a day with compounded cream. He denies any side effects. His Thang has been reviewed and is appropriate. Review of Systems: General: No recent weight changes, no fever, no sleep disturbances Respiratory: No cough, no shortness of air, no recurring pulmonary infections Cardiovascular/peripheral vascular: No chest pain, no palpitations, no edema, no shortness of breath Gastrointestinal: No new onset incontinence, normal bowel movements reported Genitourinary: No new onset incontinence Musculoskeletal: Low back pain, generalized joint pain Psychiatric: [Normal mood/affect] Neurological: [Denies weakness in extremities], [denies balance issues] Pain at rest (0-10 scale): 5 Objective Objective:: Physical Exam: General: Alert and oriented x3, no acute distress, pleasant and cooperative Lungs: Respirations even and unlabored, symmetrical chest expansion Eyes: PERRL Musculoskeletal: Flexion and extension of lumbar [spine] somewhat guarded secondary to pain, [antalgic gait noted] Neurological: Speech clear, no gross sensory deficit Has patient had previous pain injection?: No Conservative treatment options previously tried: Prescription medications Length of treatment: Longer than 12 weeks Meds Home Medications and Allergies Home Medications ?Medication ?Instructions ?Recorded ?Confirmed ?Type aspirin 81 mg tablet,delayed 81 mg PO DAILY heart health 06/06/20 11/01/24 History release celecoxib 200 mg capsule 200 mg PO DAILY Pain 06/06/20 11/01/24 History gabapentin 100 mg capsule 100 mg PO DAILY nerve pain 06/06/20 11/01/24 History ranitidine HCl 150 mg tablet 150 mg PO DAILY GERD 06/06/20 11/01/24 History sildenafil (pulm.hypertension) 20 20 mg PO DAILY erectile dysfunction 06/06/20 11/01/24 History mg tablet diclofenac sodium 75 mg 75 mg PO TID Pain 10/02/21 11/01/24 History tablet,delayed release famotidine 20 mg tablet 20 mg PO TID . #90 tabs 10/02/21 11/01/24 Rx ibuprofen 800 mg tablet 800 mg PO TID Pain #90 tabs 10/02/21 11/01/24 Rx apixaban 5 mg tablet 5 mg PO DAILY Blood thinner 01/29/22 11/01/24 History metoprolol tartrate 100 mg tablet 100 mg PO BID BLOOD PRESSURE 01/29/22 11/01/24 History rosuvastatin 5 mg tablet 5 mg PO HS Cholesterol 01/29/22 11/01/24 History cyclobenzaprine 10 mg tablet 10 mg PO TID . #90 tabs 03/26/22 11/01/24 Rx bupropion HCl 150 mg 24 hr tablet, 150 mg PO DAILY 07/03/24 11/01/24 History extended release methocarbamol 750 mg tablet 750 mg PO TID Pain #90 tabs 09/28/24 11/01/24 Rx hydrocodone 10 mg-acetaminophen 1 tab PO TID #90 tabs 11/01/24 Rx 325 mg tablet New Prescriptions to Start Prescriptions: Allergies Allergy/AdvReac Type Severity Reaction Status Date / Time No Known Drug Allergies Allergy Verified 05/08/22 10:10 Assessment and Plan *Assessment and plan (1) Lumbar radiculopathy: Status: Chronic Category: Medical Code(s): M54.16 - Radiculopathy, lumbar region (2) Generalized joint pain: Status: Acute Category: Medical Code(s): M25.50 - Pain in unspecified joint (3) Low back pain: Status: Chronic Qualifiers: Chronicity: chronic Back pain laterality: bilateral Sciatica presence: unspecified whether sciatica present Qualified Code(s): M54.50 - Low back pain, unspecified; G89.29 - Other chronic pain Category: Medical Code(s): M54.50 - Low back pain, unspecified Plan I will refill the patient's Bradley and methocarbamol and provide a 1 month supply of this medication. Patient will return to clinic in 1 month for reevaluation of symptoms and plan of care. Risks and benefits of the medication have been explained in detail to the patient. The patient does understand the risk of dependence on the medication when given over a prolonged period. Patient has been advised of risks of oversedation with the prescribed medication. Narcan has been offered to the paitent in the event of oversedation. Patient has been advised that a family member should also be educated regarding administration of Narcan. The patient has been advised to consult with his/her primary care provider and pharmacist regarding drug-drug interaction of medications currently prescribed. Patient has been prescribed a controlled substance after being counseled on the medication, medication safety, and possible side effects. Opioid contract was reviewed and signed by the patient, and that they have agreed to all of the terms set forth by our compliance program. A UDS is needed to verify patient's compliance with our office pain contract. This is ordered based off specific treatments related to chronic pain with the potential to abuse certain medications. Patient has been instructed to contact the clinic with any concerns before the next appointment. Dr. Wright has reviewed this note and agrees with this plan of care. This note was dictated using voice recognition software and make contain errors or omissions.
== END 2024-11-30 23:59 | disposition home or self-care (01) ==
PROVIDERS: PCP Nurse Practitioner Family; Visit Provider Nurse Practitioner Family
DX: M54.16 Radiculopathy, lumbar region (principal); Z79.891 Long term (current) use of opiate analgesic; Z79.899 Other long term (current) drug therapy
CPT/HCPCS: 99212; G0463

== ENCOUNTER 2024-12-28 09:44 | Outpatient (POV) | payer BC, SELFPAY ==
--- NOTE | 2024-12-28 10:07 | EXP.PAIN.SOA ---
[facility] Disclaimer: The information contained in this section may have been updated after the patient was seen, as this information can be updated by other users. Medical History Diabetes mellitus, type 2 Hyperlipidemia Atrial fibrillation Surgical History H/O abdominal surgery History of cholecystectomy Family History Other Cancer of kidney Family history of COPD (chronic obstructive pulmonary disease) Lung cancer Social History Smoking Status: Current every day smoker tobacco type: cigarettes packs per day: 1 alcohol intake: never substance use type: denies use current occupational status: other Travel in the last 8 weeks?: None household members: spouse housing: house current occupational exposures/hazards: No caffeine: Yes PM Subjective & Objective Subjective Subjective:: Patient is a pleasant 64-year-old male who presents today for his monthly medication refill. Patient is doing well with his current regimen. He states he is actually doing really well today for what ever reason. Patient does still have some TMJ pain but it is still manageable currently. He is currently managed with methocarbamol 750 mg 3 times daily and Dewey 10 mg 3 times daily along with compounded cream. He denies any side effects or changes to his pharmacy. His Thang has been reviewed and is appropriate. Review of Systems: General: No recent weight changes, no fever, no sleep disturbances Respiratory: No cough, no shortness of air, no recurring pulmonary infections Cardiovascular/peripheral vascular: No chest pain, no palpitations, no edema, no shortness of breath Gastrointestinal: No new onset incontinence, normal bowel movements reported Genitourinary: No new onset incontinence Musculoskeletal: Chronic back pain Psychiatric: [Normal mood/affect] Neurological: [Denies weakness in extremities], [denies balance issues] Pain at rest (0-10 scale): 4 Objective Objective:: Physical Exam: General: Alert and oriented x3, no acute distress, pleasant and cooperative Lungs: Respirations even and unlabored, symmetrical chest expansion Eyes: PERRL Musculoskeletal: Flexion and extension of lumbar [spine] somewhat guarded secondary to pain, [antalgic gait noted] Neurological: Speech clear, no gross sensory deficit Has patient had previous pain injection?: No Conservative treatment options previously tried: Prescription medications Length of treatment: Longer than 12 weeks Meds Home Medications and Allergies Home Medications ?Medication ?Instructions ?Recorded ?Confirmed ?Type aspirin 81 mg tablet,delayed 81 mg PO DAILY heart health 06/06/20 11/30/24 History release celecoxib 200 mg capsule 200 mg PO DAILY Pain 06/06/20 11/30/24 History gabapentin 100 mg capsule 100 mg PO DAILY nerve pain 06/06/20 11/30/24 History ranitidine HCl 150 mg tablet 150 mg PO DAILY GERD 06/06/20 11/30/24 History sildenafil (pulm.hypertension) 20 20 mg PO DAILY erectile dysfunction 06/06/20 11/30/24 History mg tablet diclofenac sodium 75 mg 75 mg PO TID Pain 10/02/21 11/30/24 History tablet,delayed release famotidine 20 mg tablet 20 mg PO TID . #90 tabs 10/02/21 11/30/24 Rx ibuprofen 800 mg tablet 800 mg PO TID Pain #90 tabs 10/02/21 11/30/24 Rx apixaban 5 mg tablet 5 mg PO DAILY Blood thinner 01/29/22 11/30/24 History metoprolol tartrate 100 mg tablet 100 mg PO BID BLOOD PRESSURE 01/29/22 11/30/24 History rosuvastatin 5 mg tablet 5 mg PO HS Cholesterol 01/29/22 11/30/24 History cyclobenzaprine 10 mg tablet 10 mg PO TID . #90 tabs 03/26/22 11/30/24 Rx bupropion HCl 150 mg 24 hr tablet, 150 mg PO DAILY 07/03/24 11/30/24 History extended release methocarbamol 750 mg tablet 750 mg PO TID Pain #90 tabs 11/30/24 Rx hydrocodone 10 mg-acetaminophen 1 tab PO TID #90 tabs 12/28/24 Rx 325 mg tablet New Prescriptions to Start Prescriptions: hydrocodone-acetaminophen Jacquelin Jacobson Allergies Allergy/AdvReac Type Severity Reaction Status Date / Time No Known Drug Allergies Allergy Verified 05/08/22 10:10 Assessment and Plan *Assessment and plan (1) Lumbar radiculopathy: Status: Chronic Category: Medical Code(s): M54.16 - Radiculopathy, lumbar region (2) Low back pain: Status: Chronic Qualifiers: Back pain laterality: bilateral Chronicity: chronic Sciatica presence: unspecified whether sciatica present Qualified Code(s): M54.50 - Low back pain, unspecified; G89.29 - Other chronic pain Category: Medical Code(s): M54.50 - Low back pain, unspecified Plan I will refill his Dewey and methocarbamol provided 1 month supply of these medications. Patient will return to clinic in 1 month. Risks and benefits of the medication have been explained in detail to the patient. The patient does understand the risk of dependence on the medication when given over a prolonged period. Patient has been advised of risks of oversedation with the prescribed medication. Narcan has been offered to the paitent in the event of oversedation. Patient has been advised that a family member should also be educated regarding administration of Narcan. The patient has been advised to consult with his/her primary care provider and pharmacist regarding drug-drug interaction of medications currently prescribed. Patient has been prescribed a controlled substance after being counseled on the medication, medication safety, and possible side effects. Opioid contract was reviewed and signed by the patient, and that they have agreed to all of the terms set forth by our compliance program. A UDS is needed to verify patient's compliance with our office pain contract. This is ordered based off specific treatments related to chronic pain with the potential to abuse certain medications. Patient has been instructed to contact the clinic with any concerns before the next appointment. Dr. Wright has reviewed this note and agrees with this plan of care. This note was dictated using voice recognition software and make contain errors or omissions.
[2024-12-28 10:14] VITALS: BP 140/76; PULSE 64; RESP 14; O2SAT 99; BMI 28.3
== END 2024-12-28 23:59 | disposition home or self-care (01) ==
PROVIDERS: PCP Nurse Practitioner Family; Visit Provider Nurse Practitioner Family
DX: M54.16 Radiculopathy, lumbar region (principal); Z79.1 Long term (current) use of non-steroidal anti-inflammatories (NSAID); Z79.899 Other long term (current) drug therapy
CPT/HCPCS: 99212; G0463

== ENCOUNTER 2025-01-29 08:37 | Outpatient (POV) | payer BC, SELFPAY ==
--- OUTSIDE RECORDS SUMMARY | 2024-12-01 08:45 | XMS_ITS | Encounter Summary ---
[facility] Address [address] [place] [address] Care Team Providers Care Partition Setter Name Role Phone Angie Hansen APRN Primary Care Provider Reason for Visit * Reason Comments Follow-up Encounter Details Date Type Department Care Team (Late st Contact Info) Description 12/01/2024 8:45 AM EDT Office Visit [facility] [address] [place] [address] Angie Hansen APRN [address] [place] [address] Insomnia, unspecified type (Primary Dx); Mixed anxiety and depressive disorder; TMJ dysfunction; Chronic obstructive pulmonary disease, unspecified COPD type Social History Tobacco Use Types Packs/Day Years Used Date Smoking Tobacco: Every Day Cigarettes 0.3 70.4 Passive Smoke Exposure: Current Smokeless Tobacco: Never Tobacco Cessation:Ready to Q uit: Not Asked; Counseling Given: Not Answered Alcohol Use Standard Drinks/Week Comments Yes 10 (1 standard drink = 0.6 oz pu re alcohol) DAILY PER WEEK PHQ-2 Answer Date Recorded Patient Health Questionnaire-9 Score 11 06/19/2024 Sex and Gender Information Value Date Recorded Sex Assigned at Male 08/14/2024 12:02 PM EST Legal Sex Male 4:28 PM EST Gender Identity Not on file Sexual Orientation Straight 08/14/2024 12 :02 PM EST documented as of this encounter Last Filed Vital Signs Vital Sign Reading Time Taken Comments Blood Pressure 130/78 12/01/2024 8:32 AM EDT Pulse 60 12/01/2024 8:32 AM EDT Temperature 36.8 C (98.2 F) 12/01/2024 8:32 AM EDT Respiratory Rate 14 12/01/2024 8:32 AM EDT Oxygen Saturation 96% 12/01/2024 8:32 AM EDT Inhaled Oxygen Concentration - - Weight 94.6 kg (208 lb 9.6 oz) 12/01/2024 8:32 A M EDT Height 182.9 cm (6') 12/01/2024 8:32 AM EDT Body Mass Index 28.29 12/01/2024 8:32 AM EDT documented in this encounter Progress Notes * Angie Hansen, NUCLEAR EQUIPMENT SALES ENGINEER - 12/01/2024 8:45 AM EDT Date: 12/01/2024 Patient Name: Lavell Miles : 1960 Chief Complaint: Chief Complaint Patient presents with Follow-up History of Present Illness: Lavell Miles is a 64 y.o. male who is here today to follow up for HPI History of Present Illness The patient presents for a follow-up visit. He reports a positive response to the initiation of trazodone 100 mg, which has significantly improved his sleep quality. He now achieves approximately 5 to 6 hours of uninterrupted sleep, a notable improvement from his previous state. There is no residual drowsiness in the morning, and he no longer experiences daytime somnolence. His condition has also improved with the use of Wellbutrin 300 mg,which has enhanced his sociability and communication skills. He has experienced a weight loss of 11pounds. He requested a refill for albuterol. He does not use it every day but uses it some days in a row. He had scheduled injections for his TMJ a couple of months ago, but his insurance denied it. He hadthem scheduled again for next month but decided to cancel it yesterday. He has previously used mouthguards and currently has methocarbamol at home. Review of Systems: Review of Systems Psychiatric/Behavioral: Positive for stress. I have reviewed the patients family history, social history, past medical history, past surgical history and have updated it as appropriate. Medications: Current Outpatient Medications: albuterol sulfate HFA 108 (90 Base) MCG/ACT inhaler, Inhale 2 puffs Every 4 (Four) Hours As Needed for Wheezing., Disp: 18 g, Rfl: 3 apixaban (Eliquis) 5 MG tablet tablet, Take 1 tablet by mouth 2 (Two) Times a Day., Disp: 180 tablet, Rfl: 1 buPROPion XL (WELLBUTRIN XL) 300 MG 24 hr tablet, Take 1 tablet by mouth Daily., Disp: 90 tablet, Rfl: 1 HYDROcodone-acetaminophen (NORCO) 10-325 MG per tablet, Take 1 tablet by mouth 3 times a day., Disp: , Rfl: metoprolol tartrate (LOPRESSOR) 100 MG tablet, TAKE 1 TABLET BY MOUTH EVERY 12 HOURS, Disp: 180 tablet, Rfl: 1 rosuvastatin (CRESTOR) 5 MG tablet, TAKE 1 TABLET BY MOUTH EVERY DAY, Disp: 90 tablet, Rfl: 3 traZODone (DESYREL) 100 MG tablet, Take 1 tablet by mouth every night at bedtime., Disp: 90 tablet,Rfl: 1 cyclobenzaprine (FLEXERIL) 10 MG tablet, Take 1 tablet by mouth At Night As Needed for Muscle Spasms., Disp: 30 tablet, Rfl: 1 Allergies: No Known Allergies PHQ-9 Total Score: Physical Exam: Vital Signs: Vitals: 12/01/24 0832 BP: 130/78 Pulse: 60 Resp: 14 Temp: 98.2 ??F (36.8 ??C) SpO2: 96% Weight: 94.6 kg (208 lb 9.6 oz) Height: 182.9 cm (72 ) Body mass index is 28.29 kg/m??. Physical Exam Vitals and nursing note reviewed. Constitutional: Appearance: Normal appearance. HENT: Head: Normocephalic and atraumatic. Cardiovascular: Rate and Rhythm: Normal rate and regular rhythm. Pulmonary: Effort: Pulmonary effort is normal. Breath sounds: Normal breath sounds. Neurological: General: No focal deficit present. Mental Status: He is alert and oriented to person, place, and time. Psychiatric: Mood and Affect: Mood normal. Assessment/Plan: Diagnoses and all orders for this visit: 1. Insomnia, unspecified type (Primary) - traZODone (DESYREL) 100 MG tablet; Take 1 tablet by mouth every night at bedtime. Dispense: 90 tablet; Refill: 1 2. Mixed anxiety and depressive disorder - traZODone (DESYREL) 100 MG tablet; Take 1 tablet by mouth every night at bedtime. Dispense: 90 tablet; Refill: 1 - buPROPion XL (WELLBUTRIN XL) 300 MG 24 hr tablet; Take 1 tablet by mouth Daily. Dispense: 90 tablet; Refill: 1 3. TMJ dysfunction - cyclobenzaprine (FLEXERIL) 10 MG tablet; Take 1 tablet by mouth At Night As Needed for Muscle Spasms. Dispense: 30 tablet; Refill: 1 4. Chronic obstructive pulmonary disease, unspecified COPD type Comments: stable, smoking cessation education. albuterol PRN Orders: - albuterol sulfate HFA 108 (90 Base) MCG/ACT inhaler; Inhale 2 puffs Every 4 (Four) Hours As Needed for Wheezing. Dispense: 18 g; Refill: 3 Assessment & Plan 1. Insomnia. - Improvement in sleep quality with trazodone 100 mg, achieving 5 to 7 hours of sleep per night. - No significant morning drowsiness reported. - Discussed current sleep patterns and medication effectiveness. - Prescription for a 90-day supply of trazodone 100 mg will be provided. 2. Depression. - Increased sociability and reduced daytime sleepiness with Wellbutrin 300 mg. - Positive response to current medication regimen. - Reviewed patient's mental health progress and medication effectiveness. - Prescription for a 90-day supply of Wellbutrin 300 mg will be provided. 3. Temporomandibular joint disorder. - Previous insurance denial for TMJ injections; patient canceled upcoming appointment. - Advised use of a mouthguard and discussed Flexeril as an alternative to methocarbamol for muscle relaxation. - Discussed potential benefits of Flexeril for nighttime use to reduce clenching and improve sleep. - Prescription for Flexeril, to be taken nightly, will be provided. Additional refills can be prescribed if effective. 4. COPD. - Requested a refill for albuterol, noting intermittent use. - Reviewed patient's usage pattern and need for medication. - Prescription for albuterol will be sent to pharmacy. 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 12/01/2024 08:44 EDT Follow Up: Return in about 4 months (around 04/02/2025) for Annual physical with fasting labs. Angie Hansen. [facility] documented in this encounter Plan of Treatment Upcoming Encounters Date Type Department Care Team (Late st Contact Info) Description 02/22/2025 11:30 AM EDT Office Visit [facility] [address] [place] [address] Carissa Pena APRN [address] [place] [address] 04/06/2025 8:15 AM EDT Office Visit [facility] [address] [place] [address] Angie Hansen APRN [address] [place], [place] [id number] documented as of this encounter Visit Diagnoses Diagnosis Insomnia, unspecified type- Primary Mixed anxiety and depressive disorder Dysthymic disorder TMJ dysfunction Unspecified temporomandibular joint disorders Chronic obstructive pulmonary disease, unspecified COPD type documented in this encounter Care Teams Partition Setter Relationship Specialty Start Date End Date Angie Hansen APRN PCP - General Nurse Practitioner 07/24/22 documented as of this encounter
--- OUTSIDE RECORDS SUMMARY | 2025-01-29 08:40 | XMS_ITS | Encounter Summary ---
[facility] Address [address] [place] [id number] Care Team Providers Care Venetian Blind Washer Name Role Phone Angie Hansen APRN Primary Care Provider Encounter Details Date Type Department Care Team (Latest Contact Info) Description 12/01/2024 Travel Social History Tobacco Use Types Packs/Day Years Used Date Smoking Tobacco: Every Day Cigarettes 0.3 70.4 Passive Smoke Exposure: Current Smokeless Tobacco: Never Alcohol Use Standard Drinks/Week Comments Yes 10 [...] PM EST documented as of this encounter Plan of Treatment Upcoming Encounters Date Type Department Care Team (Late st Contact Info) Description 02/22/2025 11:30 AM EDT Office Visit [facility] [address] [place] [address] Carissa Pena APRN [address] [place] [address] [place] [address] 04/06/2025 8:15 AM EDT Office Visit [facility] [address] [place] [address] Angie Hansen APRN [address] [facility] [place] [address] documented as of this encounter Visit Diagnoses Not on filedocumented in this encounter Care Teams Venetian Blind Washer Relationship Specialty Start Date End Date Angie Hansen APRN PCP - General Nurse Practitioner 07/24/22 documented as of this encounter
--- OUTSIDE RECORDS SUMMARY | 2025-01-29 08:40 | XMS_ITS | Clinical Summary ---
Author Organization [facility] Address [address] [place] [address] Care Team Providers Care Felt Coverer Name Role Phone Angie Hansen APRN Primary Care Provider Allergies No known active allergies Medications HYDROcodone-aceta minophen (NORCO) 10-325 MG per tablet Take 1 tablet by mouth 3 times a day. 07/29/2023 Active metoprolol tartrate (LOPRESSOR) 100 MG tabletIndications :Longstanding persistent atrial fibrillation TAKE 1 TABLET BY MOUTH EVERY 12 HOURS 180 tablet 1 02/29/2024 Active rosuvastatin (CRESTOR) 5 MG tabletIndications :Hyperlipidemia LDL goal <100 TAKE 1 TABLET BY MOUTH EVERY DAY 90 tablet 3 09/26/2024 Active traZODone (DESYREL) 100 MG tabletIndications :Mixed anxiety and depressive disorder,Insomnia , unspecified type Take 1 tablet by mouth every night at bedtime. 90 tablet 1 12/01/2024 Active buPROPion XL (WELLBUTRIN XL) 300 MG 24 hr tabletIndications :Mixed anxiety and depressive disorder Take 1 tablet by mouth Daily. 90 tablet 1 12/01/2024 Active albuterol sulfate HFA 108 (90 Base) MCG/ACT inhalerIndication s:Chronic obstructive pulmonary disease, unspecified COPD type Inhale 2 puffs Every 4 (Four) Hours As Needed for Wheezing. 18 g 3 12/01/2024 Active cyclobenzaprine (FLEXERIL) 10 MG tabletIndications :TMJ dysfunction Take 1 tablet by mouth At Night As Needed for Muscle Spasms. 30 tablet 1 12/01/2024 Active apixaban (Eliquis) 5 MG tablet tabletIndications :Longstanding persistent atrial fibrillation Take 1 tablet by mouth 2 (Two) Times a Day. 180 tablet 1 12/19/2024 Active Active Problems Problem Noted Date Diagnosed Date Mixed anxiety and depressive disorder 06/23/2024 Assessment & Plan (08/28/2024 10:40 AM EDT): Patient's depression is a single episode that is mild without psychosis. Depression is in full remission and stable. Plan: Continue current medication therapy Followup in 3 months. Assessment & Plan (06/23/2024 7:38 AM EST): Patient's depression is a single episode that is mild without psychosis. Depression is in full remission and stable. Plan: Continue current medication therapy Followup in 4 weeks. Bilateral shoulder pain 08/24/2023 Lumbar radiculopathy 08/24/2023 Low back pain 08/24/2023 Essential hypertension 02/23/2023 Assessment & Plan (08/28/2024 10:39 AM EDT): Hypertension is stable and controlled Continue current treatment regimen. Dietary sodium restriction. Weight loss. Regular aerobic exercise. Ambulatory blood pressure monitoring. Blood pressure will be reassessed in 3 months. Assessment & Plan (08/21/2024 9:01 AM EST): Hypertension is stable and controlled Continue current treatment regimen. Dietary sodium restriction. Weight loss. Regular aerobic exercise. Blood pressure will be reassessed in 6 months. Assessment & Plan (02/25/2024 9:57 AM EDT): Hypertension is stable and controlled Continue current treatment regimen. Dietary sodium restriction. Weight loss. Regular aerobic exercise. Blood pressure will be reassessed in 6 months. He has not had recent labs but plans on seeing his PCP soon to have annual labs drawn. I discussed ordering labs today but he would like to wait and have them completed with PCP. DAKOTA (obstructive sleep apnea) 08/19/2022 Overview (08/19/2022): Intolerant to CPAP therapy. Discussed relationship between treating DAKOTA and better atrial fibrillation control. Baseline AHI of 12 REM 36 on December 18, 2021 Assessment & Plan (08/21/2024 9:02 AM EST): Intolerant to PAP therapy. I recommend restarting PAP therapy but he declines at this time. Assessment & Plan (02/25/2024 9:56 AM EDT): Intolerant to PAP therapy. I recommend restarting PAP therapy but he declines at this time. Assessment & Plan (08/19/2022 11:05 AM EST): Intolerant to CPAP therapy. Discussed relationship between treating DAKOTA and better atrial fibrillation control. Baseline AHI of 12 REM 36 on December 18, 2021 Paroxysmal atrial fibrillation 08/19/2022 Assessment & Plan (08/21/2024 8:54 AM EST): Stable, no recent episodes - Continue Eliquis and metoprolol at current doses Assessment & Plan (02/25/2024 9:54 AM EDT): Stable, no recent episodes - Continue Eliquis and metoprolol at current doses Assessment & Plan (08/19/2022 11:09 AM EST): Rate controlled. On Eliquis and beta-kedar. Coexisting DAKOTA. Nodule of right lung 08/19/2022 Overview (08/19/2022): Followed by PCP. Patient continues to smoke. Renal cyst, left 08/19/2022 Cancer of skin of leg, left 08/19/2022 Mixed hyperlipidemia 08/19/2022 Overview (02/23/2023): MILD Assessment & Plan (08/28/2024 10:39 AM EDT): Lipid abnormalities are stable Plan: Continue same medication/s without change. Discussed medication dosage, use, side effects, and goals of treatment in detail. Counseled patient on lifestyle modifications to help control hyperlipidemia. Patient Treatment Goals: LDL goal is less than 70 Followup in 6 months. Assessment & Plan (08/21/2024 9:02 AM EST): He has not had recent labs but has an appointment with his PCP next week to have annual labs drawn. I discussed ordering labs today but he would like to wait and have them completed with PCP. -Continue Crestor at current dose Assessment & Plan (08/19/2022 11:07 AM EST): On statin. April 28, 2022 lipids reviewed. Nicotine dependence with nicotine-induced disord er 08/19/2022 Assessment & Plan (08/19/2022 11:08 AM EST): Patient is down to a fourth a pack of cigarettes a day. Declines further smoking cessation tools. Chronic deep vein thrombosis (DVT) 08/19/2022 Assessment & Plan (08/19/2022 11:25 AM EST): On Eliquis Encounters Date Type Department Care Team Description 12/01/2024 8:45 AM EDT Office Visit [facility] [address] [place], [place] [address] Angie Hansen APRN Insomnia, unspecified type (Primary Dx); Mixed anxiety and depressive disorder; TMJ dysfunction; Chronic obstructive pulmonary disease, unspecified COPD type 12/01/2024 Travel 11/25/2024 Refill [facility] [address], [place] [address] Angie Hansen APRN Mixed anxiety and depressive disorder 10/31/2024 Refill [facility] [address] [place] [address] Angie Hansen APRN Mixed anxiety and depressive disorder; Insomnia, unspecified type from Last 3 Months Immunizations Immunization Administration Dates Next Due Fluzone >6mos 04/14/2017,04/12/2016 Family History Medical History Relation Name Comments Cancer Father Dad Pulmonary fibrosis Mother Diabetes type II Other FAM HX Hypertension Other FAM HX No Known Problems Sister Relation Name Status Comments Brother early Father Dad (Age 78) Mother (Age 83) Other FAM HX Sister Social History Tobacco Use Types Packs/Day Years [...] Orientation Straight 08/14/2024 12 :02 PM EST Last Filed Vital Signs Vital Sign Reading [...] Mass Index 28.29 12/01/2024 8:32 AM EDT Plan of Treatment Upcoming Encounters Date Type Department Care Team (Late st Contact Info) Description 02/22/2025 11:30 AM EDT Office Visit [facility] [address] [place] [address] Carissa Pena, MASTER PLUMBER [address] [place] [address] [place] [address] 04/06/2025 8:15 AM EDT Office Visit [facility] [address] [facility] [place] [address] Angie Hansen, MASTER PLUMBER [address] [place] [address] Health Maintenance Due Date Last Done Comments Pneumococcal Vaccine 50+ (1 of 2 - PCV) 1980 TDAP/TD VACCINES (1 - Tdap) 1980 COLOGUARD 2006 COLON CANCER SCREENING [address] SIGMO[address] COLONOGRAPHY 2006 FECAL OCCULT BLOOD TEST 2006 FIT Testing (1 year) 2006 ZOSTER VACCINE (1 of 2) 11/25/2011 ANNUAL PHYSICAL 08/16/2022 HEPATITIS C SCREENING 08/16/2022 COVID-19 Vaccine ( - season) 2024 LUNG CANCER SCREENING 02/01/2025 02/02/2024 INFLUENZA VACCINE 03/21/2025 04/14/2017, 04/12/2016 LIPID PANEL 08/29/2025 08/29/2024 COLONOSCOPY 07/07/2033 07/07/2023 COLORECTAL CANCER SCREENING 07/07/2033 Procedures Procedure Name Priority Date/Time Associated Diagnosis Comments LIPID PANEL Routine 08/29/2024 9:22 AM EDT Mixed hyperlipidemia CT CHEST LOW DOSE FOLLOW UP WITHOUT CONTRAST Routine 02/02/2024 10:53 AM EDT Nodule of right lung Tobacco dependence due to cigarettes SCANNED - COLONOSCOPY 07/07/2023 from Last 3 Months or Most Recently Relevant to Health Maintenance Results * (ABNORMAL) Lipid Panel (08/29/2024 9:22 AM EDT) Total Cholesterol 174 0 - 200 mg/dL [facility] Comment: Cholesterol Reference Ranges (U.S. Department of Health and Human Services ATP III Classifications) Desirable <200 mg/dL Borderline High 200-239 mg/dL High Risk >240 mg/dL Triglyceride Reference Ranges (U.S. Department of Health and Human Services ATP III Classifications) Normal <150 mg/dL Borderline High 150-199 mg/dL High 200-499 mg/dL Very High >500 mg/dL HDL Reference Ranges (U.S. Department of Health and Human Services ATP III Classifications) Low <40 mg/dl (major risk factor for CHD) High >60 mg/dl ('negative' risk factor for CHD) LDL Reference Ranges (U.S. Department of Health and Human Services ATP III Classifications) Optimal <100 mg/dL Near Optimal 100-129 mg/dL Borderline High 130-159 mg/dL High 160-189 mg/dL Very High >189 mg/dL LDL is calculated using the NIH LDL-C calculation. Triglycerides 185(H) 0 - 150 mg/dL [facility] HDL Cholesterol 76(H) 40 - 60 mg/dL [facility] VLDL Cholesterol Emmanuel 30 5 - 40 mg/dL [facility] LDL Chol Calc (NIH) 68 0 - 100 mg/dL [facility] Blood 08/29/2024 9:22 AM EDT 08/29/2024 Narrative [facility] [employer] [facility] (AMBULATORY) - 09/03/2024 3:08 AM EDT Performed at: [address] [place] [id number] Lost And Found Clerk: Trung Kwon MD, Phone: [phone] Patient Fasting: Y Angie Hansen APRN LAB BLOOD ORDERABLES Final R esult [facility] (AMBULATORY) [address] [place] [address], [facility] [address] [place] [address], [place] [phone] * CT Chest Low Dose Follow Up Without Contrast (02/02/2024 10:53 AM EDT) Anatomical Region Laterality Modality Chest N/A Computed Tomogra phy 02/04/2024 11:3 0 AM EDT Impressions 02/04/2024 3:10 PM EDT Impression: No new or enlarging pulmonary nodule. Recommendation: Continue annual screening with LDCT. Lung Rads Assessment: Lung-RADS L2 - Benign appearance or <1% chance of malignancy. Electronically Signed: Kade Benoit MD 02/04/2024 3:10 PM EDT Workstation ID: [id number] Narrative 02/04/2024 3:[address] CHEST LOW DOSE FOLLOW UP WITHOUT CONTRAST Date of Exam: 02/02/2024 10:47 AM EDT Indication: screening lung. Comparison: Imported/outside chest CT dated 05/04/2022. Technique: CT imaging of the chest was performed without intravenous contrast enhancement. Automated exposure control and iterative reconstruction methods were used. Findings: No new or enlarging pulmonary nodule. Couple punctate pulmonary nodules are unchanged (for example unchanged 3 mm nodule in the right apex (axial image 19). Similar left greater than right biapical scarring and paraseptal emphysematous change. Benign calcified granuloma in the left upper lobe. Ola-hwph-jcct area of groundglass attenuation in the right lower lobe, slightly increased compared to prior exam and probably related to chronic change/scarring. No pleural effusion or pneumothorax. Central airways are patent. Nonaneurysmal thoracic aorta. Mild coronary artery calcifications. No pericardial effusion. Calcified mediastinal nodes consistent with healed granulomatous disease. Bilateral renal cysts partially included within the [id number]-[id number] and not completely assessed on this exam. No significant soft tissue abnormality. Degenerative changes of the thoracic spine. No acute or suspicious osseous lesions. Procedure Note Kade Benoit MD - 02/04/2024 CT CHEST LOW DOSE FOLLOW UP WITHOUT CONTRAST Date of Exam: 02/02/2024 10:47 AM EDT Indication: screening lung. Comparison: Imported/outside chest CT dated 05/04/2022. Technique: CT imaging of the chest was performed without intravenouscontrast enhancement. Automated exposure control and iterativereconstruction methods were used. Findings: No new or enlarging pulmonary nodule. Couple punctate pulmonary nodulesare unchanged (for example unchanged 3 mm nodule in the right apex (axialimage 19). Similar left greater than right biapical scarring andparaseptal emphysematous change. Benign calcified granuloma in the left upper lobe. Var-jxjz-stvc area ofgroundglass attenuation in the right lower lobe, slightly increasedcompared to prior exam and probably related to chronic change/scarring. Nopleural effusion or pneumothorax. Central airways are patent. Nonaneurysmal thoracic aorta. Mild coronary artery calcifications. Nopericardial effusion. Calcified mediastinal nodes consistent with healedgranulomatous disease. Bilateral renal cysts partially included within zrpwjlwn-ic-vnsu and not completely assessed on this exam. No significant soft tissue abnormality.Degenerative changes of the thoracic spine. No acute or suspicious osseouslesions. IMPRESSION: Impression: No new or enlarging pulmonary nodule. Recommendation: Continue annual screening with LDCT. Lung Rads Assessment: Lung-RADS L2 - Benign appearance or <1% chance of malignancy. Electronically Signed: Kade Benoit MD 02/04/2024 3:10 PM EDT Workstation ID: [id number] Angie Hansen APRN IMG CT ORDERABLES Final Resu lt * SCANNED - COLONOSCOPY (07/07/2023) Angie Hansen APRN CHART REVIEW TABS Final R esult from Last 3 Months or Most Recently Relevant to Health Maintenance [place] [address] [place] [address] [employer] PPO Care Teams Felt Coverer Relationship Specialty Start Date End Date Angie Hansen APRN PCP - General Nurse Practitioner 07/24/22
--- OUTSIDE RECORDS SUMMARY | 2025-01-29 08:40 | XMS_ITS | Encounter Summary ---
Author Organization [facility] Address [address] [place] [id number] Care Team Providers Care Obgyn Hospitalist Physician Name Role Phone Angie Hansen APRN Primary Care Provider Encounter Details Date Type Department Care Team (Late st Contact Info) Description 09/05/2024 Results Follow-Up [facility] [address] [facility] [place] [address] Angie Hansen APRN [address] [facility] [place] [address] Social History Tobacco Use Types Packs/Day Years Used Date Smoking Tobacco: Every Day Cigarettes 0.3 47 Passive Smoke Exposure: Current Smokeless Tobacco: Never [...] Description 02/22/2025 11:30 AM EDT Office Visit [facility] [address] [place] [address] Carissa Pena APRN [address] [place] [address] 04/06/2025 8:15 AM EDT Office Visit [facility] [address] [place] [phone] Angie Hansen APRN [address] [place] [address] documented as of this encounter Visit Diagnoses Not on filedocumented in this encounter Care Teams Obgyn Hospitalist Physician Relationship Specialty Start Date End Date Angie Hansen APRN PCP - General Nurse Practitioner 07/24/22 documented as of this encounter
[2025-01-29 08:57] VITALS: BP 136/83; PULSE 62; RESP 14; O2SAT 96; BMI 28.3
--- NOTE | 2025-01-29 09:46 | EXP.PAIN.SOA ---
[facility] Disclaimer: The information contained in this section may have been updated after the patient was seen, as this information can be updated by other users. Medical History (Updated 01/29/25 @ 09:48 by Jacquelin Jacobson APRN) Diabetes mellitus, type 2 Hyperlipidemia Atrial fibrillation Surgical History H/O abdominal surgery History of cholecystectomy Family History Other Cancer of kidney Family history of COPD (chronic obstructive pulmonary disease) Lung cancer Social History Smoking Status: Current every day smoker tobacco type: cigarettes packs per day: 1 alcohol intake: never substance use type: denies use current occupational status: other Travel in the last 8 weeks?: None household members: spouse housing: house current occupational exposures/hazards: No caffeine: Yes PM Subjective & Objective Subjective Subjective:: Patient is a pleasant 64-year-old male who presents today for medication refill and follow-up. Today he rates his pain a 7 out of 10. He denies any new falls or injuries. He states most of his pain is all in his hands and knees but that it does wake him up in the middle of the night. He feels like the medication he is on does help however he is asking whether or not there is a possibility of making some adjustment. Patient is currently managed with [place] 10 mg 3 times a day and methocarbamol 750 mg 3 times a day. He denies any side effects. His Thang has been reviewed and is appropriate. Review of Systems: General: No recent weight changes, no fever, no sleep disturbances Respiratory: No cough, no shortness of air, no recurring pulmonary infections Cardiovascular/peripheral vascular: No chest pain, no palpitations, no edema, no shortness of breath Gastrointestinal: No new onset incontinence, normal bowel movements reported Genitourinary: No new onset incontinence Musculoskeletal: Bilateral knee pain, hand pain Psychiatric: [Normal mood/affect] Neurological: [Denies weakness in extremities], [denies balance issues] Pain at rest (0-10 scale): 7 Objective Objective:: Physical Exam: General: Alert and oriented x3, no acute distress, pleasant and cooperative Lungs: Respirations even and unlabored, symmetrical chest expansion Eyes: PERRL Musculoskeletal: Flexion and extension of lumbar [spine] somewhat guarded secondary to pain, [antalgic gait noted] Neurological: Speech clear, no gross sensory deficit Has patient had previous pain injection?: No Conservative treatment options previously tried: Prescription medications Length of treatment: Longer than 12-week Meds Home Medications and Allergies Home Medications ?Medication ?Instructions ?Recorded ?Confirmed ?Type aspirin 81 mg tablet,delayed 81 mg PO DAILY heart health 06/06/20 01/29/25 History release celecoxib 200 mg capsule 200 mg PO DAILY Pain 06/06/20 01/29/25 History gabapentin 100 mg capsule 100 mg PO DAILY nerve pain 06/06/20 01/29/25 History ranitidine HCl 150 mg tablet 150 mg PO DAILY GERD 06/06/20 01/29/25 History sildenafil (pulm.hypertension) 20 20 mg PO DAILY erectile dysfunction 06/06/20 01/29/25 History mg tablet diclofenac sodium 75 mg 75 mg PO TID Pain 10/02/21 01/29/25 History tablet,delayed release famotidine 20 mg tablet 20 mg PO TID . #90 tabs 10/02/21 01/29/25 Rx ibuprofen 800 mg tablet 800 mg PO TID Pain #90 tabs 10/02/21 01/29/25 Rx apixaban 5 mg tablet 5 mg PO DAILY Blood thinner 01/29/22 01/29/25 History metoprolol tartrate 100 mg tablet 100 mg PO BID BLOOD PRESSURE 01/29/22 01/29/25 History rosuvastatin 5 mg tablet 5 mg PO HS Cholesterol 01/29/22 01/29/25 History cyclobenzaprine 10 mg tablet 10 mg PO TID . #90 tabs 03/26/22 01/29/25 Rx bupropion HCl 150 mg 24 hr tablet, 150 mg PO DAILY 07/03/24 01/29/25 History extended release methocarbamol 750 mg tablet 750 mg PO TID Pain #90 tabs 11/30/24 01/29/25 Rx hydrocodone 10 mg-acetaminophen 1 tab PO TID #90 tabs 12/28/24 01/29/25 Rx 325 mg tablet New Prescriptions to Start Prescriptions: Allergies Allergy/AdvReac Type Severity Reaction Status Date / Time No Known Drug Allergies Allergy Verified 05/08/22 10:10 Assessment and Plan *Assessment and plan (1) Lumbar radiculopathy: Status: Chronic Category: Medical Code(s): M54.16 - Radiculopathy, lumbar region (2) Low back pain: Status: Chronic Qualifiers: Chronicity: chronic Back pain laterality: bilateral Sciatica presence: unspecified whether sciatica present Qualified Code(s): M54.50 - Low back pain, unspecified; G89.29 - Other chronic pain Category: Medical Code(s): M54.50 - Low back pain, unspecified (3) Generalized joint pain: Status: Acute Category: Medical Code(s): M25.50 - Pain in unspecified joint (4) Bilateral knee pain: Status: Acute Category: Medical Code(s): M25.561 - Pain in right knee; M25.562 - Pain in left knee Plan We did discuss due to his chronic knee pain that he may benefit from infrapatellar nerve blocks. Patient states that he has had intra-articular in the past and they just did not seem to work as well. Patient was counseled to let us know if he would like to proceed forward with these interventions down the road. I will change his methocarbamol to 1000 mg 3 times daily and refill his [place] leaving it at the same dosage. Patient will return to clinic in 1 month for reevaluation of symptoms and plan of care. Risks and benefits of the medication have been explained in detail to the patient. The patient does understand the risk of dependence on the medication when given over a prolonged period. Patient has been advised of risks of oversedation with the prescribed medication. Narcan has been offered to the paitent in the event of oversedation. Patient has been advised that a family member should also be educated regarding administration of Narcan. The patient has been advised to consult with his/her primary care provider and pharmacist regarding drug-drug interaction of medications currently prescribed. Patient has been prescribed a controlled substance after being counseled on the medication, medication safety, and possible side effects. Opioid contract was reviewed and signed by the patient, and that they have agreed to all of the terms set forth by our compliance program. A UDS is needed to verify patient's compliance with our office pain contract. This is ordered based off specific treatments related to chronic pain with the potential to abuse certain medications. Patient has been instructed to contact the clinic with any concerns before the next appointment. Dr. Wright has reviewed this note and agrees with this plan of care. This note was dictated using voice recognition software and make contain errors or omissions.
== END 2025-01-29 23:59 | disposition home or self-care (01) ==
PROVIDERS: Visit Provider Nurse Practitioner Family
DX: M54.16 Radiculopathy, lumbar region (principal); M25.561 Pain in right knee; M25.562 Pain in left knee; Z79.891 Long term (current) use of opiate analgesic; Z79.899 Other long term (current) drug therapy
CPT/HCPCS: 99212; G0463